=== PATIENT | female | born 1950 | race Caucasian/White ===

== ENCOUNTER 2020-05-28 02:49 | Inpatient (IN) | payer MEDICARE, MEDICAID ==
[2020-05-28] MEDS ORDERED: LORazepam 2 MG/ML INJ IV STA (03:19)
[2020-05-28 03:46] LABS: Basophils # (A) 0.1 k/uL (0-0.2); Basophils % (A) 1 %; Eosinophils % (A) 1 %; HCT 42.1 % (34.0-46.0); HGB 14.2 gm/dL (11.4-16.0); Lymphocytes # (A) 1.3 k/uL (1.0-4.8); Lymphocytes % (A) 22 %; MCH 32.2 pg (25.0-35.0); MCHC 33.7 g/dL (31.0-37.0); MCV 95.6 fL (80.0-100.0); Mean Platelet Volume 8.2; Monocytes # (A) 0.4 k/uL (0-1.0); Monocytes % (A) 6 %; Neutrophils # (A) 4.1 k/uL (1.3-7.7); Neutrophils % (A) 69 %; Platelet Count 231 k/uL (150-450); RDW 12.7 % (11.5-15.5)
[2020-05-28 03:53] LABS: Appearance,Urine Cloudy (Clear); Bilirubin,Urine Negative (Negative); Blood,Urine Negative (Negative); Color,Urine Yellow; Glucose,Urine (UA) Negative (Negative); Ketones,Urine 2+ (Negative); Leukocyte Esterase,Urine Trace (Negative); Mucus,Urine Many /hpf; Nitrite,Urine Negative (Negative); PH, Urine 5.5 (5.0-8.0); Protein,Urine 1+ (Negative); RBC,Urine 12 /hpf (0-5); Specific Gravity,Urine 1.032 (1.001-1.035); Squamous Epithelial Cell,Urine 15 /hpf (0-4); WBC,Urine 4 /hpf (0-5)
[2020-05-28 03:55] LABS: ALT 21 U/L (4-34); AST 21 U/L (14-36); Acetaminophen <10.0 ug/mL; African American GFR (CKD) >90 (>60 ml/min/1.73 sqM); Albumin 4.8 g/dL (3.5-5.0); Alkaline Phosphatase 63 U/L (38-126); Anion Gap 9 mmol/L; Blood Urea Nitrogen 17 mg/dL (7-17); Calcium 9.9 mg/dL (8.4-10.2); Carbon Dioxide 23 mmol/L (22-30); Chloride 105 mmol/L (98-107); Glucose 150 mg/dL (74-99); Non-African American GFR(CKD) >90 (>60 ml/min/1.73 sqM); Potassium 4.1 mmol/L (3.5-5.1); Salicylate <1.0 mg/dL; Sodium 137 mmol/L (137-145); Total Bilirubin 0.7 mg/dL (0.2-1.3); Total Protein 7.6 g/dL (6.3-8.2)
[2020-05-28 03:59] LABS: Amphetamine Screen,Urine Not Detected (NotDetected); Barbiturate Screen,Urine Not Detected (NotDetected); Benzodiazepines Screen,Urine Not Detected (NotDetected); Cocaine Screen,Urine Not Detected (NotDetected); Methadone Screen, Urine Not Detected (NotDetected); Opiate Screen,Urine Not Detected (NotDetected); Oxycodone Screen, Urine Not Detected (NotDetected); Phencyclidine Screen,Urine Not Detected (NotDetected); Tricyclic Antidepressant,Urine Not Detected (NotDetected); Urn Cannabinoid Scrn Detected (NotDetected)
--- NOTE | 2020-05-28 04:38 | ED ---
Psych HPI - General Chief Complaint: Psychiatric Symptoms Stated Complaint: Mental health Time Seen by Provider: 05/28/20 02:56 Source: patient, police Mode of arrival: ambulatory - History of Present Illness Initial Comments: Maria R is a 70-year-old female who is brought to the ER today via police for psychiatric evaluation. Apparently the patient lives in an apartment across her from [place], she was knocking on the dorsum the police station stating that she needed help. Patient is very clearly acutely psychotic and manic. She is hyperverbal with rambling nonsensical speech, she cannot provide any meaningful history. In fact she cannot provide any printed identification she stated her name and date of but also stated that she had been in this hospital mu ltiple times and this name and date of were not associated with the medical record. - Related Data Allergies Allergy/AdvReac Type Severity Reaction Status Date / Time No Known Allergies Allergy Verified 05/28/20 03:06 Review of Systems ROS Statement: Those systems with pertinent positive or pertinent negative responses have been documented in the HPI. ROS Other: All systems not noted in ROS Statement are negative. Past Medical History Past Medical History: No Reported History History of Any Multi-Drug Resistant Organisms: None Reported Past Surgical History: Tonsillectomy Past Psychological History: Anxiety, Depression Smoking Status: Never smoker Past Alcohol Use History: None Reported Past Drug Use History: None Reported General Exam - General Exam Comments Initial Comments: Physical Exam GENERAL: Patient is well-developed and well-nourished HENT: Normocephalic, Atraumatic. EYES: PERRL, EOMI PULMONARY: Unlabored respirations. CARDIOVASCULAR: RRR Warm and well perfused extremities ABDOMEN: Non-distended SKIN: No rashes or bruising : Deferred NEUROLOGIC: Unable to assess alert and oriented status as the patient is psychotic with rambling speech does not answer questions appropriately not even certain she's provided inaccurate identity MUSCULOSKELETAL: Moving all extremities with no apparent injury PSYCHIATRIC: Acutely psychotic with rambling speech Limitations: no limitations Course Vital Signs 05/28/20 02:58 Temperature 98.9 F Pulse Rate 114 H Respiratory 20 Rate Blood Pressure 149/74 O2 Sat by Pulse 98 Oximetry Medical Decision Making - Medical Decision Making The patient was seen and evaluated, history is obtained from police, attempted to obtain patient history however she has rambling speech she is acutely psychotic there is no meaningful history obtained from the patient. She is in no acute distress. Medically cleared for evaluation by EPS and was evaluated by the EPS nurse who agrees with plan for admission requests a clinical certification be completed Clinical circumflex was completed To be transferred to inpatient psychiatric care for acute psychosis - Lab Data Result diagrams: 05/28/20 03:29 05/28/20 03:29 Lab Results 05/28/20 05/28/20 05/28/20 Range/Units 03:29 03:29 03:29 WBC 6.0 (3.8-10.6) k/uL RBC 4.40 (3.80-5.40) m/uL Hgb 14.2 (11.4-16.0) gm/dL Hct 42.1 (34.0-46.0) % MCV 95.6 (80.0-100.0) fL MCH 32.2 (25.0-35.0) pg MCHC 33.7 (31.0-37.0) g/dL RDW 12.7 (11.5-15.5) % Plt Count 231 (150-450) k/uL Neutrophils % 69 % Lymphocytes % 22 % Monocytes % 6 % Eosinophils % 1 % Basophils % 1 % Neutrophils # 4.1 (1.3-7.7) k/uL Lymphocytes # 1.3 (1.0-4.8) k/uL Monocytes # 0.4 (0-1.0) k/uL Eosinophils # 0.0 (0-0.7) k/uL Basophils # 0.1 (0-0.2) k/uL Sodium 137 (137-145) mmol/L Potassium 4.1 (3.5-5.1) mmol/L Chloride 105 (98-107) mmol/L Carbon Dioxide 23 (22-30) mmol/L Anion Gap 9 mmol/L BUN 17 (7-17) mg/dL Creatinine 0.55 (0.52-1.04) mg/dL Est GFR (CKD-EPI)AfAm >90 (>60 ml/min/1.73 sqM) Est GFR (CKD-EPI)NonAf >90 (>60 ml/min/1.73 sqM) Glucose 150 H (74-99) mg/dL Calcium 9.9 (8.4-10.2) mg/dL Total Bilirubin 0.7 (0.2-1.3) mg/dL AST 21 (14-36) U/L ALT 21 (4-34) U/L Alkaline Phosphatase 63 (38-126) U/L Total Protein 7.6 (6.3-8.2) g/dL Albumin 4.8 (3.5-5.0) g/dL TSH 2.000 (0.465-4.680) mIU/L Urine Color Yellow Urine Appearance Cloudy H (Clear) Urine pH 5.5 (5.0-8.0) Ur Specific [place] 1.032 (1.001-1.035) Urine Protein 1+ H (Negative) Urine Glucose (UA) Negative (Negative) Urine Ketones 2+ H (Negative) Urine Blood Negative (Negative) Urine Nitrite Negative (Negative) Urine Bilirubin Negative (Negative) Urine Urobilinogen 3.0 (<2.0) mg/dL Ur Leukocyte Esterase Trace H (Negative) Urine RBC 12 H (0-5) /hpf Urine WBC 4 (0-5) /hpf Ur Squamous Epith Cells 15 H (0-4) /hpf Urine Mucus Many H (None) /hpf Salicylates <1.0 mg/dL Urine Opiates Screen Not Detected (NotDetected) Ur Oxycodone Screen Not Detected (NotDetected) Urine Methadone Screen Not Detected (NotDetected) Ur Propoxyphene Screen Not Detected (NotDetected) Acetaminophen <10.0 ug/mL Ur Barbiturates Screen Not Detected (NotDetected) U Tricyclic Antidepress Not Detected (NotDetected) Ur Phencyclidine Scrn Not Detected (NotDetected) Ur Amphetamines Screen Not Detected (NotDetected) U Methamphetamines Scrn Not Detected (NotDetected) U Benzodiazepines Scrn Not Detected (NotDetected) Urine Cocaine Screen Not Detected (NotDetected) U Marijuana (THC) Screen Detected H (NotDetected) Disposition Clinical Impression: Acute psychosis Disposition: TRANSFER TO PSYCH HOSP/UNIT Condition: Serious Referrals: Mitul Mahan MD [Primary Care Provider] - 1-2 days
[2020-05-28] MEDS ORDERED: MAGNESIUM HYDROXIDE 2,400 MG/10 ML CUP PO PRN (07:22)
[2020-05-28] MEDS ORDERED: NICOTINE 14MG/24HR PATCH TRANSDERM SCH (09:00)
[2020-05-28] MEDS: LORazepam 1 MG TAB PO PRN (09:30)
--- NOTE | 2020-05-28 12:02 | P.HP ---
Psychiatric H&P - . H&P Date: 05/28/20 History & Physical: Allergies Allergy/AdvReac Type Severity Reaction Status Date / Time No Known Allergies Allergy Verified 05/28/20 03:06 Vital Signs Temp 97.6 F 05/28/20 09:50 Pulse 93 05/28/20 09:50 Resp 16 05/28/20 09:50 BP 174/59 05/28/20 09:50 Pulse Ox 100 05/28/20 09:50 Intake & Output 05/27/20 05/28/20 05/28/20 18:59 06:59 18:59 Weight 61.054 kg 60.555 kg Laboratory Last Values WBC 6.0 k/uL (3.8-10.6) 05/28/20 03:29 RBC 4.40 m/uL (3.80-5.40) 05/28/20 03:29 Hgb 14.2 gm/dL (11.4-16.0) 05/28/20 03:29 Hct 42.1 % (34.0-46.0) 05/28/20 03:29 MCV 95.6 fL (80.0-100.0) 05/28/20 03:29 MCH 32.2 pg (25.0-35.0) 05/28/20 03:29 MCHC 33.7 g/dL (31.0-37.0) 05/28/20 03:29 RDW 12.7 % (11.5-15.5) 05/28/20 03:29 Plt Count 231 k/uL (150-450) 05/28/20 03:29 Neutrophils % 69 % 05/28/20 03:29 Lymphocytes % 22 % 05/28/20 03:29 Monocytes % 6 % 05/28/20 03:29 Eosinophils % 1 % 05/28/20 03:29 Basophils % 1 % 05/28/20 03:29 Neutrophils # 4.1 k/uL (1.3-7.7) 05/28/20 03:29 Lymphocytes # 1.3 k/uL (1.0-4.8) 05/28/20 03:29 Monocytes # 0.4 k/uL (0-1.0) 05/28/20 03:29 Eosinophils # 0.0 k/uL (0-0.7) 05/28/20 03:29 Basophils # 0.1 k/uL (0-0.2) 05/28/20 03:29 Sodium 137 mmol/L (137-145) 05/28/20 03:29 Potassium 4.1 mmol/L (3.5-5.1) 05/28/20 03:29 Chloride 105 mmol/L (98-107) 05/28/20 03:29 Carbon Dioxide 23 mmol/L (22-30) 05/28/20 03:29 Anion Gap 9 mmol/L 05/28/20 03:29 BUN 17 mg/dL (7-17) 05/28/20 03:29 Creatinine 0.55 mg/dL (0.52-1.04) 05/28/20 03:29 Est GFR (CKD-EPI)AfAm >90 (>60 ml/min/1.73 sqM) 05/28/20 03:29 Est GFR (CKD-EPI)NonAf >90 (>60 ml/min/1.73 sqM) 05/28/20 03:29 Glucose 150 mg/dL (74-99) H 05/28/20 03:29 Calcium 9.9 mg/dL (8.4-10.2) 05/28/20 03:29 Total Bilirubin 0.7 mg/dL (0.2-1.3) 05/28/20 03:29 AST 21 U/L (14-36) 05/28/20 03:29 ALT 21 U/L (4-34) 05/28/20 03:29 Alkaline Phosphatase 63 U/L (38-126) 05/28/20 03:29 Total Protein 7.6 g/dL (6.3-8.2) 05/28/20 03:29 Albumin 4.8 g/dL (3.5-5.0) 05/28/20 03:29 TSH 2.000 mIU/L (0.465-4.680) 05/28/20 03:29 Urine Color Yellow 05/28/20 03:29 Urine Appearance Cloudy (Clear) H 05/28/20 03:29 Urine pH 5.5 (5.0-8.0) 05/28/20 03:29 Ur Specific [place] 1.032 (1.001-1.035) 05/28/20 03:29 Urine Protein 1+ (Negative) H 05/28/20 03:29 Urine Glucose (UA) Negative (Negative) 05/28/20 03:29 Urine Ketones 2+ (Negative) H 05/28/20 03:29 Urine Blood Negative (Negative) 05/28/20 03:29 Urine Nitrite Negative (Negative) 05/28/20 03:29 Urine Bilirubin Negative (Negative) 05/28/20 03:29 Urine Urobilinogen 3.0 mg/dL (<2.0) 05/28/20 03:29 Ur Leukocyte Esterase Trace (Negative) H 05/28/20 03:29 Urine RBC 12 /hpf (0-5) H 05/28/20 03:29 Urine WBC 4 /hpf (0-5) 05/28/20 03:29 Ur Squamous Epith Cells 15 /hpf (0-4) H 05/28/20 03:29 Urine Mucus Many /hpf (None) H 05/28/20 03:29 Salicylates <1.0 mg/dL 05/28/20 03:29 Urine Opiates Screen Not Detected (NotDetected) 05/28/20 03:29 Ur Oxycodone Screen Not Detected (NotDetected) 05/28/20 03:29 Urine Methadone Screen Not Detected (NotDetected) 05/28/20 03:29 Ur Propoxyphene Screen Not Detected (NotDetected) 05/28/20 03:29 Acetaminophen <10.0 ug/mL 05/28/20 03:29 Ur Barbiturates Screen Not Detected (NotDetected) 05/28/20 03:29 U Tricyclic Antidepress Not Detected (NotDetected) 05/28/20 03:29 Ur Phencyclidine Scrn Not Detected (NotDetected) 05/28/20 03:29 Ur Amphetamines Screen Not Detected (NotDetected) 05/28/20 03:29 U Methamphetamines Scrn Not Detected (NotDetected) 05/28/20 03:29 U Benzodiazepines Scrn Not Detected (NotDetected) 05/28/20 03:29 Urine Cocaine Screen Not Detected (NotDetected) 05/28/20 03:29 U Marijuana (THC) Screen Detected (NotDetected) H 05/28/20 03:29 05/28/20 11:58 IDENTIFYING DATA: Patient is a 70-year-old female who presented with psychosis. HPI: Patient presented to the hospital on 05/28/2020 brought in by police after she was knocking on the door of the police station stating that she needed help. Patient has been observed to be very acutely psychotic and manic. She was noted to be hyperverbal, rambling, with nonsensical speech. She was a poor historian. She was unable to present any identification. While on the unit, th e patient was observed to display manic behaviors including pressured speech, distractibility, impulsivity, and intrusiveness. She was given a one-time dose of Ativan. Currently she is too somnolent to engage in the interview after multiple attempts by this provider. She refuses to get out of bed.. PAST PSYCHIATRIC HISTORY: Unable to obtain by the patient as she is too somnolent to engage in a psychiatric interview. PMH:denies ALLERGIES: as per EMR CHEMICAL DEPENDENCY HISTORY: Unable to obtain by the patient as she is too somnolent to engage in a psychiatric interview. Urinary drug screen was positive for marijuana. FAMILY PSYCHIATRIC/SUBSTANCE USE HISTORY: Unable to obtain by the patient as she is too somnolent to engage in a psychiatric interview. SOCIAL HISTORY: Unable to obtain. MENTAL STATUS EXAM: General Appearance: Patient appears his stated age, is currently resting in bed with her face towards the pillow. She appears in no acute distress and was breathing normally. Behavior: Patient is lying in bed in no acute distress. Speech: Patient has been noted by staff to be pressured. Mood/Affect: Unable to assess Suicidality/Homicidality: Unable to assess Perceptions: Unable to assess Though content/process: She has been noted by staff to display flight of ideas. Memory and concentration: Unable to assess Judgment and insight: poor STRENGTHS/WEAKNESSES: Unable to assess INTELLECT: average IMPRESSIONS: Psychosis, unspecified PLAN: -Patient is admitted under involuntary status to [facility] for stabilization of psychiatric symptoms and safety. A second certification was completed and along with petition will be filed for court. -Medications : We will defer on starting a new medication until we conduct a thorough psychiatric interview when patient is more appropriate. -Ativan and Geodon PRN for agitation/aggression -Internal Medicine consult to perform medical evaluation and physical. -SW on board for discharge planning. Encourage patient to participate in groups to work on coping skills.
[2020-05-29] MEDS: LORazepam 1 MG TAB PO PRN (01:40)
[2020-05-29 07:59] LABS: Albumin 4.4 g/dL (3.5-5.0); Bilirubin, Delta 0.2 mg/dL (0.0-0.2); Bilirubin,Unconjugated 0.6 mg/dL (0.0-1.1); Total Bilirubin 0.8 mg/dL (0.2-1.3); Total Protein 7.1 g/dL (6.3-8.2)
[2020-05-29] MEDS: LORazepam 2 MG/ML INJ IM PRN (09:16)
--- NOTE | 2020-05-29 12:08 | P.PN ---
Progress Note - Text Progress Note Date: 05/29/20 Interval History: Patient was seen sitting in on group today doing activities with other patients and was initially resistant to speak with telegraphic typewriter operator as she was questioning telegraphic typewriter operator's credentials. Patient was eventually directable and agreeable to speak with telegraphic typewriter operator in the office. Patient was noted to be hyperverbal and has a racing thought and flight of ideas. She was intrusive at times and yelled at telegraphic typewriter operator about her medications. Patient appeared to have poor insight and judgment and was impulsive. Patient had poor attention span during conversation. She is not able to elaborate on why she came into the hospital and what her exact concerns are. She referred to her brother several times "Paolo" to defer the treatment to him. She was also preoccupied with her card cutter helper will be to speak with her. Patient did exhibit some paranoia. She states that she also had difficulties with sleep last night. At this time patient denies any suicidal or homical ideations, intent or plan. Patient denies any auditory, visual hallucinations. Mental Status Exam: General Appearance: Patient appears to be thin, tall stated age is alert, difficult to redirect and hostile at times. Poor hygiene and grooming. Behavior: Patient is calmly seated without any agitated behavior. Hostile and difficult to redirect. Speech: Patient's speech is fluent and nonpressured. Mood/Affect: Mood is "up", affect is congruent and irritable at times. Suicidality/Homicidality: Patient denies having any suicidal or homicidal ideation intent or plan. Perceptions: Patient denies any visual hallucinations and denies any auditory hallucinations Though content/process: Patient is endorsing paranoia, rambles at times is tangential. Illogical at times. Memory and concentration: AOX3, grossly intact for the purposes of this session Judgment and insight: Poor, Improving mildly Assessment Bipolar disorder, current episode manic, severe Cannabis use disorder Plan: -Patient continues to meet criteria for inpatient psychiatric admission for symptom stabilization and safety. Patient has signed adult voluntary form and medication consent and was placed in patient's chart. Patient's deferral date is set for today and full court hearing set for 05/31/2020. -Medications: Patient claims that she'll be agreeable to take Seroquel 25 mg daily +50 mg daily at bedtime for mood stabilization/insomnia. -When necessary Ativan and Geodon for agitation/aggression. -NRT -not needed as patient does not smoke. -SW on board for discharge planning. Encouraged the patient to participate in milieu. Will await on deferral today.
[2020-05-29] MEDS: QUEtiapine 25 MG TAB PO SCH (12:27)
[2020-05-29 14:41] LABS: Hemoglobin A1C 5.6 % (4.0-6.0)
--- NOTE | 2020-05-29 14:44 | P.CONS ---
History of Present Illness - Reason for Consult Altered mental status - History of Present Illness 70-year-old female admitted for bipolar and jair. Patient they didn't let me examine her she wants to see only her primary doctor patient appears to be manic. Patient doesn't have any fever chills patient doesn't have any evidence of infection. Patient was asking me whether that was admitted physician or not. Patient drug screen is positive for marijuana patient was bit tachycardic secondary to her jair Review of Systems Unable to obtain due to her clinical condition as mentioned above Past Medical History Past Medical History: No Reported History History of Any Multi-Drug Resistant Organisms: None Reported Past Surgical History: Tonsillectomy Past Psychological History: Anxiety, Depression Smoking Status: Never smoker Past Alcohol Use History: None Reported Past Drug Use History: None Reported Medications and Allergies Allergies Allergy/AdvReac Type Severity Reaction Status Date / Time No Known Allergies Allergy Verified 05/28/20 03:06 Physical Exam Vitals: Vital Signs Temp Pulse Resp BP 05/29/20 06:30 98.5 F 92 16 107/66 Unable to assess his patient doesn't admit to examine her. Results CBC & Chem 7: 05/28/20 03:29 05/28/20 03:29 Labs: Abnormal Lab Results - Last 24 Hours (Table) 05/29/20 Range/Units 07:16 LDL Cholesterol, Calc 105 H (0-99) mg/dL Assessment and Plan Plan: Altered mental status: Secondary to probably jair and acute psychosis management as per primary service there is no evidence of infection at this time . All the left lesser within normal limits no leukocytosis and no fever -Mild sinus tachycardia: Secondary to jair. We will sign off at this time because back if needed
[2020-05-29] MEDS: ZIPRASIDONE 20 MG VIAL IM PRN (17:15)
[2020-05-29] MEDS: QUEtiapine 50 MG TAB PO SCH (22:44)
[2020-05-30] MEDS: QUEtiapine 25 MG TAB PO SCH (07:47)
--- NOTE | 2020-05-30 11:17 | P.PN ---
Progress Note - Text Progress Note Date: 05/30/20 Interval History: Patient was seen wandering the hallways todayspeaking to herself. Patient jaimie eared to be responding to internal stimuli and appeared to be intrusive and impulsive. She was noted to be yelling at another patient on the unit trying to pick a fight with her. Patient was also noted to be pacing in the hallway. When approached by teletypewriter operator patient appeared to have disheveled appearance today and refused to speak with teletypewriter operator and kept on walking down the hallway talking to herself. Mental Status Exam: General Appearance: Patient appears to be thin, tall stated age is alert, difficult to redirect and hostile. Poor hygiene and grooming. Behavior: Patient is calmly seated without any agitated behavior. Hostile. responding to internal stimuli Speech: Patient's speech is fluent and nonpressured. Mood/Affect: unable to be assessed today. Suicidality/Homicidality: unable to be assessed today. Perceptions: appears to be responding to internal stimuli. Though content/process: rambles at times is tangential. Illogical at times. Memory and concentration: unable to be assessed today Judgment and insight: Poor/impulsive Assessment Bipolar disorder, current episode manic, severe Cannabis use disorder Plan: -Patient continues to meet criteria for inpatient psychiatric admission for symptom stabilization and safety. Patient has signed adult voluntary form and medication consent and was placed in patient's chart. Patient did not differ Court and full court hearing set for 05/31/2020. -Medications: continue with Seroquel 25 mg daily +50 mg daily at bedtime for mood stabilization/insomnia. -When necessary Ativan and Geodon for agitation/aggression. -NRT -not needed as patient does not smoke. -SW on board for discharge planning. Encouraged the patient to participate in milieu. Will await on full court hearing tomorrow. a third certificate was completed and will be filed today.
[2020-05-30] MEDS: LORazepam 1 MG TAB PO PRN ×2 (15:37→23:00)
[2020-05-30] MEDS ORDERED: ZIPRASIDONE 20 MG VIAL IM ONE (16:25)
[2020-05-30] MEDS ORDERED: WATER FOR INJECTION, STERILE 10 ML IV ONE (16:26)
[2020-05-30] MEDS: ZIPRASIDONE 20 MG VIAL IM PRN ×2 (16:28→23:41)
[2020-05-30] MEDS: QUEtiapine 50 MG TAB PO SCH ×2 (22:06→23:00)
[2020-05-31] MEDS: QUEtiapine 25 MG TAB PO SCH (09:16)
--- NOTE | 2020-05-31 11:19 | P.PN ---
Progress Note - Text Progress Note Date: 05/31/20 Interval History: Patient was seen wandering the hallways today once again speaking to herself. Patient appeared to be responding to internal stimuli and appeared to be intrusive and impulsive. she was speaking bizarrely to another patient in the lounge when approached by property underwriter. Patient looked property underwriter and asked what his credentials were and states that "I'm not taking her medicineleave me alone and I have the right not to talk to you". Patient continued to ramble onas she walked away from property underwriter and refused to speak with him in the office. patient has not been taking her medications. Mental Status Exam: General Appearance: Patient appears to be thin, tall stated age is alert, difficult to redirect and hostile. Poor hygiene and grooming. Behavior: Patient is calmly seated without any agitated behavior. Hostile. responding to internal stimuli Speech: Patient's speech is fluent and nonpressured. Mood/Affect: unable to be assessed today. Suicidality/Homicidality: unable to be assessed today. Perceptions: appears to be responding to internal stimuli. Though content/process: rambles at times is tangential. Illogical at times. Memory and concentration: unable to be assessed today Judgment and insight: Poor/impulsive Assessment Bipolar disorder, current episode manic, severe Cannabis use disorder Plan: -Patient continues to meet criteria for inpatient psychiatric admission for symptom stabilization and safety. Patient has signed adult voluntary form and medication consent and was placed in patient's chart. Patient did not differ Court and full court hearing set for 06/14/2020. -Medications: continue with Seroquel 25 mg daily +50 mg daily at bedtime for mood stabilization/insomnia.patient is not taking these medications. -When necessary Ativan and Geodon for agitation/aggression. -NRT -not needed as patient does not smoke. -SW on board for discharge planning. Encouraged the patient to participate in milieu. Will await on full court hearing. a third certificate was completed and filed yesterday, currently awaiting amilcar
[2020-05-31] MEDS: ZIPRASIDONE 20 MG VIAL IM PRN (17:45)
[2020-05-31] MEDS: LORazepam 2 MG/ML INJ IM PRN (17:47)
[2020-05-31] MEDS: QUEtiapine 50 MG TAB PO SCH (21:35)
[2020-06-01] MEDS: QUEtiapine 25 MG TAB PO SCH (09:25)
--- NOTE | 2020-06-01 10:30 | P.PN ---
Progress Note - Text Progress Note Date: 06/01/20 Interval History: Patient was seen wandering the hallways today once again speaking to herself and acting bizarre. Patient appeared to be responding to internal stimuli and appeared to be intrusive and impulsive. patient was not following redirection by staff and continue walking down the hallway. Patient was approached by play writer to be interviewed however patient states that "I'm not talking to you I have my own psychiatrist who is better than you". Patient continued to ramble and walk away from play writer. patient has not been taking her medications. Mental Status Exam: General Appearance: Patient appears to be thin, tall stated age is alert, difficult to redirect and hostile. Poor hygiene and grooming. Behavior: Patient is calmly seated without any agitated behavior. Hostile. responding to internal stimuli Speech: Patient's speech is fluent and nonpressured. Mood/Affect: unable to be assessed today. Suicidality/Homicidality: unable to be assessed today. Perceptions: appears to be responding to internal stimuli. Though content/process: rambles at times is tangential. Illogical at times. Memory and concentration: unable to be assessed today Judgment and insight: Poor/impulsive Assessment Bipolar disorder, current episode manic, severe Cannabis use disorder Plan: -Patient continues to meet criteria for inpatient psychiatric admission for symptom stabilization and safety. Patient has signed adult voluntary form and medication consent and was placed in patient's chart. Patient did not differ Court and full court hearing set for 06/14/2020. -Medications: continue with Seroquel 25 mg daily +50 mg daily at bedtime for mood stabilization/insomnia.patient is not taking these medications. -When necessary Ativan and Geodon for agitation/aggression. -NRT -not needed as patient does not smoke. -SW on board for discharge planning. Encouraged the patient to participate in milieu. Will await on full court hearing on 06/14/2020
[2020-06-01] MEDS: LORazepam 2 MG/ML INJ IM PRN (15:59)
[2020-06-01] MEDS: ZIPRASIDONE 20 MG VIAL IM PRN (15:59)
[2020-06-01] MEDS: QUEtiapine 50 MG TAB PO SCH (22:43)
[2020-06-02] MEDS: QUEtiapine 25 MG TAB PO SCH (08:46)
--- NOTE | 2020-06-02 10:41 | P.PN ---
Progress Note - Text Progress Note Date: 06/02/20 Interval History: Patient was seen wandering the hallways today once again near the nurse's desk. Patient had 2 towels wrapped around her and was in her hospital gown. Patient was approached by assembly instructions writer to speak with her today and patient states that "I don't want to talk to you you don't have this place under control". However patient states that the she would speak with assembly instructions writer "in private" however was not directable and agreeable to speak in the office and wanted to speak in the hallway. She proceeded to ramble, was illogical and tangential. She spoke about another patient being a "threat to me". Patient was not able to answer most questions appropriately and was fairly grandiose speaking about her brother being the "head of the [facility] in [place]" and also spoke about calling the governor and the president to help her be released from the hospital. Patient appeared to be mildly less intrusive today and less pressured. She denied any auditory or visual hallucinations today. She denied any suicidal or homicidal ideations intent or plan. Patient states that she took her medications yesterday and this morning. Mental Status Exam: General Appearance: Patient appears to be thin, tall stated age is alert, difficult to redirect, bizarre. Poor hygiene and grooming. Wearing a towel over her head. Behavior: Patient is calmly seated without any agitated behavior. Bizarre and difficult to redirect. Grandiose. Speech: Patient's speech is fluent and nonpressured. Mood/Affect: Patient states that she is "fine" and affect is constricted. Suicidality/Homicidality: Denies any suicidal or homicidal ideations intent or plan. Perceptions: Denies any auditory or visual hallucinations. Though content/process: rambles at times is tangential. Illogical at times. Several loosely formed delusions. Grandiosity. Memory and concentration: unable to be assessed today Judgment and insight: Poor/impulsive, improving mildly Assessment Bipolar disorder, current episode manic, severe Cannabis use disorder Plan: -Patient continues to meet criteria for inpatient psychiatric admission for symptom stabilization and safety. Patient has signed adult voluntary form and medication consent and was placed in patient's chart. Patient did not defer Court and full court hearing set for 06/14/2020. -Medications: Increased Seroquel 50 mg daily +50 mg daily at bedtime for mood stabilization/insomnia. patient began taking the medications yesterday -When necessary Ativan and Geodon for agitation/aggression. -NRT -not needed as patient does not smoke. -JOSÉ MIGUEL on board for discharge planning. Encouraged the patient to participate in milieu. Will await on full court hearing on 06/14/2020
[2020-06-02] MEDS: LORazepam 1 MG TAB PO PRN ×2 (11:04→21:24)
[2020-06-02] MEDS: ACETAMINOPHEN TAB 325 MG TAB PO PRN ×2 (16:05→16:47)
[2020-06-02] MEDS: QUEtiapine 50 MG TAB PO SCH (19:12)
[2020-06-02] MEDS: ZIPRASIDONE 20 MG VIAL IM PRN (21:53)
[2020-06-03] MEDS ORDERED: QUEtiapine 50 MG TAB PO SCH ×2 (09:00→21:00)
[2020-06-03] MEDS: LORazepam 1 MG TAB PO PRN (09:22)
[2020-06-03] MEDS: QUEtiapine 50 MG TAB PO SCH (12:54)
--- NOTE | 2020-06-03 13:53 | PN ---
PROGRESS NOTE DATE OF SERVICE: 06/03/2020 CHIEF COMPLAINT: The patient was manic with psychotic symptoms. She had disorganized speech and behavior. INTERVAL HISTORY: The patient continues to be quite manic. She was out on the unit yesterday. She has an intense manner. She will attend groups, though she can be somewhat disorganized in groups. In one note from the social skills group, she was needing quite a bit of redirection to participate. The note was that she was "minimally redirectable." She wanders about. She will interact with staff. She said she slept fairly well last night. Today she has been up. She continues the same. She attended one group this morning, though it was difficult for her to stay on track. She continues to be quite disorganized in her thoughts. She appears to tolerate her psychotropic medications. MENTAL STATUS: Patient was quite restless. She gave fair eye contact. She responded to questions, though most of the time her thoughts were disjointed and disconnected from questions asked. When I reviewed information from the record, she was quite adamant that most everything that was documented about her situation she said was a lie or false. It is noteworthy that she was spontaneous. She was quite intense and verbose. She talked about any number of subjects. She had pressured speech, flight of ideas and loose association and it was difficult to follow her train of thought. Her mood was somewhat elevated. She did have pressured speech. She was very distressed. She continues to show thought disorder. It is difficult to assess for risk of harm. She was oriented to immediate circumstances. She could not cooperate with formal cognitive testing. ASSESSMENT: I will continue the current diagnosis and treatment plan. We will continue to make efforts to engage the patient in individual and group therapeutic activities. I will increase the patient's Seroquel to 150 mg twice a day to increase her Seroquel to at least a minimally effective dosing for bipolar jair. It is uncleared that she has shown much response to date in this regard. She continues to be quite actively manic. I briefly discussed medications with the patient, though she was not able to follow the conversation in any meaningful way. We will focus on stabilization and discharge plan. MMODL / IJN: [id number] /
[2020-06-04] MEDS: LORazepam 1 MG TAB PO PRN ×2 (00:51→08:55)
[2020-06-04] MEDS: QUEtiapine 50 MG TAB PO SCH (08:54)
[2020-06-04] MEDS: ACETAMINOPHEN TAB 325 MG TAB PO PRN ×2 (11:39→16:42)
--- NOTE | 2020-06-04 16:06 | PN ---
PROGRESS NOTE DATE OF SERVICE: 06/04/2020. CHIEF COMPLAINT: The patient was manic with psychotic symptoms. She had disorganized speech and behavior. INTERVAL HISTORY: Patient has been doing fair. It is noted that yesterday she did accept Seroquel 150 mg which she received at 1 pm in the afternoon. Nursing noted that as the day went on yesterday, she seemed to be clearer in her thoughts and calmer in her manner. She exhibited less manic symptoms. Overall, her speech was clear and more reality based. She declined taking 150 mg in the evening time because she was offered 3 pills. She would only take 1 pill. She has been attending the majority of groups. It is noted that typically she is disorganized in her thoughts. In the group, she may need some support to stay on track. When I saw her today, she was fairly disorganized in her thoughts. She had declined taking the morning Seroquel. She made statements that she did not like the side effects, though it was difficult to be clear what she was referring to. She showed considerable lability in her mood and went from engaging fairly easily in conversation to the point of becoming distressed and tearful. It was not clear what issues she may have been responding to. She did say she is willing to take 1 pill at bedtime, though did not want to take the 3 pills that had previously been offered to her. She appears to tolerate her psychotropic medications. MENTAL STATUS: Patient was fairly restless. She initially seemed to be engaged in the conversation, though things quickly declined where she was making various offhand comments that were not connected to the subject at hand. Her affect was intense. She had disorganized thoughts. Her mood was quite labile where she would have a calm manner 1 moment and then was distressed and crying the next. Overall she seemed quite distressed. She asked to have her blood pressure checked. When she went to the desk to get her blood pressure checked, at that point, I came to check up on her and she turned away and would not interact. It was not clear what the issue was. She continues to show a sense of psychotic thinking. It is difficult to assess for thoughts of harm. She was oriented to circumstances and surroundings. ASSESSMENT: I will continue the current diagnosis and treatment plan. At this point I will increase the patient's Seroquel to 400 mg at bedtime, 400 mg as a single pill. It is noted that the patient has acute jair and has had persistent manic symptoms since she has been hospitalized. Seroquel has indication for bipolar jair in the dose range of 400-600 mg a day. The patient appeared to tolerate the Seroquel previously. It is critical that we help her gain control of her manic symptoms which do create significant risks for the patient. We will focus on stabilization and discharge plan. MMODL / IJN: [id number] /
[2020-06-04] MEDS: QUEtiapine 400 MG TAB PO SCH (20:55)
[2020-06-04] MEDS ORDERED: QUEtiapine 100 MG TAB PO SCH (21:00)
--- NOTE | 2020-06-05 10:14 | P.PN ---
Progress Note - Text Progress Note Date: 06/05/20 Interval History: Patient was seen wandering the hallways today and was continuing to speak to h erself and was rambling. Patient was approached by adjusto writer operator to speak however patient was illogical and demanded adjusto writer operator to "leave me alone" and also stated that "I need my other doctor, my real psychiatrist". She continues to speak about the [facility] and her brother. Patient also had multiple somatic complaints and was fairly demanding asking for more urgent medical attention. She proceeded to ramble, was illogical and tangential. Patient appeared to be mildly less intrusive today and less pressured. Patient claimed that she did not want to speak to adjusto writer operator in the office and walked away. Patient states that she took her medications last night of Seroquel 400 mg daily at bedtime. Mental Status Exam: General Appearance: Patient appears to be thin, tall stated age is alert, d ifficult to redirect, bizarre. Poor hygiene and grooming. Wearing a towel over her head. Behavior: Patient is calmly seated without any agitated behavior. Bizarre and difficult to redirect. Speech: Patient's speech is fluent and nonpressured. Loud. Mood/Affect: Patient states that she is "not good" and affect is labile. Suicidality/Homicidality: Denies any suicidal or homicidal ideations intent or plan. Perceptions: Denies any auditory or visual hallucinations. Though content/process: rambles at times is tangential. Illogical at times. improving Grandiosity. Memory and concentration: unable to be assessed today Judgment and insight: Poor/impulsive, improving mildly Assessment Bipolar disorder, current episode manic, severe Cannabis use disorder Plan: -Patient continues to meet criteria for inpatient psychiatric admission for symptom stabilization and safety. Patient has signed adult voluntary form and medication consent and was placed in patient's chart. Patient did not defer Court and full court hearing set for 06/14/2020. -Medications: Increased Seroquel 50 mg daily + 400 mg daily at bedtime for mood stabilization/insomnia. patient is currently taking medications. -When necessary Ativan and Geodon for agitation/aggression. -NRT -not needed as patient does not smoke. -SW on board for discharge planning. Encouraged the patient to participate in milieu. Will await on full court hearing on 06/14/2020
[2020-06-05] MEDS: QUEtiapine 50 MG TAB PO SCH ×2 (10:49→10:51)
[2020-06-05 11:27] VITALS: BMI 19.8
[2020-06-05] MEDS: ZIPRASIDONE 20 MG VIAL IM PRN (19:02)
[2020-06-05] MEDS: QUEtiapine 400 MG TAB PO SCH (21:42)
[2020-06-06] MEDS: QUEtiapine 400 MG TAB PO SCH ×2 (01:24)
[2020-06-06] MEDS: QUEtiapine 50 MG TAB PO SCH (09:37)
--- NOTE | 2020-06-06 10:23 | P.PN ---
Progress Note - Text Progress Note Date: 06/06/20 Interval History: Patient was seen wandering the hallways today and was continuing to speak to h erself and was rambling. Patient continues to be impulsive and illogical/tangential during conversation. Patient claimed that she did not want to speak with marketing writer today in the office however spoke with him briefly outside of her doorway. Patient was preoccupied with another patient receiving a injection. She continues to state that she does not need medications and she was refusing medications earlier today. She claims that "I'm all-natural I don't need meds". Patient did take the Seroquel last night however states that she did not sleep well last night. She continues to have poor insight and judgment. She continues to have pressured speech and no flight of ideas. Patient denies any auditory or visual hallucinations and denies any suicidal or homicidal ideations intent or plan. Mental Status Exam: General Appearance: Patient appears to be thin, tall stated age is alert, difficult to redirect, bizarre. Poor hygiene and grooming. Behavior: Patient is calmly seated without any agitated behavior. Bizarre and difficult to redirect. Speech: Patient's speech is fluent and nonpressured. Loud. Mood/Affect: Patient states that she is "not good" and affect is labile. Suicidality/Homicidality: Denies any suicidal or homicidal ideations intent or plan. Perceptions: Denies any auditory or visual hallucinations. Though content/process: rambles at times is tangential. Illogical at times. improving Grandiosity. Memory and concentration: unable to be assessed today Judgment and insight: Poor/impulsive, improving mildly Assessment Bipolar disorder, current episode manic, severe Cannabis use disorder Plan: -Patient continues to meet criteria for inpatient psychiatric admission for symptom stabilization and safety. Patient has signed adult voluntary form and medication consent and was placed in patient's chart. Patient did not defer Court and full court hearing set for 06/14/2020. -Medications: Discontinue Seroquel due to ineffectiveness and patient not taking the medication. Will start patient on Risperdal 1 mg twice a day for mood stabilization/insomnia. Will also start patient on lithium 300 mg twice a day for mood stabilization. -When necessary Ativan and Geodon for agitation/aggression. -NRT -not needed as patient does not smoke. -SW on board for discharge planning. Encouraged the patient to participate in milieu. Will await on full court hearing on 06/14/2020
[2020-06-06] MEDS: LITHIUM CARBONATE 300 MG CAP PO SCH ×2 (12:03→19:53)
[2020-06-06] MEDS: ZIPRASIDONE 20 MG VIAL IM PRN ×2 (14:37→20:04)
[2020-06-06] MEDS: risperiDONE 1 MG TAB PO SCH (19:53)
[2020-06-06] MEDS ORDERED: risperiDONE 1 MG TAB PO SCH (21:00)
[2020-06-07] MEDS ORDERED: LORazepam 2 MG/ML INJ IM STA (04:26)
[2020-06-07] MEDS ORDERED: HALOPERIDOL LACTATE 5 MG/ML 1 ML VIAL IM STA (04:26)
[2020-06-07] MEDS: risperiDONE 1 MG TAB PO SCH ×2 (09:09→21:54)
[2020-06-07] MEDS: LITHIUM CARBONATE 300 MG CAP PO SCH ×2 (09:09→21:54)
[2020-06-07] MEDS ORDERED: HALOPERIDOL LACTATE 5 MG/ML 1 ML VIAL IM PRN (10:16)
[2020-06-07] MEDS ORDERED: LORazepam 2 MG/ML INJ IM PRN (10:17)
--- NOTE | 2020-06-07 10:25 | P.PN ---
Progress Note - Text Progress Note Date: 06/07/20 Interval History: Patient was seen wandering the hallways today at the nurse's desk and was cont inuing to speak to herself and was rambling. Patient continues to be illogical/tangential during conversation and was difficult to redirect. Patient was however today agreeable to speak with typewriter assembler in the office. She was adamant that the typewriter assembler close the door as "people do not listen in on me". She continues to speak about other patients on the unit that have been bothering her. Patient continues to have a flight of ideas. She continues to refuse medications and states that "I want something natural". She states that she did not sleep well last night. Patient was given a Geodon shot yesterday and required Haldol and Ativan IM last night. She continues to have poor insight and judgment. She continues to have pressured speech and no flight of ideas. Patient denies any auditory or visual hallucinations and denies any suicidal or homicidal ideations intent or plan. Mental Status Exam: General Appearance: Patient appears to be thin, tall stated age is alert, difficult to redirect, bizarre. Poor hygiene and grooming. Behavior: Patient is calmly seated without any agitated behavior. Bizarre and difficult to redirect. Speech: Patient's speech is fluent and nonpressured. Mood/Affect: Patient states that she is "ok" and affect is labile. Suicidality/Homicidality: Denies any suicidal or homicidal ideations intent or plan. Perceptions: Denies any auditory or visual hallucinations. Though content/process: rambles at times is tangential. Illogical at times. improving Grandiosity. Memory and concentration: unable to be assessed today Judgment and insight: Poor/impulsive, improving mildly Assessment Bipolar disorder, current episode manic, severe Cannabis use disorder Plan: -Patient continues to meet criteria for inpatient psychiatric admission for symptom stabilization and safety. Patient has signed adult voluntary form and medication consent and was placed in patient's chart. Patient did not defer Court and full court hearing set for 06/14/2020. -Medications: Continue with Risperdal 1 mg twice a day for mood stabilization/insomnia. Continue with lithium 300 mg twice a day for mood stabilization. -When necessary Ativan and Haldol IM for agitation/aggression. -NRT -not needed as patient does not smoke. -SW on board for discharge planning. Encouraged the patient to participate in milieu. Will await on full court hearing on 06/14/2020
[2020-06-08] MEDS: LITHIUM CARBONATE 300 MG CAP PO SCH ×2 (08:20→21:06)
[2020-06-08] MEDS: risperiDONE 1 MG TAB PO SCH ×2 (08:20→21:06)
--- NOTE | 2020-06-08 09:18 | P.PN ---
Progress Note - Text Progress Note Date: 06/08/20 Interval History: Patient was seen standing outside of her door this morning and was rambling and appeared to be anxious. Patient pointed at her tray several times and demanded someone to take it away from her believing that it was "infected". Patient was walking around with a towel over her head and also a small towel covering her nose and mouth. Patient was rambling about the pandemic and states that "we should've had this under control by now". Patient continues to be illogical/tangential during conversation and was difficult to redirect. She continues to speak about other patients on the unit that have been bothering her. Patient also repeatedly believed that script writer was going to "sedate me" and was begging him not to. Patient continues to have a flight of ideas. She continues to refuse medications. She states that she did not sleep well last night. She continues to have poor insight and judgment. She continues to have pressured speech and no flight of ideas. Patient denies any auditory or visual hallucinations and denies any suicidal or homicidal ideations intent or plan. Mental Status Exam: General Appearance: Patient appears to be thin, tall stated age is alert, difficult to redirect, bizarre. Poor hygiene and grooming. Behavior: Patient is calmly seated without any agitated behavior. Bizarre and difficult to redirect. Speech: Patient's speech is fluent and nonpressured. Mood/Affect: Patient states that she is "not good" and affect is labile. Suicidality/Homicidality: Denies any suicidal or homicidal ideations intent or plan. Perceptions: Denies any auditory or visual hallucinations. Though content/process: rambles at times is tangential. Illogical at times. improving Grandiosity. Memory and concentration: unable to be assessed today Judgment and insight: Poor/impulsive, improving mildly Assessment Bipolar disorder, current episode manic, severe Cannabis use disorder Plan: -Patient continues to meet criteria for inpatient psychiatric admission for symptom stabilization and safety. Patient has signed adult voluntary form and medication consent and was placed in patient's chart. Patient did not defer Court and full court hearing set for 06/14/2020. -Medications: Continue with Risperdal 1 mg twice a day for mood stabilization/insomnia. Continue with lithium 300 mg twice a day for mood stabilization. Patient is refusing these medications. -When necessary Ativan and Haldol IM for agitation/aggression. -NRT -not needed as patient does not smoke. -SW on board for discharge planning. Encouraged the patient to participate in milieu. Will await on full court hearing on 06/14/2020
[2020-06-09] MEDS: LITHIUM CARBONATE 300 MG CAP PO SCH ×2 (09:42→20:12)
[2020-06-09] MEDS: risperiDONE 1 MG TAB PO SCH ×2 (09:43→20:12)
--- NOTE | 2020-06-09 09:43 | P.PN ---
Progress Note - Text Progress Note Date: 06/09/20 Interval History: Patient was seen standing outside of her door this morning and was rambling. She continues to wear a towel over her head and a smaller towel across her face. Patient appeared to be mildly more logical today and more goal oriented. sHe states that she is continuing to worry about the pandemic. She states that she took the medications yesterday and has not taken them this morning. She claims that she feels "calmer" and was rambling less today. Patient continues to be ill ogical/tangential during conversation and was difficult to redirect. She was more directable today and claims that she was going to group. She also states that she will be taking her medications after group today. She spoke several times about card writer hand not increasing her medication dose. She states that she did not sleep well last night. She continues to have poor insight and judgment. Patient denies any auditory or visual hallucinations and denies any suicidal or homicidal ideations intent or plan. Mental Status Exam: General Appearance: Patient appears to be thin, tall stated age is alert, difficult to redirect, bizarre. Improving hygiene and grooming. Wearing a towel over her head in the tolerance across her face. Behavior: Patient is calmly seated without any agitated behavior. Bizarre and difficult to redirect. Speech: Patient's speech is fluent and nonpressured. Mood/Affect: Patient states that she is "calmer" and affect is more appropriate today. Suicidality/Homicidality: Denies any suicidal or homicidal ideations intent or plan. Perceptions: Denies any auditory or visual hallucinations. Though content/process: rambles at times is tangential. Illogical at times, imp roving mildly. improving Grandiosity. Memory and concentration: unable to be assessed today Judgment and insight: Poor/impulsive, improving mildly Assessment Bipolar disorder, current episode manic, severe Cannabis use disorder Plan: -Patient continues to meet criteria for inpatient psychiatric admission for symptom stabilization and safety. Patient has signed adult voluntary form and medication consent and was placed in patient's chart. Patient did not defer Court and full court hearing set for 06/14/2020. -Medications: Continue with Risperdal 1 mg twice a day for mood stabilization/insomnia. Continue with lithium 300 mg twice a day for mood stabilization. Patient just started taking medications last night. -When necessary Ativan and Haldol IM for agitation/aggression. -NRT -not needed as patient does not smoke. -SW on board for discharge planning. Encouraged the patient to participate in milieu. Will await on full court hearing on 06/14/2020
[2020-06-10] MEDS: MAG HYDROX/AL HYDROX/SIMETH 30 ML CUP PO PRN (02:12)
[2020-06-10] MEDS: risperiDONE 1 MG TAB PO SCH (09:03)
[2020-06-10] MEDS: LITHIUM CARBONATE 300 MG CAP PO SCH ×2 (09:03→21:01)
--- NOTE | 2020-06-10 10:18 | P.PN ---
Progress Note - Text Progress Note Date: 06/10/20 Interval History: Patient was seen talking to another patient near the nurse's desk today and was directable and agreeable to speak to her in the office. Patient appeared to be endorsing less paranoid today however did state that "patients on the unit and intimidated by you". When asked more about this she states that physician underwriter is "muscular" and appears to be pretty busy. She appears to have improvement in her thought content and thought process. She appears to be mildly improved hygiene and grooming and also improvement in her insight and judgment. She spoke about her medications making her feel "better" however was not able to elaborate much more in it. She states that her mood has been improving. She claims that she feels "calmer" and was rambling less today. She states that she did not sleep well last night. She continues to have poor insight and judgment. Patient denies any auditory or visual hallucinations and denies any suicidal or homicidal ideations intent or plan. Mental Status Exam: General Appearance: Patient appears to be thin, tall stated age is alert, diffic ult to redirect at times, attempts to be cooperative. Improving hygiene and grooming. Behavior: Patient is calmly seated without any agitated behavior. Less bizarre and more directable. Speech: Patient's speech is fluent and nonpressured. Rambles. Mood/Affect: Patient states that she is "better" and affect is more appropriate today. Suicidality/Homicidality: Denies any suicidal or homicidal ideations intent or plan. Perceptions: Denies any auditory or visual hallucinations. Though content/process: rambles at times is tangential. Illogical at times, improving mildly. Memory and concentration: unable to be assessed today Judgment and insight: Poor, improving mildly Assessment Bipolar disorder, current episode manic, severe Cannabis use disorder Plan: -Patient continues to meet criteria for inpatient psychiatric admission for symptom stabilization and safety. Patient has signed adult voluntary form and medication consent and was placed in patient's chart. Patient did not defer Co ur[place] and full court hearing set for 06/14/2020. -Medications: Increased Risperdal 1 mg daily +2 mg daily at bedtime mood stabilization/insomnia. Continue with lithium 300 mg twice a day for mood stabil ization. -When necessary Ativan and Haldol IM for agitation/aggression. -NRT -not needed as patient does not smoke. -SW on board for discharge planning. Encouraged the patient to participate in milieu. Will await on full court hearing on 06/14/2020
[2020-06-10] MEDS ORDERED: risperiDONE 2 MG TAB PO SCH (21:00)
[2020-06-11] MEDS: MAG HYDROX/AL HYDROX/SIMETH 30 ML CUP PO PRN (04:33)
[2020-06-11] MEDS: risperiDONE 1 MG TAB PO SCH ×2 (09:26→21:54)
[2020-06-11] MEDS: LITHIUM CARBONATE 300 MG CAP PO SCH ×2 (09:26→21:53)
--- NOTE | 2020-06-11 09:34 | P.PN ---
Progress Note - Text Progress Note Date: 06/11/20 Interval History: Patient was seen honoring hallways this morning and was directable and agreeable to speak to her in the office. Patient appeared to be endorsing less paranoia today and claims that she feels that the machine sign writer is in a "good mood today". She claims that she is feeling better on the medications however states that she had nightmares last night and also required a IM injection for not being able to sleep. She claims that the medications aren't strong enough for her. She does appear to have improvement in her speech and also thought content. She spoke about lithium being a "salt and my blood" and also was okay with having a lithium level drawn tomorrow. She appears to have improvement in her thought content and thought process. She appears to be mildly improved hygiene and grooming and also improvement in her insight and judgment. She states that her mood has been improving. Patient denies any auditory or visual hallucinations and denies any suicidal or homicidal ideations intent or plan. Mental Status Exam: General Appearance: Patient appears to be thin, tall stated age is alert, difficult to redirect at times, attempts to be cooperative. Improving hygiene and grooming. Behavior: Patient is calmly seated without any agitated behavior. Less bizarre and more directable. Speech: Patient's speech is fluent and nonpressured. Rambles. Mood/Affect: Patient states that she is "ok" and affect is more appropriate today. Suicidality/Homicidality: Denies any suicidal or homicidal ideations intent or plan. Perceptions: Denies any auditory or visual hallucinations. Though content/process: rambles at times is tangential. Illogical at times, improving mildly. Memory and concentration: unable to be assessed today Judgment and insight: Poor, improving mildly Assessment Bipolar disorder, current episode manic, severe Cannabis use disorder Plan: -Patient continues to meet criteria for inpatient psychiatric admission for symptom stabilization and safety. Patient has signed adult voluntary form and medication consent and was placed in patient's chart. Patient did not defer Court and full court hearing set for 06/14/2020. -Medications: Increased Risperdal 1 mg daily + 3 mg daily at bedtime mood stabilization/insomnia. Continue with lithium 300 mg twice a day for mood stabilization. I added melatonin 6 mg daily at bedtime for insomnia. -When necessary Ativan and Haldol IM for agitation/aggression. -NRT -not needed as patient does not smoke. -SW on board for discharge planning. Encouraged the patient to participate in milieu. Will await on full court hearing on 06/14/2020
[2020-06-11] MEDS: MELATONIN 3 MG TABLET PO SCH (21:53)
[2020-06-12] MEDS: risperiDONE 1 MG TAB PO SCH ×2 (10:06→20:34)
[2020-06-12] MEDS: LITHIUM CARBONATE 300 MG CAP PO SCH (10:07)
[2020-06-12] MEDS: FLUTICASONE 50MCG/SPRAY NASAL 16GM EA NOSTRIL SCH (11:07)
--- NOTE | 2020-06-12 11:19 | P.PN ---
Progress Note - Text Progress Note Date: 06/12/20 Interval History: Patient was seen wandering the hallways this morning and was directable and ag reeable to speak to her in the office. Patient appears to be mildly anxious today however was rambling at times. Patient is showing improvement in her thought process and thought content and is becoming more logical in her answers and more appropriate. She appears to be calm or in her affect. She claims that she is feeling better on the medications however patient did not take her nighttime medications last night. Vision states that she will be willing to sign a deferral at this time to avoid court. Parts Washer shared results of patient's lithium level. Patient was agreeable to have her lithium increased for tonight. She appears to have improvement in her thought content and thought process. She appears to be mildly improved hygiene and grooming and also improvement in her insight and judgment. Patient denies any auditory or visual hallucinations and denies any suicidal or homicidal ideations intent or plan. Mental Status Exam: General Appearance: Patient appears to be thin, tall stated age is alert, more directable today, attempts to be cooperative. Improving hygiene and grooming. Behavior: Patient is calmly seated without any agitated behavior. Less bizarre and more directable. Speech: Patient's speech is fluent and nonpressured. Rambles. Mood/Affect: Patient states that she is "ok" and affect is more appropriate today. Suicidality/Homicidality: Denies any suicidal or homicidal ideations intent or plan. Perceptions: Denies any auditory or visual hallucinations. Though content/process: rambles at times is tangential. Illogical at times, improving mildly. Memory and concentration: unable to be assessed today Judgment and insight: Poor, improving mildly Assessment Bipolar disorder, current episode manic, severe Cannabis use disorder Plan: -Patient continues to meet criteria for inpatient psychiatric admission for symptom stabilization and safety. Patient has signed adult voluntary form and medication consent and was placed in patient's chart. Patient apparently had signed a deferral today and agreeable to continue with medications. -Medications: Continue with Risperdal 1 mg daily + 3 mg daily at bedtime mood stabilization/insomnia. Continue with lithium 300 mg twice a day for mood stabilization. Continue with melatonin 6 mg daily at bedtime for insomnia. -When necessary Ativan and Haldol IM for agitation/aggression. -NRT -not needed as patient does not smoke. -SW on board for discharge planning. Encouraged the patient to participate in milieu. She has signed deferral to avoid court and agreed to treatment.
[2020-06-12] MEDS: MELATONIN 3 MG TABLET PO SCH (20:34)
[2020-06-12] MEDS: LITHIUM CARBONATE 150 MG CAP PO SCH (20:35)
[2020-06-13] MEDS: FLUTICASONE 50MCG/SPRAY NASAL 16GM EA NOSTRIL SCH (05:18)
[2020-06-13] MEDS: LITHIUM CARBONATE 150 MG CAP PO SCH ×2 (09:56→19:47)
[2020-06-13] MEDS: risperiDONE 1 MG TAB PO SCH (09:57)
[2020-06-13] MEDS: SENNOSIDES-DOCUSATE SODIUM 1 EACH TAB PO SCH ×2 (09:58→19:47)
--- NOTE | 2020-06-13 10:13 | P.PN ---
Progress Note - Text Progress Note Date: 06/13/20 Interval History: Patient was seen sitting in her bed this morning and was directable and agreea ble to speak to her in the office. Patient appeared to be bradykinetic today with slowed gait and also appeared to be stiff on physical exam. She claims that she is "not feeling good" and claims that she is feeling lightheaded earlier. She also claims that she did not take her morning medications as she was waiting to be seen by health science writer for evaluation. Patient continues to ramble at times and spoke briefly about "meeting Sha Horn" and states that he was in [place] and she met him at [facility]. She claims that she is worried about her safety. Patient is showing improvement in her thought process and thought content and is becoming more logical in her answers and more appropriate. She appears to be calm or in her affect. She claims that she is feeling better on the medications. She claims that she is willing to continue on with her medications. Heater Tender explained that patient's Risperdal may be causing her to have side effects and will be replaced with Seroquel for tonight. Patient was agreeable to take this medication. She appears to have improvement in her thought content and thought process. She appears to be mildly improved hygiene and grooming and also improvement in her insight and judgment. Patient denies any auditory or visual hallucinations and denies any suicidal or homicidal ideations intent or plan. Mental Status Exam: General Appearance: Patient appears to be thin, tall stated age is alert, more directable today, attempts to be cooperative. Improving hygiene and grooming. Slowed and bradykinetic gait. Behavior: Patient is calmly seated without any agitated behavior. Less bizarre and more directable. Speech: Patient's speech is fluent and nonpressured. Rambles. Mood/Affect: Patient states that she is "not good" and affect is constricted today. Suicidality/Homicidality: Denies any suicidal or homicidal ideations intent or plan. Perceptions: Denies any auditory or visual hallucinations. Though content/process: rambles at times is tangential. Illogical at times, improving mildly. Delusions improving. Memory and concentration: Alert and oriented 3, fair attention span. Judgment and insight: Poor, improving mildly Assessment Bipolar disorder, current episode manic, severe Cannabis use disorder Plan: -Patient continues to meet criteria for inpatient psychiatric admission for symptom stabilization and safety. Patient has signed adult voluntary form and medication consent and was placed in patient's chart. Patient apparently had signed a deferral today and agreeable to continue with medications. -Medications: Discontinued Risperdal and replaced with Seroquel 50 mg daily at bedtime for insomnia/mood stabilization/psychosis. Continue with lithium 300 mg twice a day for mood stabilization. Continue with melatonin 6 mg daily at bedtime for insomnia. -[place] level on 06/12/2020 - 0.3 -When necessary Ativan and Haldol IM for agitation/aggression. -NRT -not needed as patient does not smoke. -SW on board for discharge planning. Encouraged the patient to participate in milieu. She has signed deferral to avoid court and agreed to continue on with treatment and take medications as prescribed. We'll continue to monitor and treat patient's psychiatric condition and prepare for discharge. Patient will likely need to be added to the [facility] ACT team upon discharge to ensure med compliance
[2020-06-13] MEDS: MELATONIN 3 MG TABLET PO SCH (19:47)
[2020-06-13] MEDS ORDERED: QUEtiapine 50 MG TAB PO SCH (21:00)
[2020-06-14] MEDS: FLUTICASONE 50MCG/SPRAY NASAL 16GM EA NOSTRIL SCH (04:11)
[2020-06-14] MEDS: LITHIUM CARBONATE 150 MG CAP PO SCH ×2 (09:41→20:03)
[2020-06-14] MEDS: SENNOSIDES-DOCUSATE SODIUM 1 EACH TAB PO SCH ×2 (09:41→20:03)
--- NOTE | 2020-06-14 10:37 | P.PN ---
Progress Note - Text Progress Note Date: 06/14/20 Interval History: Patient was seen in her room this morning and was directable and agreeable to speak to her in the office. Patient appeared to show mild improvement in her bradykinetic movement and slowed gait today. She claims that she feels mildly better today and denies any more news side effects with medication. She claims that she feels less stiff however still concerned about her slowed movement. Patient continues to ramble at times. Today she continues to speak about "Sha Horn" however claims that she is not concerned about them anymore because she is . She endorsed less paranoia today. Patient is showing improvement in her thought process and thought content and is becoming more logical in her answers and more appropriate. She claims that she is feeling better on the medications. Patient was agreeable to continue on with treatment and continue taking medications. She states that she was able to sleep fairly last met approximately 5 hours. She appears to have improvement in her thought content and thought process. She appears to be mildly improved hygiene and grooming and also improvement in her insight and judgment. Patient denies any auditory or visual hallucinations and denies any suicidal or homicidal ideations intent or plan. Mental Status Exam: General Appearance: Patient appears to be thin, tall stated age is alert, more directable today, attempts to be cooperative. Improving hygiene and grooming. Slowed and bradykinetic gait, improving. Behavior: Patient is calmly seated without any agitated behavior. more directable. Speech: Patient's speech is fluent and nonpressured. Rambles. Mood/Affect: Patient states that she is "better" and affect is constricted today, improving mildly. Suicidality/Homicidality: Denies any suicidal or homicidal ideations intent or plan. Perceptions: Denies any auditory or visual hallucinations. Though content/process: rambles at times is tangential. Illogical at times, improving mildly. Delusions improving. Memory and concentration: Alert and oriented 3, fair attention span. Judgment and insight: Poor, improving mildly Assessment Schizoaffective disorder, bipolar type Cannabis use disorder Plan: -Patient continues to meet criteria for inpatient psychiatric admission for symptom stabilization and safety. Patient has signed adult voluntary form and medication consent and was placed in patient's chart. Patient apparently had signed a deferral today and agreeable to continue with medications. -Medications: Continue with Seroquel 50 mg daily at bedtime for insomnia/mood stabilization/psychosis. Continue with lithium 450 mg twice a day for mood stabilization. We'll likely get a lithium level on 06/16/2020. Continue with melatonin 5 mg daily at bedtime for insomnia. -[place] level on 06/12/2020 - 0.3 -When necessary Ativan and Haldol IM for agitation/aggression. -NRT -not needed as patient does not smoke. -SW on board for discharge planning. Encouraged the patient to participate in milieu. She has signed deferral to avoid court and agreed to continue on with treatment and take medications as prescribed. We'll continue to monitor and treat patient's psychiatric condition and prepare for discharge. Patient will likely need to be added to the [facility] ACT team upon discharge to ensure med compliance
[2020-06-14] MEDS: QUEtiapine 50 MG TAB PO SCH (20:04)
[2020-06-14] MEDS ORDERED: QUEtiapine 25 MG TAB PO SCH (21:00)
[2020-06-14] MEDS ORDERED: MELATONIN 5 MG TABLET PO SCH (21:00)
[2020-06-15] MEDS: FLUTICASONE 50MCG/SPRAY NASAL 16GM EA NOSTRIL SCH ×2 (02:08→20:03)
[2020-06-15] MEDS: LITHIUM CARBONATE 150 MG CAP PO SCH ×2 (08:30→20:03)
[2020-06-15] MEDS: SENNOSIDES-DOCUSATE SODIUM 1 EACH TAB PO SCH ×2 (08:30→20:03)
--- NOTE | 2020-06-15 09:35 | P.PN ---
Progress Note - Text Progress Note Date: 06/15/20 Interval History: Patient was seen wandering the hallways during the nurse's desk this morning and was directable and agreeable to speak to her in the office. Patient continues to show mild improvement in her bradykinetic movements and appears to have more clearer speech. She claims that she feels better today. She claims that she feels the medications are gradually helping her and she states that she feels closer towards normal now. She states that her racing thoughts have "calmed down". Patient continues to ramble at times during the conversation. Today she spoke about her sister and also spoke about Tabatha Sellers. She denied any paranoia today. Patient is showing improvement in her thought process and thought content and is becoming more logical in her answers and more appropriate. Patient was agreeable to continue on with treatment and continue taking medications. She states that she was able to sleep fairly last met approximately 4-5 hours. She appears to have improvement in her thought content and thought process. She appears to be mildly improved hygiene and grooming and also improvement in her insight and judgment. Patient denies any auditory or visual hallucinations and denies any suicidal or homicidal ideations intent or plan. Mental Status Exam: General Appearance: Patient appears to be thin, tall stated age is alert, more directable today, attempts to be cooperative. Improving hygiene and grooming. bradykinetic gait, improving. Behavior: Patient is calmly seated without any agitated behavior. more directable. Speech: Patient's speech is fluent and nonpressured. Rambles. Mood/Affect: Patient states that she is "good" and affect is constricted today, improving mildly. Suicidality/Homicidality: Denies any suicidal or homicidal ideations intent or plan. Perceptions: Denies any auditory or visual hallucinations. Though content/process: rambles at times is tangential. Illogical at times, improving mildly. Less delusional today. Denies any paranoia. Memory and concentration: Alert and oriented 3, fair attention span. Judgment and insight: improving mildly Assessment Schizoaffective disorder, bipolar type Cannabis use disorder Plan: -Patient continues to meet criteria for inpatient psychiatric admission for symptom stabilization and safety. Patient has signed adult voluntary form and medication consent and was placed in patient's chart. Patient apparently had signed a deferral today and agreeable to continue with medications. -Medications: Continue with Seroquel 50 mg daily at bedtime for insomnia/mood stabilization/psychosis. Continue with lithium 450 mg twice a day for mood stabilization. Ordered a lithium level for tomorrow. Increased melatonin 10 mg daily at bedtime for insomnia. -[place] level on 06/12/2020 - 0.3, check lithium level tomorrow. -When necessary Ativan and Haldol IM for agitation/aggression. -NRT -not needed as patient does not smoke. -SW on board for discharge planning. Encouraged the patient to participate in milieu. She has signed deferral to avoid court and agreed to continue on with treatment and take medications as prescribed. We'll continue to monitor and treat patient's psychiatric condition and prepare for discharge. Patient will likely need to be added to the [facility] ACT team upon discharge to ensure med compliance. Likely discharge in 1-2 days.
[2020-06-15] MEDS: QUEtiapine 50 MG TAB PO SCH (20:03)
[2020-06-15] MEDS ORDERED: MELATONIN 5 MG TABLET PO SCH (21:00)
[2020-06-16 05:20] VITALS: BP 110/67; PULSE 68; RESP 16; TEMP 98.2
[2020-06-16] MEDS: LITHIUM CARBONATE 150 MG CAP PO SCH (08:13)
[2020-06-16] MEDS: SENNOSIDES-DOCUSATE SODIUM 1 EACH TAB PO SCH (08:13)
[2020-06-16] MEDS: FLUTICASONE 50MCG/SPRAY NASAL 16GM EA NOSTRIL SCH (08:13)
--- NOTE | 2020-06-16 09:31 | P.DS ---
Providers Date of admission: 05/28/20 07:11 Expected date of discharge: 06/16/20 Attending physician: Antolin Mcneil MD Consults: 05/28/20 07:22 Consult Physician Routine Consulting Provider: Greg Chairez Consult Reason/Comments: For H & P for Medical Follow Up Do you want consulting provider notified?: Yes, Notify in am Primary care physician: Mitul Mahan - Discharge Diagnosis(es) (1) Schizoaffective disorder, bipolar type Current Visit: Yes Status: Acute Priority: High (2) Cannabis use disorder, mild, abuse Current Visit: Yes Status: Acute Priority: Medium Hospital Course: Admission HPI: Patient was admitted by Dr. Lagunas "Patient is a 70-year-old female who presented with psychosis. Patient presented to the hospital on 05/28/2020 brought in by police after she was knocking on the door of the police station stating that she needed help. Patient has been observed to be very acutely psychotic and manic. She was noted to be hyperverbal, rambling, with nonsensical speech. She was a poor historian. She was unable to present any identification. While on the unit, the patient was observed to display manic behaviors including pressured speech, distractibility, impulsivity, and intrusiveness. She was given a one-time dose of Ativan. Currently she is too somnolent to engage in the interview after multiple attempts by this provider. She refuses to get out of bed." Hospital course: Upon admission to the unit patient was initially bizarre, exhibiting manic features including racing thoughts delusions and poor insight and judgment. Patient admitted involuntarily on a petition and certificate and a second certificate was filed. Patient ended up signing a deferral on was agreeable to treatment on the unit and taking medications. Patient was initially difficult to engage with on the unit due to her manic and psychotic symptoms along with her paranoia however with treatment patient gradually participated more in the milieu and went to groups. Patient was initially not compliant with medications for several days however slowly became more compliant with the medications and experienced muscle stiffness/EPS symptoms with Risperdal which was then discontinued. Patient was started on Seroquel and titrated up to a dose of 50 mg nightly for insomnia/mood stabilization/psychosis. Patient was also started on lithium and titrated up to a dose of 450 mg twice a day for mood stabilization. Patient had a lithium level drawn on 06/12 was 0.3 and then redrawn on 06/16 which was 0.8. Patient was also placed on melatonin titrated up to dose of 10 mg nightly for insomnia. Patient spoke of her stressors and engaged in therapy both group and individual. Patient was also seen by medical team for history and physical exam. Throughout the course of the hospitalization patient gradually improved with regards to mood lability, manic sx, paranoia/delusions, psychosis, sleep and became more future oriented with improved insight and judgment and back to her baseline of functioning. Patient's EPS/slowed gait has been gradually improving since the Risperdal was discontinued. On the day of discharge patient denied any suicidal or homicidal ideations intent or plan denied any auditory or visual hallucinations. Patient endorsed wanting to live for her future and her family. The patient denied any access to guns or weapons. Patient denied any paranoia and did not endorse any delusions. Patient does have a significant history of substance abuse and was counseled on abstaining from all substances including alcohol and marijuana. Patient was offered however declined inpatient substance-abuse rehab. Patient was also counseled on the medications and need for regular compliance and was encouraged to follow-up with their outpatient appointment for mental health and also for primary care. Prior to discharge a family meeting will be arranged by social services designee to answer any questions and ensure safety upon discharge. Mental status exam: General Appearance: Patient appears to be thin, stated age is alert, pleasant, and cooperative. Patient is in no acute distress and has improved hygiene and grooming Behavior: Patient is calmly seated without any agitated behavior. Speech: Patient's speech is fluent and nonpressured. Mood/Affect: Patient reports their mood is "good", affect is congruent and constricted Suicidality/Homicidality: Patient denies having any suicidal or homicidal ideation intent or plan. Perceptions: Patient denies any auditory or visual hallucinations. Though content/process: There is no evidence of any delusional thought content, more goal oriented today. Continues to ramble. more future oriented Memory and concentration: AOX3, grossly intact for the purposes of this session. Can spell "WORLD" backwards correctly. Judgment and insight: chronically poor, however has improved with guarded prognosis Impression: Schizoaffective disorder, bipolar type Cannabis use disorder Plan: -Continue with discharge today as patient has improved and stabilized psychiatrically and is not currently an imminent threat to herself and/or others. Patient will remain at chronically elevated risk for harm to self and/or others due to her chronic mental illness along with chronically poor insight and judgment. -Continue medications: Continue with Seroquel 50 mg by mouth daily at bedtime for insomnia/mood stabilization/psychosis. Continue with lithium 450 mg twice a day for mood stabilization. Continue with melatonin 10 mg daily at bedtime for insomnia. -Patient was counseled on the need for medication compliance and appropriate follow-up at mental health and also primary care for medical issues. Patient verbalized understanding and agreed. -Social work to arrange for and conduct family meeting to ensure safety upon discharge and answer any questions/concerns. Social work also to arrange for patients follow up appointments with [facility] for psychiatric care along with follow up with primary care provider. Patient will be receiving home psych health care to be visited by an outside nurse at her home to ensure the patient is taking her medications. Suggested to the [facility] liaison the patient should be considered for ACT team -Patient counseled on abstaining from recreational drugs and marijuana and alcohol. Was informed/educated on the adverse effects on their physical and mental health. Patient verbally agreed and understood. Patient was offered substance abuse treatment however declined at this time. -Patient was instructed to return to the hospital or seek immediate medical care if their psychiatric or medical symptoms do worsen or reoccur. Allergies Allergy/AdvReac Type Severity Reaction Status Date / Time No Known Allergies Allergy Verified 05/28/20 03:06 Laboratory Results WBC 6.0 k/uL (3.8-10.6) 05/28/20 03:29 RBC 4.40 m/uL (3.80-5.40) 05/28/20 03:29 Hgb 14.2 gm/dL (11.4-16.0) 05/28/20 03:29 Hct 42.1 % (34.0-46.0) 05/28/20 03:29 MCV 95.6 fL (80.0-100.0) 05/28/20 03:29 MCH 32.2 pg (25.0-35.0) 05/28/20 03: MCHC 33.7 g/dL (31.0-37.0) 05/28/20 03:29 RDW 12.7 % (11.5-15.5) 05/28/20 03:29 Plt Count 231 k/uL (150-450) 05/28/20 03:29 Neutrophils % 69 % 05/28/20 03:29 Lymphocytes % 22 % 05/28/20 03:29 Monocytes % 6 % 05/28/20 03:29 Eosinophils % 1 % 05/28/20 03:29 Basophils % 1 % 05/28/20 03:29 Neutrophils # 4.1 k/uL (1.3-7.7) 05/28/20 03:29 Lymphocytes # 1.3 k/uL (1.0-4.8) 05/28/20 03:29 Monocytes # 0.4 k/uL (0-1.0) 05/28/20 03:29 Eosinophils # 0.0 k/uL (0-0.7) 05/28/20 03:29 Basophils # 0.1 k/uL (0-0.2) 05/28/20 03:29 Sodium 137 mmol/L (137-145) 05/28/20 03:29 Potassium 4.1 mmol/L (3.5-5.1) 05/28/20 03:29 Chloride 105 mmol/L (98-107) 05/28/20 03:29 Carbon Dioxide 23 mmol/L (22-30) 05/28/20 03:29 Anion Gap 9 mmol/L 05/28/20 03:29 BUN 17 mg/dL (7-17) 05/28/20 03:29 Creatinine 0.55 mg/dL (0.52-1.04) 05/28/20 03:29 Est GFR (CKD-EPI)AfAm >90 (>60 ml/min/1.73 sqM) 05/28/20 03:29 Est GFR (CKD-EPI)NonAf >90 (>60 ml/min/1.73 sqM) 05/28/20 03:29 Glucose 150 mg/dL (74-99) H 05/28/20 03:[address] Glu mg/dL 114 05/29/20 07:16 Hemoglobin A1c 5.6 % (4.0-6.0) 05/29/20 07:16 Calcium 9.9 mg/dL (8.4-10.2) 05/28/20 03:29 Total Bilirubin 0.8 mg/dL (0.2-1.3) 05/29/20 07:16 Conjugated Bilirubin 0.0 mg/dL (0.0-0.3) 05/29/20 07:16 Unconjugated Bilirubin 0.6 mg/dL (0.0-1.1) 05/29/20 07:16 Delta Bilirubin 0.2 mg/dL (0.0-0.2) 05/29/20 07:16 AST 19 U/L (14-36) 05/29/20 07:16 ALT 19 U/L (4-34) 05/29/20 07:16 Alkaline Phosphatase 58 U/L (38-126) 05/29/20 07:16 Total Protein 7.1 g/dL (6.3-8.2) 05/29/20 07:16 Albumin 4.4 g/dL (3.5-5.0) 05/29/20 07:16 Triglycerides 70 mg/dL (<150) 05/29/20 07:16 Cholesterol 178 mg/dL (<200) 05/29/20 07:16 LDL Cholesterol, Calc 105 mg/dL (0-99) H 05/29/20 07:16 HDL Cholesterol 59 mg/dL (40-60) 05/29/20 07:16 TSH 3.450 mIU/L (0.465-4.680) 05/29/20 07:16 Urine Color Yellow 05/28/20 03:29 Urine Appearance Cloudy (Clear) H 05/28/20 03:29 Urine pH 5.5 (5.0-8.0) 05/28/20 03:29 Ur Specific [place] 1.032 (1.001-1.035) 05/28/20 03:29 Urine Protein 1+ (Negative) H 05/28/20 03:29 Urine Glucose (UA) Negative (Negative) 05/28/20 03:29 Urine Ketones 2+ (Negative) H 05/28/20 03:29 Urine Blood Negative (Negative) 05/28/20 03:29 Urine Nitrite Negative (Negative) 05/28/20 03:29 Urine Bilirubin Negative (Negative) 05/28/20 03:29 Urine Urobilinogen 3.0 mg/dL (<2.0) 05/28/20 03:29 Ur Leukocyte Esterase Trace (Negative) H 05/28/20 03:29 Urine RBC 12 /hpf (0-5) H 05/28/20 03:29 Urine WBC 4 /hpf (0-5) 05/28/20 03:29 Ur Squamous Epith Cells 15 /hpf (0-4) H 05/28/20 03:29 Urine Mucus Many /hpf (None) H 05/28/20 03:29 Salicylates <1.0 mg/dL 05/28/20 03:29 Urine Opiates Screen Not Detected (NotDetected) 05/28/20 03:29 Ur Oxycodone Screen Not Detected (NotDetected) 05/28/20 03:29 Urine Methadone Screen Not Detected (NotDetected) 05/28/20 03:29 Ur Propoxyphene Screen Not Detected (NotDetected) 05/28/20 03:29 Acetaminophen <10.0 ug/mL 05/28/20 03:29 Ur Barbiturates Screen Not Detected (NotDetected) 05/28/20 03:29 U Tricyclic Antidepress Not Detected (NotDetected) 05/28/20 03:29 Ur Phencyclidine Scrn Not Detected (NotDetected) 05/28/20 03:29 Ur Amphetamines Screen Not Detected (NotDetected) 05/28/20 03:29 U Methamphetamines Scrn Not Detected (NotDetected) 05/28/20 03:29 U Benzodiazepines Scrn Not Detected (NotDetected) 05/28/20 03:29 [place] 0.8 mmol/L 06/16/20 06:40 Urine Cocaine Screen Not Detected (NotDetected) 05/28/20 03:29 U Marijuana (THC) Screen Detected (NotDetected) H 05/28/20 03:29 Vital Signs Temp 98.2 F 06/16/20 05:20 Pulse 68 06/16/20 05:20 Resp 16 06/16/20 05:20 BP 110/67 06/16/20 05:20 Pulse Ox 97 06/16/20 05:20 Patient Condition at Discharge: Stable Plan - Discharge Summary New Discharge Prescriptions: New Fluticasone Nasal [place] [Flonase Nasal [place]] 1 spray EA NOSTRIL BID #1 spr [place] Carbonate [[place] Carbonate ER] 450 mg PO BID 30 Days tablet.er Melatonin 10 mg PO HS 30 Days tablet Sennosides-Docusate Sodium [Senokot-S] 1 each PO BID 30 Days tab QUEtiapine [SEROquel] 50 mg PO HS 30 Days tab Acetaminophen Tab [Tylenol] 650 mg PO Q4HR PRN tab PRN Reason: Pain/Discomfort Discharge Medication List Acetaminophen Tab [Tylenol] 650 mg PO Q4HR PRN tab 06/16/20 [Rx] Fluticasone Nasal [place] [Flonase Nasal [place]] 1 spray EA NOSTRIL BID #1 spr 06/16/20 [Rx] [place] Carbonate [[place] Carbonate ER] 450 mg PO BID 30 Days tablet.er 06/16/20 [Rx] Melatonin 10 mg PO HS 30 Days tablet 06/16/20 [Rx] QUEtiapine [SEROquel] 50 mg PO HS 30 Days tab 06/16/20 [Rx] Sennosides-Docusate Sodium [Senokot-S] 1 each PO BID 30 Days tab 06/16/20 [Rx] Follow up Appointment(s)/Referral(s): Mitul Mahan MD [Primary Care Provider] - 1-2 days Activity/Diet/Wound Care/Special Instructions: Activity and diet as tolerated. Avoid the use of street drugs and alcohol. Take all medications as prescribed. When you are in need of refills on your medications please contact your medical provider and/or outpatient psychiatrist to have this done. Please go to scheduled outpatient appointment for aftercare treatment. If symptoms return or become worse, call the crisis line at and/or go to the nearest emergency room for evaluation. Discharge Disposition: HOME SELF-CARE
== END 2020-06-16 11:35 | disposition home or self-care (01) | DRG 885 ==
LOC: EC 02:49 → 3MHU 07:11
PROVIDERS: ADMIT Psychiatry & Neurology Psychiatry; ATTEND Psychiatry & Neurology Psychiatry
DX: F25.0 Schizoaffective disorder, bipolar type (principal); F12.10 Cannabis abuse, uncomplicated; G47.00 Insomnia, unspecified; F41.9 Anxiety disorder, unspecified; Z91.83 Wandering in diseases classified elsewhere; Z91.14 Patient's other noncompliance with medication regimen; Z90.89 Acquired absence of other organs
CPT/HCPCS: 36415; 80053; 80061; 80076; 80178; 80306; 80329; 81001; 82075; 83036; 83520; 84443; 85025; 96374; 99285

== ENCOUNTER 2021-12-12 07:54 | Emergency (ER) | payer MEDICARE, OTHER ==
[2021-12-12 08:00] VITALS: TEMP 98.4
[2021-12-12 08:48] LABS: Basophils % (A) 0 %; Eosinophils # (A) 0.1 k/uL (0-0.7); Eosinophils % (A) 1 %; HCT 37.7 % (34.0-46.0); HGB 12.7 gm/dL (11.4-16.0); Lymphocytes # (A) 0.7 k/uL (1.0-4.8); Lymphocytes % (A) 10 %; MCH 31.6 pg (25.0-35.0); MCHC 33.8 g/dL (31.0-37.0); MCV 93.4 fL (80.0-100.0); Mean Platelet Volume 8.8; Monocytes # (A) 0.4 k/uL (0-1.0); Monocytes % (A) 5 %; Neutrophils # (A) 5.8 k/uL (1.3-7.7); Neutrophils % (A) 83 %; Platelet Count 213 k/uL (150-450); RBC 4.04 m/uL (3.80-5.40); RDW 13.4 % (11.5-15.5)
[2021-12-12 08:59] LABS: ALT 32 U/L (4-34); AST 28 U/L (14-36); African American GFR (CKD) >90 (>60 ml/min/1.73 sqM); Albumin 3.5 g/dL (3.5-5.0); Alkaline Phosphatase 90 U/L (38-126); Anion Gap 9 mmol/L; Blood Urea Nitrogen 14 mg/dL (7-17); Calcium 8.5 mg/dL (8.4-10.2); Carbon Dioxide 23 mmol/L (22-30); Chloride 98 mmol/L (98-107); Glucose 193 mg/dL (74-99); Non-African American GFR(CKD) >90 (>60 ml/min/1.73 sqM); Potassium 3.6 mmol/L (3.5-5.1); Sodium 130 mmol/L (137-145); Total Bilirubin 0.8 mg/dL (0.2-1.3); Total Protein 6.6 g/dL (6.3-8.2)
[2021-12-12 09:05] LABS: Partial Thromboplastin Time 28.5 sec (22.0-30.0); Prothrombin Time 11.3 sec (9.0-12.0)
--- NOTE | 2021-12-12 09:35 | ED ---
Extremity Problem HPI - General Chief complaint: Extremity Problem,Nontraumatic Stated complaint: Leg Swelling/Rash/Covid symptoms Time Seen by Provider: 12/12/21 07:56 Source: patient, RN notes reviewed Mode of arrival: ambulatory Limitations: no limitations - History of Present Illness Initial comments: This a 71-year-old female presents emergency Department with chief complaint of left leg pain and swelling. Patient states that she started having left thigh pain noted some redness is increasing. Sore to touch and worse with cramping no chest pain or shortness breath at this time. Patient does have a history DVT. Patient denies any trauma no other complaints of abdominal pain including nausea vomiting diarrhea constipation. - Related Data Home Medications Medication Instructions Recorded Confirmed ARIPiprazole [Abilify [place]] 300 mg PO QMONTHLY 12/12/21 12/12/21 Benztropine Mesylate [Cogentin] 2 mg PO BID 12/12/21 12/12/21 Ibuprofen [Motrin Ib] 200 mg PO Q8H PRN 12/12/21 12/12/21 Propranolol HCl 60 mg PO DAILY 12/12/21 12/12/21 Previous Rx's Medication Instructions Recorded Apixaban [Eliquis Starter Pack 0 mg PO DIRECTED 30 Days #1 12/12/21 (for VTE)] packet Allergies Allergy/AdvReac Type Severity Reaction Status Date / Time No Known Allergies Allergy Verified 12/12/21 09:43 Review of Systems ROS Statement: Those systems with pertinent positive or pertinent negative responses have been documented in the HPI. ROS Other: All systems not noted in ROS Statement are negative. Past Medical History Past Medical History: Deep Vein Thrombosis (DVT) History of Any Multi-Drug Resistant Organisms: None Reported Past Surgical History: Tonsillectomy Past Psychological History: Anxiety, Depression Smoking Status: Never smoker Past Alcohol Use History: None Reported Past Drug Use History: None Reported General Exam Limitations: no limitations General appearance: alert, in no apparent distress Head exam: Present: atraumatic, normocephalic, normal inspection Eye exam: Present: normal appearance, PERRL, EOMI. Absent: scleral icterus, conjunctival injection, periorbital swelling ENT exam: Present: normal exam, normal oropharynx, mucous membranes moist Neck exam: Present: normal inspection, full ROM. Absent: tenderness, meningismus, lymphadenopathy Respiratory exam: Present: normal lung sounds bilaterally. Absent: respiratory distress, wheezes, rales, rhonchi, stridor Cardiovascular Exam: Present: regular rate, normal rhythm, normal heart sounds. Absent: systolic murmur, diastolic murmur, rubs, gallop, clicks GI/Abdominal exam: Present: soft, normal bowel sounds. Absent: distended, tenderness, guarding, rebound, rigid Extremities exam: Present: other (Left medial thigh there is erythema, streaking noted, tenderness of palpation increase in warmth, pulses are equal of the lower extremities neurovascular intact) Skin exam: Present: warm, dry, intact, normal color. Absent: rash Course Vital Signs 12/12/21 07:54 Temperature 98.4 F Pulse Rate 91 Respiratory 20 Rate Blood Pressure 140/79 O2 Sat by Pulse 97 Oximetry Medical Decision Making - Medical Decision Making Patient's ultrasound does show evidence of acute DVT and superficial thrombophlebitis. Patient has no respiratory symptoms has otherwise chest pain or shortness breath currently no tachycardia. Patient will be discharged on oral anticoagulation with close follow-up patient stands no questions were answered. - Lab Data Result diagrams: 12/12/21 08:33 12/12/21 08:33 Lab Results 12/12/21 12/12/21 12/12/21 Range/Units 08:33 08:33 08:33 WBC 7.0 (3.8-10.6) k/uL RBC 4.04 (3.80-5.40) m/uL Hgb 12.7 (11.4-16.0) gm/dL Hct 37.7 (34.0-46.0) % MCV 93.4 (80.0-100.0) fL MCH 31.6 (25.0-35.0) pg MCHC 33.8 (31.0-37.0) g/dL RDW 13.4 (11.5-15.5) % Plt Count 213 (150-450) k/uL MPV 8.8 Neutrophils % 83 % Lymphocytes % 10 % Monocytes % 5 % Eosinophils % 1 % Basophils % 0 % Neutrophils # 5.8 (1.3-7.7) k/uL Lymphocytes # 0.7 L (1.0-4.8) k/uL Monocytes # 0.4 (0-1.0) k/uL Eosinophils # 0.1 (0-0.7) k/uL Basophils # 0.0 (0-0.2) k/uL PT 11.3 (9.0-12.0) sec INR 1.0 (<1.2) APTT 28.5 (22.0-30.0) sec Sodium 130 L (137-145) mmol/L Potassium 3.6 (3.5-5.1) mmol/L Chloride 98 (98-107) mmol/L Carbon Dioxide 23 (22-30) mmol/L Anion Gap 9 mmol/L BUN 14 (7-17) mg/dL Creatinine 0.64 (0.52-1.04) mg/dL Est GFR (CKD-EPI)AfAm >90 (>60 ml/min/1.73 sqM) Est GFR (CKD-EPI)NonAf >90 (>60 ml/min/1.73 sqM) Glucose 193 H (74-99) mg/dL Calcium 8.5 (8.4-10.2) mg/dL Total Bilirubin 0.8 (0.2-1.3) mg/dL AST 28 (14-36) U/L ALT 32 (4-34) U/L Alkaline Phosphatase 90 (38-126) U/L Total Protein 6.6 (6.3-8.2) g/dL Albumin 3.5 (3.5-5.0) g/dL Coronavirus (PCR) (Not Detectd) 12/12/21 Range/Units 08:33 WBC (3.8-10.6) k/uL RBC (3.80-5.40) m/uL Hgb (11.4-16.0) gm/dL Hct (34.0-46.0) % MCV (80.0-100.0) fL MCH (25.0-35.0) pg MCHC (31.0-37.0) g/dL RDW (11.5-15.5) % Plt Count (150-450) k/uL MPV Neutrophils % % Lymphocytes % % Monocytes % % Eosinophils % % Basophils % % Neutrophils # (1.3-7.7) k/uL Lymphocytes # (1.0-4.8) k/uL Monocytes # (0-1.0) k/uL Eosinophils # (0-0.7) k/uL Basophils # (0-0.2) k/uL PT (9.0-12.0) sec INR (<1.2) APTT (22.0-30.0) sec Sodium (137-145) mmol/L Potassium (3.5-5.1) mmol/L Chloride (98-107) mmol/L Carbon Dioxide (22-30) mmol/L Anion Gap mmol/L BUN (7-17) mg/dL Creatinine (0.52-1.04) mg/dL Est GFR (CKD-EPI)AfAm (>60 ml/min/1.73 sqM) Est GFR (CKD-EPI)NonAf (>60 ml/min/1.73 sqM) Glucose (74-99) mg/dL Calcium (8.4-10.2) mg/dL Total Bilirubin (0.2-1.3) mg/dL AST (14-36) U/L ALT (4-34) U/L Alkaline Phosphatase (38-126) U/L Total Protein (6.3-8.2) g/dL Albumin (3.5-5.0) g/dL Coronavirus (PCR) Not Detected (Not Detectd) Disposition Clinical Impression: Left leg DVT, Thrombophlebitis of leg, left, superficial Disposition: HOME SELF-CARE Condition: Stable Instructions (If sedation given, give patient instructions): Deep Vein Thrombosis (ED) Additional Instructions: Please return to the Emergency Department if symptoms worsen or any other c oncerns. Prescriptions: Apixaban [Eliquis Starter Pack (for VTE)] 0 mg PO DIRECTED 30 Days #1 packet Is patient prescribed a controlled substance at d/c from ED?: No Referrals: Miutl Mahan MD [Primary Care Provider] - 1-2 days Time of Disposition: 10:49
--- NOTE | 2021-12-12 10:26 | US ---
EXAMINATION TYPE: US venous doppler duplex LE LT DATE OF EXAM: 12/12/2021 9:34 AM COMPARISON: NONE CLINICAL HISTORY: pain. Left leg pain and swelling, history of DVT SIDE PERFORMED: Left TECHNIQUE: The lower extremity deep venous system is examined utilizing real time linear array sonog jacy with graded compression, doppler sonography and color-flow sonography. VESSELS IMAGED: Common Femoral Vein Deep Femoral Vein Greater Saphenous Vein * Femoral Vein Popliteal Vein Small Saphenous Vein * Proximal Calf Veins (* superficial vessels) Abnormal low level echoes present with saphenous vein and external iliac vein, common and superficial femoral vein, deep femoral vein. Peripheral aspect of the superficial femoral vein and popliteal vei n are patent, show color flow and no abnormal luminal echo, are compressible Left Leg: Positive for DVT - EIV, CFV, proximal femoral vein and proximal deep femoral vein Thrombus seen within greater saphenous vein from high thigh to below knee IMPRESSION: Deep venous thrombosis, superficial venous thrombosis left lower extremity. Report relaye d to the referring clinic at the time of interpretation at exam by telephone.
[2021-12-12] MEDS ORDERED: APIXABAN 5 MG TAB PO STA (10:47)
[2021-12-12 11:27] VITALS: BP 141/50; PULSE 83; RESP 18
== END 2021-12-12 11:27 | disposition home or self-care (01) ==
LOC: EC 07:54
DX: I82.812 Embolism and thrombosis of superficial veins of left lower extremity (principal); F32.A Depression, unspecified; F41.9 Anxiety disorder, unspecified; Z79.899 Other long term (current) drug therapy
CPT/HCPCS: 36415; 80053; 85025; 85610; 85730; 87635; 99284

== ENCOUNTER 2021-12-17 05:01 | Inpatient (IN) | payer MEDICARE, OTHER ==
[2021-12-17 06:32] LABS: HCT 36.5 % (34.0-46.0); HGB 11.5 gm/dL (11.4-16.0); MCH 29.5 pg (25.0-35.0); MCV 93.6 fL (80.0-100.0); WBC 6.9 k/uL (3.8-10.6)
[2021-12-17] MEDS ORDERED: SODIUM CHLORIDE 0.9% 1,000 ML IV ONE (06:32)
[2021-12-17 06:33] LABS: Basophils # (A) 0.1 k/uL (0-0.2); Basophils % (A) 1 %; Eosinophils # (A) 0.2 k/uL (0-0.7); Eosinophils % (A) 2 %; Lymphocytes # (A) 0.9 k/uL (1.0-4.8); Lymphocytes % (A) 13 %; MCHC 31.5 g/dL (31.0-37.0); Mean Platelet Volume 8.6; Monocytes # (A) 0.4 k/uL (0-1.0); Monocytes % (A) 6 %; Neutrophils # (A) 5.3 k/uL (1.3-7.7); Neutrophils % (A) 77 %
[2021-12-17 06:34] LABS: Platelet Count 427 k/uL (150-450)
--- NOTE | 2021-12-17 06:37 | XR ---
EXAMINATION TYPE: XR chest 2V DATE OF EXAM: 12/17/2021 COMPARISON: NONE HISTORY: Weakness TECHNIQUE: 2 views FINDINGS: There is a poorly marginated 5 cm infiltrate in the right upper lobe. The other lung collado are clear. Heart size is normal. There are no hilar masses. Diaphragm is normal. Bony thorax is inta ct. There is some mild pleural thickening at the lung apices. IMPRESSION: There is some right upper lobe pneumonia. Normal heart.
[2021-12-17 07:00] LABS: Partial Thromboplastin Time 29.5 sec (22.0-30.0); Prothrombin Time 11.3 sec (9.0-12.0)
--- NOTE | 2021-12-17 07:40 | CT ---
EXAMINATION TYPE: CT chest angio for PE DATE OF EXAM: 12/17/2021 COMPARISON: None HISTORY: pain sob CT DLP: 268.5 mGycm CONTRAST: CT chest with contrast and 3D reconstruction with MIP imaging is performed with IV Contrast, patient injected with 100ml mL of Isovue 370. Contrast-enhanced CT of the chest was performed through the course of the pulmonary arteries with abhijit g and mediastinal window settings submitted. 3D reconstruction with MIP imaging was also performed. PULMONARY ARTERIES: There is thrombus within the right main pulmonary artery which extends into right lower lobe tributaries. Small amount of thrombus is seen within second order branches left pulmonary artery. Pleural-based infiltrate right upper lobe could reflect pulmonary infarct. Small right-sided pleural effusion. No saddle component. No evidence for right heart strain. LUNGS: The lungs are clear and free of infiltrate. No evidence for atelectasis. No pulmonary nodule or mass is detected. No pleural effusion. MEDIASTINUM: Thoracic aorta is of normal caliber,however, evaluation is limited given timing of the contrast bolus. If there is concern for thoracic aortic pathology consider RODDY. Correlate clinicall y . The heart is not enlarged. No evidence for mediastinal mass. No mediastinal lymph nodes greater than 1cm. HILAR STRUCTURES: No evidence for mass. No hilar lymph nodes greater than 1 cm. UPPER ABDOMEN: Small cyst upper pole left kidney. IMPRESSION: 1. The findings are positive for pulmonary embolism. Possible right upper lobe pulmonary infarct.
[2021-12-17] MEDS ORDERED: NALOXONE 0.4 MG/ML 1 ML VIAL IV PRN (07:57)
--- NOTE | 2021-12-17 07:57 | ED ---
General Adult HPI - General Chief complaint: Weakness Stated complaint: Muscle Cramps Time Seen by Provider: 12/17/21 06:07 Source: patient, EMS, RN notes reviewed Mode of arrival: EMS Limitations: no limitations - History of Present Illness Initial comments: This a 71-year-old female presents emergency Department with chief complaint of muscle cramps, increasing weakness, fatigue. Patient was seen here 5 days ago diagnosed with left leg DVT and superficial thrombophlebitis. Patient was placed in HIS time states she was doing well until she followed up with her PCP who placed her on Bactrim and Keflex for concerns of cellulitis over the area of her superficial thrombophlebitis. Patient states that she does not have any increasing chest pain or shortness of breath states that she does have generalized weakness. She states she's having severe cramps to the point where it's hard to move states that she's not been eating drinking well. Patient states she was not like this when she was seen 5 days ago she states she was doing well. Patient states the redness or leg discomfort in her leg is improving. - Related Data Home Medications Medication Instructions Recorded Confirmed ARIPiprazole [Abilify Maintena] 300 mg PO QMONTHLY 12/12/21 12/12/21 Benztropine Mesylate [Cogentin] 2 mg PO BID 12/12/21 12/12/21 Ibuprofen [Motrin Ib] 200 mg PO Q8H PRN 12/12/21 12/12/21 Propranolol HCl 60 mg PO DAILY 12/12/21 12/12/21 Previous Rx's Medication Instructions Recorded Apixaban [Eliquis Starter Pack 0 mg PO DIRECTED 30 Days #1 12/12/21 (for VTE)] packet Apixaban [Eliquis Starter Pack 0 mg PO DIRECTED 30 Days #1 12/12/21 (for VTE)] packet Allergies Allergy/AdvReac Type Severity Reaction Status Date / Time No Known Allergies Allergy Verified 12/17/21 06:33 Review of Systems ROS Statement: Those systems with pertinent positive or pertinent negative responses have been documented in the HPI. ROS Other: All systems not noted in ROS Statement are negative. Past Medical History Past Medical History: Deep Vein Thrombosis (DVT) History of Any Multi-Drug Resistant Organisms: None Reported Past Surgical History: Tonsillectomy Past Psychological History: Anxiety, Depression Smoking Status: Never smoker Past Alcohol Use History: Occasional Past Drug Use History: Marijuana General Exam General appearance: alert, in no apparent distress, other (Generalized shaking) Head exam: Present: atraumatic, normocephalic, normal inspection Eye exam: Present: normal appearance, PERRL, EOMI. Absent: scleral icterus, conjunctival injection, periorbital swelling ENT exam: Present: normal exam, normal oropharynx, mucous membranes moist Neck exam: Present: normal inspection, full ROM. Absent: tenderness, meningismus, lymphadenopathy Respiratory exam: Present: normal lung sounds bilaterally. Absent: respiratory distress, wheezes, rales, rhonchi, stridor Cardiovascular Exam: Present: regular rate, normal rhythm, normal heart sounds. Absent: systolic murmur, diastolic murmur, rubs, gallop, clicks Extremities exam: Present: other (Mild swelling left leg) Neurological exam: Present: alert, oriented X3, CN II-XII intact, reflexes normal. Absent: motor sensory deficit Skin exam: Present: warm, dry, intact, normal color. Absent: rash Course Vital Signs 12/17/21 12/17/21 12/17/21 05:03 06:06 06:55 Temperature 97.9 F Pulse Rate 98 94 Respiratory 18 16 18 Rate Blood Pressure 146/80 149/77 O2 Sat by Pulse 98 98 Oximetry Medical Decision Making - Medical Decision Making 71-year-old presented for increased weakness muscle cramps. Patient found to have pulmonary infarct, PE. Patient's did improve her leg. Patient have increasing physical debility. Patient will be admitted for echocardiogram, vascular consult. - Lab Data Result diagrams: 12/17/21 06:20 Lab Results 12/17/21 12/17/21 12/17/21 Range/Units 06:20 06:20 06:20 WBC 6.9 (3.8-10.6) k/uL RBC 3.90 (3.80-5.40) m/uL Hgb 11.5 (11.4-16.0) gm/dL Hct 36.5 (34.0-46.0) % MCV 93.6 (80.0-100.0) fL MCH 29.5 (25.0-35.0) pg MCHC 31.5 (31.0-37.0) g/dL RDW 13.0 (11.5-15.5) % Plt Count 427 D (150-450) k/uL MPV 8.6 Neutrophils % 77 % Lymphocytes % 13 % Monocytes % 6 % Eosinophils % 2 % Basophils % 1 % Neutrophils # 5.3 (1.3-7.7) k/uL Lymphocytes # 0.9 L (1.0-4.8) k/uL Monocytes # 0.4 (0-1.0) k/uL Eosinophils # 0.2 (0-0.7) k/uL Basophils # 0.1 (0-0.2) k/uL PT 11.3 (9.0-12.0) sec INR 1.0 (<1.2) APTT 29.5 (22.0-30.0) sec Plasma Lactic Acid [place] 1.2 (0.7-2.0) mmol/L Disposition Clinical Impression: Left leg DVT, Pulmonary infarct, Pulmonary embolism Disposition: ADMITTED IP TO THIS HOSP Condition: Fair Referrals: Mitul Mahan MD [Primary Care Provider] - 1-2 days Time of Disposition: 07:57
[2021-12-17] MEDS ORDERED: NON FORMULARY DRUG (Apixaban [Eliquis Starter Pack (For Vte)] 5 MG Tab.Ds.Pk) PO SCH ×2 (08:00)
[2021-12-17 08:14] LABS: Amorphous Sediment,Urine Rare /hpf; Appearance,Urine Cloudy (Clear); Bacteria,Urine Occasional /hpf; Bilirubin,Urine Negative (Negative); Blood,Urine Negative (Negative); Color,Urine Light Yellow; Glucose,Urine (UA) Negative (Negative); Ketones,Urine 2+ (Negative); Leukocyte Esterase,Urine Negative (Negative); Mucus,Urine Rare /hpf; Nitrite,Urine Negative (Negative); PH, Urine 6.5 (5.0-8.0); Protein,Urine Negative (Negative); RBC,Urine 3 /hpf (0-5); Squamous Epithelial Cell,Urine 1 /hpf (0-4); Urobilinogen,Urine <2.0 mg/dL (<2.0); WBC,Urine 4 /hpf (0-5)
[2021-12-17 08:34] LABS: ALT 28 U/L (4-34); AST 20 U/L (14-36); African American GFR (CKD) >90 (>60 ml/min/1.73 sqM); Albumin 3.1 g/dL (3.5-5.0); Alkaline Phosphatase 86 U/L (38-126); Anion Gap 10 mmol/L; Blood Urea Nitrogen 5 mg/dL (7-17); Carbon Dioxide 20 mmol/L (22-30); Chloride 103 mmol/L (98-107); Glucose 99 mg/dL (74-99); Non-African American GFR(CKD) >90 (>60 ml/min/1.73 sqM); Potassium 4.1 mmol/L (3.5-5.1); Sodium 133 mmol/L (137-145); Total Bilirubin 0.5 mg/dL (0.2-1.3)
[2021-12-17] MEDS ORDERED: PROPRANOLOL HCL 60 MG PO SCH (09:00)
[2021-12-17] MEDS ORDERED: BENZTROPINE MESYLATE 2 MG PO SCH (09:00)
[2021-12-17] MEDS: APIXABAN 5 MG TAB PO SCH ×2 (10:20→21:53)
--- NOTE | 2021-12-17 11:35 | P.GSCN ---
History of Present Illness Consult date: 12/17/21 Reason for Consult: bilateral pulmonary embolism Requesting physician: Corbin Salinas History of present illness: This a pleasant 71-year-old female who presented to the emergency department this morning with complaints of weakness, shaking, and muscle cramps. Patient was recently seen in the emergency department on 12/12/2021 with complaints of left leg pain and swelling with redness. She was diagnosed with DVT of the left lower extremity in the external iliac vein, common and superficial femoral vein. At that time she was started on Eliquis and discharged home with follow-up with vascular surgery outpatient. The patient had seen her primary care physician and he started her on Bactrim and Keflex for possible cellulitis. Apparently the patient was doing well until she was started on the antibiotics. She denies any chest pain but states she does have some mild shortness of breath. A chest CTA was performed with findings for pulmonary embolism. Possible right upper lobe pulmonary infarct. Vascular surgery was consulted for the above. Echocardiogram ordered and pending. Troponins negative. The patient does report a prior history of DVT during her in the . She had no other further workup at that time. She denies any history of any clotting disorders. Denies any family history of blood clots or clotting disorders. No recent travel or surgeries. She is on day 6 of Eliquis starter pack, currently on 10 mg twice a day. Denies any pain in her left lower extremity. States overall she does not feel well, she has been shaky, and having muscle cramps. Review of Systems A 14 point review systems was completed all pertinent positives and negatives as stated in the HPI. Past Medical History Past Medical History: Deep Vein Thrombosis (DVT) History of Any Multi-Drug Resistant Organisms: None Reported Past Surgical History: Tonsillectomy Past Psychological History: Anxiety, Depression Smoking Status: Never smoker Past Alcohol Use History: Occasional Past Drug Use History: Marijuana - Past Family History Mother Family Medical History: No Reported History Additional Family Medical History / Comment(s): Mother was healthy Father Family Medical History: No Reported History Additional Family Medical History / Comment(s): Father was healthy. Medications and Allergies Home Medications Medication Instructions Recorded Confirmed Type ARIPiprazole [Abilify Maintena] 300 mg PO QMONTHLY 12/12/21 12/17/21 History Apixaban [Eliquis Starter Pack See Taper PO DIRECTED 12/17/21 12/17/21 History (for VTE)] Cephalexin [Keflex] 500 mg PO Q6HR 12/17/21 12/17/21 History Sulfamethoxazole/Trimethoprim 1 tab PO BID 12/17/21 12/17/21 History [Bactrim DS 800-160 mg] Allergies Allergy/AdvReac Type Severity Reaction Status Date / Time No Known Allergies Allergy Verified 12/17/21 08:27 Surgical - Exam Vital Signs Temp Pulse Resp BP Pulse Ox 97.9 F 98 18 146/80 98 12/17/21 05:03 12/17/21 05:03 12/17/21 05:03 12/17/21 05:03 12/17/21 05:03 General appearance: The patient is alert, oriented, appears in no acute distre ss. HET: Head is normocephalic and atraumatic. Pupils are equal and reactive. Neck: Supple without lymphadenopathy. Trachea midline. Heart: S1 S2. Regular rate and rhythm. Lungs: Clear to auscultation bilaterally. Abdomen: Soft, nontender, nondistended. Extremities: Normal skin color and turgor. No cyanosis, rash, ulceration, clubbing, or edema. Radial and pedal pulses are 2/4 bilaterally. Neurological: No focal deficits. Alert and oriented 3. Patient does appear to be shaky/tremors. Bilateral hand seems somewhat contracted. Patient is able to extend her fingers completely. Results - Labs 12/17/21 06:20 12/17/21 07:45 Abnormal Lab Results - Last 24 Hours (Table) 12/17/21 Range/Units 06:20 Lymphocytes # 0.9 L (1.0-4.8) k/uL - Imaging Comments: Chest CT angiogram reports positive pulmonary embolism. Possible right upper lobe pulmonary infarct. Thrombus within the right main pulmonary artery with extension into the right lower lobe tributaries. Small amount of thrombus seen within second order branches of left pulmonary artery. Pleural-based infiltrate right upper lobe could reflect pulmonary infarct. Assessment and Plan Assessment: 1. Pulmonary embolism 2. Left lower extremity DVT Plan: 1. Continue Eliquis as previously ordered, finish starter pack 2. Echocardiogram pending 3. No indication for any vascular surgical intervention 4. Compression stocking to LLE Thank you for this consultation, we will continue to follow. The impression and plan of care has been dictated as directed. Dr. Macdonald I performed a history and examination of this patient, discussed the same with the dictator. I agree with the dictator's note ,documented as a scribe. Any additional findings or plans will be noted.
[2021-12-17] MEDS ORDERED: HYDROcodone/APAP 5-325MG 1 EACH TAB PO PRN (13:06)
[2021-12-17] MEDS ORDERED: ACETAMINOPHEN TAB 325 MG TAB PO PRN (13:06)
--- NOTE | 2021-12-17 13:06 | P.HPIM ---
History of Present Illness H&P Date: 12/17/21 Chief Complaint: weakness 71-year-old female with a history of prior DVT, schizoaffective disorder, and cannabis abuse who presented to the ER with complaints of feeling off with some weakness, fatigue, and muscle cramping. Patient was seen here on 12/12 and diagnosed with "from the DVT. At that point in time she was prescribed eloquent. She followed up with her primary care physician and was placed on Bactrim and Keflex. She was told to return to the ER if she continues to not feel well. In the ER she underwent an extensive value excoriation. Her initial vital signs within normal limits. Initial laboratory analysis demonstrated a sodium of 131, carbon dioxide 20, BUN 5, and creatinine 0.51. She underwent a CTA of the chest which demonstrated right-sided main pulmonary artery thrombosis with pulmonary infarction. She was continued on her eliquis. Arrangements were made for admission. Vascular surgery was consulted. Patient seen and examined at bedside. She states she just "doesn't feel right". When asked further she reports cramping that is diffuse and all over her body. She feels as though she cannot extend her fingers or flex them and that they are stuck together. She then states she is feeling very tired and fatigued and just not well. She reports that her lower extremity swelling has improved and the redness has started to suha. She states she was taking her Bactrim and Keflex as corrected. She states she was short of breath but that has been improving since starting the eliquis. However everything else has just not felt right. She denies any chest pain, a mild cough that is nonproductive, she denies any fevers or chills. She states that she sees [facility] and has been on the once monthly injectable of Abilify however they were transitioning her to oral tablets. She states these were prescribed but she does not believe she has started them yet. She states she is no longer taking Cogentin or propranolol. I asked her she thought this may be a medication reaction and she felt that it likely was a medication reaction. Pertinent positives and negatives as discussed in HPI, a complete review of systems was performed and all other systems are negative. General: non toxic, no distress, appears at stated age Derm: warm, dry Head: atraumatic, normocephalic, symmetric, left medical thight [place] wtihout warmth, able to palpate thrombosed vein Eyes: mydrasis, EOMI, no lid lag, anicteric sclera, pupils equal round reactive to light ENT: Nose and ears atraumatic, no thrush, no pharyngeal erythema Neck: No thyromegaly, no cervical lymphadenopathy, trachea midline, supple Mouth: no lip lesion, mucus membranes moist Cardiovascular: S1S2 reg, no murmur, positive posterior tibial pulse bilateral, no edema, capillary refill less than 2 seconds Lungs: clear to ascultation bilateral, no ronchi, no rales, no wheeze, no accessory muscle use Abdominal: soft, nontender to palpation, no guarding, no appreciable organomegaly, normal bowel sounds Ext: no gross muscle atrophy, muscle strength muscle strength 5 out of 5 in all 4 extremities, no contractures Neuro: CN II-XI grossly intact, light touch intact all 4 extremities, finger to nose within normal limits, no ridigity, no tremors, no clonous, appears to prefer to hold hads over chest area and hold finger flat. On muscle strenth testing she is able to move these without difficulty. Psych: Alert, oriented, pressured speech, appears anxious Assessment/plan: Right Pulmonary embolism Left LE DVT Left LE superficial thrombophlebitis Right Pulmonary Infract - This is not an eliquis failure as patient was having some SOB since time of diagnosis of DVT. I believe the pulmonary embolism occured with the DVT. - Vascular recs - Await echo- large clot will beed monitoring for pulm HTN - Eliquis - consult heme - no need for bactrim of keflex at this time Fatigue - can be related to PE or worsening depression - continue supportive care Schizoaffective disorder Posturing - check CK - Consult psych - [facility] follow-up The patient is admitted with an anticipated greater than 2 midnight stay for evaluation of muslce cramping and fatigue. Surrogate decision-maker: Brother CODE STATUS:full DVT prophylaxis: Eliquis Discussed with: patient, nursing, vascular surgery Anticipated discharge date: in 2-[address]: home A total of 75 minutes was spent on the care of this complex patient more than 50% of the time was spent in counseling and care coordination. Past Medical History Past Medical History: Deep Vein Thrombosis (DVT) Additional Past Medical History / Comment(s): 12/12/21 L leg superficial DVT/thrombophlemitis/PCP treated for cellulitis, bilateral feet cramping/numbness/L foot worse. History of Any Multi-Drug Resistant Organisms: None Reported Past Surgical History: Tonsillectomy Past Anesthesia/Blood Transfusion Reactions: No Reported Reaction Past Psychological History: Anxiety, Depression Smoking Status: Former smoker Past Alcohol Use History: Occasional Past Drug Use History: Marijuana - Past Family History Mother Family Medical History: No Reported History Additional Family Medical History / Comment(s): Mother was healthy Father Family Medical History: No Reported History Additional Family Medical History / Comment(s): Father was healthy. Medications and Allergies Home Medications Medication Instructions Recorded Confirmed Type ARIPiprazole [Abilify Maintena] 300 mg PO QMONTHLY 12/12/21 12/17/21 History Apixaban [Eliquis Starter Pack See Taper PO DIRECTED 12/17/21 12/17/21 History (for VTE)] Cephalexin [Keflex] 500 mg PO Q6HR 12/17/21 12/17/21 History Sulfamethoxazole/Trimethoprim 1 tab PO BID 12/17/21 12/17/21 History [Bactrim DS 800-160 mg] Allergies Allergy/AdvReac Type Severity Reaction Status Date / Time No Known Allergies Allergy Verified 12/17/21 08:27 Physical Exam Osteopathic Statement: *. No significant issues noted on an osteopathic structural exam other than those noted in the History and Physical/Consult. Vitals: Vital Signs Temp Pulse Resp BP Pulse Ox 12/17/21 09:17 84 16 140/76 96 12/17/21 06:55 94 18 149/77 98 12/17/21 06:06 16 12/17/21 05:03 97.9 F 98 18 146/80 98 Intake and Output 12/16/21 12/17/21 12/17/21 22:59 06:59 14:59 Other: Weight 73.936 kg 73.936 kg Results CBC & Chem 7: 12/17/21 06:20 12/17/21 07:45 Labs: Abnormal Lab Results - Last 24 Hours (Table) 12/17/21 12/17/21 12/17/21 Range/Units 06:20 06:20 07:45 Lymphocytes # 0.9 L (1.0-4.8) k/uL Sodium 133 L (137-145) mmol/L Carbon Dioxide 20 L (22-30) mmol/L BUN 5 L (7-17) mg/dL Creatinine 0.49 L (0.52-1.04) mg/dL Calcium 8.0 L (8.4-10.2) mg/dL Total Protein 6.0 L (6.3-8.2) g/dL Albumin 3.1 L (3.5-5.0) g/dL Urine Appearance Cloudy H (Clear) Urine Ketones 2+ H (Negative) Amorphous Sediment Rare H (None) /hpf Urine Bacteria Occasional H (None) /hpf Urine Mucus Rare H (None) /hpf Thrombosis Risk Factor Assmnt - Choose All That Apply Any of the Below Risk Factors Present?: Yes Other Risk Factors: Yes Each Risk Factor Represents 2 Points: Age 61-74 years Each Risk Factor Represents 3 Points: History of DVT/PE Other congenital or acquired thrombophilia - If yes, enter type in comment: No Thrombosis Risk Factor Assessment Total Risk Factor Score: 5 Thrombosis Risk Factor Assessment Level: High Risk
[2021-12-17 14:00] LABS: African American GFR (CKD) >90 (>60 ml/min/1.73 sqM); Non-African American GFR(CKD) >90 (>60 ml/min/1.73 sqM)
--- NOTE | 2021-12-17 16:27 | US ---
EXAMINATION TYPE: US venous doppler duplex LE BI DATE OF EXAM: 12/17/2021 2:24 PM COMPARISON: 12/12/2021 CLINICAL HISTORY: PE. PE HX of DVT left leg SIDE PERFORMED: Bilateral TECHNIQUE: The lower extremity deep venous system is examined utilizing real time linear array sonog jacy with graded compression, doppler sonography and color-flow sonography. VESSELS IMAGED: Common Femoral Vein Deep Femoral Vein Greater Saphenous Vein * Femoral Vein Popliteal Vein Small Saphenous Vein * Proximal Calf Veins (* superficial vessels) Right Leg: Negative for DVT Left Leg: Positive for DVT there remains thrombus within the common femoral and superficial femoral vein. Minimal thrombus within the popliteal vein. Images of the iliac vein are not included.. IMPRESSION: 1. Exam positive for DVT left lower extremity which appears to demonstrate some very mild improvement relative to the prior exam.
[2021-12-17] MEDS: MELATONIN 5 MG TABLET PO PRN (21:53)
[2021-12-17 22:59] LABS: Amphetamine Screen,Urine Not Detected (NotDetected); Barbiturate Screen,Urine Not Detected (NotDetected); Benzodiazepines Screen,Urine Detected (NotDetected); Cocaine Screen,Urine Not Detected (NotDetected); Methadone Screen, Urine Not Detected (NotDetected); Opiate Screen,Urine Not Detected (NotDetected); Oxycodone Screen, Urine Not Detected (NotDetected); Phencyclidine Screen,Urine Not Detected (NotDetected); Tricyclic Antidepressant,Urine Not Detected (NotDetected); Urn Cannabinoid Scrn Detected (NotDetected)
[2021-12-18] MEDS: APIXABAN 5 MG TAB PO SCH ×2 (08:01→20:33)
[2021-12-18 09:55] LABS: HCT 35.7 % (34.0-46.0); HGB 11.9 gm/dL (11.4-16.0); MCH 31.6 pg (25.0-35.0); MCHC 33.3 g/dL (31.0-37.0); MCV 94.9 fL (80.0-100.0); Mean Platelet Volume 8.2; Platelet Count 306 k/uL (150-450); RBC 3.77 m/uL (3.80-5.40); RDW 13.7 % (11.5-15.5); WBC 6.2 k/uL (3.8-10.6)
--- NOTE | 2021-12-18 14:00 | P.CN ---
Psychiatric Consult - . Consult date: 12/18/21 Consult:: 12/18/21 11:55 IDENTIFYING DATA: Patient is a 71-year-old female with a history of schizoaffective disorder bipolar type. HPI: Patient presented to the hospital on 12/17 complaining of muscle cramps for the past 5 or 6 days and also spoke of weakness and fatigue. Patient was diagnosed with thrombophlebitis about 5 days ago. She has been on Abilify Maintenna 300 mg every monthly through [facility] and has been followed by Dr Chris. Patient was also previously on Cogentin 2 mg twice a day. Patient's UDS was positive for benzodiazepines and THC. Patient was admitted and found to have a left leg DVT and had a pulmonary embolism as well. Patient was last psychiatrically admitted to the mental health unit 2 years ago. Patient was seen lying in the bed. She was fairly calm and attempting to cooperate. She appeared to be fairly stiff in her movements and also her lips and was mumbling. She claims that for the past week or so she has been feeling stiff and believes that it may have been caused by the medications. She states that she is not having any depression or anxiety at this time. She states that her sleep has been "not good". She claims that her appetite has been fair. She states that she last received the Abilify maintain that dose 300 mg IM about a week ago. She claims that she does feel weak and has some minor tremors. She does appear to be fairly constricted in her affect however was fairly appropriate. She currently denies any suicidal or homicidal ideations intent or plan. She denies any auditory or visual hallucinations. Pattern Grader Cutter spoke with Dr. Chris patient psychiatrist at [facility] over the phone today for further collateral information. He states that patient has been on Abilify Maintenna, 300 mg IM and has been responding very well to it to control her psychiatric symptoms. He also states that patient does have a history of acute dystonic reactions at times from neuroleptics and that she responded very well to Cogentin in the past. PAST PSYCHIATRIC HISTORY: Patient has a history of schizoaffective disorder bipolar type. She has been followed by [facility] with her psychiatrist Dr. Chris who takes care of her. She was last admitted to the mental health unit May 2020. She was previously on a court order for mental health treatment however she is no longer on that. She was previously on Seroquel and lithium and most recently on Abilify Maintenna. Denies any suicide attempts in the past. PMH:denies ALLERGIES: as per EMR CHEMICAL DEPENDENCY HISTORY: Urinary drug screen was positive for marijuana and benzodiazepines. FAMILY PSYCHIATRIC/SUBSTANCE USE HISTORY: Unable to obtain SOCIAL HISTORY: Unable to obtain. She currently lives alone in a house. MENTAL STATUS EXAM: General Appearance: Patient appears to be tall, stated age, is lying in bed, appears to be stiff and slow moving. She appears in no acute distress and was breathing normally. Behavior: Patient is lying in bed in no acute distress. Stiff. Mild resting tremor in upper extremities. Slow moving. Speech: Patient is monotone and concrete. Mood/Affect: She denies any depression today, congruent affect. Suicidality/Homicidality: Denies Perceptions: Denies any auditory or visual hallucinations Though content/process: She is not having any flight of ideas, logical and goal oriented. No delusions. Memory and concentration: Alert and oriented 3, fair attention span. Judgment and insight: Chronically poor IMPRESSIONS: acute dystonic reaction shizoaffective disorder, bipolar PLAN: -At this time patient DOES NOT meet criteria for inpatient psychiatric admission. -Would recommend the following medication changes/additions: Added 1 mg twice a day of Cogentin for acute dystonic reaction. Due to patient's history of noncompliance with medications and chronically poor insight, will need to restart Abilify Maintenna 300 mg IM likely tomorrow. -Patient currently follows up at [facility]. -Communicated plan to patient's nurse -Will continue to follow along -Please contact with any questions. 12/18/21 13:51
--- NOTE | 2021-12-18 18:28 | P.PN ---
Subjective Progress Note Date: 12/18/21 (delayed charting seen at 1215) Principal diagnosis: weakness Patient is a 71-year-old female with a history of prior DVT, schizoaffective disorder, and cannabis abuse who presented to the ER with complaints of feeling off with some weakness, fatigue, and muscle cramping. Patient was seen here on 12/12 and diagnosed with "from the DVT. At that point in time she was prescribed eloquent. She followed up with her primary care physician and was placed on Bactrim and Keflex. She was told to return to the ER if she continues to not feel well. In the ER she underwent an extensive value excoriation. Her initial vital signs within normal limits. Initial laboratory analysis demonstrated a sodium of 131, carbon dioxide 20, BUN 5, and creatinine 0.51. She underwent a CTA of the chest which demonstrated right-sided main pulmonary artery thrombosis with pulmonary infarction. She was continued on her eliquis. Arrangements were made for admission. Vascular surgery was consulted. He did not recommend any additional intervention at that time. Hematology oncology was consulted for unprovoked clot. 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 Patient seen and examined at bedside. She states her arm cramping is not as bad as before. She denies any chest pain or shortness of breath. She denies any na usea or vomiting. Daughter was at bedside all questions were answered. Apparently the patient daughter is also hospitalized with blood clots and is requiring EKOS General: Ill-appearing,, no distress, appears at stated age Derm: Erythema medial left knee, palpable pain warm, dry Head: atraumatic, normocephalic, symmetric Eyes: EOMI, no lid lag, anicteric sclera Mouth: no lip lesion, mucus membranes moist Cardiovascular: S1S2 reg, no murmur, positive posterior tibial pulse bilateral, Lungs: CTA bilateral, no rhonchi, no rales , no accessory muscle use Abdominal: soft, nontender to palpation, no guarding, no appreciable organomegaly Ext: no gross muscle atrophy, no edema, no contractures Neuro: CN II-XI grossly intact, no focal neuro deficits Psych: Alert, oriented, appropriate affect . Assessment/plan: Right Pulmonary embolism Left LE DVT Left LE superficial thrombophlebitis Right Pulmonary Infract - This is not an eliquis failure as patient was having some SOB since time of diagnosis of DVT. I believe the pulmonary embolism occured with the DVT. - Vascular recs - Await echo- large clot will beed monitoring for pulm HTN - Eliquis - D/W hematology: hypercoag work-up - no need for bactrim of keflex at this time, warm compressed as needed Weakness - my be related to acute dystonic reaction -PT/OT recommending SNF Schizoaffective disorder Acute dystonic reaction - psych recs: OLGA LIDIA Quintero, outpatient follow up with [facility] The patient is admitted with an anticipated greater than 2 midnight stay for evaluation of muslce cramping and fatigue. Surrogate decision-maker: Brother CODE STATUS:full DVT prophylaxis: Eliquis Discussed with: patient, nursing, oncology Anticipated discharge date: in am Anticipated discharge place: SNF A total of 35 minutes was spent on the care of this complex patient more than 50% of the time was spent in counseling and care coordination. Objective - Vital Signs Vital signs: Vital Signs Temp 97.8 F 12/18/21 11:43 Pulse 89 12/18/21 15:40 Resp 16 12/18/21 15:40 BP 148/90 12/18/21 15:40 Pulse Ox 96 12/18/21 15:40 Intake & Output 12/17/21 12/18/21 12/18/21 18:59 06:59 18:59 Intake Total 118 Output Total 400 600 Balance -400 -482 Weight 73.936 kg 73.5 kg Intake: Oral 118 Output: Urine 400 600 Other: Voiding Method Incontinent External Catheter External Catheter # Voids 2 - Labs CBC & Chem 7: 12/18/21 09:21 12/17/21 07:45 Labs: Abnormal Lab Results - Last 24 Hours (Table) 12/17/21 12/18/21 Range/Units 22:00 09:21 RBC 3.77 L (3.80-5.40) m/uL U Benzodiazepines Scrn Detected H (NotDetected) U Marijuana (THC) Screen Detected H (NotDetected)
--- NOTE | 2021-12-18 19:01 | CA ---
Transthoracic Echo Report Name: Maria R Bryant Age: 71 Gender: F : 1950 Exam Date: 12/17/2021 08:24 Exam Location: [facility] Ht (in): 60 Wt (lb): 163 Ordering Physician: Corbin Salinas Attending/Referring Phys: POOL, Brad Ski Technician Shy Khoury RDCS Procedure CPT: Indications: PE Cardiac Hx: HX OF PE Technical Quality: Fair Contrast 1: N/A Total Dose (mL): Contrast 2: Total Dose (mL): MEASUREMENTS (Male / Female) Normal Values 2D ECHO LV Diastolic Diameter PLAX 3.3 cm 4.2 - 5.9 / 3.9 - 5.3 cm LV Systolic Diameter PLAX 3.2 cm IVS Diastolic Thickness 1.1 cm 0.6 - 1.0 / 0.6 - 0.9 cm LVPW Diastolic Thickness 1.1 cm 0.6 - 1.0 / 0.6 - 0.9 cm LV Relative Wall Thickness 0.7 RV Internal Dim ED PLAX 3.5 cm M-MODE Aortic Root Diameter MM 2.8 cm LA Systolic Diameter MM 4.1 cm LA Ao Ratio MM 1.5 MV E Point Septal Separation 0.4 cm AV Cusp Separation MM 2.0 cm DOPPLER MV Area PHT 2.6 cm??? Mitral E Point Velocity 45.2 cm/s Mitral A Point Velocity 90.8 cm/s Mitral E to A Ratio 0.5 MV Deceleration Time 295.0 ms MV E' Velocity 3.9 cm/s Mitral E to MV E' Ratio 11.6 TR Peak Velocity 165.5 cm/s TR Peak Gradient 11.0 mmHg Right Ventricular Systolic Press 16.0 mmHg FINDINGS Left Ventricle Normal left ventricular systolic function with no obvious regional wall motion abnormalities. Left ventricular ejection fraction is estimated at 55-60%/ Right Ventricle Moderate right ventricular dilatation. Right ventricular systolic pressure within normal limits. Right Atrium Right atrium not well visualized. Left Atrium Left atrial dilatation. Mitral Valve . Mild mitral regurgitation. Aortic Valve Aortic valve not well visualized. Tricuspid Valve Mild tricuspid regurgitation. Pulmonic Valve Pulmonic valve not well visualized. Pericardium Normal pericardium. Aorta Aortic root and proximal ascending aorta not well visualized. CONCLUSIONS Hyperdynamic LV systolic function RV enlargement, mild Previewed by: Dr. Yuriy Hong MD (Electronically Signed) Final Date: 18 Dec 2021 19:00
[2021-12-18] MEDS: BENZTROPINE MESYLATE 1 MG TAB PO SCH (20:33)
--- NOTE | 2021-12-18 23:19 | P.CONS ---
History of Present Illness - Reason for Consult Consult date: 12/18/21 unprovoked PE Requesting physician: Shania Rivero - Chief Complaint weakness, muscle cramps - History of Present Illness Mrs. Bryant is a pleasant female we were asked to see re: PE while on eliquis for unprovoked DVT-evternal iliac, CFV, SFV- diagnosed 6 days ago when she presented with c/o lt leg pain and swelling. She now presents to ER with c/o muscle cramps, weaknss, general malaise for last few days, persistent after starting antibiotic for suspected cellulitis. Report of SOB led to CTA, revealed PE, R>L, suspect rt pulm infarct. Pt has a history of of DVT while in the . States her daughter was just diagnosed with a DVT after a long car ride. Denies any work up for hypercoaguable state. She denied prolonged immobility in the last 90 days, no hormone use, surgery or injury. Review of Systems 10 point ROS is neg except as stated in HPI Past Medical History Past Medical History: Deep Vein Thrombosis (DVT) Additional Past Medical History / Comment(s): 12/12/21 L leg superficial DVT/thrombophlemitis/PCP treated for cellulitis, bilateral feet cramping/numbness/L foot worse. History of Any Multi-Drug Resistant Organisms: None Reported Past Surgical History: Tonsillectomy Past Anesthesia/Blood Transfusion Reactions: No Reported Reaction Past Psychological History: Anxiety, Depression Smoking Status: Former smoker Past Alcohol Use History: Occasional Past Drug Use History: Marijuana - Past Family History Mother Family Medical History: No Reported History Additional Family Medical History / Comment(s): Mother was healthy Father Family Medical History: No Reported History Additional Family Medical History / Comment(s): Father was healthy. Daughter(s) Family Medical History: Deep Vein Thrombosis (DVT) Medications and Allergies Home Medications Medication Instructions Recorded Confirmed Type ARIPiprazole [Abilify Maintena] 300 mg PO QMONTHLY 12/12/21 12/17/21 History Apixaban [Eliquis Starter Pack See Taper PO DIRECTED 12/17/21 12/17/21 History (for VTE)] Cephalexin [Keflex] 500 mg PO Q6HR 12/17/21 12/17/21 History Sulfamethoxazole/Trimethoprim 1 tab PO BID 12/17/21 12/17/21 History [Bactrim DS 800-160 mg] Allergies Allergy/AdvReac Type Severity Reaction Status Date / Time No Known Allergies Allergy Verified 12/17/21 08:27 Physical Exam Vitals: Vital Signs Temp Pulse Pulse Resp BP BP Pulse Ox 12/18/21 08:00 97.8 F 92 16 144/86 97 12/18/21 04:00 97.4 F L 80 16 128/85 98 12/18/21 02:00 86 16 12/18/21 00:00 97.8 F 86 16 131/84 98 12/17/21 20:00 97.8 F 90 16 126/82 96 12/17/21 16:13 96 12/17/21 16:00 98.0 F 98 18 139/81 97 12/17/21 14:00 16 12/17/21 12:00 97.6 F 96 16 127/83 96 12/17/21 09:17 84 16 140/76 96 Intake and Output 12/17/21 12/18/21 12/18/21 22:59 06:59 14:59 Output Total 200 200 Balance -200 -200 Output: Urine 200 200 Other: Voiding Method External Catheter External Catheter Weight 73.5 kg - Constitutional General appearance: average body habitus, cooperative, no acute distress - EENT Eyes: anicteric sclerae, EOMI ENT: hearing grossly normal, normal oropharynx - Neck Neck: no lymphadenopathy - Respiratory Respiratory: bilateral: CTA - Cardiovascular Rhythm: regular Heart sounds: normal: S1, S2 Abnormal Heart Sounds: no systolic murmur, no diastolic murmur, no rub, no S3 Gallop, no S4 Gallop, no click, no other leg Peripheral Edema: right: None, bilateral: Trace - Gastrointestinal General gastrointestinal: no absent bowel sounds, no decreased bowel sounds, no distended, no hepatomegaly, no hyperactive bowel sounds, normal bowel sounds, no organomegaly, no rigid, no scaphoid, soft, no splenomegaly, no tenderness, no umbilical hernia, no ventral hernia - Integumentary Integumentary: normal - Neurologic Neurologic: CNII-XII intact - Musculoskeletal Musculoskeletal: generalized weakness, strength equal bilaterally - Psychiatric Psychiatric: A&O x's 3, appropriate affect, intact judgment & insight Results CBC & Chem 7: 12/18/21 09:21 12/17/21 07:45 Labs: Abnormal Lab Results - Last 24 Hours (Table) 12/17/21 12/17/21 12/17/21 Range/Units 06:20 07:45 22:00 Creatinine 0.51 L (0.52-1.04) mg/dL Urine Appearance Cloudy H (Clear) Urine Ketones 2+ H (Negative) Amorphous Sediment Rare H (None) /hpf Urine Bacteria Occasional H (None) /hpf Urine Mucus Rare H (None) /hpf U Benzodiazepines Scrn Detected H (NotDetected) U Marijuana (THC) Screen Detected H (NotDetected) Chest x-ray: report reviewed CT scan - chest: report reviewed Venous US: report reviewed Assessment and Plan (1) Left leg DVT Current Visit: Yes Status: Acute Priority: High Code(s): I82.402 - ACUTE EMBOLISM AND THOMBOS UNSP DEEP VEINS OF L LOW EXTREM SNOMED Code(s): 681217187 (2) Pulmonary embolism Current Visit: Yes Status: Acute Priority: High Code(s): I26.99 - OTHER PULMONARY EMBOLISM WITHOUT ACUTE COR PULMONALE SNOMED Code(s): 93445332 (3) Pulmonary infarct Current Visit: Yes Status: Acute Priority: High Code(s): I26.99 - OTHER PULMONARY EMBOLISM WITHOUT ACUTE COR PULMONALE SNOMED Code(s): 53556149 Plan: Bilateral PE, R>L, rt infarct. Pt case reviewed and discussed case with Attending, agree with assessment. Pt reports the SOB has been present so, most likely PE was present when pt diagnosed with DVT 6 days ago. Repeat doppler of the BLE reads that there is no DVT in RLE the LLE thrombus could be improved. Agree with continuation of loading dose of eliquis, transition to 5mg BID after 14 doses at 10mg. Will check APA, if any are positive may consider treatment dose LMWH. Reviewed with pt that previous provoked DVT and current unprovoked DVT recommendation is for long chain quiller tender anticoagulation as long as no contraindication. Let her know that Hematology recommendation is for f/u outpt to complete hypercoaguable work up. She verbalized understanding. attests: I have performed H&P, seen and examined patient, developed impression and plan of care. Discussed with dictator. Agree with documentation, dictated as a scribe.
[2021-12-19 01:08] LABS: Cardiolipin Ab IgG Interp NEGATIVE (NEGATIVE); Cardiolipin Ab IgM Interp NEGATIVE (NEGATIVE); Cardiolipin IgA Antibody <2.0 U/mL; Cardiolipin IgM Antibody <1.5 U/mL
[2021-12-19] MEDS: APIXABAN 5 MG TAB PO SCH ×2 (08:47→20:56)
[2021-12-19] MEDS: BENZTROPINE MESYLATE 1 MG TAB PO SCH (08:48)
[2021-12-19 09:37] LABS: HCT 40.9 % (34.0-46.0); MCH 30.2 pg (25.0-35.0); MCHC 31.8 g/dL (31.0-37.0); Mean Platelet Volume 8.8; Platelet Count 258 k/uL (150-450); RDW 13.1 % (11.5-15.5); WBC 6.4 k/uL (3.8-10.6)
--- NOTE | 2021-12-19 10:04 | P.DS ---
Providers Date of admission: 12/17/21 08:08 Expected date of discharge: 12/19/21 Attending physician: Shania Rivero DO Consults: 12/17/21 07:58 Consult Physician Urgent Consulting Provider: Edna Ro Consult Reason/Comments: Pulmonary embolism, DVT Do you want consulting provider notified?: Yes 12/17/21 12:34 Consult Physician Routine Consulting Provider: Antolin Mcneil Consult Reason/Comments: dystonic reaction Do you want consulting provider notified?: Yes 12/17/21 17:50 Consult Physician Routine Consulting Provider: Petr Arevalo Consult Reason/Comments: unprovoked pulmonary embolism Do you want consulting provider notified?: Yes Primary care physician: Mitul Mahan Hospital Course: Patient developed some hyponatremia and daughter is concerned that she not swallowing correctly. Will monitor for one more day and consult speech, encourage oral intake. Discharge Diagnosis: Unprovoked Right Pulmonary embolism and Left LE DVT Left LE superficial thrombophlebitis, resolved Right Pulmonary Infract Weakness Schizoaffective disorder Acute dystonic reaction Hospital Course: Patient is a 71-year-old female with a history of prior DVT, schizoaffective disorder, and cannabis abuse who presented to the ER with complaints of feeling off with some weakness, fatigue, and muscle cramping. Patient was seen here on 12/12 and diagnosed with "from the DVT. At that point in time she was prescribed eloquent. She followed up with her primary care physician and was placed on Bactrim and Keflex. She was told to return to the ER if she continues to not feel well. In the ER she underwent an extensive value excoriation. Her initial vital signs within normal limits. Initial laboratory analysis demonstrated a sodium of 131, carbon dioxide 20, BUN 5, and creatinine 0.51. She underwent a CTA of the chest which demonstrated right-sided main pulmonary artery thrombosis with pulmonary infarction. She was continued on her eliquis. Arrangements were made for admission. Vascular surgery was consulted. He did not recommend any additional intervention at that time. Hematology oncology was consulted for unprovoked clot initial labs were drawn and anticardiolipin was negative. Psychiatry was consulted due to her complaints of fatigue, cramping, and overall not feeling well. She was started on cogentin and had some improvement in her stiffness. Patient seen and examined at bedside. Feeling better, moving better, eating a little, Pain is better in her legs Vital signs reviewed and stable. General: non toxic, no distress, appears at stated age Derm: warm, dry Head: atraumatic, normocephalic, symmetric Eyes: EOMI, no lid lag, anicteric sclera Mouth: no lip lesion, mucus membranes moist Cardiovascular: S1S2 reg, no murmur, positive posterior tibial pulse bilateral, Lungs: Decreased bs bilateral, no rhonchi, no rales , no accessory muscle use Abdominal: soft, nontender to palpation, no guarding, no appreciable organomegaly Ext: no gross muscle atrophy, no edema, no contractures Neuro: CN II-XI grossly intact, no focal neuro deficits Psych: Alert, oriented, appropriate affect A total of 37 minutes of time were spent preparing this complex discharge summary . Patient Condition at Discharge: Fair Plan - Discharge Summary Discharge Rx Participant: No New Discharge Prescriptions: New Benztropine Mesylate [Cogentin] 1 mg PO BID tab Apixaban [Eliquis] 10 mg PO BID tab Apixaban [Eliquis] 5 mg PO BID tab Discontinued Cephalexin [Keflex] 500 mg PO Q6HR Sulfamethoxazole/Trimethoprim [Bactrim DS 800-160 mg] 1 tab PO BID Apixaban [Eliquis Starter Pack (for VTE)] See Taper PO DIRECTED No Action ARIPiprazole [Abilify Maintena] 300 mg PO QMONTHLY Discharge Medication List ARIPiprazole [Abilify Maintena] 300 mg PO QMONTHLY 12/12/21 [History] Apixaban [Eliquis] 5 mg PO BID tab 12/19/21 [Rx] Apixaban [Eliquis] 10 mg PO BID tab 12/19/21 [Rx] Benztropine Mesylate [Cogentin] 1 mg PO BID tab 12/19/21 [Rx] Activity/Diet/Wound Care/Special Instructions: Activity: as tolerated Diet: Regular Special Instructions: Eliquis 10 mg evening 12/19/21 and then eliquis 5 mg twice daily to start 12/20/21. Will stay on eliquis 5 mg BID for 6 months Discharge Disposition: TRANSFER TO SNF/ECF
[2021-12-19 10:08] LABS: ALT 35 U/L (4-34); AST 30 U/L (14-36); African American GFR (CKD) >90 (>60 ml/min/1.73 sqM); Albumin 3.7 g/dL (3.5-5.0); Alkaline Phosphatase 97 U/L (38-126); Anion Gap 7 mmol/L; Blood Urea Nitrogen 7 mg/dL (7-17); Carbon Dioxide 26 mmol/L (22-30); Chloride 96 mmol/L (98-107); Glucose 153 mg/dL (74-99); Non-African American GFR(CKD) >90 (>60 ml/min/1.73 sqM); Potassium 4.5 mmol/L (3.5-5.1); Sodium 129 mmol/L (137-145); Total Bilirubin 0.7 mg/dL (0.2-1.3); Total Protein 6.8 g/dL (6.3-8.2)
[2021-12-19 12:07] LABS: APTT 78 Sec(s) (<43); APTT 1:1 Mix 56 Sec(s) (<43); DRVVT 1:1 Mix 83 Sec(s) (<44); DRVVT Confirmation Negative (Negative); Dilute Russell Viper Venom 140 Sec(s) (<44); Hexagonal Phase Neutralization Positive (Negative)
[2021-12-19] MEDS ORDERED: MELATONIN 3 MG TABLET PO PRN (14:24)
--- NOTE | 2021-12-19 14:24 | P.PN ---
Progress Note - Text Progress Note Date: 12/19/21 Interval History: Patient was seen today for psychiatric follow-up. Patients nurse claims that patient has been doing much better today and appears to be less stiff in her movements and extremities. Bricklayer Sewer also spoke with Dr Sky over the phone to coordinate plan and treatment and also states that patient improved since yesterday. Bricklayer Sewer came in to see patient today who was surrounded by family in her room. Patient appeared to have a copywriter affect today and introduced copywriter to her family. She states that she is doing "much better" compared to yesterday and also with her movements. She appeared to be less stiff and able to move her neck more and also her hands. Fine tremor still present. She claims that her mood is improving and denies any anxiety today. She states that she did have difficulties with sleep last night however has been taking her medications. We spoke about the options of medications oral vs IM and patient opted to resume IM abilify once again as she reported good results with it. At this time patient denies any suicidal or homical ideations, intent or plan. Patient denies any auditory, visual hallucinations and denies any paranoia or delusions. Mental Status Exam: General Appearance: Patient appears to be tall, stated age, slow moving, improving. brighter affect. cooperative. She appears in no acute distress and was breathing normally. Behavior: Patient is lying in bed in no acute distress. less Stiff. Mild resting tremor in upper extremities. Speech: Patient is monotone, more fluent. Mood/Affect: She denies any depression today, congruent affect and improving Suicidality/Homicidality: Denies Perceptions: Denies any auditory or visual hallucinations Though content/process: She is not having any flight of ideas, logical and goal oriented. No delusions. Memory and concentration: Alert and oriented 3, fair attention span. Judgment and insight: improving mildly. IMPRESSIONS: acute dystonic reaction, improving. shizoaffective disorder, bipolar PLAN: -At this time patient DOES NOT meet criteria for inpatient psychiatric adm ission. -Would recommend the following medication changes/additions: increase Cogentin 1 mg daily + 2 mg qhs for acute dystonic reaction. Due to patient's history of noncompliance with medications and chronically poor insight, patient was agreeable to take Abilify Maintenna 300 mg IM again today. added melatonin prn for sleep. -Patient currently follows up at [facility] with Dr Chris. Bricklayer Sewer spoke with dr Chris yesterday about her condition and he recommended resuming abilify GUNDERSON and starting cogentin as she has had good results with that in the past, -Communicated plan to patient's nurse -At this time psychiatry will sign off -Plan for patient to transferred to rehab/NH tomorrow. -Please contact with any questions.
[2021-12-19] MEDS ORDERED: ARIPiprazole IM 400 MG VIAL (NO COST) PHARMACY STOCK IM ONE (15:00)
[2021-12-19 17:01] VITALS: RESP 16
[2021-12-19] MEDS ORDERED: BENZTROPINE MESYLATE 1 MG TAB PO SCH (21:00)
[2021-12-19] MEDS: MELATONIN 5 MG TABLET PO PRN (23:12)
[2021-12-20] MEDS ORDERED: APIXABAN 5 MG TAB PO SCH (09:00)
[2021-12-20] MEDS ORDERED: BENZTROPINE MESYLATE 1 MG TAB PO SCH (09:00)
[2021-12-20 10:01] LABS: HCT 38.7 % (34.0-46.0); HGB 12.5 gm/dL (11.4-16.0); MCH 30.7 pg (25.0-35.0); MCHC 32.3 g/dL (31.0-37.0); MCV 95.3 fL (80.0-100.0); Mean Platelet Volume 7.8; Platelet Count 458 k/uL (150-450); RBC 4.07 m/uL (3.80-5.40); RDW 13.1 % (11.5-15.5); WBC 7.4 k/uL (3.8-10.6)
[2021-12-20 10:09] LABS: African American GFR (CKD) >90 (>60 ml/min/1.73 sqM); Anion Gap 7 mmol/L; Blood Urea Nitrogen 9 mg/dL (7-17); Calcium 8.7 mg/dL (8.4-10.2); Carbon Dioxide 26 mmol/L (22-30); Chloride 98 mmol/L (98-107); Glucose 105 mg/dL (74-99); Non-African American GFR(CKD) >90 (>60 ml/min/1.73 sqM); Potassium 4.6 mmol/L (3.5-5.1); Sodium 131 mmol/L (137-145)
[2021-12-20 12:10] VITALS: BP 110/73; PULSE 74; TEMP 98.1
--- NOTE | 2021-12-20 12:32 | P.DS ---
Providers Date of admission: 12/17/21 08:08 Expected date of discharge: 12/20/21 Attending physician: Shania Rivero DO Consults: 12/17/21 12:34 Consult Physician Routine Consulting Provider: Antolin Mcneil Consult Reason/Comments: dystonic reaction Do you want consulting provider notified?: Yes 12/17/21 17:50 Consult Physician Routine Consulting Provider: Petr Arevalo Consult Reason/Comments: unprovoked pulmonary embolism Do you want consulting provider notified?: Yes Primary care physician: Mitul Mahan Hospital Course: Discharge Diagnosis: Unprovoked Right Pulmonary embolism and Left LE DVT, Left LE superficial thrombophlebitis, resolved Right Pulmonary Infract Weakness Schizoaffective disorder, patient was seen and fully evaluated by psychiatry and started patient on Cogentin 1 mg twice daily. Acute dystonic reaction, patient was seen and fully evaluated by psychiatry and started patient on Cogentin 1 mg twice daily and has shown improvement. Hospital Course: Patient is a 71-year-old female with a history of prior DVT, schizoaffective disorder, and cannabis abuse who presented to the emergency department on 12/17/21 with a chief complaint of "feeling off" accompanied by reports of weakness, fatigue, and muscle cramping. Patient was seen here on 12/12/21 for swelling of left lower extremity and was diagnosed with a DVT and started on Eliquis. She followed up with her primary care physician and was placed on Bactrim and Keflex for treatment of a UTI. She was told to return to the ER if she continues to not feel well. In the ER she underwent a full evaluation. Vital signs were unremarkable. EKG revealed sinus rhythm with PACs. Chest x-ray revealing right upper lobe pneumonia. CBC unremarkable. CMP revealed hyponatremia with sodium of 133 otherwise showing no significant abnormalities. Urinalysis negative for infection. Urine drug screen positive for benzodiazepines and marijuana. CTA chest positive for pulmonary emboli with possible right upper lobe pulmonary infarct. She was continued on her Eliquis and admitted under our services with consultation to vascular surgery and hematology. Vascular surgery evaluated and in agreement with anticoagulation with Eliquia and did not recommend any additional interventions at that time. Hematology oncology evaluated secondary to unprovoked blood clota and ordered for additional labs. Anticardiolipin was negative. Lupus anticoagulant elevated and Lupus hexagonal phase positive. Dil Freddy viper venom elevated and drVVT also elevated. Hematology/oncology recommending outpatient follow-up and further workup to be completed. Psychiatry was also consulted due to her complaints of fatigue, cramping, and overall not feeling well and was diagnosed with acute dystonic reaction and started on cogentin which resulted in improvement in her stiffness. Patient has had improvement, but secondary to continued need for assistance and living alone patient was evaluated by physical therapy is recommending patient requires moderate assistance and would benefit from subacute rehabilitation secondary to her poor level of function. Arrangements have been made and patient has been accepted to subacute rehab at [facility]. Patient is medically stable at this time for discharge to [facility]. Patient to follow up outpatient with PCP as well as hematology/oncology as recommended. Physical examination: Patient seen and fully evaluated at bedside this morning. Patient reports that she was able to get up and she was here this morning with assistance and overall feels stronger. Patient continues to have generalized weakness and requires assistance with transfers and ambulation. Patient is ambulating with walker after assistance with standing. Patient denies having any headache, lightheadedness, dizziness, chest pain, palpitations, shortness of breath, or experiencing any numbness/tingling/weakness in her extremities. Patient is medically stable for transfer to rehab at this time. Vital signs reviewed and stable. General: non toxic, no distress, appears at stated age Derm: warm, dry Head: atraumatic, normocephalic, symmetric Eyes: EOMI, no lid lag, anicteric sclera Mouth: no lip lesion, mucus membranes moist Cardiovascular: S1S2 reg, no murmur, positive posterior tibial pulse bilateral, Lungs: Decreased bs bilateral, no rhonchi, no rales , no accessory muscle use Abdominal: soft, nontender to palpation, no guarding, no appreciable organomegaly Ext: no gross muscle atrophy, no edema, no contractures Neuro: CN II-XI grossly intact, no focal neuro deficits Psych: Alert, oriented, appropriate affect A total of 36 minutes of time were spent preparing this complex discharge summary . Patient Condition at Discharge: Stable Plan - Discharge Summary Discharge Rx Participant: No New Discharge Prescriptions: New Benztropine Mesylate [Cogentin] 1 mg PO BID tab Apixaban [Eliquis] 10 mg PO BID tab Apixaban [Eliquis] 5 mg PO BID tab Continue ARIPiprazole [Abiliflavonne Mcgilltena] 300 mg PO QMONTHLY Discontinued Cephalexin [Keflex] 500 mg PO Q6HR Sulfamethoxazole/Trimethoprim [Bactrim DS 800-160 mg] 1 tab PO BID Apixaban [Eliquis Starter Pack (for VTE)] See Taper PO DIRECTED Discharge Medication List ARIPiprazole [Abilify Maintena] 300 mg PO QMONTHLY 12/12/21 [History] Apixaban [Eliquis] 5 mg PO BID tab 12/19/21 [Rx] Apixaban [Eliquis] 10 mg PO BID tab 12/19/21 [Rx] Benztropine Mesylate [Cogentin] 1 mg PO BID tab 12/19/21 [Rx] Follow up Appointment(s)/Referral(s): Petr Arevalo MD [STAFF PHYSICIAN] - 1 Week Mitul Mahan MD [Primary Care Provider] - 1 Week Activity/Diet/Wound Care/Special Instructions: Activity: as tolerated Diet: Regular Special Instructions: Eliquis 10 mg evening 12/19/21 and then eliquis 5 mg twice daily to start 12/20/21. Will stay on eliquis 5 mg BID for 6 months Discharge Disposition: TRANSFER TO SNF/ECF
--- NOTE | 2021-12-20 17:11 | P.PN ---
Subjective Progress Note Date: 12/20/21 Principal diagnosis: unprovoked LLE DVT and rt. lung In f/u today pt is denies bleeding, denies SE r/t eliquis Objective - Vital Signs Vital signs: Vital Signs Temp 98.1 F 12/20/21 12:00 Pulse 74 12/20/21 14:00 Resp 16 12/20/21 14:00 BP 110/73 12/20/21 12:00 Pulse Ox 98 12/20/21 12:00 Intake & Output 12/19/21 12/20/21 12/20/21 18:59 06:59 18:59 Intake Total 360 240 120 Output Total 500 500 0 Balance -140 -260 120 Intake: Oral 360 240 120 Output: Urine 500 500 Stool 0 0 Urine/Stool Mix 0 Other: Voiding Method External Catheter External Catheter External Catheter # Voids 0 # Bowel Movements 0 - Constitutional General appearance: Present: average body habitus, cooperative, no acute distress - EENT Eyes: Present: anicteric sclerae, EOMI ENT: Present: hearing grossly normal - Respiratory Respiratory: bilateral: CTA - Cardiovascular Rhythm: regular Heart sounds: normal: S1, S2 Abnormal Heart Sounds: Absent: systolic murmur, diastolic murmur, rub, S3 Gallop, S4 Gallop, click, other - Gastrointestinal General gastrointestinal: Present: normal bowel sounds, soft - Neurologic Neurologic: Present: CNII-XII intact - Musculoskeletal Musculoskeletal: Present: generalized weakness - Psychiatric Psychiatric: Present: A&O x's 3, appropriate affect, intact judgment & insight - Labs CBC & Chem 7: 12/20/21 08:10 12/20/21 08:10 Labs: Abnormal Lab Results - Last 24 Hours (Table) 12/20/21 12/20/21 Range/Units 08:10 08:10 Plt Count 458 H (150-450) k/uL Sodium 131 L (137-145) mmol/L Glucose 105 H (74-99) mg/dL Assessment and Plan (1) Left leg DVT Status: Acute Priority: High Code(s): I82.402 - ACUTE EMBOLISM AND THOMBOS UNSP DEEP VEINS OF L LOW EXTREM SNOMED Code(s): 836768326 (2) Pulmonary embolism Status: Acute Priority: High Code(s): I26.99 - OTHER PULMONARY EMBOLISM WITHOUT ACUTE COR PULMONALE SNOMED Code(s): 29268841 (3) Pulmonary infarct Status: Acute Priority: High Code(s): I26.99 - OTHER PULMONARY EMBOLISM WITHOUT ACUTE COR PULMONALE SNOMED Code(s): 27330934 Plan: Bilateral PE, R>L, rt sided infarct, LLE DVT. [place] that PE was present when pt diagnosed with DVT 1 wk ago. Repeat doppler of the BLE reported no DVT in RLE the LLE thrombus could be improved. Pt has completed loading dose of eliquis and transitioned to 5mg BID. Cont. APA, to be assessed as a whole, cont eliquis for now. Hematology recommendation is for f/u outpt to complete hypercoaguable work up. She verbalized understanding.
[2021-12-24] MEDS ORDERED: ARIPiprazole IM 400 MG VIAL (NO COST) PHARMACY STOCK IM SCH (09:00)
== END 2021-12-20 15:03 | DRG 299 ==
LOC: EC 05:01 → 3SCARD 08:08
PROVIDERS: ADMIT Internal Medicine; ATTEND Internal Medicine
DX: I82.412 Acute embolism and thrombosis of left femoral vein (principal); I26.99 Other pulmonary embolism without acute cor pulmonale; J18.9 Pneumonia, unspecified organism; E87.1 Hypo-osmolality and hyponatremia; N39.0 Urinary tract infection, site not specified; F41.9 Anxiety disorder, unspecified; F32.A Depression, unspecified; F12.10 Cannabis abuse, uncomplicated; F25.9 Schizoaffective disorder, unspecified; R25.8 Other abnormal involuntary movements; Z79.01 Long term (current) use of anticoagulants; Z87.891 Personal history of nicotine dependence; Z86.718 Personal history of other venous thrombosis and embolism; Z86.19 Personal history of other infectious and parasitic diseases; Z98.890 Other specified postprocedural states
CPT/HCPCS: 36415; 71046; 71275; 80048; 80053; 80306; 81001; 82550; 82565; 83605; 83735; 83880; 84484; 85025; 85027; 85598; 85610; 85613; 85730; 85732; 86147; 93005; 93306; 93970; 96360; 96361; 99285

== ENCOUNTER 2023-01-14 16:22 | Emergency (ER) | payer MEDICARE, OTHER ==
--- NOTE | 2023-01-14 20:19 | XR ---
EXAMINATION TYPE: XR chest 2V DATE OF EXAM: 01/14/2023 COMPARISON: 01-06 INDICATION: Chest pain and shoulder pain TECHNIQUE: Frontal and lateral views of the chest are obtained. FINDINGS: The heart size is normal. The pulmonary vasculature is normal. Vague increased densities in the right suprahilar region. This area has diminished significantly over the interval.. IMPRESSION: 1. There may be some vague residual right upper lobe lung opacity. Follow-up is recommended
--- NOTE | 2023-01-14 20:22 | XR ---
EXAMINATION TYPE: XR shoulder complete LT DATE OF EXAM: 01/14/2023 COMPARISON: NONE HISTORY: Pain TECHNIQUE: Shoulder examined in 3 projections. FINDINGS: The humeral head articulates with the glenoid. The acromio-clavicular junction is normal. No acute fractures or dislocations are evident. A follow up study can be performed 7-10 days from acute trauma for continued pain. MRI can be perfor med if soft tissue evaluation would be of benefit. IMPRESSION: 1. No acute osseous left shoulder abnormality.
[2023-01-15 01:33] LABS: Basophils % (A) 0 %; Eosinophils # (A) 0.2 k/uL (0-0.7); Eosinophils % (A) 2 %; HCT 43.3 % (34.0-46.0); HGB 14.1 gm/dL (11.4-16.0); Lymphocytes # (A) 1.6 k/uL (1.0-4.8); Lymphocytes % (A) 18 %; MCH 30.7 pg (25.0-35.0); MCHC 32.7 g/dL (31.0-37.0); MCV 93.9 fL (80.0-100.0); Mean Platelet Volume 8.8; Monocytes # (A) 0.5 k/uL (0-1.0); Monocytes % (A) 6 %; Neutrophils # (A) 6.1 k/uL (1.3-7.7); Neutrophils % (A) 72 %; Platelet Count 179 k/uL (150-450); RBC 4.61 m/uL (3.80-5.40); WBC 8.5 k/uL (3.8-10.6)
[2023-01-15 01:47] LABS: ALT 36 U/L (4-34); AST 27 U/L (14-36); African American GFR (CKD) >90 (>60 ml/min/1.73 sqM); Albumin 4.3 g/dL (3.5-5.0); Alkaline Phosphatase 88 U/L (38-126); Anion Gap 10 mmol/L; Blood Urea Nitrogen 15 mg/dL (7-17); Calcium 9.6 mg/dL (8.4-10.2); Carbon Dioxide 25 mmol/L (22-30); Chloride 102 mmol/L (98-107); Glucose 115 mg/dL (74-99); Non-African American GFR(CKD) >90 (>60 ml/min/1.73 sqM); Potassium 4.1 mmol/L (3.5-5.1); Sodium 137 mmol/L (137-145); Total Bilirubin 0.7 mg/dL (0.2-1.3); Total Protein 7.4 g/dL (6.3-8.2)
[2023-01-15 01:58] LABS: Prothrombin Time 10.3 sec (9.0-12.0)
[2023-01-15 02:01] LABS: Partial Thromboplastin Time 18.5 sec (22.0-30.0)
--- NOTE | 2023-01-15 03:16 | ED ---
General Adult HPI - General Chief complaint: Shortness of Breath Stated complaint: chest pain, arm numbness Time Seen by Provider: 01/15/23 02:30 Source: EMS Mode of arrival: EMS Limitations: no limitations - History of Present Illness Initial comments: This is a 72-year-old female who presents emergency department via EMS from her nursing facility for chronic upper extremity numbness as well as chronic shortness of breath. The patient stated "I have had numbness in the upper extremities on and off over the last several months and had some shortness of breath over the last 2 months so my doctor told me to come in to get evaluated." The patient stated that she was taken from her nursing facility into the emergency department today for this evaluation. The patient on evaluation denied any acute complaints at this time and denied any shortness of breath as well as any numbness or tingling. The patient denied any other pain including any nausea, vomiting as well as any fevers and chills. - Related Data Home Medications Medication Instructions Recorded Confirmed ARIPiprazole [Abilify Maintena] 300 mg PO QMONTHLY 12/12/21 12/17/21 Previous Rx's Medication Instructions Recorded Apixaban [Eliquis] 5 mg PO BID tab 12/19/21 Apixaban [Eliquis] 10 mg PO BID tab 12/19/21 Benztropine Mesylate [Cogentin] 1 mg PO BID tab 12/19/21 Allergies Allergy/AdvReac Type Severity Reaction Status Date / Time No Known Allergies Allergy Verified 01/14/23 16:47 Review of Systems ROS Statement: Those systems with pertinent positive or pertinent negative responses have been documented in the HPI. ROS Other: All systems not noted in ROS Statement are negative. Past Medical History Past Medical History: Deep Vein Thrombosis (DVT) Additional Past Medical History / Comment(s): 12/12/21 L leg superficial DVT/ thrombophlemitis/PCP treated for cellulitis, bilateral feet cramping/numbness/L foot worse. History of Any Multi-Drug Resistant Organisms: None Reported Past Surgical History: Tonsillectomy Past Anesthesia/Blood Transfusion Reactions: No Reported Reaction Past Psychological History: Anxiety, Depression Smoking Status: Former smoker Past Alcohol Use History: Occasional Past Drug Use History: Marijuana - Past Family History Mother Family Medical History: No Reported History Additional Family Medical History / Comment(s): Mother was healthy Father Family Medical History: No Reported History Additional Family Medical History / Comment(s): Father was healthy. Daughter(s) Family Medical History: Deep Vein Thrombosis (DVT) General Exam Limitations: no limitations General appearance: alert, in no apparent distress Head exam: Present: atraumatic, normocephalic, normal inspection Eye exam: Present: normal appearance, PERRL Pupils: Present: normal accommodation ENT exam: Present: normal exam, normal oropharynx, mucous membranes moist Neck exam: Present: normal inspection, full ROM Respiratory exam: Present: normal lung sounds bilaterally Cardiovascular Exam: Present: regular rate, normal rhythm, normal heart sounds GI/Abdominal exam: Present: soft, normal bowel sounds Extremities exam: Present: normal inspection, full ROM Back exam: Present: normal inspection, full ROM Neurological exam: Present: alert, oriented X3, CN II-XII intact Psychiatric exam: Present: normal affect, normal mood Skin exam: Present: warm, dry Course Vital Signs 01/14/23 01/15/23 16:45 01:14 Temperature 99.2 F 98 F Pulse Rate 82 82 Respiratory 18 17 Rate Blood Pressure 131/84 118/87 O2 Sat by Pulse 97 98 Oximetry EKG Findings - EKG Comments: EKG Findings:: An EKG was obtained and was interpreted by myself showing a rate of 84, [place] interval 166, QRS duration of 80 and QTC of 399. This EKG showed a normal sinus rhythm with an occasional PVC. There was however no ST segment elevation or depression noted. Medical Decision Making - Medical Decision Making Was pt. sent in by a medical professional or institution (, PA, [employer], urgent care, hospital, or [place] [facility] facility...) When possible be specific @ -Yes, nursing facility Did you speak to anyone other than the patient for history (EMS, parent, family, police, friend...)? What history was obtained from this source @ -No Did you review nursing and triage notes (agree or disagree)? Why? @ -I reviewed and agree with nursing and triage notes Were old charts reviewed (outside hosp., previous admission, EMS record, old EKG, old radiological studies, urgent care reports/EKG's, [place] health [facility] facility records)? Report findings @ -No old charts were reviewed Differential Diagnosis (chest pain, altered mental status, abdominal pain women, abdominal pain men, vaginal bleeding, weakness, fever, dyspnea, syncope, headache, dizziness, GI bleed, back pain, seizure, CVA, palpatations, mental health)? @ -Electrolyte abnormality, congestive heart failure, pneumonia, pneumothorax EKG interpreted by me (3pts min.). @ -As above X-rays interpreted by me (1pt min.). @ -Chest x-ray was obtained and was interpreted by myself showing no acute process. CT interpreted by me (1pt min.). @ -None done U/S interpreted by me (1pt. min.). @ -None done What testing was considered but not performed or refused? (CT, X-rays, U/S, labs)? Why? @ -None What meds were considered but not given or refused? Why? @ -None Did you discuss the management of the patient with other professionals (professionals i.e. , PA, [employer], lab, RT, psych nurse, social media executive, department mgr, teacher, coastal/harbor defense officer, returned case inspector)? Give summary @ -No Was smoking cessation discussed for >3mins.? @ -No Was critical care preformed (if so, how long)? @ -No Were there social determinants of health that impacted care today? How? (Homelessness, low income, unemployed, alcoholism, drug addiction, transportation, low edu. Level, literacy, decrease access to med. care, shelter, rehab)? @ -No Was there de-escalation of care discussed even if they declined (Discuss DNR or withdrawal of care, Hospice)? DNR status @ -No What co-morbidities impacted this encounter? (DM, HTN, Smoking, COPD, CAD, Cancer, CVA, ARF, Chemo, Hep., AIDS, mental health diagnosis, sleep apnea, morbid obesity)? @ -Schizoaffective disorder Was patient admitted / discharged? Hospital course, mention meds given and route, prescriptions, significant lab abnormalities, going to OR and other pertinent info. @ -The patient was seen and evaluated in emergency department. Physical exam, the patient was resting in bed without any acute complaints. Vital signs admission were stable. The patient denied of any active complaints and stated that she had intermittent numbness of the upper extremities over the last several months as well as chronic shortest breath that had lasted over several months as well without any active complaints. All laboratory workup was obtained in triage and was within normal limits. The patient denied any acute findings therefore was stable for discharge home back to her nursing facility. The patient was agreeable to this plan and was discharged back in stable condition. Undiagnosed new problem with uncertain prognosis? @ -No Drug Therapy requiring intensive monitoring for toxicity (Heparin, Nitro, Insulin, Cardizem)? @ -No Were any procedures done? @ -No Diagnosis/symptom? @ -Normal physical exam Acute, or Chronic, or Acute on Chronic? @ -Chronic Uncomplicated (without systemic symptoms) or Complicated (systemic symptoms)? @ -Uncomplicated Side effects of treatment? @ -No Exacerbation, Progression, or Severe Exacerbation? @ -No Poses a threat to life or bodily function? How? (Chest pain, [place], [place], pneumonia, PE, COPD, DKA, ARF, appy, cholecystitis, CVA, Diverticulitis, Homicidal, Suicidal, threat to staff... and all critical care pts) @ -No - Lab Data Result diagrams: 01/15/23 01:24 01/15/23:24 Lab Results 01/15/23 01/15/23 01/15/23 Range/Units 01:24 01:24 01:24 WBC 8.5 (3.8-10.6) k/uL RBC 4.61 (3.80-5.40) m/uL Hgb 14.1 (11.4-16.0) gm/dL Hct 43.3 (34.0-46.0) % MCV 93.9 (80.0-100.0) fL MCH 30.7 (25.0-35.0) pg MCHC 32.7 (31.0-37.0) g/dL RDW 14.0 (11.5-15.5) % Plt Count 179 (150-450) k/uL MPV 8.8 Neutrophils % 72 % Lymphocytes % 18 % Monocytes % 6 % Eosinophils % 2 % Basophils % 0 % Neutrophils # 6.1 (1.3-7.7) k/uL Lymphocytes # 1.6 (1.0-4.8) k/uL Monocytes # 0.5 (0-1.0) k/uL Eosinophils # 0.2 (0-0.7) k/uL Basophils # 0.0 (0-0.2) k/uL PT 10.3 (9.0-12.0) sec INR 1.0 (<1.2) APTT 18.5 L (22.0-30.0) sec Sodium 137 (137-145) mmol/L Potassium 4.1 (3.5-5.1) mmol/L Chloride 102 (98-107) mmol/L Carbon Dioxide 25 (22-30) mmol/L Anion Gap 10 mmol/L BUN 15 (7-17) mg/dL Creatinine 0.50 L (0.52-1.04) mg/dL Est GFR (CKD-EPI)AfAm >90 (>60 ml/min/1.73 sqM) Est GFR (CKD-EPI)NonAf >90 (>60 ml/min/1.73 sqM) Glucose 115 H (74-99) mg/dL Calcium 9.6 (8.4-10.2) mg/dL Total Bilirubin 0.7 (0.2-1.3) mg/dL AST 27 (14-36) U/L ALT 36 H (4-34) U/L Alkaline Phosphatase 88 (38-126) U/L Troponin I (0.000-0.034) ng/mL Total Protein 7.4 (6.3-8.2) g/dL Albumin 4.3 (3.5-5.0) g/dL 01/15/23 Range/Units 01:24 WBC (3.8-10.6) k/uL RBC (3.80-5.40) m/uL Hgb (11.4-16.0) gm/dL Hct (34.0-46.0) % MCV (80.0-100.0) fL MCH (25.0-35.0) pg MCHC (31.0-37.0) g/dL RDW (11.5-15.5) % Plt Count (150-450) k/uL MPV Neutrophils % % Lymphocytes % % Monocytes % % Eosinophils % % Basophils % % Neutrophils # (1.3-7.7) k/uL Lymphocytes # (1.0-4.8) k/uL Monocytes # (0-1.0) k/uL Eosinophils # (0-0.7) k/uL Basophils # (0-0.2) k/uL PT (9.0-12.0) sec INR (<1.2) APTT (22.0-30.0) sec Sodium (137-145) mmol/L Potassium (3.5-5.1) mmol/L Chloride (98-107) mmol/L Carbon Dioxide (22-30) mmol/L Anion Gap mmol/L BUN (7-17) mg/dL Creatinine (0.52-1.04) mg/dL Est GFR (CKD-EPI)AfAm (>60 ml/min/1.73 sqM) Est GFR (CKD-EPI)NonAf (>60 ml/min/1.73 sqM) Glucose (74-99) mg/dL Calcium (8.4-10.2) mg/dL Total Bilirubin (0.2-1.3) mg/dL AST (14-36) U/L ALT (4-34) U/L Alkaline Phosphatase (38-126) U/L Troponin I <0.012 (0.000-0.034) ng/mL Total Protein (6.3-8.2) g/dL Albumin (3.5-5.0) g/dL Disposition Clinical Impression: Normal exam Disposition: HOME SELF-CARE Condition: Stable Instructions (If sedation given, give patient instructions): Normal Exam (ED) Is patient prescribed a controlled substance at d/c from ED?: No Referrals: Gregorio Johnson MD [Primary Care Provider] - 1-2 days Time of Disposition: 02:30
[2023-01-15 03:37] VITALS: BP 124/93; PULSE 79; RESP 18; TEMP 98.7
== END 2023-01-15 05:33 | disposition home or self-care (01) ==
LOC: SUPCPDRO 16:22 → EC 16:22
DX: Z00.00 Encounter for general adult medical examination without abnormal findings (principal); F12.90 Cannabis use, unspecified, uncomplicated; Z87.891 Personal history of nicotine dependence; Z86.59 Personal history of other mental and behavioral disorders
CPT/HCPCS: 36415; 71046; 80053; 84484; 85025; 85610; 85730; 93005; 99285

== ENCOUNTER 2023-09-14 14:12 | Inpatient (IN) | payer MEDICARE, OTHER ==
--- NOTE | 2023-09-14 14:48 | ED ---
General Adult HPI - General Chief complaint: Recheck/Abnormal Lab/Rx Stated complaint: abn labs Time Seen by Provider: 09/14/23 14:36 Source: patient, RN notes reviewed Mode of arrival: ambulatory Limitations: no limitations - History of Present Illness Initial comments: Patient is a very pleasant 73-year-old female presenting to the emergency department with jaundice. Patient has been seeing her doctor from visiting physicians and her bilirubin level has been elevated. There was an ultrasound which showed possible sludge. Patient has no abdominal pain. Patient states she has been fatigued and thirsty and her skin is a little bit itchy. Patient noticed the jaundice appearance the last day or 2. No history of similar symptoms previously. No history of chronic liver disease. Patient is scheduled to see Dr. Horn. - Related Data Allergies Allergy/AdvReac Type Severity Reaction Status Date / Time No Known Allergies Allergy Verified 09/14/23 14:19 Review of Systems ROS Statement: Those systems with pertinent positive or pertinent negative responses have been documented in the HPI. ROS Other: All systems not noted in ROS Statement are negative. Constitutional: Denies: fever Eyes: Denies: eye pain ENT: Denies: ear pain Respiratory: Denies: cough Cardiovascular: Denies: chest pain Endocrine: Denies: fatigue Genitourinary: Denies: dysuria Past Medical History Past Medical History: Deep Vein Thrombosis (DVT) Additional Past Medical History / Comment(s): 12/12/21 L leg superficial DVT/thrombophlemitis/PCP treated for cellulitis, bilateral feet cramping/numbness/L foot worse. History of Any Multi-Drug Resistant Organisms: None Reported Past Surgical History: Tonsillectomy Past Anesthesia/Blood Transfusion Reactions: No Reported Reaction Past Psychological History: Anxiety, Depression Smoking Status: Former smoker Past Alcohol Use History: Occasional Past Drug Use History: Marijuana - Past Family History Mother Family Medical History: No Reported History Additional Family Medical History / Comment(s): Mother was healthy Father Family Medical History: No Reported History Additional Family Medical History / Comment(s): Father was healthy. Daughter(s) Family Medical History: Deep Vein Thrombosis (DVT) General Exam Limitations: no limitations General appearance: alert, in no apparent distress Head exam: Present: normocephalic Eye exam: Present: scleral icterus ENT exam: Present: normal oropharynx Neck exam: Present: normal inspection Respiratory exam: Present: normal lung sounds bilaterally Cardiovascular Exam: Present: regular rate, normal rhythm GI/Abdominal exam: Present: soft, normal bowel sounds. Absent: distended, tenderness, pulsatile mass Extremities exam: Present: normal inspection Neurological exam: Present: alert Psychiatric exam: Present: normal affect, normal mood Skin exam: Present: other (Jaundiced appearance) Course Vital Signs 09/14/23 09/14/23 09/14/23 14:15 18:50 20:45 Temperature 98 F Pulse Rate 92 72 65 Respiratory 17 16 16 Rate Blood Pressure 167/96 132/94 137/85 O2 Sat by Pulse 99 96 97 Oximetry Medical Decision Making - Medical Decision Making Was pt. sent in by a medical professional or institution (, PA, [employer], urgent care, hospital, or halfway...) When possible be specific @ -No Did you speak to anyone other than the patient for history (EMS, parent, family, police, friend...)? What history was obtained from this source @ -No Did you review nursing and triage notes (agree or disagree)? Why? @ -I reviewed and agree with nursing and triage notes Were old charts reviewed (outside hosp., previous admission, EMS record, old EKG, old radiological studies, urgent care reports/EKG's, halfway records)? Report findings @ -No old charts were reviewed Differential Diagnosis (chest pain, altered mental status, abdominal pain women, abdominal pain men, vaginal bleeding, weakness, fever, dyspnea, syncope, headache, dizziness, GI bleed, back pain, seizure, CVA, palpatations, mental health, musculoskeletal)? @ -Differential Abdominal Pain Women: Appendicitis, Cholecystitis, diverticulosis, ischemic bowel, pancreatitis, hepatitis, UTI, gastroenteritis, AAA, incarcerated hernia, bowel obstruction, constipation, inflammatory bowel, hepatitis, peptic ulcer disease, splenic infarction, perforated viscus, vulvitis, ovarian torsion, PID, kidney stone, placenta abruption, this is not meant to be an all-inclusive list EKG interpreted by me (3pts min.). @ -As above X-rays interpreted by me (1pt min.). @ -None done CT interpreted by me (1pt min.). @ -None done U/S interpreted by me (1pt. min.). @ -None done What testing was considered but not performed or refused? (CT, X-rays, U/S, labs)? Why? @ -None What meds were considered but not given or refused? Why? @ -None Did you discuss the management of the patient with other professionals (professionals i.e. , PA, [employer], lab, RT, psych nurse, social human services assistants, community educator, teacher, medical information officer, disability case manager)? Give summary @ -Dr. Chairez was contacted for admission Was smoking cessation discussed for >3mins.? @ -No Was critical care preformed (if so, how long)? @ -No Were there social determinants of health that impacted care today? How? (Homelessness, low income, unemployed, alcoholism, drug addiction, transportation, low edu. Level, literacy, decrease access to med. care, fdc, rehab)? @ -No Was there de-escalation of care discussed even if they declined (Discuss DNR or withdrawal of care, Hospice)? DNR status @ -No What co-morbidities impacted this encounter? (DM, HTN, Smoking, COPD, CAD, Cancer, CVA, ARF, Chemo, Hep., AIDS, mental health diagnosis, sleep apnea, morbid obesity)? @ -None Was patient admitted / discharged? Hospital course, mention meds given and route, prescriptions, significant lab abnormalities, going to OR and other pertinent info. @ -Patient admitted with consult for GI. Undiagnosed new problem with uncertain prognosis? @ -No Drug Therapy requiring intensive monitoring for toxicity (Heparin, Nitro, Insulin, Cardizem)? @ -No Were any procedures done? @ -No Diagnosis/symptom? @ -Pancreatitis, jaundice Acute, or Chronic, or Acute on Chronic? @ -Acute, acute Uncomplicated (without systemic symptoms) or Complicated (systemic symptoms)? @ -Default Side effects of treatment? @ -No Exacerbation, Progression, or Severe Exacerbation? @ -No Poses a threat to life or bodily function? How? (Chest pain, [place], [place], pneumonia, PE, COPD, DKA, ARF, appy, cholecystitis, CVA, Diverticulitis, Homicidal, Suicidal, threat to staff... and all critical care pts) @ -No - Lab Data Result diagrams: 09/14/23 15:09 09/15/23 10:22 Lab Results 09/14/23 09/14/23 09/14/23 Range/Units 15:09 15:09 15:09 WBC 5.8 (3.8-10.6) k/uL RBC 4.41 (3.80-5.40) m/uL Hgb 14.3 (11.4-16.0) gm/dL Hct 42.8 (34.0-46.0) % MCV 97.0 (80.0-100.0) fL MCH 32.4 (25.0-35.0) pg MCHC 33.4 (31.0-37.0) g/dL RDW 14.6 (11.5-15.5) % Plt Count 239 (150-450) k/uL MPV 10.0 Neutrophils % 60 % Lymphocytes % 27 % Monocytes % 7 % Eosinophils % 3 % Basophils % 1 % Neutrophils # 3.5 (1.3-7.7) k/uL Lymphocytes # 1.6 (1.0-4.8) k/uL Monocytes # 0.4 (0-1.0) k/uL Eosinophils # 0.2 (0-0.7) k/uL Basophils # 0.1 (0-0.2) k/uL PT 11.2 (10.0-12.5) sec INR 1.0 (<1.2) APTT 30.0 (22.0-30.0) sec Sodium (137-145) mmol/L Potassium (3.5-5.1) mmol/L Chloride (98-107) mmol/L Carbon Dioxide (22-30) mmol/L Anion Gap mmol/L BUN (7-17) mg/dL Creatinine (0.52-1.04) mg/dL Est GFR (CKD-EPI)AfAm (>60 ml/min/1.73 sqM) Est GFR (CKD-EPI)NonAf (>60 ml/min/1.73 sqM) Glucose (74-99) mg/dL Calcium (8.4-10.2) mg/dL Total Bilirubin (0.2-1.3) mg/dL AST (14-36) U/L ALT (4-34) U/L Alkaline Phosphatase (38-126) U/L Total Protein (6.3-8.2) g/dL Albumin (3.5-5.0) g/dL Amylase (30-110) U/L Lipase (23-300) U/L Urine Color Dark Yellow Urine Appearance Clear (Clear) Urine pH 6.0 (5.0-8.0) Ur Specific [place] 1.011 (1.001-1.035) Urine Protein Negative (Negative) Urine Glucose (UA) Negative (Negative) Urine Ketones Negative (Negative) Urine Blood Trace H (Negative) Urine Nitrite Negative (Negative) Urine Bilirubin 2+ H (Negative) Urine Urobilinogen <2.0 (<2.0) mg/dL Ur Leukocyte Esterase Negative (Negative) Urine RBC 1 (0-5) /hpf Urine WBC 1 (0-5) /hpf Ur Squamous Epith Cells 1 (0-4) /hpf Urine Mucus Few H (None) /hpf Hepatitis A IgM Ab Hep Bs Antigen Hep B Core IgM Ab Hep C IgG Ab 09/14/23 09/14/23 Range/Units 15:09 15:09 WBC (3.8-10.6) k/uL RBC (3.80-5.40) m/uL Hgb (11.4-16.0) gm/dL Hct (34.0-46.0) % MCV (80.0-100.0) fL MCH (25.0-35.0) pg MCHC (31.0-37.0) g/dL RDW (11.5-15.5) % Plt Count (150-450) k/uL MPV Neutrophils % % Lymphocytes % % Monocytes % % Eosinophils % % Basophils % % Neutrophils # (1.3-7.7) k/uL Lymphocytes # (1.0-4.8) k/uL Monocytes # (0-1.0) k/uL Eosinophils # (0-0.7) k/uL Basophils # (0-0.2) k/uL PT (10.0-12.5) sec INR (<1.2) APTT (22.0-30.0) sec Sodium 140 (137-145) mmol/L Potassium 3.5 (3.5-5.1) mmol/L Chloride 106 (98-107) mmol/L Carbon Dioxide 22 (22-30) mmol/L Anion Gap 12 mmol/L BUN 18 H (7-17) mg/dL Creatinine 0.54 (0.52-1.04) mg/dL Est GFR (CKD-EPI)AfAm >90 (>60 ml/min/1.73 sqM) Est GFR (CKD-EPI)NonAf >90 (>60 ml/min/1.73 sqM) Glucose 108 H (74-99) mg/dL Calcium 9.7 (8.4-10.2) mg/dL Total Bilirubin 11.4 H (0.2-1.3) mg/dL AST 59 H (14-36) U/L ALT 181 H (4-34) U/L Alkaline Phosphatase 466 H (38-126) U/L Total Protein 8.0 (6.3-8.2) g/dL Albumin 4.3 (3.5-5.0) g/dL Amylase 203 H (30-110) U/L Lipase 1421 H (23-300) U/L Urine Color Urine Appearance (Clear) Urine pH (5.0-8.0) Ur Specific [place] (1.001-1.035) Urine Protein (Negative) Urine Glucose (UA) (Negative) Urine Ketones (Negative) Urine Blood (Negative) Urine Nitrite (Negative) Urine Bilirubin (Negative) Urine Urobilinogen (<2.0) mg/dL Ur Leukocyte Esterase (Negative) Urine RBC (0-5) /hpf Urine WBC (0-5) /hpf Ur Squamous Epith Cells (0-4) /hpf Urine Mucus (None) /hpf Hepatitis A IgM Ab Nonreactive Hep Bs Antigen Nonreactive Hep B Core IgM Ab Nonreactive Hep C IgG Ab Nonreactive Disposition Clinical Impression: Pancreatitis, Jaundice Disposition: ADMITTED IP TO THIS HOSP Is patient prescribed a controlled substance at d/c from ED?: No
[2023-09-14 15:26] LABS: Basophils # (A) 0.1 k/uL (0-0.2); Basophils % (A) 1 %; Eosinophils # (A) 0.2 k/uL (0-0.7); Eosinophils % (A) 3 %; HCT 42.8 % (34.0-46.0); HGB 14.3 gm/dL (11.4-16.0); Lymphocytes # (A) 1.6 k/uL (1.0-4.8); Lymphocytes % (A) 27 %; MCH 32.4 pg (25.0-35.0); MCHC 33.4 g/dL (31.0-37.0); Monocytes # (A) 0.4 k/uL (0-1.0); Monocytes % (A) 7 %; Neutrophils # (A) 3.5 k/uL (1.3-7.7); Neutrophils % (A) 60 %; Platelet Count 239 k/uL (150-450); RBC 4.41 m/uL (3.80-5.40); RDW 14.6 % (11.5-15.5); WBC 5.8 k/uL (3.8-10.6)
[2023-09-14 15:29] LABS: Appearance,Urine Clear (Clear); Bilirubin,Urine 2+ (Negative); Blood,Urine Trace (Negative); Color,Urine Dark Yellow; Glucose,Urine (UA) Negative (Negative); Ketones,Urine Negative (Negative); Leukocyte Esterase,Urine Negative (Negative); Mucus,Urine Few /hpf; Nitrite,Urine Negative (Negative); Protein,Urine Negative (Negative); RBC,Urine 1 /hpf (0-5); Specific Gravity,Urine 1.011 (1.001-1.035); Squamous Epithelial Cell,Urine 1 /hpf (0-4); Urobilinogen,Urine <2.0 mg/dL (<2.0); WBC,Urine 1 /hpf (0-5)
[2023-09-14 15:37] LABS: Prothrombin Time 11.2 sec (10.0-12.5)
[2023-09-14 15:39] LABS: ALT 181 U/L (4-34); AST 59 U/L (14-36); African American GFR (CKD) >90 (>60 ml/min/1.73 sqM); Albumin 4.3 g/dL (3.5-5.0); Alkaline Phosphatase 466 U/L (38-126); Amylase 203 U/L (30-110); Blood Urea Nitrogen 18 mg/dL (7-17); Calcium 9.7 mg/dL (8.4-10.2); Carbon Dioxide 22 mmol/L (22-30); Glucose 108 mg/dL (74-99); Lipase 1421 U/L (23-300); Non-African American GFR(CKD) >90 (>60 ml/min/1.73 sqM); Total Bilirubin 11.4 mg/dL (0.2-1.3)
[2023-09-14 15:44] LABS: Anion Gap 12 mmol/L; Chloride 106 mmol/L (98-107); Potassium 3.5 mmol/L (3.5-5.1); Sodium 140 mmol/L (137-145)
--- NOTE | 2023-09-14 16:00 | US ---
EXAMINATION TYPE: US gallbladder DATE OF EXAM: 09/14/2023 COMPARISON: NONE CLINICAL INDICATION: Female, 73 years old with history of jaundice; Jaundice, elevated LFT's TECHNIQUE: Multiple sonographic images of the right upper quadrant are obtained. 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 Suspected hypoechoic lesion measuring up to 4.3 cm in the area of the pancreatic head. Further lisa luation with dedicated MR of the abdomen with and without contrast pancreatic protocol is recommended . 2. Distended gallbladder with biliary sludge and dilated common bile duct. No other evidence to sugge st acute cholecystitis. Findings likely secondary to impression #1.
[2023-09-14] MEDS ORDERED: ONDANSETRON 4 MG/2 ML VIAL IVP PRN (18:24)
[2023-09-14] MEDS ORDERED: MORPHINE SULFATE 4 MG/ML SYRINGE IV PRN (18:24)
[2023-09-14] MEDS ORDERED: MAG HYDROX/AL HYDROX/SIMETH 30 ML CUP PO PRN (18:24)
[2023-09-14] MEDS ORDERED: ACETAMINOPHEN TAB 325 MG TAB PO PRN (18:24)
[2023-09-14] MEDS ORDERED: NALOXONE 0.4 MG/ML 1 ML VIAL IV PRN (18:24)
[2023-09-14] MEDS: SODIUM CHLORIDE 0.9% 1,000 ML IV SCH (18:47)
[2023-09-14] MEDS: BENZTROPINE MESYLATE 1 MG TAB PO SCH (20:44)
[2023-09-14] MEDS: APIXABAN 5 MG TAB PO SCH (20:44)
[2023-09-14 23:26] LABS: Hepatitis A Antibody IgM Nonreactive; Hepatitis B Core IgM Nonreactive; Hepatitis B Surface Antigen Nonreactive; Hepatitis C IgG Antibody Nonreactive
[2023-09-15] MEDS: SODIUM CHLORIDE 0.9% 1,000 ML IV SCH ×3 (05:00→23:16)
[2023-09-15] MEDS: APIXABAN 5 MG TAB PO SCH (07:51)
[2023-09-15] MEDS: BENZTROPINE MESYLATE 1 MG TAB PO SCH (07:53)
--- NOTE | 2023-09-15 09:54 | P.CONS ---
History of Present Illness - Reason for Consult Consult date: 09/15/23 Pancreatitis Requesting physician: Jai Hanna - Chief Complaint Abdominal/epigastric pain, jaundice - History of Present Illness This is a very pleasant 73-year-old white female who presented to the emergency department directed by her physician for abnormal labs with elevated bilirubin and jaundice. She has a past medical history of deep vein thrombosis, anxiety and depression. She denies any history of liver disease, previous pancreatitis, denies frequent alcohol use, states she does smoke marijuana but not cigarettes. On admission she was noted to have elevated LFTs as well as elevated amylase and lipase. She underwent a ultrasound of the gallbladder that reported suspected hypoechoic lesion measuring up to 4.3 cm in the area of the pancreatic head. Further evaluation with dedicated MRI of the abdomen with and without contrast for pancreatic protocol recommended. Distended gallbladder with biliary sludge and dilated common bile duct. No other evidence to suggest acute cholecystitis. Findings likely secondary to impression 1. She states abdominal pain started about 2 weeks ago, jaundice about 10 days ago and dark urine over mom month or so. Admitting labs WBC 5.8 hemoglobin 14.3 hematocrit 42 platelet count 239,000 INR 1.0 sodium 140 potassium 3.5 BUN 18 creatinine 0.54 total bilirubin 11.4 AST 59 ALT 181 alkaline phosphatase 466 amylase 203 lipase 1421 hepatitis panel nonreactive Review of Systems REVIEW OF SYSTEMS: CARDIOPULMONARY: No chest pain or shortness of breath. Gastrointestinal: Upper right quadrant abdominal pain, epigastric pain. No nausea or vomiting. No hematemesis, coffee-ground emesis. No rectal bleeding, or melena. GENITOURINARY: No dysuria or hematuria. Dark urine. MUSCULOSKELETAL: Reports normal range of motion. Joint pain. SKIN: No rashes. No jaundice. ENDOCRINE: No chills, fevers. No excessive weight gain or loss. No polydipsia or polyuria. PSYCHIATRIC: Unremarkable. NEUROLOGY: No change in mental status. Denies dizziness, headache. ENT: Vision unremarkable. CONSTITUTIONAL: No recent weight loss. No fever, chills, night sweats. Past Medical History Past Medical History: Deep Vein Thrombosis (DVT) Additional Past Medical History / Comment(s): 12/12/21 L leg superficial DVT/thrombophlemitis/PCP treated for cellulitis, bilateral feet cramping/numbness/L foot worse. History of Any Multi-Drug Resistant Organisms: None Reported Past Surgical History: Tonsillectomy Past Anesthesia/Blood Transfusion Reactions: No Reported Reaction Past Psychological History: Anxiety, Depression Additional Psychological History / Comment(s): Pt resides alone. She goes to [facility]. She has not been driving, she makes ride arrangement thru [facility]. She manages her own medications. No use of assistive device. Smoking Status: Former smoker Past Alcohol Use History: Occasional Past Drug Use History: None Reported Additional Drug Use History / Comment(s): Pt was using marijuana regularly but quit 2 years ago. - Past Family History Mother Family Medical History: No Reported History Additional Family Medical History / Comment(s): Mother was healthy Father Family Medical History: No Reported History Additional Family Medical History / Comment(s): Father was healthy. Daughter(s) Family Medical History: Deep Vein Thrombosis (DVT) Medications and Allergies Home Medications Medication Instructions Recorded Confirmed Type Apixaban [Eliquis] 5 mg PO BID tab 12/19/21 09/14/23 Rx Allergies Allergy/AdvReac Type Severity Reaction Status Date / Time No Known Allergies Allergy Verified 09/14/23 14:19 Physical Exam Vitals: Vital Signs Temp Pulse Pulse Resp BP BP Pulse Ox 09/15/23 02:00 98.2 F 68 15 140/75 90 L 09/14/23 20:45 65 16 137/85 97 09/14/23 18:50 72 16 132/94 96 09/14/23 14:15 98 F 92 17 167/96 99 Intake and Output 09/14/23 09/15/23 09/15/23 22:59 06:59 14:59 Intake Total 1000 Balance 1000 Intake: Intake, IV Titration 1000 Amount Sodium Chloride 0.9% 1, 1000 000 ml @ 100 mls/hr IV . Q10H [facility] Rx#:[id number] Other: Voiding Method Toilet # Voids 2 Weight 68.039 kg General appearance: The patient is alert, oriented, appears in no acute distress. HET: Head is normocephalic and atraumatic. Conjunctiva pink. Sclera icteric. Neck: Supple without lymphadenopathy. Trachea midline. Heart: Regular. Lungs: Equal expansion, normal respiratory effort. Abdomen: Soft, right upper quadrant and epigastric tenderness, nondistended with bowel sounds. No guarding or rigidity. Skin: No rashes. Deeply jaundiced. Extremities: Normal skin color and turgor. No pedal edema. Neurological: No focal deficits. Alert and oriented x3. Results CBC & Chem 7: 09/14/23 15:09 09/15/23 10:22 Labs: Abnormal Lab Results - Last 24 Hours (Table) 09/14/23 09/14/23 Range/Units 15:09 15:09 BUN 18 H (7-17) mg/dL Glucose 108 H (74-99) mg/dL Total Bilirubin 11.4 H (0.2-1.3) mg/dL AST 59 H (14-36) U/L ALT 181 H (4-34) U/L Alkaline Phosphatase 466 H (38-126) U/L Amylase 203 H (30-110) U/L Lipase 1421 H (23-300) U/L Urine Blood Trace H (Negative) Urine Bilirubin 2+ H (Negative) Urine Mucus Few H (None) /hpf Comments: ultrasound of the gallbladder that reported suspected hypoechoic lesion measuring up to 4.3 cm in the area of the pancreatic head. Further evaluation with dedicated MRI of the abdomen with and without contrast for pancreatic protocol recommended. Distended gallbladder with biliary sludge and dilated common bile duct. No other evidence to suggest acute cholecystitis. Findings likely secondary to impression 1 US - abdomen: report reviewed Assessment and Plan (1) Pancreatitis Narrative/Plan: 73-year-old female presenting for abnormal labs and jaundice which she states she noticed about 10 days ago with abdominal pain about 2 weeks ago. No prior history of pancreatitis, liver disease and denies alcohol use. Ultrasound shows suspicious hyperechoic lesion at the pancreatic head with ductal dilation. Labs are consistent with a cholestatic pattern with biliary obstruction. Will plan to get a MRI of the pancreas with MRCP to evaluate for biliary obstruction. Will also hold Eliquis as patient may require ERCP. Repeat labs and CA 19-9 ordered MRI pancreas was completed and reporting mass within pancreatic head measuring approximately 3.5 x 3.4 cm felt to reflect malignancy until proven otherwise. Also intra and extrahepatic biliary ductal dilation, pancreatic ductal dilation as well as gallbladder hydrops. Due to these findings we are recommending transfer to tertiary center with advanced gastroenterology for ERCP/EUS with biopsy of the pancreas. Current Visit: Yes Status: Acute Code(s): K85.90 - ACUTE PANCREATITIS WITHOUT NECROSIS OR INFECTION, UNSP SNOMED Code(s): 74948461 (2) Jaundice Current Visit: Yes Status: Acute Code(s): R17 - UNSPECIFIED JAUNDICE SNOMED Code(s): 80278417 Plan: 1. Continue symptomatic and supportive care 2. Keep n.p.o. until MRI completed then patient may have clear liquid diet 3. Hold Eliquis 4. MRI pancreas with MRCP ordered and reviewed 5. Repeat labs today, CA 19-9 ordered 6. Recommend transfer to tertiary center, preference for [facility] for ERCP/EUS with biopsy of pancreas. This was discussed with primary care provider Dr. Chairez as well as the patient who is agreeable to transfer. Thank you for this consultation, we will continue to follow. Dr. Kalpesh Ho I agree with the dictator's note, documented as a scribe by Elizabeth Garza.
[2023-09-15 11:21] LABS: ALT 129 U/L (4-34); AST 47 U/L (14-36); African American GFR (CKD) >90 (>60 ml/min/1.73 sqM); Albumin 3.3 g/dL (3.5-5.0); Albumin/Globulin Ratio 1.1; Alkaline Phosphatase 389 U/L (38-126); Anion Gap 9 mmol/L; Blood Urea Nitrogen 13 mg/dL (7-17); Calcium 8.7 mg/dL (8.4-10.2); Carbon Dioxide 19 mmol/L (22-30); Chloride 112 mmol/L (98-107); Glucose 83 mg/dL (74-99); Lipase 1016 U/L (23-300); Non-African American GFR(CKD) >90 (>60 ml/min/1.73 sqM); Potassium 3.4 mmol/L (3.5-5.1); Sodium 140 mmol/L (137-145); Total Bilirubin 9.5 mg/dL (0.2-1.3); Total Protein 6.3 g/dL (6.3-8.2)
[2023-09-15] MEDS ORDERED: ENOXAPARIN 40 MG/0.4 ML SYRINGE SQ SCH (11:30)
--- NOTE | 2023-09-15 13:21 | MR ---
EXAMINATION TYPE: MR pancreas / mrcp wo/w con DATE OF EXAM: 09/15/2023 COMPARISON: Ultrasound 09/14/2023 HISTORY: Abdominal pain, jaundice, pancreatitis. CONTRAST: Standard multiplanar, multisequence MRI departmental protocol images were obtained without contrast a nd with 6.5 mL intravenous Gadobutrol gadolinium contrast. FINDINGS: There is a mass within the pancreatic head measuring approximately 3.5 x 3.4 cm felt to reflect malig kindra until proven otherwise. There is evidence of pancreatic duct dilatation of 3.5 mm. There is dil atation of the common bile duct at 1.3 cm. There is intrahepatic biliary ductal dilatation noted. Gal lbladder hydrops seen with several small calculi noted. No pericholecystic fluid evident. There is no evidence for infiltration of the SMA or celiac axis. No definite peripancreatic adenopathy appreciat ed. No hepatic lesions are seen. The spleen and adrenal glands are unremarkable. Tiny subcentimeter renal cortical cysts are noted. No solid renal masses are evident. Retroperitoneum is unremarkable. Abdomi nal aorta is of normal caliber. IMPRESSION: 1. 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
--- NOTE | 2023-09-15 15:01 | P.HPIM ---
History of Present Illness H&P Date: 09/15/23 Chief Complaint: Abdominal discomfort This is a pleasant 73-year-old patient who follows with visiting physician Dr. Bryant. Patient has a history of DVT PE 2 years ago for which she is on Eliquis. For about a month patient been having some abdominal discomfort. She had felt it was from naproxen. She has had some weight loss. Also gets nausea. Noticed herself to getting jaundice about 2 to 3 days ago. Decided to come in. Ultrasound in the ER showed a hypoechoic lesion 4.3 cm in the area of the pancreatic head. Distended gallbladder with biliary sludge. And dilated common bile duct. No impressive abdominal pain otherwise. Denies any fever and chills. Review of systems: GEN.: Tired decreased appetite weight loss EYES: None HEENT: None NECK: None RESPIRATORY: None CARDIOVASCULAR: None GASTROINTESTINAL: As above GENITOURINARY: None MUSCULOSKELETAL: None LYMPHATICS: None HEMATOLOGICAL: None PSYCHIATRY: None NEUROLOGICAL: insomnia e Social history: Lives alone. Does use a transfer chair with wheels. Does occasionally does marijuana. Denies alcohol. No smoking. Physical examination: VITAL SIGNS: 98.5, 65, 16, 114 x 70, 95% room air GENERAL: BMI 21.5, reclining in bed comfortable. EYES: [Pupils equal. Conjunctiva-icterus l. HEENT: External appearance of nose and ears normal, oral cavity grossly normal. NECK: JVD not raised; masses not palpable. HEART: First and second heart sounds are normal; no edema. LUNGS: Respiratory rate normal; clear to auscultation. ABDOMEN: Soft, minimal epigastric tenderness, liver spleen not palpable, no mass es palpable. PSYCH: Alert and oriented x3; mood and affect nasir l. MUSCULOSKELETAL:No Clubbing/cyanosis;muscles-grossly intact NEUROLOGICAL: Cranial nerves grossly intact; no facial asymmetry, power and sensation grossly intact. LYMPHATICS: No lymph nodes palpable in the axilla and neck INVESTIGATIONS, reviewed in the clinical context: White count 5.8 hemoglobin 14.3 platelets 239 sodium 140 potassium 3.4 BUN 13 creatinine 0.5 total bilirubin 9.5 AST 47 ALT 129 alkaline phosphatase 389 lipase 1016 Hepatitis A IgM antibody/hepatitis B surface antigen 4/hepatitis core IgM antibody/hepatitis C IgG antibody/: Nonreactive Assessment plan: -Relatively progressive painless jaundice with some abdominal discomfort present for about a month. 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 MRI of the pancreatic head. GI consulted. 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 Questions answered. MRI pancreatic head. Past Medical History Past Medical History: Deep Vein Thrombosis (DVT) Additional Past Medical History / Comment(s): 12/12/21 L leg superficial DVT/thrombophlemitis/PCP treated for cellulitis, bilateral feet cramping/nu mbness/L foot worse. History of Any Multi-Drug Resistant Organisms: None Reported Past Surgical History: Tonsillectomy Past Anesthesia/Blood Transfusion Reactions: No Reported Reaction Past Psychological History: Anxiety, Depression Additional Psychological History / Comment(s): Pt resides alone. She goes to [facility]. She has not been driving, she makes ride arrangement thru [facility]. She manages her own medications. No use of assistive device. Smoking Status: Former smoker Past Alcohol Use History: Occasional Past Drug Use History: None Reported Additional Drug Use History / Comment(s): Pt was using marijuana regularly but quit 2 years ago. - Past Family History Mother Family Medical History: No Reported History Additional Family Medical History / Comment(s): Mother was healthy Father Family Medical History: No Reported History Additional Family Medical History / Comment(s): Father was healthy. Daughter(s) Family Medical History: Deep Vein Thrombosis (DVT) Medications and Allergies Home Medications Medication Instructions Recorded Confirmed Type Apixaban [Eliquis] 5 mg PO BID tab 12/19/21 09/14/23 Rx Allergies Allergy/AdvReac Type Severity Reaction Status Date / Time No Known Allergies Allergy Verified 09/14/23 14:19 Physical Exam Vitals: Vital Signs Temp Pulse Pulse Resp BP BP Pulse Ox 09/15/23 07:25 98.5 F 65 16 114/70 95 09/15/23 02:00 98.2 F 68 15 140/75 90 L 09/14/23 20:45 65 16 137/85 97 09/14/23 18:50 72 16 132/94 96 09/14/23 14:15 98 F 92 17 167/96 99 Intake and Output 09/14/23 09/15/23 09/15/23 22:59 06:59 14:59 Intake Total 1000 Balance 1000 Intake: Intake, IV Titration 1000 Amount Sodium Chloride 0.9% 1, 1000 000 ml @ 100 mls/hr IV . Q10H IGNACIO Rx#:[id number] Other: Voiding Method Toilet # Voids 2 1 Weight 68.039 kg Results CBC & Chem 7: 09/14/23 15:09 09/15/23 10:22 Labs: Abnormal Lab Results - Last 24 Hours (Table) 09/14/23 09/14/23 Range/Units 15:09 15:09 BUN 18 H (7-17) mg/dL Glucose 108 H (74-99) mg/dL Total Bilirubin 11.4 H (0.2-1.3) mg/dL AST 59 H (14-36) U/L ALT 181 H (4-34) U/L Alkaline Phosphatase 466 H (38-126) U/L Amylase 203 H (30-110) U/L Lipase 1421 H (23-300) U/L Urine Blood Trace H (Negative) Urine Bilirubin 2+ H (Negative) Urine Mucus Few H (None) /hpf Thrombosis Risk Factor Assmnt - Choose All That Apply Any of the Below Risk Factors Present?: Yes Other Risk Factors: Yes Each Risk Factor Represents 2 Points: Age 61-74 years Each Risk Factor Represents 3 Points: History of DVT/PE Other congenital or acquired thrombophilia - If yes, enter type in comment: No Thrombosis Risk Factor Assessment Total Risk Factor Score: 5 Thrombosis Risk Factor Assessment Level: High Risk
[2023-09-15] MEDS ORDERED: POTASSIUM CHLORIDE ER 20 MEQ TAB.ER PO STA (16:33)
[2023-09-15 20:53] VITALS: TEMP 98.8
[2023-09-16 02:54] VITALS: BP 133/88; PULSE 68
[2023-09-16 03:20] VITALS: RESP 17
--- NOTE | 2023-09-16 20:58 | P.DS ---
Providers Date of admission: 09/14/23 18:24 Expected date of discharge: 09/16/23 Attending physician: Greg Chairez Consults: 09/14/23 18:24 Consult Physician Routine Consulting Provider: Mell Ho Consult Reason/Comments: Abdominal pain. Pancreatitis. Do you want consulting provider notified?: Yes Primary care physician: Louis Bryant MD Hospital Course: Chief Complaint: Abdominal discomfort This is a pleasant 73-year-old patient who follows with visiting physician Dr. Bryant. Patient has a history of DVT PE 2 years ago for which she is on Eliquis. For about a month patient been having some abdominal discomfort. She had felt it was from naproxen. She has had some weight loss. Also gets nausea. Noticed herself to getting jaundice about 2 to 3 days ago. Decided to come in. Ultrasound in the ER showed a hypoechoic lesion 4.3 cm in the area of the pancreatic head. Distended gallbladder with biliary sludge. And dilated common bile duct. No impressive abdominal pain otherwise. Denies any fever and chills. September 16: Patient was accepted at [facility] for higher level of care. Patient require ERCP with endoscopic ultrasound and biopsy. Social history: Lives alone. Does use a transfer chair with wheels. Does occasionally does marijuana. Denies alcohol. No smoking. Physical examination: VITAL SIGNS: 98.5, 65, 16, 114 x 70, 95% room air GENERAL: BMI 21.5, reclining in bed comfortable. EYES: [Pupils equal. Conjunctiva-icterus l. HEENT: External appearance of nose and ears normal, oral cavity grossly normal. NECK: JVD not raised; masses not palpable. HEART: First and second heart sounds are normal; no edema. LUNGS: Respiratory rate normal; clear to auscultation. ABDOMEN: Soft, minimal epigastric tenderness, liver spleen not palpable, no masses palpable. PSYCH: Alert and oriented x3; mood and affect nasir l. MUSCULOSKELETAL:No Clubbing/cyanosis;muscles-grossly intact NEUROLOGICAL: Cranial nerves grossly intact; no facial asymmetry, power and sensation grossly intact. LYMPHATICS: No lymph nodes palpable in the axilla and neck INVESTIGATIONS, reviewed in the clinical context: White count 5.8 hemoglobin 14.3 platelets 239 sodium 140 potassium 3.4 BUN 13 creatinine 0.5 total bilirubin 9.5 AST 47 ALT 129 alkaline phosphatase 389 lipase 1016 Hepatitis A IgM antibody/hepatitis B surface antigen 4/hepatitis core IgM antibody/hepatitis C IgG antibody/: Nonreactive Assessment plan: -Relatively progressive painless jaundice with some abdominal discomfort present for about a month. 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 MRI of the pancreatic head. GI consulted. 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 History of Any Multi-Drug Resistant Organisms: None Reported Past Surgical History: Tonsillectomy Past Anesthesia/Blood Transfusion Reactions: No Reported Reaction Past Psychological History: Anxiety, Depression Additional Psychological History / Comment(s): Pt resides alone. She goes to [facility]. She has not been driving, she makes ride arrangement thru [facility]. She manages her own medications. No use of assistive device. Smoking Status: Former smoker Past Alcohol Use History: Occasional Past Drug Use History: None Reported Additional Drug Use History / Comment(s): Pt was using marijuana regularly but quit 2 years ago. Plan - Discharge Summary Discharge Rx Participant: No New Discharge Prescriptions: Discontinued Apixaban [Eliquis] 5 mg PO BID tab Follow up Appointment(s)/Referral(s): Louis Bryant MD [Primary Care Provider] - 1-2 days Discharge Disposition: OTHER INSTITUTION NOT DEFINED
--- NOTE | 2023-09-17 16:47 | CDI ---
Documentation Clarification Form Date: 09/17/2023 04:32:22 PM From: Dilcia Carty Phone: Admit Date: 09/14/2023 06:24:00 PM Patient Name: Maria R Bryant Visit Number: [id number] Discharge Date: 09/16/2023 06:16:00 AM ATTENTION: The Clinical Documentation Specialists (CDI) and [facility] Coding Staff appreciate your assistance in clarifying documentation. Please respond to the clarification below the line at the bottom and electronically sign. The CDI & [facility] Coding staff will review the response and follow-up if needed. Please note: Queries are made part of the Legal Health Record. If you have any questions, please contact the author of this message via ITS. Dr. Greg Chairez Conflicting documentation has been found in the medical record. As attending physician, please provide clarification. ChronicDVT/PE, chronic on Eliquis per DC Summary History of DVT/PE 2 years ago for which sheis on Eliquis per H&P Note History/Risk Factors: 73yo F, stronglysuspectmalignancy of the pancreatic head, obstructivehepatitis, Distended gallbladder w hydrops, chronicinsomnia Clinical Indicators: 12/12/21 L leg superficialDVT/thrombophlebitis/PCP Treatment: Eliquis has been held; Pt transferred to [facility] for higher level of care Please clarify which diagnosis is most appropriate: [ ] ChronicDVT, please specify location [ ] Chronic PE [ + ] History of DVTPE [ ] Other (please specify) [ ] Unable to determine (Template Last Revised: October 2020) MTDD
== END 2023-09-16 06:16 | disposition short-term general hospital (02) | DRG 435 ==
LOC: EC 14:12 → 5NMEDONC 18:24
PROVIDERS: ADMIT Hospitalist; ATTEND Hospitalist
DX: C25.0 Malignant neoplasm of head of pancreas (principal); K83.1 Obstruction of bile duct; K85.90 Acute pancreatitis without necrosis or infection, unspecified; K82.1 Hydrops of gallbladder; K72.90 Hepatic failure, unspecified without coma; K86.89 Other specified diseases of pancreas; F32.A Depression, unspecified; F51.04 Psychophysiologic insomnia; F41.9 Anxiety disorder, unspecified; Z87.891 Personal history of nicotine dependence; Z79.01 Long term (current) use of anticoagulants; Z86.718 Personal history of other venous thrombosis and embolism; Z86.711 Personal history of pulmonary embolism
CPT/HCPCS: 36415; 74183; 76705; 80053; 80074; 81001; 82150; 83690; 85025; 85610; 85730; 86301; 96360; 96361; 99285

== ENCOUNTER 2023-10-20 16:39 | Observation (INO) | payer MEDICARE, OTHER ==
--- NOTE | 2023-10-20 16:49 | ED ---
General Adult HPI - General Source: patient, RN notes reviewed Mode of arrival: wheelchair Limitations: no limitations <Marina Knapp - Last Filed: 10/20/23 16:58> <Jai Hanna - Last Filed: 11/03/23 06:55> - General Chief complaint: Fever Stated complaint: Fever-Chemo Time Seen by Provider: 10/20/23 16:48 - History of Present Illness Initial comments: Quick Note: This is a 73-year-old female who presents to the emergency department for a fever. Patient recently started chemotherapy for pancreatic cancer, and was told to come to the emergency department if she developed a fever. States that she noticed a fever today, and it got over 101 F. She feels achy and generally unwell. Denies any coughing, congestion, chest pain, or shortness of breath. She does have some nausea. Last round of chemotherapy was 3 days ago. (Marina Knapp) - Related Data Home Medications Medication Instructions Recorded Confirmed Apixaban [Eliquis] 5 mg PO BID 10/20/23 11/01/23 Gemzar 200mg 200 mg IV DIRECTED 10/20/23 11/01/23 Magnesium Oxide [Magox 400] 400 mg PO DAILY 10/20/23 11/01/23 OLANZapine [ZyPREXA] 2.5 - 5 mg PO HS 10/20/23 11/01/23 Ondansetron [Zofran] 4 - 8 mg PO Q4-6H PRN 10/20/23 11/01/23 PACLitaxeL protein-bound [Abraxane] 1 mg IV DIRECTED 10/20/23 11/01/23 ursodioL [Ursodiol] 300 mg PO BID 10/20/23 11/01/23 Previous Rx's Medication Instructions Recorded cefUROXime axetiL [Cefuroxime] 500 mg PO BID 7 Days #14 tab 10/29/23 Allergies Allergy/AdvReac Type Severity Reaction Status Date / Time amoxicillin Allergy Rash/Hives Verified 11/01/23 20:04 clavulanic acid Allergy Rash/Hives Verified 11/01/23 20:04 [From Augmentin] Review of Systems ROS Other: All systems not noted in ROS Statement are negative. <Marina Knapp - Last Filed: 10/20/23 16:58> ROS Other: All systems not noted in ROS Statement are negative. <Jai Hanna - Last Filed: 11/03/23 06:55> ROS Statement: Those systems with pertinent positive or pertinent negative responses have been documented in the HPI. Past Medical History Past Medical History: Deep Vein Thrombosis (DVT) Additional Past Medical History / Comment(s): 12/12/21 L leg superficial DVT/thrombophlemitis/PCP treated for cellulitis, bilateral feet cramping/numbness/L foot worse. History of Any Multi-Drug Resistant Organisms: None Reported Past Surgical History: Tonsillectomy Past Anesthesia/Blood Transfusion Reactions: No Reported Reaction Past Psychological History: Anxiety, Depression Smoking Status: Former smoker Past Alcohol Use History: Occasional Past Drug Use History: Marijuana - Past Family History Mother Family Medical History: No Reported History Additional Family Medical History / Comment(s): Mother was healthy Father Family Medical History: No Reported History Additional Family Medical History / Comment(s): Father was healthy. Daughter(s) Family Medical History: Deep Vein Thrombosis (DVT) <Marina Knapp - Last Filed: 10/20/23 16:58> General Exam <Marina Knapp - Last Filed: 10/20/23 16:58> Limitations: no limitations General appearance: alert, in no apparent distress Head exam: Present: atraumatic, normocephalic Eye exam: Present: normal appearance, scleral icterus. Absent: conjunctival injection ENT exam: Present: mucous membranes dry Neck exam: Present: normal inspection, full ROM. Absent: meningismus Respiratory exam: Present: normal lung sounds bilaterally. Absent: respiratory distress, wheezes, rales, rhonchi, stridor, accessory muscle use Cardiovascular Exam: Present: normal rhythm, tachycardia, normal heart sounds. Absent: systolic murmur, diastolic murmur, rubs, gallop GI/Abdominal exam: Present: soft. Absent: distended, tenderness, guarding, rebound, rigid, mass Extremities exam: Present: normal inspection, normal capillary refill. Absent: pedal edema, calf tenderness Back exam: Present: normal inspection. Absent: CVA tenderness (R), CVA tenderness (L) Neurological exam: Present: alert, oriented X3 Skin exam: Present: warm, dry, intact, other (Color appears mildly icteric). Absent: rash <Jai Hanna - Last Filed: 11/03/23 06:55> - General Exam Comments Initial Comments: Visual Physical Exam Vital signs reviewed General: Well-appearing, nontoxic, no acute distress. Head: Normocephalic, atraumatic Eyes: PERRLA, EOMI ENT: Airway patent Chest: Nonlabored breathing Skin: No visual rash, normal skin tone Neuro: Alert and oriented 3 Musculoskeletal: No gross abnormalities (Marina Knapp) Course Vital Signs 10/20/23 10/20/23 10/21/23 16:46 23:40 01:16 Temperature 99.9 F H 98.7 F Pulse Rate 111 H 86 Pulse Rate [ 83 Pulse Oximetery ] Respiratory 18 14 16 Rate Blood Pressure 106/74 112/62 Blood Pressure 114/64 [Right Arm] O2 Sat by Pulse 99 99 100 Oximetry 10/21/23 10/21/23 10/21/23 06:45 08:24 13:28 Temperature 99.9 F H 98.1 F Pulse Rate 90 100 Pulse Rate [ 79 Pulse Oximetery ] Respiratory 16 18 18 Rate Blood Pressure 118/66 135/83 Blood Pressure 116/67 [Right Arm] O2 Sat by Pulse 98 97 96 Oximetry EKG Findings - EKG Results: EKG: interpreted by ERMD, sinus rhythm, normal axis, normal QRS, normal ST/T EKG shows: tachycardia (Rate 102 bpm) <Jai Hanna - Last Filed: 11/03/23 06:55> Medical Decision Making <Marina Knapp - Last Filed: 10/20/23 16:58> - Lab Data Result diagrams: 10/20/23 21:18 10/20/23 21:18 <BrittneylavonneJai - Last Filed: 11/03/23 06:55> - Medical Decision Making I performed the QuickNote portion of this chart. Signed Marina Knapp PA-C. (Marina Knapp) The patient had chest x-ray that I interpreted as negative for acute infiltrate, pneumothorax, congestive heart failure Was pt. sent in by a medical professional or institution ([facility], [employer], urgent care, hospital, or senior living...) When possible be specific @ -[No] Did you speak to anyone other than the patient for history (EMS, parent, family, police, friend...)? What history was obtained from this source @ -[No] Did you review nursing and triage notes (agree or disagree)? Why? @ -[I reviewed and agree with nursing and triage notes] Were old charts reviewed (outside hosp., previous admission, EMS record, old EKG, old radiological studies, urgent care reports/EKG's, senior living records)? Report findings @ -[old charts were reviewed] Differential Diagnosis (chest pain, altered mental status, abdominal pain women, abdominal pain men, vaginal bleeding, weakness, fever, dyspnea, syncope, headache, dizziness, GI bleed, back pain, seizure, CVA, palpatations, mental health, musculoskeletal)? @ -[Differential Fever: Pneumonia, viral URI, endocarditis, myocarditis, pericarditis, otitis, sinusiti s, peritonsillar Abscess, retropharyngeal Abscess, epiglottitis, peritonitis, appendicitis, Alice cystitis, diverticulitis, hepatitis, colitis, UTI, PID, TOA, pyelonephritis, prostatitis, epididymitis, meningitis, encephalitis, pulmonary embolism, CVA, thyroid storm, pancreatitis, adrenal crisis, cavernous sinus thrombosis, this is not meant to be an all-inclusive list. EKG interpreted by me (3pts min.). @ -[As above] X-rays interpreted by me (1pt min.). @ -[I interpreted as above CT interpreted by me (1pt min.). @ -[None done] U/S interpreted by me (1pt. min.). @ -[None done] What testing was considered but not performed or refused? (CT, X-rays, U/S, labs)? Why? @ -[None] What meds were considered but not given or refused? Why? @ -[None] Did you discuss the management of the patient with other professionals (professionals i.e. , PA, HARNESS PREPARER, lab, RT, psych nurse, social services analyst, gas meter prover, teacher, jailer/training officer, case management coordinator)? Give summary @ -[Case discussed with admitting physician and treatment recommendations incorporated. Oncology paged for recommendations Was smoking cessation discussed for >3mins.? @ -[No] Was critical care preformed (if so, how long)? @ -[No] Were there social determinants of health that impacted care today? How? (Homelessness, low income, unemployed, alcoholism, drug addiction, transportation, low edu. Level, literacy, decrease access to med. care, penitentiary, rehab)? @ -[No] Was there de-escalation of care discussed even if they declined (Discuss DNR or withdrawal of care, Hospice)? DNR status @ -[No] What co-morbidities impacted this encounter? (DM, HTN, Smoking, COPD, CAD, Cancer, CVA, ARF, Chemo, Hep., AIDS, mental health diagnosis, sleep apnea, morbid obesity)? @ -[Pancreatic cancer with metastases Was patient admitted / discharged? Hospital course, mention meds given and route, prescriptions, significant lab abnormalities, going to OR and other pertinent info. @ -[Patient is 73-year-old woman here to have evaluation after she developed fever following cancer chemotherapy. The patient does not have evident source. Discussed close outpatient follow-up versus admission and at this point will admit patient. She is covered with empiric antibiotics and will have oncology consultation. Cultures are pending. Undiagnosed new problem with uncertain prognosis? @ -[No] Drug Therapy requiring intensive monitoring for toxicity (Heparin, Nitro, Insulin, Cardizem)? @ -[No] Were any procedures done? @ -[No] Diagnosis/symptom? @ -[Metastatic pancreatic cancer Jaundice Acute fever, source unknown Acute, or Chronic, or Acute on Chronic? @ -[Acute Uncomplicated (without systemic symptoms) or Complicated (systemic symptoms)? @ -[Uncomplicated Side effects of treatment? @ -[No] Exacerbation, Progression, or Severe Exacerbation? @ -[No] Poses a threat to life or bodily function? How? (Chest pain, [place], PR, pneumonia, PE, COPD, DKA, ARF, appy, cholecystitis, CVA, Diverticulitis, Homicidal, Suicidal, threat to staff... and all critical care pts) @ -[Yes (Jai Hanna) - Lab Data Lab Results 10/20/23 10/20/23 10/20/23 Range/Units 17:13 17:13 17:13 WBC 4.7 (3.8-10.6) k/uL RBC 3.16 L (3.80-5.40) m/uL Hgb 10.8 L D (11.4-16.0) gm/dL Hct 31.2 L (34.0-46.0) % MCV 99.0 (80.0-100.0) fL MCH 34.2 (25.0-35.0) pg MCHC 34.5 (31.0-37.0) g/dL RDW 16.2 H (11.5-15.5) % Plt Count 262 (150-450) k/uL MPV 8.8 Neutrophils % 75 % Neutrophils % (Manual) % Band Neuts % (Manual) % Lymphocytes % 19 % Lymphocytes % (Manual) % Monocytes % 2 % Monocytes % (Manual) % Eosinophils % 2 % Basophils % 1 % Neutrophils # 3.5 (1.3-7.7) k/uL Neutrophils # (Manual) (1.3-7.7) k/uL Lymphocytes # 0.9 L (1.0-4.8) k/uL Lymphocytes # (Manual) (1.0-4.8) k/uL Monocytes # 0.1 (0-1.0) k/uL Monocytes # (Manual) (0-1.0) k/uL Eosinophils # 0.1 (0-0.7) k/uL Basophils # 0.0 (0-0.2) k/uL Nucleated RBCs (0-0) /100 WBC Manual Slide Review Anisocytosis Slight Macrocytosis Slight PT (10.0-12.5) sec INR (<1.2) APTT (22.0-30.0) sec Sodium 137 (137-145) mmol/L Potassium 3.9 (3.5-5.1) mmol/L Chloride 106 (98-107) mmol/L Carbon Dioxide 23 (22-30) mmol/L Anion Gap 8 mmol/L BUN 17 (7-17) mg/dL Creatinine 0.48 L (0.52-1.04) mg/dL Est GFR (CKD-EPI)AfAm >90 (>60 ml/min/1.73 sqM) Est GFR (CKD-EPI)NonAf >90 (>60 ml/min/1.73 sqM) Glucose 148 H (74-99) mg/dL Plasma Lactic Acid [place] 1.3 (0.7-2.0) mmol/L Calcium 9.0 (8.4-10.2) mg/dL Total Bilirubin 4.8 H (0.2-1.3) mg/dL AST 87 H (14-36) U/L ALT 113 H (4-34) U/L Alkaline Phosphatase 188 H (38-126) U/L Troponin I (0.000-0.034) ng/mL Total Protein 6.1 L (6.3-8.2) g/dL Albumin 3.2 L (3.5-5.0) g/dL Urine Color Urine Appearance (Clear) Urine pH (5.0-8.0) Ur Specific [place] (1.001-1.035) Urine Protein (Negative) Urine Glucose (UA) (Negative) Urine Ketones (Negative) Urine Blood (Negative) Urine Nitrite (Negative) Urine Bilirubin (Negative) Urine Urobilinogen (<2.0) mg/dL Ur Leukocyte Esterase (Negative) Urine WBC (0-5) /hpf Ur Squamous Epith Cells (0-4) /hpf Calcium Oxalate Crystal (None) /hpf Urine Mucus (None) /hpf Influenza Type A (PCR) (Not Detectd) Influenza Type B (PCR) (Not Detectd) RSV (PCR) (Not Detectd) SARS-CoV-2 (PCR) (Not Detectd) 10/20/23 10/20/23 10/20/23 Range/Units 17:13 17:48 21:18 WBC 5.9 (3.8-10.6) k/uL RBC 3.21 L (3.80-5.40) m/uL Hgb 11.2 L (11.4-16.0) gm/dL Hct 31.9 L (34.0-46.0) % MCV 99.3 (80.0-100.0) fL MCH 34.8 (25.0-35.0) pg MCHC 35.0 (31.0-37.0) g/dL RDW 16.6 H (11.5-15.5) % Plt Count 251 (150-450) k/uL MPV 9.7 Neutrophils % % Neutrophils % (Manual) 89 % Band Neuts % (Manual) 1 % Lymphocytes % % Lymphocytes % (Manual) 9 % Monocytes % % Monocytes % (Manual) 1 % Eosinophils % % Basophils % % Neutrophils # (1.3-7.7) k/uL Neutrophils # (Manual) 5.30 (1.3-7.7) k/uL Lymphocytes # (1.0-4.8) k/uL Lymphocytes # (Manual) 0.53 L (1.0-4.8) k/uL Monocytes # (0-1.0) k/uL Monocytes # (Manual) 0.06 (0-1.0) k/uL Eosinophils # (0-0.7) k/uL Basophils # (0-0.2) k/uL Nucleated RBCs 0 (0-0) /100 WBC Manual Slide Review Performed Anisocytosis Slight Macrocytosis Slight PT (10.0-12.5) sec INR (<1.2) APTT (22.0-30.0) sec Sodium (137-145) mmol/L Potassium (3.5-5.1) mmol/L Chloride (98-107) mmol/L Carbon Dioxide (22-30) mmol/L Anion Gap mmol/L BUN (7-17) mg/dL Creatinine (0.52-1.04) mg/dL Est GFR (CKD-EPI)AfAm (>60 ml/min/1.73 sqM) Est GFR (CKD-EPI)NonAf (>60 ml/min/1.73 sqM) Glucose (74-99) mg/dL Plasma Lactic Acid [place] (0.7-2.0) mmol/L Calcium (8.4-10.2) mg/dL Total Bilirubin (0.2-1.3) mg/dL AST (14-36) U/L ALT (4-34) U/L Alkaline Phosphatase (38-126) U/L Troponin I (0.000-0.034) ng/mL Total Protein (6.3-8.2) g/dL Albumin (3.5-5.0) g/dL Urine Color [place] Urine Appearance Cloudy H (Clear) Urine pH 6.0 (5.0-8.0) Ur Specific [place] 1.025 (1.001-1.035) Urine Protein Trace H (Negative) Urine Glucose (UA) Negative (Negative) Urine Ketones Negative (Negative) Urine Blood Negative (Negative) Urine Nitrite Negative (Negative) Urine Bilirubin 1+ H (Negative) Urine Urobilinogen 4.0 (<2.0) mg/dL Ur Leukocyte Esterase Trace H (Negative) Urine WBC 5 (0-5) /hpf Ur Squamous Epith Cells 4 (0-4) /hpf Calcium Oxalate Crystal Moderate H (None) /hpf Urine Mucus Many H (None) /hpf Influenza Type A (PCR) Not Detected (Not Detectd) Influenza Type B (PCR) Not Detected (Not Detectd) RSV (PCR) Not Detected (Not Detectd) SARS-CoV-2 (PCR) Not Detected (Not Detectd) 10/20/23 10/20/23 10/20/23 Range/Units 21:18 21:18 21:18 WBC (3.8-10.6) k/uL RBC (3.80-5.40) m/uL Hgb (11.4-16.0) gm/dL Hct (34.0-46.0) % MCV (80.0-100.0) fL MCH (25.0-35.0) pg MCHC (31.0-37.0) g/dL RDW (11.5-15.5) % Plt Count (150-450) k/uL MPV Neutrophils % % Neutrophils % (Manual) % Band Neuts % (Manual) % Lymphocytes % % Lymphocytes % (Manual) % Monocytes % % Monocytes % (Manual) % Eosinophils % % Basophils % % Neutrophils # (1.3-7.7) k/uL Neutrophils # (Manual) (1.3-7.7) k/uL Lymphocytes # (1.0-4.8) k/uL Lymphocytes # (Manual) (1.0-4.8) k/uL Monocytes # (0-1.0) k/uL Monocytes # (Manual) (0-1.0) k/uL Eosinophils # (0-0.7) k/uL Basophils # (0-0.2) k/uL Nucleated RBCs (0-0) /100 WBC Manual Slide Review Anisocytosis Macrocytosis PT (10.0-12.5) sec INR (<1.2) APTT (22.0-30.0) sec Sodium 134 L (137-145) mmol/L Potassium 4.2 (3.5-5.1) mmol/L Chloride 107 (98-107) mmol/L Carbon Dioxide 17 L (22-30) mmol/L Anion Gap 10 mmol/L BUN 21 H (7-17) mg/dL Creatinine 0.38 L (0.52-1.04) mg/dL Est GFR (CKD-EPI)AfAm >90 (>60 ml/min/1.73 sqM) Est GFR (CKD-EPI)NonAf >90 (>60 ml/min/1.73 sqM) Glucose 171 H (74-99) mg/dL Plasma Lactic Acid [place] 1.4 (0.7-2.0) mmol/L Calcium 8.9 (8.4-10.2) mg/dL Total Bilirubin 4.8 H (0.2-1.3) mg/dL AST 86 H (14-36) U/L ALT 117 H (4-34) U/L Alkaline Phosphatase 185 H (38-126) U/L Troponin I <0.012 (0.000-0.034) ng/mL Total Protein 6.4 (6.3-8.2) g/dL Albumin 3.3 L (3.5-5.0) g/dL Urine Color Urine Appearance (Clear) Urine pH (5.0-8.0) Ur Specific [place] (1.001-1.035) Urine Protein (Negative) Urine Glucose (UA) (Negative) Urine Ketones (Negative) Urine Blood (Negative) Urine Nitrite (Negative) Urine Bilirubin (Negative) Urine Urobilinogen (<2.0) mg/dL Ur Leukocyte Esterase (Negative) Urine WBC (0-5) /hpf Ur Squamous Epith Cells (0-4) /hpf Calcium Oxalate Crystal (None) /hpf Urine Mucus (None) /hpf Influenza Type A (PCR) (Not Detectd) Influenza Type B (PCR) (Not Detectd) RSV (PCR) (Not Detectd) SARS-CoV-2 (PCR) (Not Detectd) 10/20/23 10/20/23 Range/Units 21:25 22:00 WBC (3.8-10.6) k/uL RBC (3.80-5.40) m/uL Hgb (11.4-16.0) gm/dL Hct (34.0-46.0) % MCV (80.0-100.0) fL MCH (25.0-35.0) pg MCHC (31.0-37.0) g/dL RDW (11.5-15.5) % Plt Count (150-450) k/uL MPV Neutrophils % % Neutrophils % (Manual) % Band Neuts % (Manual) % Lymphocytes % % Lymphocytes % (Manual) % Monocytes % % Monocytes % (Manual) % Eosinophils % % Basophils % % Neutrophils # (1.3-7.7) k/uL Neutrophils # (Manual) (1.3-7.7) k/uL Lymphocytes # (1.0-4.8) k/uL Lymphocytes # (Manual) (1.0-4.8) k/uL Monocytes # (0-1.0) k/uL Monocytes # (Manual) (0-1.0) k/uL Eosinophils # (0-0.7) k/uL Basophils # (0-0.2) k/uL Nucleated RBCs (0-0) /100 WBC Manual Slide Review Anisocytosis Macrocytosis PT 9.9 L (10.0-12.5) sec INR 0.9 (<1.2) APTT 19.0 L (22.0-30.0) sec Sodium (137-145) mmol/L Potassium (3.5-5.1) mmol/L Chloride (98-107) mmol/L Carbon Dioxide (22-30) mmol/L Anion Gap mmol/L BUN (7-17) mg/dL Creatinine (0.52-1.04) mg/dL Est GFR (CKD-EPI)AfAm (>60 ml/min/1.73 sqM) Est GFR (CKD-EPI)NonAf (>60 ml/min/1.73 sqM) Glucose (74-99) mg/dL Plasma Lactic Acid [place] (0.7-2.0) mmol/L Calcium (8.4-10.2) mg/dL Total Bilirubin (0.2-1.3) mg/dL AST (14-36) U/L ALT (4-34) U/L Alkaline Phosphatase (38-126) U/L Troponin I (0.000-0.034) ng/mL Total Protein (6.3-8.2) g/dL Albumin (3.5-5.0) g/dL Urine Color Urine Appearance (Clear) Urine pH (5.0-8.0) Ur Specific [place] (1.001-1.035) Urine Protein (Negative) Urine Glucose (UA) (Negative) Urine Ketones (Negative) Urine Blood (Negative) Urine Nitrite (Negative) Urine Bilirubin (Negative) Urine Urobilinogen (<2.0) mg/dL Ur Leukocyte Esterase (Negative) Urine WBC (0-5) /hpf Ur Squamous Epith Cells (0-4) /hpf Calcium Oxalate Crystal (None) /hpf Urine Mucus (None) /hpf Influenza Type A (PCR) Not Detected (Not Detectd) Influenza Type B (PCR) Not Detected (Not Detectd) RSV (PCR) Not Detected (Not Detectd) SARS-CoV-2 (PCR) Not Detected (Not Detectd) Disposition <Marina Knapp - Last Filed: 10/20/23 16:58> <Jai Hanna - Last Filed: 11/03/23 06:55> Clinical Impression: Pancreatic adenocarcinoma, Fever of unknown origin, Jaundice Disposition: ADMITTED IP TO THIS HOSP Condition: Fair
[2023-10-20 17:40] LABS: Anisocytosis Slight; Basophils % (A) 1 %; Eosinophils # (A) 0.1 k/uL (0-0.7); Eosinophils % (A) 2 %; HCT 31.2 % (34.0-46.0); Lymphocytes # (A) 0.9 k/uL (1.0-4.8); Lymphocytes % (A) 19 %; MCH 34.2 pg (25.0-35.0); MCHC 34.5 g/dL (31.0-37.0); Macrocytosis Slight; Mean Platelet Volume 8.8; Monocytes # (A) 0.1 k/uL (0-1.0); Monocytes % (A) 2 %; Neutrophils # (A) 3.5 k/uL (1.3-7.7); Neutrophils % (A) 75 %; Platelet Count 262 k/uL (150-450); RBC 3.16 m/uL (3.80-5.40); RDW 16.2 % (11.5-15.5); WBC 4.7 k/uL (3.8-10.6)
[2023-10-20 17:42] LABS: HGB 10.8 gm/dL (11.4-16.0)
[2023-10-20 17:52] LABS: ALT 113 U/L (4-34); AST 87 U/L (14-36); African American GFR (CKD) >90 (>60 ml/min/1.73 sqM); Albumin 3.2 g/dL (3.5-5.0); Alkaline Phosphatase 188 U/L (38-126); Anion Gap 8 mmol/L; Blood Urea Nitrogen 17 mg/dL (7-17); Carbon Dioxide 23 mmol/L (22-30); Chloride 106 mmol/L (98-107); Glucose 148 mg/dL (74-99); Non-African American GFR(CKD) >90 (>60 ml/min/1.73 sqM); Potassium 3.9 mmol/L (3.5-5.1); Sodium 137 mmol/L (137-145); Total Bilirubin 4.8 mg/dL (0.2-1.3); Total Protein 6.1 g/dL (6.3-8.2)
[2023-10-20 18:19] LABS: Appearance,Urine Cloudy (Clear); Bilirubin,Urine 1+ (Negative); Blood,Urine Negative (Negative); Calcium Oxalate Crystals,Urine Moderate /hpf; Color,Urine Orange; Glucose,Urine (UA) Negative (Negative); Ketones,Urine Negative (Negative); Leukocyte Esterase,Urine Trace (Negative); Mucus,Urine Many /hpf; Nitrite,Urine Negative (Negative); Protein,Urine Trace (Negative); Specific Gravity,Urine 1.025 (1.001-1.035); Squamous Epithelial Cell,Urine 4 /hpf (0-4); WBC,Urine 5 /hpf (0-5)
--- NOTE | 2023-10-20 18:37 | XR ---
EXAMINATION TYPE: XR chest 2V DATE OF EXAM: 10/20/2023 6:25 PM CLINICAL INDICATION:Female, 73 years old with history of Fever, weakness; COMPARISON: Chest radiographs from 01/14/2023 TECHNIQUE: XR chest 2V Frontal and lateral views of the chest. FINDINGS: Lungs/Pleura: There is flattening of the diaphragm with increased lucency of the lungs. No evidence o f pneumothorax, pleural effusion or focal consolidation. Pulmonary vascularity: Unremarkable. Heart/mediastinum: Cardiomediastinal silhouette is unremarkable. Musculoskeletal: No acute osseous pathology. IMPRESSION: 1. No acute cardiopulmonary disease process. 2. COPD changes.
[2023-10-20] MEDS: SODIUM CHLORIDE 0.9% 1,000 ML IV SCH (21:26)
[2023-10-20] MEDS: SODIUM CHLORIDE 0.9% 500 ML 500 ML IV SCH (21:26)
--- NOTE | 2023-10-20 21:47 | XR ---
EXAMINATION TYPE: XR chest 2V DATE OF EXAM: 10/20/2023 9:40 PM CLINICAL INDICATION:Female, 73 years old with history of Fever; just started chemotherapy for pancrea tic cancer COMPARISON: 10/20/2023 6:22 PM TECHNIQUE: XR chest 2V. Frontal and lateral views of the chest.. FINDINGS: Lines/Tubes/Devices: EKG leads overlie the chest. No indwelling lines are seen. Heart/mediastinum: Heart size is normal. Mediastinum appears normal. Pulmonary vascularity: Not increased, Lungs/Pleura: There is no evidence of pleural effusion, focal consolidation, or pneumothorax. Mild a pical pleural thickening. Mildly hyperinflated appearance of the lungs could reflect background COPD. Musculoskeletal: No acute osseous abnormality demonstrated in the limits of the exam. Chronic degene rative changes of the spine and shoulders. Other findings: None. IMPRESSION: No acute findings, or significant interval change.
[2023-10-20 21:57] LABS: ALT 117 U/L (4-34); AST 86 U/L (14-36); African American GFR (CKD) >90 (>60 ml/min/1.73 sqM); Albumin 3.3 g/dL (3.5-5.0); Alkaline Phosphatase 185 U/L (38-126); Anion Gap 10 mmol/L; Blood Urea Nitrogen 21 mg/dL (7-17); Calcium 8.9 mg/dL (8.4-10.2); Carbon Dioxide 17 mmol/L (22-30); Chloride 107 mmol/L (98-107); Glucose 171 mg/dL (74-99); Non-African American GFR(CKD) >90 (>60 ml/min/1.73 sqM); Potassium 4.2 mmol/L (3.5-5.1); Sodium 134 mmol/L (137-145); Total Bilirubin 4.8 mg/dL (0.2-1.3); Total Protein 6.4 g/dL (6.3-8.2)
[2023-10-20 22:23] LABS: Anisocytosis Slight; HCT 31.9 % (34.0-46.0); HGB 11.2 gm/dL (11.4-16.0); MCH 34.8 pg (25.0-35.0); MCV 99.3 fL (80.0-100.0); Macrocytosis Slight; Mean Platelet Volume 9.7; Platelet Count 251 k/uL (150-450); RBC 3.21 m/uL (3.80-5.40); RDW 16.6 % (11.5-15.5); WBC 5.9 k/uL (3.8-10.6)
[2023-10-20 22:26] LABS: INR 0.9 (<1.2); Prothrombin Time 9.9 sec (10.0-12.5)
[2023-10-21] MEDS ORDERED: MAG HYDROX/AL HYDROX/SIMETH 30 ML CUP PO PRN (00:26)
[2023-10-21] MEDS ORDERED: NALOXONE 0.4 MG/ML 1 ML VIAL IV PRN (00:26)
[2023-10-21] MEDS ORDERED: ONDANSETRON 4 MG/2 ML VIAL IVP PRN (00:26)
[2023-10-21] MEDS ORDERED: ACETAMINOPHEN TAB 325 MG TAB PO PRN (00:26)
[2023-10-21 01:21] LABS: Band Neutrophils % 1 %; Lymphocytes # (M) 0.53 k/uL (1.0-4.8); Monocytes # (M) 0.06 k/uL (0-1.0); Neutrophils % (M) 89 %; Nucleated Red Blood Cells 0 /100 WBC (0-0); Total Cells Counted 100
[2023-10-21 08:34] VITALS: RESP 18
[2023-10-21] MEDS: FAMOTIDINE 20 MG TAB PO SCH (10:02)
[2023-10-21] MEDS: ursodioL 300 MG CAP PO SCH (10:02)
[2023-10-21] MEDS: MAGNESIUM OXIDE 400 MG TAB PO SCH (10:02)
[2023-10-21] MEDS: APIXABAN 5 MG TAB PO SCH (10:02)
[2023-10-21 13:52] VITALS: BP 135/83; PULSE 100; TEMP 98.1
--- NOTE | 2023-10-21 15:41 | P.HPIM ---
History of Present Illness H&P Date: 10/21/23 Chief Complaint: Tired Chief Complaint: Abdominal discomfort This is a pleasant 73-year-old patient who follows with visiting physician Dr. Bryant. Patient has a history of DVT PE 2 years ago for which she is on Eliquis. Patient presented to the end of August. Found to have a pancreatic mass. Transferred to [facility]. That she was diagnosed with pancreatic cancer. Seen by Dr. Quinones. Being followed up with Dr. Lucius Russell on local oncologist. Started on chemotherapy for 5 days ago. Because of metallic taste patient is appetite is not very good. Denies any diarrhea skin changes. Yesterday patient developed a fever of about 101.4. Aching all over. Tired. Denied any respiratory symptoms. No diarrhea. Today feeling much better. Back to baseline. No white count. Patient was only seen by Dr. Diamond from oncology. [place] this could be a viral infection. y. Review of systems: GEN.: Febrile. Decreased appetite. EYES: None HEENT: None NECK: None RESPIRATORY: None CARDIOVASCULAR: None GASTROINTESTINAL: None GENITOURINARY: None MUSCULOSKELETAL: None LYMPHATICS: None HEMATOLOGICAL: None PSYCHIATRY: None NEUROLOGICAL: insomnia e Social history: Lives alone. Does use a transfer chair with wheels. Does occasionally does marijuana. Denies alcohol. No smoking. Physical examination: VITAL SIGNS: 99.9, 111, 18, 106/74, 98% room air upon presentation GENERAL: BMI 19.9, laying in bed comfortable. EYES: [Pupils equal. Conjunctiva-icterus l. HEENT: External appearance of nose and ears normal, oral cavity grossly normal. NECK: JVD not raised; masses not palpable. HEART: First and second heart sounds are normal; no edema. LUNGS: Respiratory rate normal; clear to auscultation. ABDOMEN: Soft, minimal epigastric tenderness, liver spleen not palpable, no masses palpable. PSYCH: Alert and oriented x3; mood and affect nasri l. MUSCULOSKELETAL:No Clubbing/cyanosis;muscles-grossly intact NEUROLOGICAL: Cranial nerves grossly intact; no facial asymmetry, power and sensation grossly intact. LYMPHATICS: No lymph nodes palpable in the axilla and neck INVESTIGATIONS, reviewed in the clinical context: October 20, 2023: White count 5.9 hemoglobin 9.2 platelets 251 sodium 134 potassium 4.2 BUN 21 creatinine 0.38 AST 86 ALT 117 Troponin I x 2 negative UA: Negative for nitrite trace leukoesterase Influenza type A, type B, RSV, COVID-19: Not detected EKG tracing personally reviewed by me-normal sinus rhythm. Chest x-ray film personally reviewed by me-hyperinflation. No infiltrate Assessment plan: -Febrile episode. Yesterday. Body ache. No other signs of any focal source of infection. No respiratory urinary, GI skin symptoms. This morning patient feels much better. Normal white count. Patient nearly feels back to baseline this morning. -Carcinoma pancreatic head. Worked up at [facility]. Has been told currently no metastasis. Received her first course of chemotherapy last week. Being followed by at [facility] in [facility]. 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 Home medications renewed. Discussed with Dr. Diamond earlier this morning. He felt patient is okay to be discharged. I agree. Patient is keen to go home. Given empirical short course of antibiotic. Past Medical History Past Medical History: Deep Vein Thrombosis (DVT) Additional Past Medical History / Comment(s): 12/12/21 L leg superficial DVT/thrombophlemitis/PCP treated for cellulitis, bilateral feet cramping/numbness/L foot worse. History of Any Multi-Drug Resistant Organisms: None Reported Past Surgical History: Tonsillectomy Past Anesthesia/Blood Transfusion Reactions: No Reported Reaction Past Psychological History: Anxiety, Depression Smoking Status: Former smoker Past Alcohol Use History: Occasional Past Drug Use History: Marijuana - Past Family History Mother Family Medical History: No Reported History Additional Family Medical History / Comment(s): Mother was healthy Father Family Medical History: No Reported History Additional Family Medical History / Comment(s): Father was healthy. Daughter(s) Family Medical History: Deep Vein Thrombosis (DVT) Medications and Allergies Home Medications Medication Instructions Recorded Confirmed Type Apixaban [Eliquis] 5 mg PO BID 10/20/23 10/20/23 History Gemzar 200mg 200 mg IV DIRECTED 10/20/23 10/20/23 History Magnesium Oxide [Magox 400] 400 mg PO DAILY 10/20/23 10/20/23 History OLANZapine [ZyPREXA] 2.5 - 5 mg PO HS 10/20/23 10/20/23 History Ondansetron [Zofran] 4 - 8 mg PO Q4-6H PRN 10/20/23 10/20/23 History PACLitaxeL protein-bound [Abraxane] 1 mg IV DIRECTED 10/20/23 10/20/23 History ursodioL [Ursodiol] 300 mg PO BID 10/20/23 10/20/23 History Amoxic-Pot Clav 875-125Mg 1 tab PO BID #14 tab 10/21/23 Rx [Augmentin 875-125] Famotidine [Pepcid] 20 mg PO BID #60 tab 10/21/23 Rx Allergies Allergy/AdvReac Type Severity Reaction Status Date / Time No Known Allergies Allergy Verified 10/20/23 22:10 Physical Exam Vitals: Vital Signs Temp Pulse Pulse Resp BP BP Pulse Ox 10/21/23 08:24 90 18 118/66 97 10/21/23 06:45 99.9 F H 79 16 116/67 98 10/21/23 01:16 83 16 114/64 100 10/20/23 23:40 98.7 F 86 14 112/62 99 10/20/23 16:46 99.9 F H 111 H 18 106/74 99 Intake and Output 10/20/23 10/21/23 10/21/23 22:59 06:59 14:59 Other: Weight 63.049 kg Results CBC & Chem 7: 10/20/23 21:18 10/20/23 21:18 Labs: Abnormal Lab Results - Last 24 Hours (Table) 10/20/23 10/20/23 10/20/23 Range/Units 17:13 17:13 17:48 RBC 3.16 L (3.80-5.40) m/uL Hgb 10.8 L D (11.4-16.0) gm/dL Hct 31.2 L (34.0-46.0) % RDW 16.2 H (11.5-15.5) % Lymphocytes # 0.9 L (1.0-4.8) k/uL Lymphocytes # (Manual) (1.0-4.8) k/uL PT (10.0-12.5) sec APTT (22.0-30.0) sec Sodium (137-145) mmol/L Carbon Dioxide (22-30) mmol/L BUN (7-17) mg/dL Creatinine 0.48 L (0.52-1.04) mg/dL Glucose 148 H (74-99) mg/dL Total Bilirubin 4.8 H (0.2-1.3) mg/dL AST 87 H (14-36) U/L ALT 113 H (4-34) U/L Alkaline Phosphatase 188 H (38-126) U/L Total Protein 6.1 L (6.3-8.2) g/dL Albumin 3.2 L (3.5-5.0) g/dL Urine Appearance Cloudy H (Clear) Urine Protein Trace H (Negative) Urine Bilirubin 1+ H (Negative) Ur Leukocyte Esterase Trace H (Negative) Calcium Oxalate Crystal Moderate H (None) /hpf Urine Mucus Many H (None) /hpf 10/20/23 10/20/23 10/20/23 Range/Units 21:18 21:18 22:00 RBC 3.21 L (3.80-5.40) m/uL Hgb 11.2 L (11.4-16.0) gm/dL Hct 31.9 L (34.0-46.0) % RDW 16.6 H (11.5-15.5) % Lymphocytes # (1.0-4.8) k/uL Lymphocytes # (Manual) 0.53 L (1.0-4.8) k/uL PT 9.9 L (10.0-12.5) sec APTT 19.0 L (22.0-30.0) sec Sodium 134 L (137-145) mmol/L Carbon Dioxide 17 L (22-30) mmol/L BUN 21 H (7-17) mg/dL Creatinine 0.38 L (0.52-1.04) mg/dL Glucose 171 H (74-99) mg/dL Total Bilirubin 4.8 H (0.2-1.3) mg/dL AST 86 H (14-36) U/L ALT 117 H (4-34) U/L Alkaline Phosphatase 185 H (38-126) U/L Total Protein (6.3-8.2) g/dL Albumin 3.3 L (3.5-5.0) g/dL Urine Appearance (Clear) Urine Protein (Negative) Urine Bilirubin (Negative) Ur Leukocyte Esterase (Negative) Calcium Oxalate Crystal (None) /hpf Urine Mucus (None) /hpf
--- NOTE | 2023-10-21 15:42 | P.DS ---
Providers Date of admission: 10/21/23 00:26 Expected date of discharge: 10/21/23 Attending physician: Greg Chairez Consults: 10/21/23 00:26 Consult Physician Routine Consulting Provider: Petr Arevalo Consult Reason/Comments: febrile chemotherapy patient Do you want consulting provider notified?: Yes Primary care physician: Inderjit Brice [facility] Hospital Course: Chief Complaint: Abdominal discomfort This is a pleasant 73-year-old patient who follows with visiting physician Dr. Bryant. Patient has a history of DVT PE 2 years ago for which she is on Eliquis. Patient presented to the end of August. Found to have a pancreatic mass. Transferred to [facility]. That she was diagnosed with pancreatic cancer. Seen by Dr. Quinones. Being followed up with Dr. Lucius Russell on local oncologist. Started on chemotherapy for 5 days ago. Because of metallic taste patient is appetite is not very good. Denies any diarrhea skin changes. Yesterday patient developed a fever of about 101.4. Aching all over. Tired. Denied any respiratory symptoms. No diarrhea. Today feeling much better. Back to baseline. No white count. Patient was only seen by Dr. Diamond from oncology. [place] this could be a viral infection. As patient is feeling much better. [place] to be of likely viral infection. Will give empirically a short course of Augmentin. Discharged home. Told to return infective symptoms discussed. Social history: Lives alone. Does use a transfer chair with wheels. Does occasionally does marijuana. Denies alcohol. No smoking. Physical examination: VITAL SIGNS: 99.9, 111, 18, 106/74, 98% room air upon presentation GENERAL: BMI 19.9, laying in bed comfortable. EYES: [Pupils equal. Conjunctiva-icterus l. HEENT: External appearance of nose and ears normal, oral cavity grossly normal. NECK: JVD not raised; masses not palpable. HEART: First and second heart sounds are normal; no edema. LUNGS: Respiratory rate normal; clear to auscultation. ABDOMEN: Soft, minimal epigastric tenderness, liver spleen not palpable, no masses palpable. PSYCH: Alert and oriented x3; mood and affect nasir l. MUSCULOSKELETAL:No Clubbing/cyanosis;muscles-grossly intact NEUROLOGICAL: Cranial nerves grossly intact; no facial asymmetry, power and sensation grossly intact. LYMPHATICS: No lymph nodes palpable in the axilla and neck INVESTIGATIONS, reviewed in the clinical context: October 20, 2023: White count 5.9 hemoglobin 9.2 platelets 251 sodium 134 potassium 4.2 BUN 21 creatinine 0.38 AST 86 ALT 117 Troponin I x 2 negative UA: Negative for nitrite trace leukoesterase Influenza type A, type B, RSV, COVID-19: Not detected EKG tracing personally reviewed by me-normal sinus rhythm. Chest x-ray film personally reviewed by me-hyperinflation. No infiltrate Assessment plan: -Febrile episode. Yesterday. Body ache. No other signs of any focal source of infection. No respiratory urinary, GI skin symptoms. This morning patient feels much better. Normal white count. Patient nearly feels back to baseline this morning. Empirically: Augmentin for 7 days -Carcinoma pancreatic head. Worked up at [facility]. Has been told currently no metastasis. Received her first course of chemotherapy last week. Being followed by at [facility] in [facility]. 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 History of Any Multi-Drug Resistant Organisms: None Reported Past Surgical History: Tonsillectomy Past Anesthesia/Blood Transfusion Reactions: No Reported Reaction Past Psychological History: Anxiety, Depression Smoking Status: Former smoker Past Alcohol Use History: Occasional Past Drug Use History: Marijuana Plan - Discharge Summary New Discharge Prescriptions: New Famotidine [Pepcid] 20 mg PO BID #60 tab Amoxic-Pot Clav 875-125Mg [Augmentin 875-125] 1 tab PO BID #14 tab Continue OLANZapine [ZyPREXA] 2.5 - 5 mg PO HS Apixaban [Eliquis] 5 mg PO BID PACLitaxeL protein-bound [Abraxane] 1 mg IV DIRECTED ursodioL [Ursodiol] 300 mg PO BID Ondansetron [Zofran] 4 - 8 mg PO Q4-6H PRN PRN Reason: Nausea Magnesium Oxide [Magox 400] 400 mg PO DAILY Gemzar 200mg 200 mg IV DIRECTED Discharge Medication List Apixaban [Eliquis] 5 mg PO BID 10/20/23 [History] Gemzar 200mg 200 mg IV DIRECTED 10/20/23 [History] Magnesium Oxide [Magox 400] 400 mg PO DAILY 10/20/23 [History] OLANZapine [ZyPREXA] 2.5 - 5 mg PO HS 10/20/23 [History] Ondansetron [Zofran] 4 - 8 mg PO Q4-6H PRN 10/20/23 [History] PACLitaxeL protein-bound [Abraxane] 1 mg IV DIRECTED 10/20/23 [History] ursodioL [Ursodiol] 300 mg PO BID 10/20/23 [History] Amoxic-Pot Clav 875-125Mg [Augmentin 875-125] 1 tab PO BID #14 tab 10/21/23 [Rx] Famotidine [Pepcid] 20 mg PO BID #60 tab 10/21/23 [Rx] Follow up Appointment(s)/Referral(s): Kaylie Russell MD [STAFF PHYSICIAN] - 1 Week Inderjit Brice NPC [Primary Care Provider] - 1-2 days Discharge Disposition: HOME SELF-CARE
--- NOTE | 2023-10-28 10:13 | P.CONS ---
History of Present Illness - Reason for Consult Consult date: 10/21/23 pancreatic cancer Requesting physician: Jai Hanna - Chief Complaint fever - History of Present Illness Ms. Bryant is a 73-year-old woman with a past medical history significant for 2 episodes of DVT/PE (most recently in 2021, unprovoked) on therapeutic Eliquis who presents for recent diagnosis of stage IIB pancreatic adenocarcinoma. She initially presented to [facility] on with progressive weakness, jaundice/scleral icterus, and pale-colored stools. Labs on presentation revealed hyperbilirubinemia with cholestatic hepatitis consistent with obstructive jaundice. Ultrasound of the abdomen noted pancreatic head mass. She was subsequently transferred to [facility] for additional management. Labs on initial presentation on 09/16/2023 revealed total bilirubin 10.6 (direct bilirubin 6.2), alkaline phosphatase 366, ALT 66, AST 34. Hemoglobin was 12.2 (MCV 92.6), WBC 3.5, platelets 187. Abdominal ultrasound revealed 4.3 x 3 x 3.8 cm pancreatic head mass along with upstream main pancreatic duct dilatation up to 4 mm and common bile duct dilatation measuring 1.1 cm. MRCP on 09/16/2023 revealed pancreatic head mass measuring 4 cm in the largest dimension with significant intrahepatic and extrahepatic biliary ductal dilatation. The mass was noted to be abutting the SMV just proximal to the confluence and exerting mass effect on the IVC and right renal vein. ERCP with EUS was performed on 09/17/2023 with biliary sphincterotomy and placement of a metal biliary stent. Biopsy of the pancreatic head mass was consistent with adenocarcinoma. CT chest/abdomen/pelvis with IV contrast performed on 09/18/2023 noted 4.6 cm pancreatic head mass abutting the SMV along with a mildly enlarged portacaval lymph node measuring 1.1 cm. There is no evidence of distant metastatic disease in the chest/abdomen/pelvis. CA 19-9 was normal with CEA jason vated at 684. Her case was discussed at multidisciplinary GI tumor board at [facility] on 09/24/2023 where the tumor was noted to be radiographically resectable. There was a concern about her performance status during that time with possible consideration for SBRT. She has been seen by Dr. Esparza of surgical oncology and has been referred to our clinic for evaluation of neoadjuvant chemotherapy. Based on workup above, she has evidence of stage IIB (T3N1M0) pancreatic adenocarcinoma. We discussed gemcitabine/Abraxane at 20% dose reduction. She completed C1D1 of gemzar/abraxane on 10/17/23 Patient presented to the emergency room with complaints of a fever of 101.4, body aches, and headache. Denies chills and rigors. Denies URI symptoms. Denies nausea vomiting diarrhea. Pancultures ordered. Chest x-ray negative for acute cardiopulmonary processes. UA negative for UTI. Viral panel negative. Blood cultures pending. CBC revealed WBC 5.9, hemoglobin 11.2, platelets 251,000. Bilirubin 4.8 with transaminitis noted. Patient was given 1 dose Rocephin. Tmax 99.9. At today's visit patient is reporting improvement in symptoms. Review of Systems 10 point ROS is negative except as stated in the HPI Past Medical History Past Medical History: Deep Vein Thrombosis (DVT) Additional Past Medical History / Comment(s): 12/12/21 L leg superficial DVT/thrombophlemitis/PCP treated for cellulitis, bilateral feet cramping/numbness/L foot worse. History of Any Multi-Drug Resistant Organisms: None Reported Past Surgical History: Tonsillectomy Past Anesthesia/Blood Transfusion Reactions: No Reported Reaction Past Psychological History: Anxiety, Depression Smoking Status: Former smoker Past Alcohol Use History: Occasional Past Drug Use History: Marijuana - Past Family History Mother Family Medical History: No Reported History Additional Family Medical History / Comment(s): Mother was healthy Father Family Medical History: No Reported History Additional Family Medical History / Comment(s): Father was healthy. Daughter(s) Family Medical History: Deep Vein Thrombosis (DVT) Medications and Allergies Home Medications Medication Instructions Recorded Confirmed Type Apixaban [Eliquis] 5 mg PO BID 10/20/23 10/27/23 History Gemzar 200mg 200 mg IV DIRECTED 10/20/23 10/27/23 History Magnesium Oxide [Magox 400] 400 mg PO DAILY 10/20/23 10/27/23 History OLANZapine [ZyPREXA] 2.5 - 5 mg PO HS 10/20/23 10/27/23 History Ondansetron [Zofran] 4 - 8 mg PO Q4-6H PRN 10/20/23 10/27/23 History PACLitaxeL protein-bound [Abraxane] 1 mg IV DIRECTED 10/20/23 10/27/23 History ursodioL [Ursodiol] 300 mg PO BID 10/20/23 10/27/23 History Allergies Allergy/AdvReac Type Severity Reaction Status Date / Time amoxicillin Allergy Rash/Hives Verified 10/27/23 08:25 clavulanic acid Allergy Rash/Hives Verified 10/27/23 08:25 [From Augmentin] Physical Exam Vitals: Vital Signs Temp Pulse Pulse Resp BP BP Pulse Ox 10/21/23 08:24 90 18 118/66 97 10/21/23 06:45 99.9 F H 79 16 116/67 98 10/21/23 01:16 83 16 114/64 100 10/20/23 23:40 98.7 F 86 14 112/62 99 10/20/23 16:46 99.9 F H 111 H 18 106/74 99 Intake and Output 10/20/23 10/21/23 10/21/23 22:59 06:59 14:59 Other: Weight 63.049 kg - Constitutional General appearance: average body habitus, no acute distress - EENT Eyes: anicteric sclerae, EOMI ENT: hearing grossly normal, normal oropharynx, no thrush, no tonsillar exudates - Respiratory Respiratory: bilateral: CTA - Cardiovascular Rhythm: regular Heart sounds: normal: S1, S2 - Gastrointestinal General gastrointestinal: soft, no tenderness - Integumentary Integumentary: no cyanotic - Neurologic Neurologic: CNII-XII intact - Musculoskeletal Musculoskeletal: strength equal bilaterally - Psychiatric Psychiatric: A&O x's 3 Results CBC & Chem 7: 10/20/23 21:18 10/20/23 21:18 Labs: Abnormal Lab Results - Last 24 Hours (Table) 10/20/23 10/20/23 10/20/23 Range/Units 17:13 17:13 17:48 RBC 3.16 L (3.80-5.40) m/uL Hgb 10.8 L D (11.4-16.0) gm/dL Hct 31.2 L (34.0-46.0) % RDW 16.2 H (11.5-15.5) % Lymphocytes # 0.9 L (1.0-4.8) k/uL Lymphocytes # (Manual) (1.0-4.8) k/uL PT (10.0-12.5) sec APTT (22.0-30.0) sec Sodium (137-145) mmol/L Carbon Dioxide (22-30) mmol/L BUN (7-17) mg/dL Creatinine 0.48 L (0.52-1.04) mg/dL Glucose 148 H (74-99) mg/dL Total Bilirubin 4.8 H (0.2-1.3) mg/dL AST 87 H (14-36) U/L ALT 113 H (4-34) U/L Alkaline Phosphatase 188 H (38-126) U/L Total Protein 6.1 L (6.3-8.2) g/dL Albumin 3.2 L (3.5-5.0) g/dL Urine Appearance Cloudy H (Clear) Urine Protein Trace H (Negative) Urine Bilirubin 1+ H (Negative) Ur Leukocyte Esterase Trace H (Negative) Calcium Oxalate Crystal Moderate H (None) /hpf Urine Mucus Many H (None) /hpf 10/20/23 10/20/23 10/20/23 Range/Units 21:18 21:18 22:00 RBC 3.21 L (3.80-5.40) m/uL Hgb 11.2 L (11.4-16.0) gm/dL Hct 31.9 L (34.0-46.0) % RDW 16.6 H (11.5-15.5) % Lymphocytes # (1.0-4.8) k/uL Lymphocytes # (Manual) 0.53 L (1.0-4.8) k/uL PT 9.9 L (10.0-12.5) sec APTT 19.0 L (22.0-30.0) sec Sodium 134 L (137-145) mmol/L Carbon Dioxide 17 L (22-30) mmol/L BUN 21 H (7-17) mg/dL Creatinine 0.38 L (0.52-1.04) mg/dL Glucose 171 H (74-99) mg/dL Total Bilirubin 4.8 H (0.2-1.3) mg/dL AST 86 H (14-36) U/L ALT 117 H (4-34) U/L Alkaline Phosphatase 185 H (38-126) U/L Total Protein (6.3-8.2) g/dL Albumin 3.3 L (3.5-5.0) g/dL Urine Appearance (Clear) Urine Protein (Negative) Urine Bilirubin (Negative) Ur Leukocyte Esterase (Negative) Calcium Oxalate Crystal (None) /hpf Urine Mucus (None) /hpf Chest x-ray: report reviewed Assessment and Plan (1) Pancreatic adenocarcinoma Status: Acute Priority: High Code(s): C25.9 - MALIGNANT NEOPLASM OF PANCREAS, UNSPECIFIED SNOMED Code(s): 797797284 Plan: Pancreatic adenocarcinoma: -Full oncological history as stated in HPI -Completed C1D1 of gemzar/abraxane on 10/17/23 -Will schedule clinic f/u upon discharge and f/u on blood cultures prior to resuming treatment Fever: -Presented with complaints of a fever of 101.4, body aches, and headache. Denies chills and rigors. Denies URI symptoms. Denies nausea vomiting diarrhea. Pancultures ordered. Chest x-ray negative for acute cardiopulmonary processes. UA negative for UTI. Viral panel negative. Blood cultures pending. CBC revealed WBC 5.9, hemoglobin 11.2, ANC 5,300, platelets 251,000. Patient was given 1 dose Rocephin. Tmax 99.9. -Fever likely non-infectious, more likely r/t tumor fever or chemotherapy -Spoke with IM team, would be ok with patient being discharged on broad spectrum antibiotics and will f/u on blood cultures prior to resuming treatment Pt updated on POC and was agreeable attests: I have seen and examined patient, performed H&P, developed impression and plan of care. Discussed with dictator. Agree with documentation, dictated as a scribe
== END 2023-10-21 13:36 | disposition home or self-care (01) ==
LOC: EC 16:39 → 5NMEDONC 10-21 00:26
PROVIDERS: ADMIT Hospitalist; ATTEND Hospitalist
DX: R50.9 Fever, unspecified (principal); C25.9 Malignant neoplasm of pancreas, unspecified; D63.0 Anemia in neoplastic disease; E44.1 Mild protein-calorie malnutrition; Z68.1 Body mass index [BMI] 19.9 or less, adult; K75.89 Other specified inflammatory liver diseases; K83.1 Obstruction of bile duct; F51.04 Psychophysiologic insomnia; Z11.52 Encounter for screening for COVID-19; Z11.59 Encounter for screening for other viral diseases; Z79.01 Long term (current) use of anticoagulants; Z79.899 Other long term (current) drug therapy; Z88.0 Allergy status to penicillin; Z88.8 Allergy status to other drugs, medicaments and biological substances; Z86.718 Personal history of other venous thrombosis and embolism; Z86.711 Personal history of pulmonary embolism; Z87.891 Personal history of nicotine dependence
CPT/HCPCS: 96361 ×2; 96365; 96366; 99285; 36415; 93005; 80053; 83605; 84484 ×2; 85025; 85610; 85730; 81001; 87040; 87086; 87636; 71046; G0378; J0696

== ENCOUNTER 2023-10-26 19:46 | Inpatient (IN) | payer MEDICARE, OTHER ==
--- NOTE | 2023-10-26 20:04 | ED ---
Fever HPI <Prateek Ward - Last Filed: 10/26/23 22:16> - General Source: patient, RN notes reviewed, old records reviewed, Caregiver Mode of arrival: ambulatory Limitations: no limitations - History of Present Illness MD Complaint: fever, malaise, weakness -: days(s) Temperature Source: subjective Context: sick contacts Associated Symptoms: chills, rigors, myalgias Treatments Prior to Arrival: none <Andrew Mariano - Last Filed: 10/31/23 01:14> - General Chief Complaint: Fever Stated Complaint: fever Time Seen by Provider: 10/26/23 19:55 - History of Present Illness Initial Comments: 73-year-old female 10 days status post chemotherapy for pancreatic cancer presenting with fever, myalgia. Patient denies cough, denies sore throat, denies congestion, denies abdominal pain, vomiting or diarrhea. No rash. No dysuria. (Prateek Ward) This is a 73-year-old female to the ER for evaluation of fever fever on chemotherapy. Patient does have recent hospitalization for similar findings (Andrew Mariano) - Related Data Home Medications Medication Instructions Recorded Confirmed Apixaban [Eliquis] 5 mg PO BID 10/20/23 10/27/23 Gemzar 200mg 200 mg IV DIRECTED 10/20/23 10/27/23 Magnesium Oxide [Magox 400] 400 mg PO DAILY 10/20/23 10/27/23 OLANZapine [ZyPREXA] 2.5 - 5 mg PO HS 10/20/23 10/27/23 Ondansetron [Zofran] 4 - 8 mg PO Q4-6H PRN 10/20/23 10/27/23 PACLitaxeL protein-bound [Abraxane] 1 mg IV DIRECTED 10/20/23 10/27/23 ursodioL [Ursodiol] 300 mg PO BID 10/20/23 10/27/23 Previous Rx's Medication Instructions Recorded cefUROXime axetiL [Cefuroxime] 500 mg PO BID 7 Days #14 tab 10/29/23 Allergies Allergy/AdvReac Type Severity Reaction Status Date / Time amoxicillin Allergy Rash/Hives Verified 10/27/23 08:25 clavulanic acid Allergy Rash/Hives Verified 10/27/23 08:25 [From Augmentin] Review of Systems ROS Other: All systems not noted in ROS Statement are negative. <Prateek Ward Abhijeet - Last Filed: 10/26/23 22:16> ROS Other: All systems not noted in ROS Statement are negative. <Andrew Mariano Carley - Last Filed: 10/31/23 01:14> ROS Statement: Those systems with pertinent positive or pertinent negative responses have been documented in the HPI. Past Medical History Past Medical History: Deep Vein Thrombosis (DVT) Additional Past Medical History / Comment(s): 12/12/21 L leg superficial DVT/thrombophlemitis/PCP treated for cellulitis, bilateral feet cramping/numbness/L foot worse. History of Any Multi-Drug Resistant Organisms: None Reported Past Surgical History: Tonsillectomy Past Anesthesia/Blood Transfusion Reactions: No Reported Reaction Past Psychological History: Anxiety, Depression Smoking Status: Former smoker Past Alcohol Use History: Occasional Past Drug Use History: Marijuana - Past Family History Mother Family Medical History: No Reported History Additional Family Medical History / Comment(s): Mother was healthy Father Family Medical History: No Reported History Additional Family Medical History / Comment(s): Father was healthy. Daughter(s) Family Medical History: Deep Vein Thrombosis (DVT) <Andrew Mariano - Last Filed: 10/31/23 01:14> General Exam Limitations: no limitations General appearance: alert, in no apparent distress Head exam: Present: atraumatic, normocephalic, normal inspection Eye exam: Present: normal appearance, PERRL, EOMI. Absent: scleral icterus, conjunctival injection, periorbital swelling ENT exam: Present: normal exam, mucous membranes moist Neck exam: Present: normal inspection. Absent: tenderness, meningismus, lymphadenopathy Respiratory exam: Present: normal lung sounds bilaterally. Absent: respiratory distress, wheezes, rales, rhonchi, stridor Cardiovascular Exam: Present: regular rate, normal rhythm, normal heart sounds. Absent: systolic murmur, diastolic murmur, rubs, gallop, clicks GI/Abdominal exam: Present: soft, normal bowel sounds. Absent: distended, tenderness, guarding, rebound, rigid Extremities exam: Present: normal inspection, full ROM, normal capillary refill. Absent: tenderness, pedal edema, joint swelling, calf tenderness Back exam: Present: normal inspection Neurological exam: Present: alert, oriented X3, CN II-XII intact Psychiatric exam: Present: normal affect, normal mood Skin exam: Present: warm, dry, intact, normal color. Absent: rash <GuanakitoRoddy keedilip Howe - Last Filed: 10/31/23 01:14> Course <HanhAndrew archibald - Last Filed: 10/31/23 01:14> Vital Signs 10/26/23 10/26/23 10/26/23 19:48 19:56 20:00 Temperature 101.0 F H Pulse Rate 118 H Pulse Rate [ Left] Pulse Rate [ Pulse Oximetery ] Respiratory 18 Rate Blood Pressure 140/82 125/81 Blood Pressure [Right Arm] O2 Sat by Pulse 95 97 98 Oximetry 10/26/23 10/26/23 10/27/23 20:30 21:00 00:08 Temperature 98.5 F Pulse Rate 75 Pulse Rate [ Left] Pulse Rate [ Pulse Oximetery ] Respiratory 18 Rate Blood Pressure 111/83 111/83 91/68 Blood Pressure [Right Arm] O2 Sat by Pulse 98 Oximetry 10/27/23 10/27/23 10/27/23 00:30 01:00 01:30 Temperature Pulse Rate 78 81 84 Pulse Rate [ Left] Pulse Rate [ Pulse Oximetery ] Respiratory 16 16 18 Rate Blood Pressure 91/68 94/65 91/68 Blood Pressure [Right Arm] O2 Sat by Pulse 97 97 97 Oximetry 10/27/23 10/27/23 10/27/23 03:35 05:23 07:20 Temperature 97.6 F Pulse Rate 60 62 65 Pulse Rate [ Left] Pulse Rate [ Pulse Oximetery ] Respiratory 16 16 16 Rate Blood Pressure 97/62 115/71 112/69 Blood Pressure [Right Arm] O2 Sat by Pulse 97 100 99 Oximetry 10/27/23 10/27/23 10/27/23 07:57 13:03 17:59 Temperature 98.5 F 99.0 F 98.2 F Pulse Rate 66 71 Pulse Rate [ 77 Left] Pulse Rate [ Pulse Oximetery ] Respiratory 16 18 18 Rate Blood Pressure 124/69 128/83 Blood Pressure 133/79 [Right Arm] O2 Sat by Pulse 100 100 100 Oximetry 10/27/23 10/28/23 10/28/23 20:00 02:00 07:55 Temperature 98.7 F 98.2 F 98.1 F Pulse Rate Pulse Rate [ Left] Pulse Rate [ 65 63 60 Pulse Oximetery ] Respiratory 16 16 18 Rate Blood Pressure Blood Pressure 116/68 109/59 121/77 [Right Arm] O2 Sat by Pulse 99 99 100 Oximetry 10/28/23 10/28/23 10/29/23 14:00 20:01 01:35 Temperature 98.3 F 98.0 F 98.5 F Pulse Rate Pulse Rate [ Left] Pulse Rate [ 71 70 73 Pulse Oximetery ] Respiratory 18 18 20 Rate Blood Pressure Blood Pressure 124/63 104/70 112/65 [Right Arm] O2 Sat by Pulse 97 98 97 Oximetry 10/29/23 10/29/23 07:36 08:44 Temperature 98.4 F 98.3 F Pulse Rate Pulse Rate [ Left] Pulse Rate [ 75 78 Pulse Oximetery ] Respiratory 20 18 Rate Blood Pressure Blood Pressure 113/69 107/69 [Right Arm] O2 Sat by Pulse 96 100 Oximetry - Reevaluation(s) Reevaluation #1: 10/26/23 20:44 Medical records reviewed (Andrew Mariano) Reevaluation #2: 10/26/23 20:44 Patient symptoms improved (Andrew Mariano) Reevaluation #5: Differential Fever: Pneumonia, viral URI, endocarditis, myocarditis, pericarditis, otitis, sinusitis, peritonsillar Abscess, retropharyngeal Abscess, epiglottitis, peritonitis, appendicitis, Alice cystitis, diverticulitis, hepatitis, colitis, UTI, PID, TOA, pyelonephritis, prostatitis, epididymitis, meningitis, encephalitis, pulmonary embolism, CVA, thyroid storm, pancreatitis, adrenal crisis, cavernous sinus thrombosis, this is not meant to be an all-inclusive list. (Andrew Mariano) Medical Decision Making - Lab Data Result diagrams: 10/26/23 20:35 10/26/23 20:35 <Prateek Ward - Last Filed: 10/26/23 22:16> - Lab Data Result diagrams: 10/29/23 03:32 10/28/23 07:00 <Andrew Mariano - Last Filed: 03/15/24 01:14> - Medical Decision Making Was pt. sent in by a medical professional or institution (HOLDEN Carrasco, PHYSICIAN OFFICE REP, urgent care, hospital, or penitentiary...) When possible be specific @ -No Did you speak to anyone other than the patient for history (EMS, parent, family, police, friend...)? What history was obtained from this source @ -No Did you review nursing and triage notes (agree or disagree)? Why? @ -I reviewed and agree with nursing and triage notes Were old charts reviewed (outside hosp., previous admission, EMS record, old EKG, old radiological studies, urgent care reports/EKG's, penitentiary records)? Report findings @ -No old charts were reviewed Differential Diagnosis (chest pain, altered mental status, abdominal pain women, abdominal pain men, vaginal bleeding, weakness, fever, dyspnea, syncope, headache, dizziness, GI bleed, back pain, seizure, CVA, palpatations, mental health, musculoskeletal)? @ -Differential Fever: Pneumonia, viral URI, endocarditis, myocarditis, pericarditis, otitis, sinusitis, peritonsillar Abscess, retropharyngeal Abscess, epiglottitis, peritonitis, appendicitis, Alice cystitis, diverticulitis, hepatitis, colitis, UTI, PID, TOA, pyelonephritis, prostatitis, epididymitis, meningitis, encephalitis, pulmonary embolism, CVA, thyroid storm, pancreatitis, adrenal crisis, cavernous sinus thrombosis, this is not meant to be an all-inclusive list. EKG interpreted by me (3pts min.). @ -As above X-rays interpreted by me (1pt min.). @ -Chest x-ray negative for acute cardiopulmonary findings CT interpreted by me (1pt min.). @ -None done U/S interpreted by me (1pt. min.). @ -None done What testing was considered but not performed or refused? (CT, X-rays, U/S, labs)? Why? @ -None What meds were considered but not given or refused? Why? @ -None Did you discuss the management of the patient with other professionals (professionals i.e. HOLDEN Carrasco, PHYSICIAN OFFICE REP, lab, RT, psych nurse, bilingual social worker, admiralty lawyer, teacher, chief risk officer, dependency case manager)? Give summary @ -[Discussed with Dr. Chairez who will admit Was smoking cessation discussed for >3mins.? @ -No Was critical care preformed (if so, how long)? @ -No Were there social determinants of health that impacted care today? How? (Homelessness, low income, unemployed, alcoholism, drug addiction, transportation, low edu. Level, literacy, decrease access to med. care, longterm, rehab)? @ -No Was there de-escalation of care discussed even if they declined (Discuss DNR or withdrawal of care, Hospice)? DNR status @ -No What co-morbidities impacted this encounter? (DM, HTN, Smoking, COPD, CAD, Cancer, CVA, ARF, Chemo, Hep., AIDS, mental health diagnosis, sleep apnea, morbid obesity)? @ -Pancreatic cancer on chemotherapy. Was patient admitted / discharged? Hospital course, mention meds given and route, prescriptions, significant lab abnormalities, going to OR and other pertinent info. @ -73-year-old female presented with fever, workup was signed out at shift change awaiting chest x-ray, laboratory testing. Patient is leukopenic with total neutrophil count of 1.7. Her viral swabs are negative. Chest x-ray is clear. Urinalysis does not show significant signs of infection but urine culture as well as blood cultures are pending. The patient is started on cefepime and vancomycin awaiting cultures. She is admitted to internal medicine with oncology on consult. Undiagnosed new problem with uncertain prognosis? @ -No Drug Therapy requiring intensive monitoring for toxicity (Heparin, Nitro, Insulin, Cardizem)? @ -No Were any procedures done? @ -No Diagnosis/symptom? @Fever of unknown origin, on chemotherapy.] Acute, or Chronic, or Acute on Chronic? @ -[Acute Uncomplicated (without systemic symptoms) or Complicated (systemic symptoms)? @ -Default Side effects of treatment? @ -No Exacerbation, Progression, or Severe Exacerbation? @ -No Poses a threat to life or bodily function? How? (Chest pain, USA, ID, pneumonia, PE, COPD, DKA, ARF, appy, cholecystitis, CVA, Diverticulitis, Homicidal, Suicidal, threat to staff... and all critical care pts) @ -Yes, sepsis (Prateek Ward) - Lab Data Lab Results 10/26/23 10/26/23 10/26/23 Range/Units 20:19 20:19 20:19 WBC (3.8-10.6) k/uL RBC (3.80-5.40) m/uL Hgb (11.4-16.0) gm/dL Hct (34.0-46.0) % MCV (80.0-100.0) fL MCH (25.0-35.0) pg MCHC (31.0-37.0) g/dL RDW (11.5-15.5) % Plt Count (150-450) k/uL MPV Neutrophils % % Lymphocytes % % Monocytes % % Eosinophils % % Basophils % % Neutrophils # (1.3-7.7) k/uL Lymphocytes # (1.0-4.8) k/uL Monocytes # (0-1.0) k/uL Eosinophils # (0-0.7) k/uL Basophils # (0-0.2) k/uL Poikilocytosis Anisocytosis Macrocytosis Sodium (137-145) mmol/L Potassium (3.5-5.1) mmol/L Chloride (98-107) mmol/L Carbon Dioxide (22-30) mmol/L Anion Gap mmol/L BUN (7-17) mg/dL Creatinine (0.52-1.04) mg/dL Est GFR (CKD-EPI)AfAm (>60 ml/min/1.73 sqM) Est GFR (CKD-EPI)NonAf (>60 ml/min/1.73 sqM) Glucose (74-99) mg/dL Plasma Lactic Acid [place] 1.2 (0.7-2.0) mmol/L Calcium (8.4-10.2) mg/dL Total Bilirubin (0.2-1.3) mg/dL AST (14-36) U/L ALT (4-34) U/L Alkaline Phosphatase (38-126) U/L Total Protein (6.3-8.2) g/dL Albumin (3.5-5.0) g/dL Urine Color Dark Yellow Urine Appearance Cloudy H (Clear) Urine pH 6.0 (5.0-8.0) Ur Specific [place] 1.024 (1.001-1.035) Urine Protein Trace H (Negative) Urine Glucose (UA) Negative (Negative) Urine Ketones Negative (Negative) Urine Blood Negative (Negative) Urine Nitrite Negative (Negative) Urine Bilirubin 1+ H (Negative) Urine Urobilinogen 3.0 (<2.0) mg/dL Ur Leukocyte Esterase Negative (Negative) Urine RBC 6 H (0-5) /hpf Urine WBC 1 (0-5) /hpf Ur Squamous Epith Cells 2 (0-4) /hpf Calcium Oxalate Crystal Many H (None) /hpf Amorphous Sediment Rare H (None) /hpf Urine Mucus Many H (None) /hpf Heterophile Antibody Negative (Negative) Influenza Type A (PCR) (Not Detectd) Influenza Type B (PCR) (Not Detectd) RSV (PCR) (Not Detectd) SARS-CoV-2 (PCR) (Not Detectd) 10/26/23 10/26/23 10/26/23 Range/Units 20:19 20:35 20:35 WBC 2.9 L (3.8-10.6) k/uL RBC 3.26 L (3.80-5.40) m/uL Hgb 11.4 (11.4-16.0) gm/dL Hct 32.2 L (34.0-46.0) % MCV 98.8 (80.0-100.0) fL MCH 35.0 (25.0-35.0) pg MCHC 35.5 (31.0-37.0) g/dL RDW 16.9 H (11.5-15.5) % Plt Count 149 L (150-450) k/uL MPV 9.7 Neutrophils % 59 % Lymphocytes % 29 % Monocytes % 7 % Eosinophils % 1 % Basophils % 0 % Neutrophils # 1.7 (1.3-7.7) k/uL Lymphocytes # 0.8 L (1.0-4.8) k/uL Monocytes # 0.2 (0-1.0) k/uL Eosinophils # 0.0 (0-0.7) k/uL Basophils # 0.0 (0-0.2) k/uL Poikilocytosis Slight Anisocytosis Slight Macrocytosis Slight Sodium 136 L (137-145) mmol/L Potassium 4.0 (3.5-5.1) mmol/L Chloride 105 (98-107) mmol/L Carbon Dioxide 22 (22-30) mmol/L Anion Gap 9 mmol/L BUN 13 (7-17) mg/dL Creatinine 0.52 (0.52-1.04) mg/dL Est GFR (CKD-EPI)AfAm >90 (>60 ml/min/1.73 sqM) Est GFR (CKD-EPI)NonAf >90 (>60 ml/min/1.73 sqM) Glucose 108 H (74-99) mg/dL Plasma Lactic Acid Austin (0.7-2.0) mmol/L Calcium 8.6 (8.4-10.2) mg/dL Total Bilirubin 3.8 H (0.2-1.3) mg/dL AST 86 H (14-36) U/L ALT 140 H (4-34) U/L Alkaline Phosphatase 185 H (38-126) U/L Total Protein 7.1 (6.3-8.2) g/dL Albumin 3.8 (3.5-5.0) g/dL Urine Color Urine Appearance (Clear) Urine pH (5.0-8.0) Ur Specific [place] (1.001-1.035) Urine Protein (Negative) Urine Glucose (UA) (Negative) Urine Ketones (Negative) Urine Blood (Negative) Urine Nitrite (Negative) Urine Bilirubin (Negative) Urine Urobilinogen (<2.0) mg/dL Ur Leukocyte Esterase (Negative) Urine RBC (0-5) /hpf Urine WBC (0-5) /hpf Ur Squamous Epith Cells (0-4) /hpf Calcium Oxalate Crystal (None) /hpf Amorphous Sediment (None) /hpf Urine Mucus (None) /hpf Heterophile Antibody (Negative) Influenza Type A (PCR) Not Detected (Not Detectd) Influenza Type B (PCR) Not Detected (Not Detectd) RSV (PCR) Not Detected (Not Detectd) SARS-CoV-2 (PCR) Not Detected (Not Detectd) Disposition Is patient prescribed a controlled substance at d/c from ED?: No Time of Disposition: 22:18 <Prateek Ward - Last Filed: 10/26/23 22:16> <Andrew Mariano - Last Filed: 10/31/23 01:14> Clinical Impression: Fever of unknown origin, Pancreatic cancer Disposition: ADMITTED IP TO THIS HOSP Condition: Stable
[2023-10-26] MEDS: ACETAMINOPHEN TAB 500 MG TAB PO STA (20:42)
[2023-10-26] MEDS: SODIUM CHLORIDE 0.9% 1,000 ML IV STA (20:44)
[2023-10-26] MEDS: IBUPROFEN 600 MG TAB PO STA (20:50)
[2023-10-26 21:35] LABS: Amorphous Sediment,Urine Rare /hpf; Appearance,Urine Cloudy (Clear); Bilirubin,Urine 1+ (Negative); Blood,Urine Negative (Negative); Calcium Oxalate Crystals,Urine Many /hpf; Color,Urine Dark Yellow; Glucose,Urine (UA) Negative (Negative); Ketones,Urine Negative (Negative); Leukocyte Esterase,Urine Negative (Negative); Mucus,Urine Many /hpf; Nitrite,Urine Negative (Negative); Protein,Urine Trace (Negative); RBC,Urine 6 /hpf (0-5); Specific Gravity,Urine 1.024 (1.001-1.035); Squamous Epithelial Cell,Urine 2 /hpf (0-4); WBC,Urine 1 /hpf (0-5)
[2023-10-26 21:42] LABS: Anisocytosis Slight; Basophils % (A) 0 %; Eosinophils % (A) 1 %; HCT 32.2 % (34.0-46.0); HGB 11.4 gm/dL (11.4-16.0); Lymphocytes # (A) 0.8 k/uL (1.0-4.8); Lymphocytes % (A) 29 %; MCHC 35.5 g/dL (31.0-37.0); MCV 98.8 fL (80.0-100.0); Macrocytosis Slight; Mean Platelet Volume 9.7; Monocytes # (A) 0.2 k/uL (0-1.0); Monocytes % (A) 7 %; Neutrophils # (A) 1.7 k/uL (1.3-7.7); Neutrophils % (A) 59 %; Platelet Count 149 k/uL (150-450); Poikilocytosis Slight; RBC 3.26 m/uL (3.80-5.40); RDW 16.9 % (11.5-15.5); WBC 2.9 k/uL (3.8-10.6)
[2023-10-26 21:48] LABS: ALT 140 U/L (4-34); AST 86 U/L (14-36); African American GFR (CKD) >90 (>60 ml/min/1.73 sqM); Albumin 3.8 g/dL (3.5-5.0); Alkaline Phosphatase 185 U/L (38-126); Anion Gap 9 mmol/L; Blood Urea Nitrogen 13 mg/dL (7-17); Calcium 8.6 mg/dL (8.4-10.2); Carbon Dioxide 22 mmol/L (22-30); Chloride 105 mmol/L (98-107); Glucose 108 mg/dL (74-99); Non-African American GFR(CKD) >90 (>60 ml/min/1.73 sqM); Sodium 136 mmol/L (137-145); Total Bilirubin 3.8 mg/dL (0.2-1.3); Total Protein 7.1 g/dL (6.3-8.2)
--- NOTE | 2023-10-26 21:50 | XR ---
EXAMINATION TYPE: XR chest 2V DATE OF EXAM: 10/26/2023 9:04 PM CLINICAL INDICATION:Female, 73 years old with history of fever; [facility] COMPARISON: 10/20/2023 TECHNIQUE: XR chest 2V. Frontal and lateral views of the chest.. FINDINGS: Lines/Tubes/Devices: No indwelling lines are seen. Heart/mediastinum: Heart size is normal. Mediastinum appears stable. Pulmonary vascularity: Not increased, Lungs/Pleura: There is no evidence of pleural effusion, focal consolidation, or pneumothorax. Mild a pical pleural thickening. Mildly hyperinflated lungs with interstitial coarsening could reflect backg round COPD. Musculoskeletal: No acute osseous abnormality demonstrated in the limits of the exam. Chronic degene rative changes of the spine and shoulders. Other findings: None. IMPRESSION: No acute cardiopulmonary abnormality. No change.
[2023-10-26] MEDS ORDERED: VANCOMYCIN IV PER PHARMACY 1 EACH MISC MISCELLANE PRN (22:13)
[2023-10-26] MEDS ORDERED: IBUPROFEN 400 MG TAB PO PRN (22:14)
[2023-10-26] MEDS ORDERED: NALOXONE 0.4 MG/ML 1 ML VIAL IV PRN (22:14)
[2023-10-26] MEDS ORDERED: ACETAMINOPHEN TAB 325 MG TAB PO PRN (22:14)
[2023-10-26] MEDS: CEFEPIME 2 GM in SODIUM CHLORIDE 0.9% 100 ML IVPB STA (22:42)
[2023-10-27] MEDS: SODIUM CHLORIDE 0.9% 1,000 ML IV SCH
[2023-10-27] MEDS: VANCOMYCIN 1,250 MG in SODIUM CHLORIDE 0.9% 250 ML IVPB STA
[2023-10-27] MEDS: CEFEPIME 2 GM in SODIUM CHLORIDE 0.9% 100 ML IVPB SCH (06:42)
[2023-10-27] MEDS: APIXABAN 5 MG TAB PO SCH (10:57)
[2023-10-27] MEDS: ursodioL 300 MG CAP PO SCH (11:18)
[2023-10-27] MEDS: VANCOMYCIN 1,250 MG in SODIUM CHLORIDE 0.9% 250 ML IVPB SCH (13:16)
--- NOTE | 2023-10-27 17:33 | P.HPIM ---
History of Present Illness H&P Date: 10/27/23 Chief Complaint: Fever This is a pleasant 73-year-old patient who follows with visiting physician Dr. Bryant. Patient has a history of DVT PE 2 years ago for which she is on Eliquis. Patient presented - end august. Found to have a pancreatic mass. Patient admitted on October 20 for 1 day with fever. It was felt to be a viral syndrome. Patient is feeling well and she was discharged with a short course of prophylactic Augmentin. Patient was doing well. Patient now again presents with a fever documented at 103 at home. [place] achy all over the body slight headache nausea. Denies any respiratory, urinary, no diarrhea, no new other symptoms suggestive of any source of infection. Does feel tired. Review of systems: GEN.: Febrile tired EYES: None HEENT: None NECK: None RESPIRATORY: None CARDIOVASCULAR: None GASTROINTESTINAL: Altered taste in the mouth GENITOURINARY: None MUSCULOSKELETAL: None LYMPHATICS: None HEMATOLOGICAL: None PSYCHIATRY: None NEUROLOGICAL: None Social history: Lives alone. Does use a transfer chair with wheels. Does occasionally does [facility]. Denies alcohol. No smoking. Physical examination: VITAL SIGNS: 101, 118, 18, 1 4022, 95% room air upon presentation. [Recorded temperature of 103 at home GENERAL: BMI 19.7, tired EYES: [Pupils equal. Conjunctiva-icterus l. HEENT: External appearance of nose and ears normal, oral cavity grossly normal. NECK: JVD not raised; masses not palpable. HEART: First and second heart sounds are normal; no edema. LUNGS: Respiratory rate normal; clear to auscultation. ABDOMEN: Soft, minimal epigastric tenderness, liver spleen not palpable, no masses palpable. PSYCH: Alert and oriented x3; mood and affect nasir l. MUSCULOSKELETAL:No Clubbing/cyanosis;muscles-grossly intact NEUROLOGICAL: Cranial nerves grossly intact; no facial asymmetry, power and sensation grossly intact. LYMPHATICS: No lymph nodes palpable in the axilla and neck INVESTIGATIONS, reviewed in the clinical context: October 26, 2023: White count 2.9 hemoglobin 11.4 platelets 149 sodium 136 potassium 4 creatinine 0.52 total bilirubin eight 3.8 AST 86 ALT 140 albumin 3.8 UA negative for leukoesterase, negative for nitrite Influenza type A, type B, RSV, COVID-19: Not detected Chest x-ray film personally reviewed by me-unremarkable Assessment plan: -Febrile episode. Yesterday. Body ache. No other signs of any focal source of infection. No respiratory urinary, GI skin symptoms. Patient did present with similar episode on October 20. It was felt to be a viral syndrome. Sent home with empirical 5 days of Augmentin. Started on IV Zosyn IV vancomycin Blood cultures pending. EBV and CMV serology ordered -Sepsis, source unknown IV fluids, antibiotics -Carcinoma pancreatic head. Worked up at [facility]. Has been told currently no metastasis. Received her first course of chemotherapy . Being followed by at [facility] in [facility]. 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 Discussed with the patient. Consultation to ID and oncology. Past Medical History Past Medical History: Deep Vein Thrombosis (DVT) Additional Past Medical History / Comment(s): 12/12/21 L leg superficial DVT/thrombophlemitis/PCP treated for cellulitis, bilateral feet cramping/numbness/L foot worse. History of Any Multi-Drug Resistant Organisms: None Reported Past Surgical History: Tonsillectomy Past Anesthesia/Blood Transfusion Reactions: No Reported Reaction Past Psychological History: Anxiety, Depression Smoking Status: Former smoker Past Alcohol Use History: Occasional Past Drug Use History: Marijuana - Past Family History Mother Family Medical History: No Reported History Additional Family Medical History / Comment(s): Mother was healthy Father Family Medical History: No Reported History Additional Family Medical History / Comment(s): Father was healthy. Daughter(s) Family Medical History: Deep Vein Thrombosis (DVT) Medications and Allergies Home Medications Medication Instructions Recorded Confirmed Type Apixaban [Eliquis] 5 mg PO BID 10/20/23 10/27/23 History Gemzar 200mg 200 mg IV DIRECTED 10/20/23 10/27/23 History Magnesium Oxide [Magox 400] 400 mg PO DAILY 10/20/23 10/27/23 History OLANZapine [ZyPREXA] 2.5 - 5 mg PO HS 10/20/23 10/27/23 History Ondansetron [Zofran] 4 - 8 mg PO Q4-6H PRN 10/20/23 10/27/23 History PACLitaxeL protein-bound [Abraxane] 1 mg IV DIRECTED 10/20/23 10/27/23 History ursodioL [Ursodiol] 300 mg PO BID 10/20/23 10/27/23 History Allergies Allergy/AdvReac Type Severity Reaction Status Date / Time amoxicillin Allergy Rash/Hives Verified 10/27/23 08:25 clavulanic acid Allergy Rash/Hives Verified 10/27/23 08:25 [From Augmentin] Physical Exam Vitals: Vital Signs Temp Pulse Pulse Resp BP BP Pulse Ox 10/27/23 07:57 98.5 F 77 16 133/79 100 10/27/23 07:20 65 16 112/69 99 10/27/23 05:23 62 16 115/71 100 10/27/23 03:35 97.6 F 60 16 97/62 97 10/27/23 01:30 84 18 91/68 97 10/27/23 01:00 81 16 94/65 97 10/27/23 00:30 78 16 91/68 97 10/27/23 00:08 98.5 F 75 18 91/68 98 10/26/23 21:00 111/83 10/26/23 20:30 111/83 10/26/23 20:00 125/81 98 10/26/23 19:56 97 10/26/23 19:48 101.0 F H 118 H 18 140/82 95 Intake and Output 10/26/23 10/27/23 10/27/23 22:59 06:59 14:59 Other: Weight 62.142 kg Results CBC & Chem 7: 10/26/23 20:35 10/26/23 20:35 Labs: Abnormal Lab Results - Last 24 Hours (Table) 10/26/23 10/26/23 10/26/23 Range/Units 20:19 20:35 20:35 WBC 2.9 L (3.8-10.6) k/uL RBC 3.26 L (3.80-5.40) m/uL Hct 32.2 L (34.0-46.0) % RDW 16.9 H (11.5-15.5) % Plt Count 149 L (150-450) k/uL Lymphocytes # 0.8 L (1.0-4.8) k/uL Sodium 136 L (137-145) mmol/L Glucose 108 H (74-99) mg/dL Total Bilirubin 3.8 H (0.2-1.3) mg/dL AST 86 H (14-36) U/L ALT 140 H (4-34) U/L Alkaline Phosphatase 185 H (38-126) U/L Urine Appearance Cloudy H (Clear) Urine Protein Trace H (Negative) Urine Bilirubin 1+ H (Negative) Urine RBC 6 H (0-5) /hpf Calcium Oxalate Crystal Many H (None) /hpf Amorphous Sediment Rare H (None) /hpf Urine Mucus Many H (None) /hpf
--- NOTE | 2023-10-27 18:15 | P.CONS ---
History of Present Illness - Reason for Consult Consult date: 10/27/23 Fever on chemotherapy for pancreatic adenocarcinoma Requesting physician: Prateek Ward - Chief Complaint Fever - History of Present Illness Ms. Bryant is a 73-year-old femal with PMH of 2 episodes of DVT/PE (most recently in 2021, unprovoked) on therapeutic Eliquis who was recently diagnosed with stage IIB pancreatic adenocarcinoma, started on neoadjuvant chemo for which she has had cycle 1, day 1 of Gemzar and Abraxane. Day 8 was held for low white cell count of 1.9. She was in the hospital last week for fevers, cultures resulted from that visit were negative. She presents again with fever, Tmax of 101.She is on cefepime and vancomycin, receiving hydration. She denies any oral irritation, nausea, vomiting, abdominal pain, shortness of breath or cough, diarrhea. 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 She also feels that her jaundice is slowly improving. She denies any right upper quadrant pain. She denies having any symptoms suggestive of an infection at this time. She initially presented to [facility] with progressive weakness, jaundice and pale-colored stools. Labs showed hyperbilirubinemia with cholestatic hepatitis consistent with obstructive jaundice. US of the abdomen noted pancreatic head mass 4.3 x 3 x 3.8 cm, along with upstream main pancreatic duct dilation up to 4 mm, CBD dilation 1.1 cm. She was transferred to [facility] for additional management. MRCP 09/16/2023 showed pancreatic head mass measuring 4 cm in largest dimension, significant intrahepatic and extrahepatic biliary ductal dilation. Mass was noted to be abutting the SMV just proximal to the confluence and exerting mass effect on the IVC and right renal vein. ERCP with EUS 09/17/2023 with biliary enterotomy and placement of a metal biliary stent, biopsy of pancreatic head mass, pathology consistent with adenocarcinoma. CT CAP 09/18/2023 noted the 4.6 c m pancreatic head mass, no evidence of distant metastatic disease, CA 19-9 was normal, CEA was elevated at 684. She was discharged, multidisciplinary GI tumor board at [facility] 09/24/2023 determined that the tumor is radiographically resectable, Dr. Esparza of surgical oncology referred patient for neoadjuvant chemotherapy. Review of Systems 10 point review of systems is negative except as stated in HPI Past Medical History Past Medical History: Cancer, Deep Vein Thrombosis (DVT) Additional Past Medical History / Comment(s): 12/12/21 L leg superficial DVT/thrombophlemitis/PCP treated for cellulitis, bilateral feet cramping/numbness/L foot worse. History of Any Multi-Drug Resistant Organisms: None Reported Past Surgical History: Tonsillectomy Past Anesthesia/Blood Transfusion Reactions: No Reported Reaction Past Psychological History: Anxiety, Depression Smoking Status: Former smoker Past Alcohol Use History: Occasional Past Drug Use History: Marijuana - Past Family History Mother Family Medical History: No Reported History Additional Family Medical History / Comment(s): Mother was healthy Father Family Medical History: No Reported History Additional Family Medical History / Comment(s): Father was healthy. Daughter(s) Family Medical History: Deep Vein Thrombosis (DVT) Medications and Allergies Home Medications Medication Instructions Recorded Confirmed Type Apixaban [Eliquis] 5 mg PO BID 10/20/23 10/27/23 History Gemzar 200mg 200 mg IV DIRECTED 10/20/23 10/27/23 History Magnesium Oxide [Magox 400] 400 mg PO DAILY 10/20/23 10/27/23 History OLANZapine [ZyPREXA] 2.5 - 5 mg PO HS 10/20/23 10/27/23 History Ondansetron [Zofran] 4 - 8 mg PO Q4-6H PRN 10/20/23 10/27/23 History PACLitaxeL protein-bound [Abraxane] 1 mg IV DIRECTED 10/20/23 10/27/23 History ursodioL [Ursodiol] 300 mg PO BID 10/20/23 10/27/23 History Allergies Allergy/AdvReac Type Severity Reaction Status Date / Time amoxicillin Allergy Rash/Hives Verified 10/27/23 08:25 clavulanic acid Allergy Rash/Hives Verified 10/27/23 08:25 [From Augmentin] Physical Exam Vitals: Vital Signs Temp Pulse Pulse Resp BP BP Pulse Ox 10/27/23 07:57 98.5 F 77 16 133/79 100 10/27/23 07:20 65 16 112/69 99 10/27/23 05:23 62 16 115/71 100 10/27/23 03:35 97.6 F 60 16 97/62 97 10/27/23 01:30 84 18 91/68 97 10/27/23 01:00 81 16 94/65 97 10/27/23 00:30 78 16 /68 97 10/27/23 00:08 98.5 F 75 18 98 10/26/23 21:00 111/83 10/26/23 20:30 111/83 10/26/23 20:00 125/81 98 10/26/23 19:56 97 10/26/23 19:48 101.0 F H 118 H 18 140/82 95 Intake and Output 10/26/23 10/27/23 10/27/23 22:59 06:59 14:59 Other: Weight 62.142 kg - Constitutional General appearance: average body habitus, cooperative, no acute distress - EENT Eyes: EOMI, scleral icterus (Improved) ENT: hearing grossly normal, normal oropharynx - Neck Neck: no lymphadenopathy - Respiratory Respiratory: bilateral: CTA - Cardiovascular Rhythm: regular Heart sounds: normal: S1, S2 Abnormal Heart Sounds: no systolic murmur, no diastolic murmur, no rub, no S3 Gallop, no S4 Gallop, no click, no other leg Peripheral Edema: bilateral: None - Gastrointestinal General gastrointestinal: no absent bowel sounds, no decreased bowel sounds, no distended, no hepatomegaly, no hyperactive bowel sounds, normal bowel sounds, no organomegaly, no rigid, no scaphoid, soft, no splenomegaly, no tenderness, no umbilical hernia, no ventral hernia - Integumentary Integumentary: jaundiced (Very mild) - Neurologic Neurologic: CNII-XII intact - Musculoskeletal Musculoskeletal: strength equal bilaterally - Psychiatric Psychiatric: A&O x's 3, appropriate affect, intact judgment & insight Results CBC & Chem 7: 10/26/23 20:35 10/26/23 20:35 Labs: Abnormal Lab Results - Last 24 Hours (Table) 10/26/23 10/26/23 10/26/23 Range/Units 20:19 20:35 20:35 WBC 2.9 L (3.8-10.6) k/uL RBC 3.26 L (3.80-5.40) m/uL Hct 32.2 L (34.0-46.0) % RDW 16.9 H (11.5-15.5) % Plt Count 149 L (150-450) k/uL Lymphocytes # 0.8 L (1.0-4.8) k/uL Sodium 136 L (137-145) mmol/L Glucose 108 H (74-99) mg/dL Total Bilirubin 3.8 H (0.2-1.3) mg/dL AST 86 H (14-36) U/L ALT 140 H (4-34) U/L Alkaline Phosphatase 185 H (38-126) U/L Urine Appearance Cloudy H (Clear) Urine Protein Trace H (Negative) Urine Bilirubin 1+ H (Negative) Urine RBC 6 H (0-5) /hpf Calcium Oxalate Crystal Many H (None) /hpf Amorphous Sediment Rare H (None) /hpf Urine Mucus Many H (None) /hpf Chest x-ray: report reviewed Assessment and Plan (1) Fever of unknown origin Current Visit: Yes Status: Acute Priority: High Code(s): R50.9 - FEVER, UNSPECIFIED SNOMED Code(s): 7562725 (2) Pancreatic adenocarcinoma Current Visit: Yes Status: Acute Priority: High Code(s): C25.9 - MALIGNANT NEOPLASM OF PANCREAS, UNSPECIFIED SNOMED Code(s): 727714735 (3) Jaundice Current Visit: Yes Status: Chronic Priority: Medium Code(s): R17 - UNSPECIFIED JAUNDICE SNOMED Code(s): 58014856 Plan: Fever of unknown origin -Pancultures pending -Empiric antibiotics initiated -ID consulted -Fever from chemotherapy drugs? Pending cultures Pancreatic adenocarcinoma, stage IIb -Patient has been started on neoadjuvant chemotherapy unfortunately, she has only had day 1 of cycle 1. -Certainly will want to get patient back on treatment as soon as possible. Pending ID evaluation and recommendations -Patient will be following with Dr. Esparza at [facility] for possible Whipple procedure in the future Jaundice -Bilirubin and LFTs are actually slightly improved. -Patient reporting urine not as dark, scleral jaundice is improved as well. -Currently no evidence to suggest any biliary stent obstruction. Doctor attests: I performed a history and physical examination of this patient, developed impression and plan of care. Discussed with dictator. I agree with dictators note, documented as a scribe.
[2023-10-27] MEDS ORDERED: IOPAMIDOL CONTRAST (ORAL USE) VIAL PO PRN (20:58)
--- NOTE | 2023-10-27 20:58 | P.CONS ---
History of Present Illness - Reason for Consult Consult date: 10/27/23 Fever Requesting physician: Greg Chairez - Chief Complaint Fever x 1 day - History of Present Illness Patient is a 73-year-old female with a past medical history significant for stage IIb pancreatic adenocarcinoma has been on neoadjuvant chemotherapy last chemo about 2 weeks ago mention her chemo was held on 10/24/2023 because of low white count patient now presenting to the hospital with a fever that started yesterday patient has fever as high as 103 F at home yesterday patient did have some chills has been complaining of feeling weak no significant headache or URI symptoms did have mild sore throat denies any chest pain shortness of breath occasional cough no nausea vomiting no abdominal pain no diarrhea patient currently do not have any report or PICC line and has used peripheral IV for chemotherapy patient on presentation to the hospital did have a temperature of 101 F patient was tachycardic but not hypotensive or hypoxic and no need for supplemental oxygen patient white count was 2.9 kidney function was normal liver isms are elevated urine has been negative influenza RSV COVID testing has been negative patient did have a chest x-ray no acute cardiopulmonary abnormality no change patient was started on cefepime and vancomycin blood culture has been obtained infectious disease was consulted for further management of antibiotic therapy Review of Systems Positive point and negatives has been mentioned in the HPI, complete review of systems was performed and all other systems are negative Past Medical History Past Medical History: Cancer, Deep Vein Thrombosis (DVT) Additional Past Medical History / Comment(s): 12/12/21 L leg superficial DV T/thrombophlemitis/PCP treated for cellulitis, bilateral feet cramping/numbness/L foot worse. History of Any Multi-Drug Resistant Organisms: None Reported Past Surgical History: Tonsillectomy Past Anesthesia/Blood Transfusion Reactions: No Reported Reaction Past Psychological History: Anxiety, Depression Smoking Status: Former smoker Past Alcohol Use History: Occasional Past Drug Use History: Marijuana - Past Family History Mother Family Medical History: No Reported History Additional Family Medical History / Comment(s): Mother was healthy Father Family Medical History: No Reported History Additional Family Medical History / Comment(s): Father was healthy. Daughter(s) Family Medical History: Deep Vein Thrombosis (DVT) Medications and Allergies Home Medications Medication Instructions Recorded Confirmed Type Apixaban [Eliquis] 5 mg PO BID 10/20/23 10/27/23 History Gemzar 200mg 200 mg IV DIRECTED 10/20/23 10/27/23 History Magnesium Oxide [Magox 400] 400 mg PO DAILY 10/20/23 10/27/23 History OLANZapine [ZyPREXA] 2.5 - 5 mg PO HS 10/20/23 10/27/23 History Ondansetron [Zofran] 4 - 8 mg PO Q4-6H PRN 10/20/23 10/27/23 History PACLitaxeL protein-bound [Abraxane] 1 mg IV DIRECTED 10/20/23 10/27/23 History ursodioL [Ursodiol] 300 mg PO BID 10/20/23 10/27/23 History cefUROXime axetiL [Cefuroxime] 500 mg PO BID 7 Days #14 tab 10/29/23 Rx Allergies Allergy/AdvReac Type Severity Reaction Status Date / Time amoxicillin Allergy Rash/Hives Verified 10/27/23 08:25 clavulanic acid Allergy Rash/Hives Verified 10/27/23 08:25 [From Augmentin] Physical Exam Vitals: Vital Signs Temp Pulse Pulse Resp BP BP Pulse Ox 10/27/23 17:59 98.2 F 71 18 128/83 100 10/27/23 13:03 99.0 F 66 18 124/69 100 10/27/23 07:57 98.5 F 77 16 133/79 100 10/27/23 07:20 65 16 112/69 99 10/27/23 05:23 62 16 115/71 100 10/27/23 03:35 97.6 F 60 16 97/62 97 10/27/23 01:30 84 18 91/68 97 10/27/23 01:00 81 16 94/65 97 10/27/23 00:30 78 16 91/68 97 10/27/23 00:08 98.5 F 75 18 91/68 98 10/26/23 21:00 111/83 Intake and Output 10/27/23 10/27/23 10/27/23 06:59 14:59 22:59 Other: Weight 62.142 kg GENERAL DESCRIPTION: Elderly female lying in bed, no distress. No tachypnea or accessory muscle of respiration use. HEENT: Shows Pallor , no scleral icterus. Oral mucous membrane is dry. No pharyngeal erythema or thrush NECK: Trachea central, no thyromegaly. LUNGS: Unlabored breathing. Clear to auscultation anteriorly. No wheeze or crackle. HEART: S1, S2, regular rate and rhythm. No loud murmur ABDOMEN: Soft, no tenderness , guarding or rigidity, no organomegaly EXTREMITIES: No edema of feet. SKIN: No rash, no masses palpable. NEUROLOGICAL: The patient is awake, alert, oriented x3, mood and affect normal. Results CBC & Chem 7: 10/29/23 03:32 10/28/23 07:00 Labs: Abnormal Lab Results - Last 24 Hours (Table) 10/26/23 10/26/23 10/26/23 Range/Units 20:19 20:35 20:35 WBC 2.9 L (3.8-10.6) k/uL RBC 3.26 L (3.80-5.40) m/uL Hct 32.2 L (34.0-46.0) % RDW 16.9 H (11.5-15.5) % Plt Count 149 L (150-450) k/uL Lymphocytes # 0.8 L (1.0-4.8) k/uL Sodium 136 L (137-145) mmol/L Glucose 108 H (74-99) mg/dL Total Bilirubin 3.8 H (0.2-1.3) mg/dL AST 86 H (14-36) U/L ALT 140 H (4-34) U/L Alkaline Phosphatase 185 H (38-126) U/L Urine Appearance Cloudy H (Clear) Urine Protein Trace H (Negative) Urine Bilirubin 1+ H (Negative) Urine RBC 6 H (0-5) /hpf Calcium Oxalate Crystal Many H (None) /hpf Amorphous Sediment Rare H (None) /hpf Urine Mucus Many H (None) /hpf Assessment and Plan (1) Fever Status: Acute Code(s): R50.9 - FEVER, UNSPECIFIED SNOMED Code(s): 443366914 Plan: 1patient presented to hospital with fever in this patient who did have a history of stage IIb pancreatic adenocarcinoma on chemotherapy patient did have leukopenia but absolute neutrophil count is more than 500 did have elevated yoshi er enzymes with a question of possible hepatobiliary source/cholangitis 2-we will obtain CT abdominal pelvis to rule out any abscess to the hepatobiliary area 3-patient to continue vancomycin and cefepime while waiting for the culture to finalize We will follow on clinical condition and cultures to further adjust medication if needed Thank you for this consultation we will follow the patient along with you Dictation was produced using [employer] dictation software. please excuse any grammatical, word or spelling errors. Time with Patient: Greater than 30
[2023-10-27 21:52] LABS: EBV-EA (IgG) <0.2 AI; EBV-EBNA(IgG) >8.0; EBV-VCA (IgG) >8.0 AI; EBV-VCA (IgM) 0.2 AI
[2023-10-28 07:59] LABS: African American GFR (CKD) >90 (>60 ml/min/1.73 sqM); Non-African American GFR(CKD) >90 (>60 ml/min/1.73 sqM)
[2023-10-28 09:18] LABS: Anisocytosis Slight; HCT 28.8 % (34.0-46.0); MCH 34.5 pg (25.0-35.0); MCHC 34.5 g/dL (31.0-37.0); MCV 99.8 fL (80.0-100.0); Macrocytosis Slight; Mean Platelet Volume 9.8; Poikilocytosis Moderate; RBC 2.89 m/uL (3.80-5.40); RDW 18.1 % (11.5-15.5); WBC 1.7 k/uL (3.8-10.6)
[2023-10-28 09:27] LABS: ALT 83 U/L (4-34); AST 57 U/L (14-36); African American GFR (CKD) >90 (>60 ml/min/1.73 sqM); Albumin 2.7 g/dL (3.5-5.0); Alkaline Phosphatase 136 U/L (38-126); Anion Gap 5 mmol/L; Blood Urea Nitrogen 5 mg/dL (7-17); Carbon Dioxide 20 mmol/L (22-30); Chloride 112 mmol/L (98-107); Glucose 100 mg/dL (74-99); Non-African American GFR(CKD) >90 (>60 ml/min/1.73 sqM); Potassium 3.4 mmol/L (3.5-5.1); Sodium 137 mmol/L (137-145); Total Bilirubin 2.8 mg/dL (0.2-1.3); Total Protein 5.4 g/dL (6.3-8.2)
[2023-10-28 09:54] LABS: HGB 9.9 gm/dL (11.4-16.0)
--- NOTE | 2023-10-28 12:27 | CT ---
EXAMINATION: CT ABDOMEN AND PELVIS WITH IV CONTRAST DATE OF EXAMINATION: 10/28/2023. COMPARISON: None available. INDICATION: Fever with elevated liver enzymes and history of pancreatic cancer. PROCEDURE: Axial CT of the abdomen and pelvis was performed with contrast and sagittal and coronal reformatted images were performed. CT dose lowering techniques were used, to include: automated expos ure control, adjustment for patient size, and/or use of iterative reconstruction. FINDINGS: LOWER CHEST : The visualized lung bases are clear. There are no pleural or pericardial effusions. M oderate cardiomegaly. ABDOMEN: Liver and Biliary system: There is pneumobilia seen within the left lobe of the liver. There is a st ent seen within the common bile duct. No focal liver lesions are otherwise seen. Adrenal glands: Normal. Kidneys and ureters: Normal. Spleen: Normal. Pancreas: There is a pancreatic mass within the head of the pancreas measuring up to 4.[address] There is pancreatic ductal dilation and distal pancreatic atrophy. The pancreatic duct measures up to 6.4 mm in diameter. The pancreatic mass abuts the right side of the superior mesenteric vein.. Gallbladder: Mild gallbladder wall thickening is seen. Lymph nodes, Peritoneum and mesentery: There is no mesenteric or retroperitoneal lymphadenopathy. Gastrointestinal tract: There are no dilated loops of bowel or free intraperitoneal air. The appe ndix is normal. There is a small sliding hiatal hernia. Aorta/IVC: There is mild vascular calcification seen throughout the abdominal aorta without evidenc e of aneurysmal dilation or dissection. IVC normal. Abdominal wall: Normal. PELVIS: Fluid: There is no free fluid in the pelvis. Lymph Nodes: There is no pelvic or inguinal lymphadenopathy.. Urinary bladder: Normal. BONES: The bones are diffusely demineralized. Multilevel compression deformities are seen throughout the lumbar spine which are likely chronic. There is no acute osseous abnormality seen.. ADDITIONAL SIGNIFICANT FINDINGS: None. IMPRESSION: 1. Large pancreatic head mass with pancreatic ductal dilation and atrophy is compatible with the tremayne ent's history of known pancreatic cancer. 2. Metallic and common bile duct and pigtail common bile duct stent appear positioned appropriately. There is some pneumobilia within the liver. 3. No acute process otherwise seen.
--- NOTE | 2023-10-28 12:34 | P.PN ---
Subjective Progress Note Date: 10/28/23 Principal diagnosis: pancreatic adenocarcinoma, fever In f/u pt has no specific complaints today. No fever since admission, no nausea, appetite is fair, no oral irritation, cough, abdominal pain or bloating. She did have her CT of the abdomen and pelvis, this is pending. Objective - Vital Signs Vital signs: Vital Signs Temp 98.1 F 10/28/23 07:55 Pulse 60 10/28/23 07:55 Resp 18 10/28/23 07:55 BP 121/77 10/28/23 07:55 Pulse Ox 100 10/28/23 07:55 FiO2 Intake & Output 10/27/23 10/28/23 10/28/23 18:59 06:59 18:59 Other: # Voids 1 - Constitutional General appearance: Present: average body habitus, cooperative, no acute distress - EENT Eyes: Present: anicteric sclerae, EOMI ENT: Present: hearing grossly normal, normal oropharynx - Respiratory Respiratory: bilateral: CTA - Cardiovascular Rhythm: regular Heart sounds: normal: S1, S2 Abnormal Heart Sounds: Absent: systolic murmur, diastolic murmur, rub, S3 Gallop, S4 Gallop, click, other - Peripheral edema leg Peripheral Edema: bilateral: None - Gastrointestinal General gastrointestinal: Present: normal bowel sounds, soft. Absent: tenderness - Integumentary Integumentary: Present: normal - Neurologic Neurologic: Present: CNII-XII intact - Musculoskeletal Musculoskeletal: Present: strength equal bilaterally - Psychiatric Psychiatric: Present: A&O x's 3, appropriate affect, intact judgment & insight - Labs CBC & Chem 7: 10/28/23 07:00 10/28/23 07:00 Labs: Abnormal Lab Results - Last 24 Hours (Table) 10/27/23 10/28/23 10/28/23 Range/Units 12:10 07:00 07:00 WBC 1.7 L (3.8-10.6) k/uL RBC 2.89 L (3.80-5.40) m/uL Hgb 9.9 L D (11.4-16.0) gm/dL Hct 28.8 L (34.0-46.0) % RDW 18.1 H (11.5-15.5) % Potassium (3.5-5.1) mmol/L Chloride (98-107) mmol/L Carbon Dioxide (22-30) mmol/L BUN (7-17) mg/dL Creatinine 0.38 L (0.52-1.04) mg/dL Glucose (74-99) mg/dL Calcium (8.4-10.2) mg/dL Total Bilirubin (0.2-1.3) mg/dL AST (14-36) U/L ALT (4-34) U/L Alkaline Phosphatase (38-126) U/L Total Protein (6.3-8.2) g/dL Albumin (3.5-5.0) g/dL EBV Capsid Ag IgG Intrp Positive A (Negative) EBV Nuc Ag IgG Interp Positive A (Negative) 10/28/23 Range/Units 07:00 WBC (3.8-10.6) k/uL RBC (3.80-5.40) m/uL Hgb (11.4-16.0) gm/dL Hct (34.0-46.0) % RDW (11.5-15.5) % Potassium 3.4 L (3.5-5.1) mmol/L Chloride 112 H (98-107) mmol/L Carbon Dioxide 20 L (22-30) mmol/L BUN 5 L (7-17) mg/dL Creatinine 0.38 L (0.52-1.04) mg/dL Glucose 100 H (74-99) mg/dL Calcium 8.0 L (8.4-10.2) mg/dL Total Bilirubin 2.8 H (0.2-1.3) mg/dL AST 57 H (14-36) U/L ALT 83 H (4-34) U/L Alkaline Phosphatase 136 H (38-126) U/L Total Protein 5.4 L (6.3-8.2) g/dL Albumin 2.7 L (3.5-5.0) g/dL EBV Capsid Ag IgG Intrp (Negative) EBV Nuc Ag IgG Interp (Negative) Microbiology - Last 24 Hours (Table) 10/26/23 21:53 Urine Culture - Final Urine,Clean Catch Assessment and Plan (1) Fever of unknown origin Current Visit: Yes Status: Acute Priority: High Code(s): R50.9 - FEVER, UNSPECIFIED SNOMED Code(s): 8730613 (2) Pancreatic adenocarcinoma Current Visit: Yes Status: Acute Priority: High Code(s): C25.9 - MALIGNANT NEOPLASM OF PANCREAS, UNSPECIFIED SNOMED Code(s): 887338162 (3) Jaundice Current Visit: Yes Status: Chronic Priority: Medium Code(s): R17 - UNS PECIFIED JAUNDICE SNOMED Code(s): 10191537 Plan: Fever of unknown origin -Pancultures pending -Empiric antibiotics initiated -ID has seen pt -Fever from chemotherapy drugs/cancer? Pending cultures Pancreatic adenocarcinoma, stage IIb -Patient has been started on neoadjuvant chemotherapy unfortunately, she has only had day 1 of cycle 1. Cycle 1 day 8 held because of low WBC, Cycle 1 day 15 is due this Friday. -Certainly will want to get patient back on treatment as soon as possible. Pending ID evaluation and recommendations. Would want to proceed with C1D15 this week if possible. -Patient will be following with Dr. Esparza at [facility] for possible Whipple procedure in the future Jaundice -Bilirubin and LFTs improved from previous and are better today -Currently no evidence to suggest any biliary stent obstruction. Normocytic, normochromic anemia -Drop in Hgb multifactorial-chemo, mildly anemic at baseline, and dilution from fluids. -No evidence on exam or history to suggest acute hemorrhage. Cont to monitor. On anticoagulation -Pending plt count today. 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
[2023-10-28 12:35] LABS: Band Neutrophils % 1 %; Eosinophils # (M) 0.17 k/uL (0-0.7); Lymphocytes # (M) 0.75 k/uL (1.0-4.8); Neutrophils % (M) 33 %; Nucleated Red Blood Cells 0 /100 WBC (0-0); Total Cells Counted 100
--- NOTE | 2023-10-28 15:22 | P.PN ---
Subjective Progress Note Date: 10/28/23 Principal diagnosis: Reason for follow-up is fever in the chemo patient Patient is a 73-year-old female with a past medical history significant for stage IIb pancreatic adenocarcinoma has been on neoadjuvant chemotherapy, presented to hospital with a fever with initial workup negative, patient did have a CT abdominal pelvis completed to shows large pancreatic head mass with pancreatic ductal dilatation metallic and common bile duct pigtail stent in appropriate position. On today's visit that is 10/28/2023, the patient did have resolution of her fever and is afebrile today, the patient is on room air and breathing comfortably, the Pt denies having any chest pain or cough, the patient denies having any abdominal pain no vomiting or any diarrhea has been reported by the nursing staff. Patient white count is 1.7 creatinine 0.38 liver enzymes improved blood cultures pending Objective - Vital Signs Vital signs: Vital Signs Temp 98.1 F 10/28/23 07:55 Pulse 60 10/28/23 07:55 Resp 18 10/28/23 07:55 BP 121/77 10/28/23 07:55 Pulse Ox 100 10/28/23 07:55 FiO2 Intake & Output 10/27/23 10/28/23 10/28/23 18:59 06:59 18:59 Other: # Voids 1 - Exam GENERAL DESCRIPTION: An elderly female lying in bed in no distress RESPIRATORY SYSTEM: Unlabored breathing , decreased breath sounds at bases HEART: S1 S2 regular rate and rhythm , ABDOMEN: Soft , no tenderness EXTREMITIES: No edema feet - Labs CBC & Chem 7: 10/28/23 07:00 10/28/23 07:00 Labs: Abnormal Lab Results - Last 24 Hours (Table) 10/27/23 10/28/23 10/28/23 Range/Units 12:10 07:00 07:00 WBC 1.7 L (3.8-10.6) k/uL RBC 2.89 L (3.80-5.40) m/uL Hgb 9.9 L D (11.4-16.0) gm/dL Hct 28.8 L (34.0-46.0) % RDW 18.1 H (11.5-15.5) % Potassium (3.5-5.1) mmol/L Chloride (98-107) mmol/L Carbon Dioxide (22-30) mmol/L BUN (7-17) mg/dL Creatinine 0.38 L (0.52-1.04) mg/dL Glucose (74-99) mg/dL Calcium (8.4-10.2) mg/dL Total Bilirubin (0.2-1.3) mg/dL AST (14-36) U/L ALT (4-34) U/L Alkaline Phosphatase (38-126) U/L Total Protein (6.3-8.2) g/dL Albumin (3.5-5.0) g/dL EBV Capsid Ag IgG Intrp Positive A (Negative) EBV Nuc Ag IgG Interp Positive A (Negative) 10/28/23 Range/Units 07:00 WBC (3.8-10.6) k/uL RBC (3.80-5.40) m/uL Hgb (11.4-16.0) gm/dL Hct (34.0-46.0) % RDW (11.5-15.5) % Potassium 3.4 L (3.5-5.1) mmol/L Chloride 112 H (98-107) mmol/L Carbon Dioxide 20 L (22-30) mmol/L BUN 5 L (7-17) mg/dL Creatinine 0.38 L (0.52-1.04) mg/dL Glucose 100 H (74-99) mg/dL Calcium 8.0 L (8.4-10.2) mg/dL Total Bilirubin 2.8 H (0.2-1.3) mg/dL AST 57 H (14-36) U/L ALT 83 H (4-34) U/L Alkaline Phosphatase 136 H (38-126) U/L Total Protein 5.4 L (6.3-8.2) g/dL Albumin 2.7 L (3.5-5.0) g/dL EBV Capsid Ag IgG Intrp (Negative) EBV Nuc Ag IgG Interp (Negative) Microbiology - Last 24 Hours (Table) 10/26/23 21:53 Urine Culture - Final Urine,Clean Catch Assessment and Plan (1) Fever Current Visit: Yes Status: Acute Code(s): R50.9 - FEVER, UNSPECIFIED SNOMED Code(s): 195089585 (2) Penicillin allergy Current Visit: Yes Status: Acute Code(s): Z88.0 - ALLERGY STATUS TO PENICILLIN SNOMED Code(s): 16349745 Plan: 1patient presented to hospital with fever in this patient who did have a history of stage IIb pancreatic adenocarcinoma on chemotherapy patient did have leukopenia but absolute neutrophil count is more than 500 did have elevated liver enzymes with a question of possible hepatobiliary source/cholangitis 2-patient did have CT abdominal pelvis did show pancreatic head tumor but no mention of any abscess 3-patient to continue cefepime while waiting for the culture to finalize however will discontinue vancomycin Dictation was produced using [employer] dictation software. please excuse any grammatical, word or spelling errors. Time with Patient: Less than 30
[2023-10-28] MEDS: POTASSIUM CHLORIDE ER 20 MEQ TAB.ER PO STA (15:58)
--- NOTE | 2023-10-28 18:21 | P.PN ---
Progress Note - Text Progress Note Date: 10/28/23 Chief Complaint: Fever This is a pleasant 73-year-old patient who follows with visiting physician Dr. Bryant. Patient has a history of DVT PE 2 years ago for which she is on Eliquis. Patient presented - end august. Found to have a pancreatic mass. Patient admitted on October 20 for 1 day with fever. It was felt to be a viral syndrome. Patient is feeling well and she was discharged with a short course of prophylactic Augmentin. Patient was doing well. Patient now again presents with a fever documented at 103 at home. [place] achy all over the body slight headache nausea. Denies any respiratory, urinary, no diarrhea, no new other symptoms suggestive of any source of infection. Does feel tired. October 27: No further fever. Eating about 75%. Remains on IV cefepime. Blood cultures pending. CMV IgM negative and EBV IgM negative. Active Medications Acetaminophen (Acetaminophen Tab 325 Mg Tab) 650 mg PO Q6HR PRN PRN Reason: Mild Pain or Fever > 100.5 Apixaban (Apixaban 5 Mg Tab) 5 mg PO BID [facility]; Protocol Last Admin: 10/28/23 08:36 Dose: 5 mg Sodium Chloride (Saline 0.9%) 1,000 mls @ 130 mls/hr IV .Q7H42M [facility] Last Admin: 10/28/23 12:51 Dose: Not Given Cefepime HCl 2 gm/ Sodium (Chloride) 100 mls @ 25 mls/hr IVPB Q8H [facility]; Protocol Last Admin: 10/28/23 15:58 Dose: 25 mls/hr Ibuprofen (Ibuprofen 400 Mg Tab) 400 mg PO Q6HR PRN PRN Reason: Mild Pain or Fever > 100.5 Iopamidol (Iopamidol Contrast (Oral Use) Vial) 30 ml PO Q60M PRN PRN Reason: CT Scan Stop: 10/28/23 20:58 Naloxone HCl (Naloxone 0.4 Mg/Ml 1 Ml Vial) 0.2 mg IV Q2M PRN PRN Reason: Opioid Reversal Ursodiol (Ursodiol 300 Mg Cap) 300 mg PO BID [facility] Last Admin: 10/28/23 09:44 Dose: 300 mg Social history: Lives alone. Does use a transfer chair with wheels. Does occasionally does marijuana. Denies alcohol. No smoking. Physical examination: VITAL SIGNS: Afebrile, 60, 18, 121 x 77, 100% room air GENERAL: Reclining in bed, comfortable EYES: [Pupils equal. Conjunctiva-icterus l. HEENT: External appearance of nose and ears normal, oral cavity grossly normal. NECK: JVD not raised; masses not palpable. HEART: First and second heart sounds are normal; no edema. LUNGS: Respiratory rate normal; clear to auscultation. ABDOMEN: Soft, minimal epigastric tenderness, liver spleen not palpable, no masses palpable. PSYCH: Alert and oriented x3; mood and affect nasir l. MUSCULOSKELETAL:No Clubbing/cyanosis;muscles-grossly intact INVESTIGATIONS, reviewed in the clinical context: CT abdomen pelvis: Large pancreatic head mass with pancreatic ductal dilatation and atrophy. Metallic and common bile duct pigtail common bile duct stent appears positioned appropriately. CMV IgM antibody: Nonreactive Danay-Lombardi virus capsid antigen IgM antibody 0.2 October 27: White count 1.7 hemoglobin 9.9 potassium 3.4 creatinine 0.38 AST 57 ALT 83 total bilirubin 2.8 October 26, 2023: White count 2.9 hemoglobin 11.4 platelets 149 sodium 136 potassium 4 creatinine 0.52 total bilirubin eight 3.8 AST 86 ALT 140 albumin 3.8 UA negative for leukoesterase, negative for nitrite Influenza type A, type B, RSV, COVID-19: Not detected Chest x-ray film personally reviewed by me-unremarkable Assessment plan: -Febrile episode. Yesterday. Body ache. No other signs of any focal source of infection. No respiratory urinary, GI skin symptoms. Patient did present with similar episode on October 20. It was felt to be a viral syndrome. Sent home with empirical 5 days of Augmentin. Antibiotics as show to IV cefepime. Blood cultures pending. EBV and CMV: Acute serology negative CT scan abdomen pelvis unremarkable. -Sepsis, source unknown IV fluids, antibiotics -Mild pancytopenia from recent chemotherapy Follow labs -Carcinoma pancreatic head. Worked up at [facility]. Has been told currently no metastasis. Received her first course of chemotherapy . Being followed by at [facility] in [facility]. 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 Follow with ID. Discussed with patient. Past Medical History Past Medical History: Deep Vein Thrombosis (DVT) Additional Past Medical History / Comment(s): 12/12/21 L leg superficial DVT/thrombophlemitis/PCP treated for cellulitis, bilateral feet cramping/numbness/L foot worse. History of Any Multi-Drug Resistant Organisms: None Reported Past Surgical History: Tonsillectomy Past Anesthesia/Blood Transfusion Reactions: No Reported Reaction Past Psychological History: Anxiety, Depression Smoking Status: Former smoker Past Alcohol Use History: Occasional Past Drug Use History: Marijuana
[2023-10-28] MEDS ORDERED: VANCOMYCIN TROUGH DUE 1 EACH MISC MISCELLANE ONE (23:00)
[2023-10-29 03:46] LABS: Anisocytosis Slight; HCT 24.6 % (34.0-46.0); HGB 8.8 gm/dL (11.4-16.0); Hyperchromasia Slight; MCH 35.1 pg (25.0-35.0); MCHC 35.8 g/dL (31.0-37.0); MCV 98.1 fL (80.0-100.0); Macrocytosis Slight; Platelet Count 236 k/uL (150-450); Poikilocytosis Moderate; RBC 2.51 m/uL (3.80-5.40); RDW 17.2 % (11.5-15.5); WBC 2.1 k/uL (3.8-10.6)
[2023-10-29 06:28] LABS: Eosinophils # (M) 0.17 k/uL (0-0.7); Lymphocytes # (M) 1.07 k/uL (1.0-4.8); Monocytes # (M) 0.15 k/uL (0-1.0); Neutrophils # (M) 0.71 k/uL (1.3-7.7); Neutrophils % (M) 34 %; Nucleated Red Blood Cells 0 /100 WBC (0-0); Total Cells Counted 100
[2023-10-29 08:48] VITALS: BP 107/69; PULSE 78; RESP 18; TEMP 98.3
--- NOTE | 2023-10-29 11:24 | P.PN ---
Subjective Progress Note Date: 10/29/23 Principal diagnosis: pancreatic adenocarcinoma, fever In f/u pt reporting poor oral intake, she relates to the food available. Denies N,V, upset stomach. No fever since admission, CT AP did not show any abscess or areas concerning as an infection source. Objective - Vital Signs Vital signs: Vital Signs Temp 98.3 F 10/29/23 08:44 Pulse 78 10/29/23 08:44 Resp 18 10/29/23 08:44 BP 107/69 10/29/23 08:44 Pulse Ox 100 10/29/23 08:44 FiO2 Intake & Output 10/28/23 10/29/23 10/29/23 18:59 06:59 18:59 Intake Total 320 Balance 320 Intake: Oral 320 Other: # Voids 8 1 1 # Bowel Movements 1 - Constitutional General appearance: Present: average body habitus, cooperative, no acute distress - EENT Eyes: Present: EOMI, scleral icterus ENT: Present: hearing grossly normal - Respiratory Details: resp even and unlabored at rest - Cardiovascular Rhythm: regular - Peripheral edema leg Peripheral Edema: bilateral: None - Gastrointestinal General gastrointestinal: Present: soft - Integumentary Integumentary: Present: jaundiced - Neurologic Neurologic: Present: CNII-XII intact - Musculoskeletal Musculoskeletal: Present: strength equal bilaterally - Psychiatric Psychiatric: Present: A&O x's 3, appropriate affect, intact judgment & insight - Labs CBC & Chem 7: 10/29/23 03:32 10/28/23 07:00 Labs: Abnormal Lab Results - Last 24 Hours (Table) 10/28/23 10/29/23 10/29/23 Range/Units 07:00 03:32 03:32 WBC 2.1 L (3.8-10.6) k/uL RBC 2.51 L (3.80-5.40) m/uL Hgb 8.8 L (11.4-16.0) gm/dL Hct 24.6 L (34.0-46.0) % MCH 35.1 H (25.0-35.0) pg RDW 17.2 H (11.5-15.5) % Neutrophils # (Manual) 0.50 L 0.71 L (1.3-7.7) k/uL Lymphocytes # (Manual) 0.75 L (1.0-4.8) k/uL Procalcitonin 0.13 H (0.02-0.09) ng/mL Microbiology - Last 24 Hours (Table) 10/26/23 20:30 Blood Culture - Preliminary Blood 10/26/23 20:35 Blood Culture - Preliminary Blood 10/26/23 21:53 Urine Culture - Final Urine,Clean Catch - Imaging and Cardiology CT scan - abdomen: report reviewed CT scan - pelvis: report reviewed Assessment and Plan (1) Fever of unknown origin Current Visit: Yes Status: Acute Priority: High Code(s): R50.9 - FEVER, UNSPECIFIED SNOMED Code(s): 0079794 (2) Pancreatic adenocarcinoma Current Visit: Yes Status: Acute Priority: High Code(s): C25.9 - MALIGNANT NEOPLASM OF PANCREAS, UNSPECIFIED SNOMED Code(s): 996799358 (3) Jaundice Current Visit: Yes Status: Chronic Priority: Medium Code(s): R17 - UNSPECIFIED JAUNDICE SNOMED Code(s): 21671334 Plan: Fever of unknown origin -UA neg at 18 hours, blood cult neg at 24 hours. -Empiric antibiotics cont -CT AP did not reveal and abscess or area concerning as an infection source -ID following, pending final recommendations -Fever from chemotherapy drugs most likely Pancreatic adenocarcinoma, stage IIb -Patient has been started on neoadjuvant chemotherapy unfortunately, she has only had day 1 of cycle 1. Cycle 1 day 8 held because of low WBC, Cycle 1 day 15 is due this Friday. -Certainly will want to get patient back on treatment as soon as possible. Pending ID evaluation and recommendations. Would want to proceed with C1D15 this week if possible. -May need dose adjustment, addition of GCSF? Pt and Primary Onc will decide what is best option. -Patient will be following with Dr. Esparza at [facility] for possible Whipple procedure in the future Jaundice -Bilirubin and LFTs improved from previous -Nothing to acutely suggest biliary stent obstruction. Normocytic, normochromic anemia -Drop in Hgb multifactorial-chemo, mildly anemic at baseline, and dilution from fluids. Stable today at 8.8 -No evidence on exam or history to suggest acute hemorrhage. Cont to monitor. On anticoagulation -Plt count yesterday was reported as clumped. Did citrate tube today, plt normal. 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
--- NOTE | 2023-10-29 12:54 | P.DS ---
Providers Date of admission: 10/26/23 22:15 Expected date of discharge: 10/29/23 Attending physician: Greg Chairez Consults: 10/26/23 22:14 Consult Physician Routine Consulting Provider: Kaylie Russell Consult Reason/Comments: Fever, chemo Do you want consulting provider notified?: Yes 10/27/23 11:57 Consult Physician Routine Consulting Provider: Misha Chris Consult Reason/Comments: fever, Do you want consulting provider notified?: Yes Primary care physician: MALLORIE Ochoa Hospital Course: Discharge diagnoses; -Fever of unknown origin Monitor vital signs monitor CBC monitor CMP follow-up on blood cultures IV cefepime. EBV and CMV: Acute serology negative CT scan abdomen pelvis unremarkable. ID following 10/28. ID recommends starting patient on oral Ceftin for 7 days -SIRS source unknown IV fluids, antibiotics -Mild pancytopenia from recent chemotherapy Monitor CBC Pancreatic adenocarcinoma, stage IIb Jaundice Worked up at [facility]. Has been told currently no metastasis. Being followed by at [facility] and Lucius Russell at [facility]. -Patient has been started on neoadjuvant chemotherapy unfortunately, she has only had day 1 of cycle 1. Cycle 1 day 8 held because of low WBC, Cycle 1 day 15 is due this Friday Hematology following 10/28. Outpatient follow-up with hematology oncology -Chronic insomnia -Chronic DVT PE, Eliquis -Mild protein calorie malnutrition from underlying malignancy decreased oral intake Ensure Hospital course; This is a pleasant 73-year-old patient who follows with visiting physician Dr. Bryant. Patient has a history of DVT PE 2 years ago for which she is on Eliquis. Patient presented - end august. Found to have a pancreatic mass. Patient admitted on October 20 for 1 day with fever. It was felt to be a viral syndrome. Patient is feeling well and she was discharged with a short course of prop hylactic Augmentin. Patient was doing well. Patient now again presents with a fever documented at 103 at home. Spraggs achy all over the body slight headache nausea. Denies any respiratory, urinary, no diarrhea, no new other symptoms suggestive of any source of infection. Does feel tired. October 27: No further fever. Eating about 75%. Remains on IV cefepime. Blood cultures pending. CMV IgM negative and EBV IgM negative. 10/28. Patient seen and examined. Blood work done showed WBC 2.1, hemoglobin 8.8, platelet count 236 Pro-Live 0.13.ID recommends discharging patient on oral Ceftin for 7 days. Hematology cleared the patient for PHYSICAL EXAMINATION: GENERAL: The patient is alert and oriented x3, not in any acute distress. Well developed, well nourished. HEENT: Pupils are round and equally reacting to light. EOMI. No scleral icterus. No conjunctival pallor. Normocephalic, atraumatic. No pharyngeal erythema. No thyromegaly. CARDIOVASCULAR: S1 and S2 present. No murmurs, rubs, or gallops. PULMONARY: Chest is clear to auscultation, no wheezing or crackles. ABDOMEN: Soft, nontender, nondistended, normoactive bowel sounds. No palpable organomegaly. MUSCULOSKELETAL: No joint swelling or deformity. EXTREMITIES: No cyanosis, clubbing, or pedal edema. NEUROLOGICAL: Gross neurological examination did not reveal any focal deficits. SKIN: No rashes. Dictation was produced using Esphion dictation software. please excuse any grammatical, word or spelling errors. Patient Condition at Discharge: Stable Plan - Discharge Summary Discharge Rx Participant: No New Discharge Prescriptions: New cefUROXime axetiL [Cefuroxime] 500 mg PO BID 7 Days #14 tab Continue OLANZapine [ZyPREXA] 2.5 - 5 mg PO HS Apixaban [Eliquis] 5 mg PO BID PACLitaxeL protein-bound [Abraxane] 1 mg IV DIRECTED ursodioL [Ursodiol] 300 mg PO BID Ondansetron [Zofran] 4 - 8 mg PO Q4-6H PRN PRN Reason: Nausea Magnesium Oxide [Magox 400] 400 mg PO DAILY Gemzar 200mg 200 mg IV DIRECTED Discharge Medication List Apixaban [Eliquis] 5 mg PO BID 10/20/23 [History] Gemzar 200mg 200 mg IV DIRECTED 10/20/23 [History] Magnesium Oxide [Magox 400] 400 mg PO DAILY 10/20/23 [History] OLANZapine [ZyPREXA] 2.5 - 5 mg PO HS 10/20/23 [History] Ondansetron [Zofran] 4 - 8 mg PO Q4-6H PRN 10/20/23 [History] PACLitaxeL protein-bound [Abraxane] 1 mg IV DIRECTED 10/20/23 [History] ursodioL [Ursodiol] 300 mg PO BID 10/20/23 [History] cefUROXime axetiL [Cefuroxime] 500 mg PO BID 7 Days #14 tab 10/29/23 [Rx] Follow up Appointment(s)/Referral(s): Kaylie Russell MD [STAFF PHYSICIAN] - 10/31/23 1:30 pm (This is chemo appt. Pt instructed to keep this appt unless contacted and told otherwise ) Inderjit Brice NPC [Primary Care Provider] - 1-2 days
--- NOTE | 2023-10-29 14:18 | P.PN ---
Subjective Progress Note Date: 10/29/23 Principal diagnosis: Reason for follow-up is fever in the chemo patient Patient is a 73-year-old female with a past medical history significant for stage IIb pancreatic adenocarcinoma has been on neoadjuvant chemotherapy, presented to hospital with a fever with initial workup negative, patient did have a CT abdominal pelvis completed to shows large pancreatic head mass with pancreatic ductal dilatation metallic and common bile duct pigtail stent in appropriate position. On today's visit that is 10/29/2023, Patient is afebrile patient is currently on room air and denies having any shortness of breath, the patient denies any chest pain or cough, the patient denies any nausea vomiting did not have any abdominal pain and no diarrhea, feeling better no new symptoms. Patient white count is 2.1, creatinine 0.38 as of yesterday blood culture has been negative so far urine culture negative Objective - Vital Signs Vital signs: Vital Signs Temp 98.3 F 10/29/23 08:44 Pulse 78 10/29/23 08:44 Resp 18 10/29/23 08:44 BP 107/69 10/29/23 08:44 Pulse Ox 100 10/29/23 08:44 FiO2 Intake & Output 10/28/23 10/29/23 10/29/23 18:59 06:59 18:59 Intake Total 320 Balance 320 Intake: Oral 320 Other: # Voids 8 1 1 # Bowel Movements 1 - Exam GENERAL DESCRIPTION: An elderly female lying in bed in no distress RESPIRATORY SYSTEM: Unlabored breathing , decreased breath sounds at bases HEART: S1 S2 regular rate and rhythm , ABDOMEN: Soft , no tenderness EXTREMITIES: No edema feet - Labs CBC & Chem 7: 10/29/23 03:32 10/28/23 07:00 Labs: Abnormal Lab Results - Last 24 Hours (Table) 10/28/23 10/29/23 10/29/23 Range/Units 07:00 03:32 03:32 WBC 2.1 L (3.8-10.6) k/uL RBC 2.51 L (3.80-5.40) m/uL Hgb 8.8 L (11.4-16.0) gm/dL Hct 24.6 L (34.0-46.0) % MCH 35.1 H (25.0-35.0) pg RDW 17.2 H (11.5-15.5) % Neutrophils # (Manual) 0.50 L 0.71 L (1.3-7.7) k/uL Lymphocytes # (Manual) 0.75 L (1.0-4.8) k/uL Procalcitonin 0.13 H (0.02-0.09) ng/mL Microbiology - Last 24 Hours (Table) 10/26/23 20:30 Blood Culture - Preliminary Blood 10/26/23 20:35 Blood Culture - Preliminary Blood 10/26/23 21:53 Urine Culture - Final Urine,Clean Catch Assessment and Plan (1) Fever Status: Acute Code(s): R50.9 - FEVER, UNSPECIFIED SNOMED Code(s): 754055152 (2) Penicillin allergy Status: Acute Code(s): Z88.0 - ALLERGY STATUS TO PENICILLIN SNOMED Code(s): 07832873 Plan: 1patient presented to hospital with fever in this patient who did have a history of stage IIb pancreatic adenocarcinoma on chemotherapy patient did have leukopenia but absolute neutrophil count is more than 500 did have elevated l iver enzymes with a question of possible hepatobiliary source/cholangitis 2-patient did have CT abdominal pelvis did show pancreatic head tumor but no mention of any abscess 3-patient remains to be afebrile culture has been negative so far patient has been cleared for discharge by oncology we will consider short course of oral Ceftin for possible cholangitis on discharge this was discussed with admitting physician working on discharge Dictation was produced using Azuki (Vozero/Gengibre) dictation software. please excuse any grammatical, word or spelling errors. Time with Patient: Less than 30
== END 2023-10-29 14:04 | disposition home or self-care (01) | DRG 864 ==
LOC: EC 19:46 → 5NMEDONC 22:15 → 1SOBS 10-27 17:55 → 6NMEDSUR 10-29 07:57
PROVIDERS: ADMIT Hospitalist; ATTEND Hospitalist
DX: R50.9 Fever, unspecified (principal); D61.810 Antineoplastic chemotherapy induced pancytopenia; K83.1 Obstruction of bile duct; E44.1 Mild protein-calorie malnutrition; R65.10 Systemic inflammatory response syndrome (SIRS) of non-infectious origin without acute organ dysfunction; C25.0 Malignant neoplasm of head of pancreas; Z68.1 Body mass index [BMI] 19.9 or less, adult; K75.89 Other specified inflammatory liver diseases; F32.A Depression, unspecified; T45.1X5A Adverse effect of antineoplastic and immunosuppressive drugs, initial encounter; F41.9 Anxiety disorder, unspecified; F51.04 Psychophysiologic insomnia; Z79.01 Long term (current) use of anticoagulants; Z79.633 Long term (current) use of mitotic inhibitor; Z79.899 Other long term (current) drug therapy; Z86.718 Personal history of other venous thrombosis and embolism; Z87.891 Personal history of nicotine dependence; Z88.0 Allergy status to penicillin; Z88.8 Allergy status to other drugs, medicaments and biological substances
CPT/HCPCS: 36415; 71046; 74177; 80053; 80202; 81001; 82565; 83605; 84145; 85025; 86308; 86645; 86663; 86664; 86665; 87040; 87086; 87636; 96361; 96365; 96366; 96367; 99285

== ENCOUNTER 2023-11-01 16:50 | Inpatient (IN) | payer MEDICARE, OTHER ==
--- NOTE | 2023-11-01 17:43 | ED ---
Fever HPI - General Chief Complaint: Fever Stated Complaint: Fever Time Seen by Provider: 11/01/23 17:06 Source: patient, RN notes reviewed Mode of arrival: ambulatory Limitations: no limitations - History of Present Illness Initial Comments: 73-year-old female with a history of pancreatic cancer stage IIb who has gotten chemotherapy this week and also a shot to increase her white blood cells she states*developing a fever last night with nausea vomiting decreased oral intake. She has had 2 recent episodes where she was hospitalized for fever. She is scheduled to have a Whipple procedure done at [facility] after chemotherapy. She is also states she has had decreased urinary output due to decreased oral intake. MD Complaint: fever, other - Related Data Home Medications Medication Instructions Recorded Confirmed Apixaban [Eliquis] 5 mg PO BID 10/20/23 10/27/23 Gemzar 200mg 200 mg IV DIRECTED 10/20/23 10/27/23 Magnesium Oxide [Magox 400] 400 mg PO DAILY 10/20/23 10/27/23 OLANZapine [ZyPREXA] 2.5 - 5 mg PO HS 10/20/23 10/27/23 Ondansetron [Zofran] 4 - 8 mg PO Q4-6H PRN 10/20/23 10/27/23 PACLitaxeL protein-bound [Abraxane] 1 mg IV DIRECTED 10/20/23 10/27/23 ursodioL [Ursodiol] 300 mg PO BID 10/20/23 10/27/23 Previous Rx's Medication Instructions Recorded cefUROXime axetiL [Cefuroxime] 500 mg PO BID 7 Days #14 tab 10/29/23 Allergies Allergy/AdvReac Type Severity Reaction Status Date / Time amoxicillin Allergy Rash/Hives Verified 11/01/23 17:03 clavulanic acid Allergy Rash/Hives Verified 11/01/23 17:03 [From Augmentin] Review of Systems ROS Statement: Those systems with pertinent positive or pertinent negative responses have been documented in the HPI. ROS Other: All systems not noted in ROS Statement are negative. Past Medical History Past Medical History: Cancer, Deep Vein Thrombosis (DVT) Additional Past Medical History / Comment(s): 12/12/21 L leg superficial DVT/thrombophlemitis/PCP treated for cellulitis, bilateral feet cramping/numbness/L foot worse. History of Any Multi-Drug Resistant Organisms: None Reported Past Surgical History: Tonsillectomy Past Anesthesia/Blood Transfusion Reactions: No Reported Reaction Past Psychological History: Anxiety, Depression Smoking Status: Former smoker Past Alcohol Use History: Occasional Past Drug Use History: Marijuana - Past Family History Mother Family Medical History: No Reported History Additional Family Medical History / Comment(s): Mother was healthy Father Family Medical History: No Reported History Additional Family Medical History / Comment(s): Father was healthy. Daughter(s) Family Medical History: Deep Vein Thrombosis (DVT) General Exam - General Exam Comments Initial Comments: This is a well-developed frail-appearing female who is awake alert oriented x 4 Limitations: no limitations General appearance: alert, anxious Head exam: Present: atraumatic, normocephalic, normal inspection Eye exam: Present: normal appearance, PERRL, EOMI. Absent: scleral icterus, conjunctival injection, periorbital swelling ENT exam: Present: mucous membranes dry Neck exam: Present: normal inspection, full ROM, other (No stridor JVD or bruits). Absent: tenderness, meningismus, lymphadenopathy Respiratory exam: Present: normal lung sounds bilaterally. Absent: respiratory distress, wheezes, rales, rhonchi, stridor Cardiovascular Exam: Present: normal rhythm, tachycardia, normal heart sounds. Absent: systolic murmur, diastolic murmur, rubs, gallop, clicks GI/Abdominal exam: Present: soft, normal bowel sounds. Absent: distended, tenderness, guarding, rebound, rigid, bruit, pulsatile mass Extremities exam: Present: normal inspection, full ROM, normal capillary refill. Absent: tenderness, pedal edema, joint swelling, calf tenderness Back exam: Present: normal inspection Neurological exam: Present: alert, oriented X3, CN II-XII intact Psychiatric exam: Present: normal affect, normal mood Skin exam: Present: warm, dry, intact, normal color. Absent: rash Course Vital Signs 11/01/23 16:58 Temperature 100.5 F H Pulse Rate 117 H Respiratory 20 Rate Blood Pressure 143/75 O2 Sat by Pulse 100 Oximetry Procedures - Sepsis Sepsis Focused Exam #1 Time Sepsis Criteria Met: 19:00 Sepsis Focused Exam Date: 11/01/23 Sepsis Focused Exam Time: 19:05 Sepsis Focused Exam Complete: Yes Vital Signs & RN Notes Reviewed: Yes Capillary Refill: > 2 Seconds: Fingers, Toes Peripheral Pulses: Normal: Radial (R), Radial (L) Skin Color: Normal for Patient Respiratory Exam: normal lung sounds Cardiovascular Exam: tachycardia Medical Decision Making - Medical Decision Making I did reevaluate the patient as she was found to meet sepsis criteria at 1900 p.m. A focused exam was done by me. I did discuss the case with the patient and family also with Dr. Corley patient will be admitted IV antibiotics IV fluids she does have an elevated lactic acid ileus partially likely secondary to dehydration. Dr. Russell and Dr. Chris will be consulted. Was pt. sent in by a medical professional or institution (, PA, [employer], urgent care, hospital, or usp...) When possible be specific @ -No Did you speak to anyone other than the patient for history (EMS, parent, family, police, friend...)? What history was obtained from this source @ -No Did you review nursing and triage notes (agree or disagree)? Why? @ -I reviewed and agree with nursing and triage notes Were old charts reviewed (outside hosp., previous admission, EMS record, old EKG, old radiological studies, urgent care reports/EKG's, usp records)? Report findings @ -Recent old charts were reviewed Differential Diagnosis (chest pain, altered mental status, abdominal pain women, abdominal pain men, vaginal bleeding, weakness, fever, dyspnea, syncope, headache, dizziness, GI bleed, back pain, seizure, CVA, palpatations, mental health, musculoskeletal)? @ -Fever EKG interpreted by me (3pts min.). @ -Not done X-rays interpreted by me (1pt min.). @ -Interpreted by me no acute process seen CT interpreted by me (1pt min.). @ -None done U/S interpreted by me (1pt. min.). @ -None done What testing was considered but not performed or refused? (CT, X-rays, U/S, labs)? Why? @ -None What meds were considered but not given or refused? Why? @ -None Did you discuss the management of the patient with other professionals (professionals i.e. , HOLDEN, [employer]AL [employer]ER, lab, RT, psych nurse, social science analyst, orthopedic physical therapist, teacher, police officer, insurance case manager)? Give summary @ -Dr. Corley Was smoking cessation discussed for >3mins.? @ -No Was critical care preformed (if so, how long)? @ -31 minutes Were there social determinants of health that impacted care today? How? (Homelessness, low income, unemployed, alcoholism, drug addiction, transportation, low edu. Level, literacy, decrease access to med. care, senior care, rehab)? @ -No Was there de-escalation of care discussed even if they declined (Discuss DNR or withdrawal of care, Hospice)? DNR status @ -No What co-morbidities impacted this encounter? (DM, HTN, Smoking, COPD, CAD, Cancer, CVA, ARF, Chemo, Hep., AIDS, mental health diagnosis, sleep apnea, morbi d obesity)? @ -Critic cancer with chemotherapy, history of PE and DVT, bipolar disorder, recent fever of unknown origin] Was patient admitted / discharged? Hospital course, mention meds given and rou te, prescriptions, significant lab abnormalities, going to OR and other pertinent info. @ -Hospital course patient was admitted to this facility for inpatient treatment and consultation with medical oncology and infectious disease Undiagnosed new problem with uncertain prognosis? @ -No Drug Therapy requiring intensive monitoring for toxicity (Heparin, Nitro, Insulin, Cardizem)? @ -No Were any procedures done? @ -No Diagnosis/symptom? @ -Your of unknown origin, pancreatic cancer, dehydration, elevated lactic acid, tachycardia Acute, or Chronic, or Acute on Chronic? @ -Acute Uncomplicated (without systemic symptoms) or Complicated (systemic symptoms)? @ -Complicated Side effects of treatment? @ -No Exacerbation, Progression, or Severe Exacerbation? @ -No Poses a threat to life or bodily function? How? (Chest pain, USA, AR, pneumonia, PE, COPD, DKA, ARF, appy, cholecystitis, CVA, Diverticulitis, Homicidal, Suicidal, threat to staff... and all critical care pts) @ -Potential - Lab Data Result diagrams: 11/01/23 17:32 11/01/23 17:32 Lab Results 11/01/23 11/01/23 11/01/23 Range/Units 17:32 17:32 17:32 WBC 13.7 H (3.8-10.6) k/uL RBC 3.45 L (3.80-5.40) m/uL Hgb 11.7 (11.4-16.0) gm/dL Hct 35.2 (34.0-46.0) % MCV 102.2 H (80.0-100.0) fL MCH 34.0 (25.0-35.0) pg MCHC 33.2 (31.0-37.0) g/dL RDW 17.4 H (11.5-15.5) % Plt Count 633 H D (150-450) k/uL MPV 8.7 Neutrophils % 81 % Lymphocytes % 10 % Monocytes % 6 % Eosinophils % 1 % Basophils % 1 % Neutrophils # 11.1 H (1.3-7.7) k/uL Lymphocytes # 1.3 (1.0-4.8) k/uL Monocytes # 0.9 (0-1.0) k/uL Eosinophils # 0.1 (0-0.7) k/uL Basophils # 0.1 (0-0.2) k/uL Hypochromasia Slight Poikilocytosis Moderate Anisocytosis Slight Macrocytosis Moderate Sodium 137 (137-145) mmol/L Potassium 3.9 (3.5-5.1) mmol/L Chloride 105 (98-107) mmol/L Carbon Dioxide 21 L (22-30) mmol/L Anion Gap 11 mmol/L BUN 13 (7-17) mg/dL Creatinine 0.43 L (0.52-1.04) mg/dL Est GFR (CKD-EPI)AfAm >90 (>60 ml/min/1.73 sqM) Est GFR (CKD-EPI)NonAf >90 (>60 ml/min/1.73 sqM) Glucose 159 H (74-99) mg/dL Plasma Lactic Acid Austin 3.9 H* (0.7-2.0) mmol/L Calcium 9.0 (8.4-10.2) mg/dL Magnesium 1.8 (1.6-2.3) mg/dL Total Bilirubin 2.7 H (0.2-1.3) mg/dL AST 38 H (14-36) U/L ALT 54 H (4-34) U/L Alkaline Phosphatase 206 H (38-126) U/L Creatine Kinase 21 L (30-135) U/L Total Protein 6.4 (6.3-8.2) g/dL Albumin 3.4 L (3.5-5.0) g/dL Lipase 40 (23-300) U/L Influenza Type A (PCR) (Not Detectd) Influenza Type B (PCR) (Not Detectd) RSV (PCR) (Not Detectd) SARS-CoV-2 (PCR) (Not Detectd) 11/01/23 Range/Units 17:32 WBC (3.8-10.6) k/uL RBC (3.80-5.40) m/uL Hgb (11.4-16.0) gm/dL Hct (34.0-46.0) % MCV (80.0-100.0) fL MCH (25.0-35.0) pg MCHC (31.0-37.0) g/dL RDW (11.5-15.5) % Plt Count (150-450) k/uL MPV Neutrophils % % Lymphocytes % % Monocytes % % Eosinophils % % Basophils % % Neutrophils # (1.3-7.7) k/uL Lymphocytes # (1.0-4.8) k/uL Monocytes # (0-1.0) k/uL Eosinophils # (0-0.7) k/uL Basophils # (0-0.2) k/uL Hypochromasia Poikilocytosis Anisocytosis Macrocytosis Sodium (137-145) mmol/L Potassium (3.5-5.1) mmol/L Chloride (98-107) mmol/L Carbon Dioxide (22-30) mmol/L Anion Gap mmol/L BUN (7-17) mg/dL Creatinine (0.52-1.04) mg/dL Est GFR (CKD-EPI)AfAm (>60 ml/min/1.73 sqM) Est GFR (CKD-EPI)NonAf (>60 ml/min/1.73 sqM) Glucose (74-99) mg/dL Plasma Lactic Acid Austin (0.7-2.0) mmol/L Calcium (8.4-10.2) mg/dL Magnesium (1.6-2.3) mg/dL Total Bilirubin (0.2-1.3) mg/dL AST (14-36) U/L ALT (4-34) U/L Alkaline Phosphatase (38-126) U/L Creatine Kinase (30-135) U/L Total Protein (6.3-8.2) g/dL Albumin (3.5-5.0) g/dL Lipase (23-300) U/L Influenza Type A (PCR) Not Detected (Not Detectd) Influenza Type B (PCR) Not Detected (Not Detectd) RSV (PCR) Not Detected (Not Detectd) SARS-CoV-2 (PCR) Not Detected (Not Detectd) Critical Care Time Critical Care Time: Yes Total Critical Care Time: 31 Disposition Clinical Impression: Fever of unknown origin (FUO), Pancreatic cancer, Dehydration, Sepsis, Ta chycardia, Oliguria Disposition: ADMITTED IP TO THIS [facility] Condition: Fair Referrals: Inderjit Brice NPC [Family Provider] - 1-2 days Time of Disposition: 19:18 Decision Date: 11/01/23 Decision Time: 19:19
[2023-11-01] MEDS: ONDANSETRON 4 MG/2 ML VIAL IVP STA (18:07)
[2023-11-01] MEDS: SODIUM CHLORIDE 0.9% 1,000 ML IV STA ×2 (18:09→19:43)
--- NOTE | 2023-11-01 18:09 | XR ---
EXAMINATION TYPE: XR chest 2V DATE OF EXAM: 11/01/2023 5:57 PM CLINICAL INDICATION:Female, 73 years old with history of Fever; COMPARISON: Chest radiographs from 10/26/2023. TECHNIQUE: XR chest 2V Frontal and lateral views of the chest. FINDINGS: Lungs/Pleura: There is no evidence of pleural effusion, focal consolidation, or pneumothorax. Pulmonary vascularity: Unremarkable. Heart/mediastinum: Cardiomediastinal silhouette is unremarkable. Musculoskeletal: No acute osseous pathology. IMPRESSION: No acute cardiopulmonary disease/process.
[2023-11-01 18:11] LABS: ALT 54 U/L (4-34); AST 38 U/L (14-36); African American GFR (CKD) >90 (>60 ml/min/1.73 sqM); Albumin 3.4 g/dL (3.5-5.0); Alkaline Phosphatase 206 U/L (38-126); Anion Gap 11 mmol/L; Blood Urea Nitrogen 13 mg/dL (7-17); Carbon Dioxide 21 mmol/L (22-30); Chloride 105 mmol/L (98-107); Creatine Kinase 21 U/L (30-135); Glucose 159 mg/dL (74-99); Lipase 40 U/L (23-300); Magnesium 1.8 mg/dL (1.6-2.3); Non-African American GFR(CKD) >90 (>60 ml/min/1.73 sqM); Potassium 3.9 mmol/L (3.5-5.1); Sodium 137 mmol/L (137-145); Total Bilirubin 2.7 mg/dL (0.2-1.3); Total Protein 6.4 g/dL (6.3-8.2)
[2023-11-01 18:30] LABS: Anisocytosis Slight; Basophils # (A) 0.1 k/uL (0-0.2); Basophils % (A) 1 %; Eosinophils # (A) 0.1 k/uL (0-0.7); Eosinophils % (A) 1 %; HCT 35.2 % (34.0-46.0); HGB 11.7 gm/dL (11.4-16.0); Hypochromasia Slight; Lymphocytes # (A) 1.3 k/uL (1.0-4.8); Lymphocytes % (A) 10 %; MCHC 33.2 g/dL (31.0-37.0); MCV 102.2 fL (80.0-100.0); Macrocytosis Moderate; Mean Platelet Volume 8.7; Monocytes # (A) 0.9 k/uL (0-1.0); Monocytes % (A) 6 %; Neutrophils # (A) 11.1 k/uL (1.3-7.7); Neutrophils % (A) 81 %; Poikilocytosis Moderate; RBC 3.45 m/uL (3.80-5.40); RDW 17.4 % (11.5-15.5); WBC 13.7 k/uL (3.8-10.6)
[2023-11-01 18:31] LABS: Platelet Count 633 k/uL (150-450)
[2023-11-01] MEDS ORDERED: NALOXONE 0.4 MG/ML 1 ML VIAL IV PRN (19:20)
[2023-11-01] MEDS ORDERED: ONDANSETRON 4 MG/2 ML VIAL IVP PRN (19:20)
[2023-11-01] MEDS: CEFEPIME 2 GM in SODIUM CHLORIDE 0.9% 100 ML IVPB STA (19:43)
[2023-11-01 19:57] LABS: Appearance,Urine Clear (Clear); Bilirubin,Urine Negative (Negative); Blood,Urine Negative (Negative); Color,Urine Yellow; Glucose,Urine (UA) 1+ (Negative); Ketones,Urine Negative (Negative); Leukocyte Esterase,Urine Negative (Negative); Nitrite,Urine Negative (Negative); PH, Urine 6.5 (5.0-8.0); Protein,Urine Negative (Negative); Specific Gravity,Urine 1.014 (1.001-1.035); Urobilinogen,Urine <2.0 mg/dL (<2.0)
[2023-11-01] MEDS: GEMCITABINE IV SCH (19:57)
[2023-11-01] MEDS: ursodioL 300 MG CAP PO SCH (21:22)
[2023-11-01] MEDS: APIXABAN 5 MG TAB PO SCH (21:22)
[2023-11-01] MEDS: OLANZapine 2.5 MG TAB PO SCH (21:22)
[2023-11-01] MEDS: ACETAMINOPHEN TAB 325 MG TAB PO PRN (22:35)
[2023-11-01] MEDS: CEFEPIME 1 GM in SODIUM CHLORIDE 0.9% 50 ML IVPB SCH (23:30)
[2023-11-02] MEDS: MAGNESIUM OXIDE 400 MG TAB PO SCH (08:59)
--- NOTE | 2023-11-02 14:01 | P.HPIM ---
History of Present Illness H&P Date: 11/02/23 This is a pleasant 73-year-old female with medical history significant for stage IIb pancreatic cancer currently undergoing chemotherapy,, DVT, thrombophlebitis maintained on Eliquis, former smoker, anxiety depression. Patient currently follows up with Dr. Tellez in the office locally and also Dr. Quinones out of [facility]. She had chemotherapy at Dr. Callahan office on Friday. She reports that over the weekend she is felt febrile on and off and came to the ER for further evaluation. She denies shortness of breath she denies chest pain. Denies cough she has not had any sick contacts. She does report feeling nausea but feels that this may be from the chemotherapy. She has not been having any vomiting or diarrhea. Patient was discharged from the hospital on October 30, 2023 she was admitted for fever and bodyaches and underwent extensive infectious workup which was negative. Chest x-ray on admission shows no acute cardiopulmonary disease. Elevated white blood cell count of 14.7 on admission with a platelet count of 633. Hemoglobin 11.7. She had a lactic acid level of 3.9. Bilirubin AST ALT alk phos are elevated. Her urinalysis is negative for infection. Her viral panel is negative for influenza negative for RSV and negative for COVID. She was admitted to the hospital for a fever of unknown origin this could also be a neutropenic fever. She was placed on empiric antibiotic coverage with a consult placed to ID and oncology. REVIEW OF SYSTEMS: CONSTITUTIONAL: Reports fever, no malaise, no fatigue. HEENT: No recent visual problems or hearing problems. Denied any sore throat. CARDIOVASCULAR: No chest pain, orthopnea, PND, no palpitations, no syncope. PULMONARY: No shortness of breath, no cough, no hemoptysis. GASTROINTESTINAL: No diarrhea, no nausea, no vomiting, no abdominal pain. NEUROLOGICAL: No headaches, no weakness, no numbness. HEMATOLOGICAL: Denies any bleeding or petechiae. GENITOURINARY: Denies any burning micturition, frequency, or urgency. MUSCULOSKELETAL/RHEUMATOLOGICAL: Denies any joint pain, swelling, or any muscle pain. ENDOCRINE: Denies any polyuria or polydipsia. The rest of the 14-point review of systems is negative. PHYSICAL EXAMINATION: GENERAL: The patient is alert and oriented x3, not in any acute distress. Well developed, well nourished. HEENT: Pupils are round and equally reacting to light. EOMI. No scleral icterus. No conjunctival pallor. Normocephalic, atraumatic. No pharyngeal erythema. No thyromegaly. CARDIOVASCULAR: S1 and S2 present. No murmurs, rubs, or gallops. PULMONARY: Chest is clear to auscultation, no wheezing or crackles. ABDOMEN: Soft, nontender, nondistended, normoactive bowel sounds. No palpable organomegaly. MUSCULOSKELETAL: No joint swelling or deformity. EXTREMITIES: No cyanosis, clubbing, or pedal edema. NEUROLOGICAL: Gross neurological examination did not reveal any focal deficits. SKIN: No rashes. Assessment and Plan -Fever concern for sepsis patient has lactic acidosis on admission unknown source of fever however this could also be neutropenic as patient did have chemotherapy on Friday. Lactic acid is normalized with IV fluids. Patient was started on empiric antibiotic coverage with ID consultation. -Pancreatic adenocarcinoma stage IIb currently undergoing chemotherapy completed cycle 1 day 15 on October 30 -History of DVT/PE anticoagulated with Eliquis which will be continued inpatient -Mild protein calorie malnutrition continue with ensures protein supplementation with meals GI prophylaxis DVT prophylaxis Full code Patient will be continued on empiric antibiotics. ID and oncology consultation in place. Cultures pending. Repeat labs in the AM. The impression and plan of care has been dictated by Kanika Smith, Nurse Practitioner as directed. Dr. Diana MD I have performed a history and physical examination and medical decision making of this patient, discussed the same with the dictator, and agree with the dictators assessment and plan as written, documented as a scribe. Based on total visit time, I have performed more than 50% of this visit. Past Medical History Past Medical History: Cancer, Deep Vein Thrombosis (DVT) Additional Past Medical History / Comment(s): 12/12/21 L leg superficial DVT/thrombophlemitis/PCP treated for cellulitis, bilateral feet cramping/numbness/L foot worse. pancreatic cancer dx 08/2023 with chemo treatment History of Any Multi-Drug Resistant Organisms: None Reported Past Surgical History: Tonsillectomy Additional Past Surgical History / Comment(s): skin calcification removed from under left arm Past Anesthesia/Blood Transfusion Reactions: No Reported Reaction Past Psychological History: Anxiety, Depression Additional Psychological History / Comment(s): Pt resides alone. She goes to [facility]. She has not been driving, she makes ride arrangement thru [facility]. She manages her own medications. No use of assistive device. Smoking Status: Former smoker Past Alcohol Use History: None Reported Past Drug Use History: None Reported Additional Drug Use History / Comment(s): Pt was using marijuana regularly but quit 2 years ago. - Past Family History Mother Family Medical History: No Reported History Additional Family Medical History / Comment(s): Mother was healthy Father Family Medical History: No Reported History Additional Family Medical History / Comment(s): Father was healthy. Daughter(s) Family Medical History: Deep Vein Thrombosis (DVT) Medications and Allergies Home Medications Medication Instructions Recorded Confirmed Type Apixaban [Eliquis] 5 mg PO BID 10/20/23 11/01/23 History Gemzar 200mg 200 mg IV DIRECTED 10/20/23 11/01/23 History Magnesium Oxide [Magox 400] 400 mg PO DAILY 10/20/23 11/01/23 History OLANZapine [ZyPREXA] 2.5 - 5 mg PO HS 10/20/23 11/01/23 History Ondansetron [Zofran] 4 - 8 mg PO Q4-6H PRN 10/20/23 11/01/23 History PACLitaxeL protein-bound [Abraxane] 1 mg IV DIRECTED 10/20/23 11/01/23 History ursodioL [Ursodiol] 300 mg PO BID 10/20/23 11/01/23 History cefUROXime axetiL [Cefuroxime] 500 mg PO BID 7 Days #14 tab 10/29/23 11/01/23 Rx Allergies Allergy/AdvReac Type Severity Reaction Status Date / Time amoxicillin Allergy Rash/Hives Verified 11/01/23 20:04 clavulanic acid Allergy Rash/Hives Verified 11/01/23 20:04 [From Augmentin] Physical Exam Vitals: Vital Signs Temp Pulse Pulse Pulse Resp BP BP 11/02/23 07:15 99.4 F 83 18 119/67 11/02/23 02:00 99.6 F 91 16 99/69 11/01/23 23:04 100.1 F H 99 16 114/69 11/01/23 22:30 100.9 F H 95 16 125/67 11/01/23 21:28 100.0 F H 101 H 16 128/71 11/01/23 19:44 102 H 18 138/71 11/01/23 16:58 100.5 F H 117 H 20 143/75 Pulse Ox 11/02/23 07:15 96 11/02/23 02:00 95 11/01/23 23:04 95 11/01/23 22:30 95 11/01/23 21:28 95 11/01/23 19:44 95 11/01/23 16:58 100 Intake and Output 11/01/23 11/02/23 11/02/23 22:59 06:59 14:59 Other: # Voids 2 Weight 63.503 kg 70 kg Results CBC & Chem 7: 11/01/23 17:32 11/01/23 17:32 Labs: Abnormal Lab Results - Last 24 Hours (Table) 11/01/23 11/01/23 11/01/23 Range/Units 17:32 17:32 17:32 WBC 13.7 H (3.8-10.6) k/uL RBC 3.45 L (3.80-5.40) m/uL MCV 102.2 H (80.0-100.0) fL RDW 17.4 H (11.5-15.5) % Plt Count 633 H D (150-450) k/uL Neutrophils # 11.1 H (1.3-7.7) k/uL Carbon Dioxide 21 L (22-30) mmol/L Creatinine 0.43 L (0.52-1.04) mg/dL Glucose 159 H (74-99) mg/dL Plasma Lactic Acid Austin 3.9 H* (0.7-2.0) mmol/L Total Bilirubin 2.7 H (0.2-1.3) mg/dL AST 38 H (14-36) U/L ALT 54 H (4-34) U/L Alkaline Phosphatase 206 H (38-126) U/L Creatine Kinase 21 L (30-135) U/L Albumin 3.4 L (3.5-5.0) g/dL Urine Glucose (UA) (Negative) 11/01/23 11/01/23 11/01/23 Range/Units 19:15 19:40 21:10 WBC (3.8-10.6) k/uL RBC (3.80-5.40) m/uL MCV (80.0-100.0) fL RDW (11.5-15.5) % Plt Count (150-450) k/uL Neutrophils # (1.3-7.7) k/uL Carbon Dioxide (22-30) mmol/L Creatinine (0.52-1.04) mg/dL Glucose (74-99) mg/dL Plasma Lactic Acid Austin 4.8 H* 2.5 H* (0.7-2.0) mmol/L Total Bilirubin (0.2-1.3) mg/dL AST (14-36) U/L ALT (4-34) U/L Alkaline Phosphatase (38-126) U/L Creatine Kinase (30-135) U/L Albumin (3.5-5.0) g/dL Urine Glucose (UA) 1+ H (Negative) Thrombosis Risk Factor Assmnt - Choose All That Apply Any of the Below Risk Factors Present?: No Other Risk Factors: Yes Each Risk Factor Represents 2 Points: Age 61-74 years Each Risk Factor Represents 3 Points: History of DVT/PE Thrombosis Risk Factor Assessment Total Risk Factor Score: 5 Thrombosis Risk Factor Assessment Level: High Risk Assessment and Plan Time with Patient: Less than 30
--- NOTE | 2023-11-02 14:13 | P.CONS ---
History of Present Illness - Reason for Consult Consult date: 11/02/23 Fever, pancreatic cancer, on chemo - History of Present Illness Ms. Bryant is a 73-year-old female, well known to our service. with PMH of 2 episodes of DVT/PE (most recently in 2021, unprovoked) on therapeutic Eliquis who was recently diagnosed with stage IIB pancreatic adenocarcinoma, started on neoadjuvant chemo for which she has had cycle 1, day 1 of Gemzar and Abraxane. Day 8 was held for low white cell count of 1.9. She was hospitalized for fevers, 2, initially in first week of 11/08, and then again between 10/25- 10/29/23. She was neutropenic at her second visit but not the time of her first visit. Cultures resulted from both visits were negative. She was treated with cefepime and IV vancomycin, because of the neutropenia, at the time of her 10/26/23 admission. She had imaging with CT of the abdomen and pelvis, that showed no abscess, her known pancreatic stent in position, with no evidence of obstruction based on imaging, or labs. She did not have any specific localizing signs of infection at the time of either of the above visits. Her oncology history is as follows: She initially presented to [facility] with progressive weakness, jaundice and pale-colored stools. Labs showed hyperbilirubinemia with cholestatic hepatitis consistent with obstructive jaundice. US of the abdomen noted pancreatic head mass 4.3 x 3 x 3.8 cm, along with upstream main pancreatic duct dilation up to 4 mm, CBD dilation 1.1 cm. She was transferred to [facility] for additional management. MRCP 09/16/2023 showed pancreatic head mass measuring 4 cm in largest dimension, significant intrahepatic and extrahepatic biliary ductal dilation. Mass was noted to be abutting the SMV just proximal to the confluence and exerting mass effect on the IVC and right renal vein. ERCP with EUS 09/17/2023 with biliary enterotomy and placement of a metal biliary stent, biopsy of pancreatic head mass, pathology consistent with adenocarcinoma. CT CAP 09/18/2023 noted the 4.6 cm pancreatic head mass, no evidence of distant metastatic disease, CA 19-9 was normal, CEA was elevated at 684. She was discharged, multidisciplinary GI tumor board at [facility] 09/24/2023 determined that the tumor is radiographically resectable, Dr. Esparza of surgical oncology referred patient for neoadjuvant chemotherapy. The patient did receive dose of G-CSF On 10/31/2023. She states that she did not feel well subsequently, and developed nausea with vomiting that according to her appeared to be bilious. She developed low-level fever subsequently, without any associated symptoms and therefore came into the emergency room. Oral intake has been low, but nausea and vomiting have actually not recurred over the past 24 hours.. Hemoglobin to the ER, she had developed fever again, as well as some nausea and vomiting with decreased appetite. Her WBC was 13.7. Liver enzymes did not show any worsening, with actually some mild improvement compared to her last visit. Review of Systems Constitutional: Reports fatigue, Reports poor appetite, Reports weakness Eyes: denies blurred vision, denies pain Ears: deny: decreased hearing, ear discharge, earache, tinnitus Ears, nose, mouth and throat: Denies headache, Denies sore throat Cardiovascular: Reports decreased exercise tolerance Respiratory: Denies cough Gastrointestinal: Reports nausea, Reports vomiting Genitourinary: Denies dysuria, Denies hematuria Menstruation: Reports postmenopausal Musculoskeletal: Reports muscle weakness Integumentary: Denies pruritus, Denies rash Neurological: Reports weakness Psychiatric: Denies anxiety, Denies depression Endocrine: Reports fatigue, Reports weight change Hematologic/Lymphatic: Reports as per HPI Past Medical History Past Medical History: Cancer, Deep Vein Thrombosis (DVT) Additional Past Medical History / Comment(s): 12/12/21 L leg superficial DVT/thrombophlemitis/PCP treated for cellulitis, bilateral feet cramping/numbness/L foot worse. pancreatic cancer dx 08/2023 with chemo treatment History of Any Multi-Drug Resistant Organisms: None Reported Past Surgical History: Tonsillectomy Additional Past Surgical History / Comment(s): skin calcification removed from under left arm Past Anesthesia/Blood Transfusion Reactions: No Reported Reaction Past Psychological History: Anxiety, Depression Additional Psychological History / Comment(s): Pt resides alone. She goes to [facility]. She has not been driving, she makes ride arrangement thru [facility]. She manages her own medications. No use of assistive device. Smoking Status: Former smoker Past Alcohol Use History: None Reported Past Drug Use History: None Reported Additional Drug Use History / Comment(s): Pt was using marijuana regularly but quit 2 years ago. - Past Family History Mother Family Medical History: No Reported History Additional Family Medical History / Comment(s): Mother was healthy Father Family Medical History: No Reported History Additional Family Medical History / Comment(s): Father was healthy. Daughter(s) Family Medical History: Deep Vein Thrombosis (DVT) Medications and Allergies Home Medications Medication Instructions Recorded Confirmed Type Apixaban [Eliquis] 5 mg PO BID 10/20/23 11/01/23 History Gemzar 200mg 200 mg IV DIRECTED 10/20/23 11/01/23 History Magnesium Oxide [Magox 400] 400 mg PO DAILY 10/20/23 11/01/23 History OLANZapine [ZyPREXA] 2.5 - 5 mg PO HS 10/20/23 11/01/23 History Ondansetron [Zofran] 4 - 8 mg PO Q4-6H PRN 10/20/23 11/01/23 History PACLitaxeL protein-bound [Abraxane] 1 mg IV DIRECTED 10/20/23 11/01/23 History ursodioL [Ursodiol] 300 mg PO BID 10/20/23 11/01/23 History cefUROXime axetiL [Cefuroxime] 500 mg PO BID 7 Days #14 tab 10/29/23 11/01/23 Rx Allergies Allergy/AdvReac Type Severity Reaction Status Date / Time amoxicillin Allergy Rash/Hives Verified 11/01/23 20:04 clavulanic acid Allergy Rash/Hives Verified 11/01/23 20:04 [From Augmentin] Physical Exam Vitals: Vital Signs Temp Pulse Pulse Pulse Resp BP BP 11/02/23 07:15 99.4 F 83 18 119/67 11/02/23 02:00 99.6 F 91 16 99/69 11/01/23 23:04 100.1 F H 99 16 114/69 11/01/23 22:30 100.9 F H 95 16 125/67 11/01/23 21:28 100.0 F H 101 H 16 128/71 11/01/23 19:44 102 H 18 138/71 11/01/23 16:58 100.5 F H 117 H 20 143/75 Pulse Ox 11/02/23 07:15 96 11/02/23 02:00 95 11/01/23 23:04 95 11/01/23 22:30 95 11/01/23 21:28 95 11/01/23 19:44 95 11/01/23 16:58 100 Intake and Output 11/01/23 11/02/23 11/02/23 22:59 06:59 14:59 Other: # Voids 2 Weight 63.503 kg 70 kg - Constitutional General appearance: no acute distress - EENT Eyes: EOMI, PERRLA ENT: hearing grossly normal, normal oropharynx - Neck Neck: lymphadenopathy Thyroid: bilateral: normal size - Respiratory Respiratory: bilateral: CTA - Cardiovascular Rhythm: regular Heart sounds: normal: S1, S2 - Gastrointestinal General gastrointestinal: normal bowel sounds, soft - Integumentary Integumentary: normal - Neurologic Neurologic: CNII-XII intact - Musculoskeletal Musculoskeletal: generalized weakness, strength equal bilaterally - Psychiatric Psychiatric: A&O x's 3, appropriate affect Results CBC & Chem 7: 11/01/23 17:32 11/01/23 17:32 Labs: Abnormal Lab Results - Last 24 Hours (Table) 11/01/23 11/01/23 11/01/23 Range/Units 17:32 17:32 17:32 WBC 13.7 H (3.8-10.6) k/uL RBC 3.45 L (3.80-5.40) m/uL MCV 102.2 H (80.0-100.0) fL RDW 17.4 H (11.5-15.5) % Plt Count 633 H D (150-450) k/uL Neutrophils # 11.1 H (1.3-7.7) k/uL Carbon Dioxide 21 L (22-30) mmol/L Creatinine 0.43 L (0.52-1.04) mg/dL Glucose 159 H (74-99) mg/dL Plasma Lactic Acid Austin 3.9 H* (0.7-2.0) mmol/L Total Bilirubin 2.7 H (0.2-1.3) mg/dL AST 38 H (14-36) U/L ALT 54 H (4-34) U/L Alkaline Phosphatase 206 H (38-126) U/L Creatine Kinase 21 L (30-135) U/L Albumin 3.4 L (3.5-5.0) g/dL Urine Glucose (UA) (Negative) 11/01/23 11/01/2324 Range/Units 19:15 19:40 21:10 WBC (3.8-10.6) k/uL RBC (3.80-5.40) m/uL MCV (80.0-100.0) fL RDW (11.5-15.5) % Plt Count (150-450) k/uL Neutrophils # (1.3-7.7) k/uL Carbon Dioxide (22-30) mmol/L Creatinine (0.52-1.04) mg/dL Glucose (74-99) mg/dL Plasma Lactic Acid Austin 4.8 H* 2.5 H* (0.7-2.0) mmol/L Total Bilirubin (0.2-1.3) mg/dL AST (14-36) U/L ALT (4-34) U/L Alkaline Phosphatase (38-126) U/L Creatine Kinase (30-135) U/L Albumin (3.5-5.0) g/dL Urine Glucose (UA) 1+ H (Negative) Chest x-ray: report reviewed Assessment and Plan (1) Fever of unknown origin Narrative/Plan: The patient has had multiple admissions for fever, without a definite origin. During her last admission, she received IV antibiotics, she was neutropenic. C ultures have remained negative. Her CT abdomen pelvis during her last admission showed no evidence of obstruction, with the pancreatic stent in appropriate position. Her liver enzymes also do not show any obstruction, and have actually shown slow but steady improvement. Therefore in her situation despite that the fever may be noninfectious, possibly tumor or chemotherapy induced. During this admission, given her history of recent G-CSF, and elevation in WBC to 13.7, fever due to G-CSF effect is a major differential. The patient did have nausea and vomiting, which is not a common side effect with G-CSF, but that has since resolved. Case discussed in detail with the admitting service. ID has been consulted to see the patient. Physical exam, urine and chest x-ray are not indicative of any definite infection. If per ID, there does not appear to be a major concern for infection, the patient can be discharged home. Current Visit: Yes Status: Acute Priority: High Code(s): R50.9 - FEVER, UNSPECIFIED SNOMED Code(s): 7445400 (2) Dehydration Narrative/Plan: Due to nausea vomiting and decreased appetite. Nausea and vomiting have resolved appetite is still diminished. This is possibly due to G-CSF effect, al though this is not a common side effect. Supportive treatment ongoing with IV fluids. Current Visit: Yes Status: Acute Code(s): E86.0 - DEHYDRATION SNOMED Code(s): 99412086 (3) Pancreatic cancer Narrative/Plan: The patient has only been able to receive dose 1 of cycle one of her chemotherapy. The next dose is planned for 11/06/2023. She will proceed with the same assuming no new issues, and adequate WBC. Current Visit: Yes Status: Acute Code(s): C25.9 - MALIGNANT NEOPLASM OF PANCREAS, UNSPECIFIED SNOMED Code(s): 689583123
--- NOTE | 2023-11-02 20:59 | P.CONS ---
History of Present Illness - Reason for Consult Consult date: 11/02/23 Fever of unknown origin recent chemo Requesting physician: Prateek Vazquez - Chief Complaint Fever X 1 day - History of Present Illness Patient is a 73-year-old female with a past medical history significant for stage IIb pancreatic adenocarcinoma for the patient has been started on neoadjuvant chemotherapy did receive her first cycle patient subsequently was admitted to the hospital last week for fever patient did have extensive workup including a CT of abdominal pelvis CT shows pancreatic head mass no evidence of any abscess patient blood culture negative patient did have resolution of the fever with cefepime with negative culture the patient was sent home on oral Ceftin patient mention she did okay on Friday however last night the patient started having fever again and started having nausea and vomiting she did have a episodes of vomiting denies significant abdominal pain no diarrhea patient did have mild headache no URI symptoms no chest pain shortness of breath or cough and no diarrhea with the symptoms the patient was evaluated on presentation to the hospital patient did have a fever of 100.5 F patient was not tachycardic or hypotensive not hypoxic did have elevated lactic acid white count was 13.7 creatinine was normal liver isms are elevated urine has been negative influenza RSV COVID testing was negative chest x-ray was negative for acute infiltrate patient has been admitted to hospital started on cefepime infectious disease was consulted for further management of antibiotic therapy Review of Systems Positive point and negatives has been mentioned in the HPI, complete review of systems was performed and all other systems are negative Past Medical History Past Medical History: Cancer, Deep Vein Thrombosis (DVT) Additional Past Medical History / Comment(s): 12/12/21 L leg superficial DVT/thrombophlemitis/PCP treated for cellulitis, bilateral feet cramping/numbness/L foot worse. pancreatic cancer dx 08/2023 with chemo treatment History of Any Multi-Drug Resistant Organisms: None Reported Past Surgical History: Tonsillectomy Additional Past Surgical History / Comment(s): skin calcification removed from under left arm Past Anesthesia/Blood Transfusion Reactions: No Reported Reaction Past Psychological History: Anxiety, Depression Additional Psychological History / Comment(s): Pt resides alone. She goes to [facility]. She has not been driving, she makes ride arrangement thru [facility]. She manages her own medications. No use of assistive device. Smoking Status: Former smoker Past Alcohol Use History: None Reported Past Drug Use History: None Reported Additional Drug Use History / Comment(s): Pt was using marijuana regularly but quit 2 years ago. - Past Family History Mother Family Medical History: No Reported History Additional Family Medical History / Comment(s): Mother was healthy Father Family Medical History: No Reported History Additional Family Medical History / Comment(s): Father was healthy. Daughter(s) Family Medical History: Deep Vein Thrombosis (DVT) Medications and Allergies Home Medications Medication Instructions Recorded Confirmed Type Apixaban [Eliquis] 5 mg PO BID 10/20/23 11/01/23 History Gemzar 200mg 200 mg IV DIRECTED 10/20/23 11/01/23 History Magnesium Oxide [Magox 400] 400 mg PO DAILY 10/20/23 11/01/23 History OLANZapine [ZyPREXA] 2.5 - 5 mg PO HS 10/20/23 11/01/23 History Ondansetron [Zofran] 4 - 8 mg PO Q4-6H PRN 10/20/23 11/01/23 History PACLitaxeL protein-bound [Abraxane] 1 mg IV DIRECTED 10/20/23 11/01/23 History ursodioL [Ursodiol] 300 mg PO BID 10/20/23 11/01/23 History Nivestym 480 mcg INJ DAILY 11/03/23 11/03/23 History Acetaminophen Tab [Tylenol] 650 mg PO Q6HR PRN tab 11/07/23 Rx cefUROXime axetiL [Ceftin] 500 mg PO BID 7 Days #14 tab 11/07/23 Rx Allergies Allergy/AdvReac Type Severity Reaction Status Date / Time amoxicillin Allergy Rash/Hives Verified 11/01/23 20:04 clavulanic acid Allergy Rash/Hives Verified 11/01/23 20:04 [From Augmentin] Physical Exam Vitals: Vital Signs Temp Pulse Pulse Pulse Resp BP BP 11/02/23 12:14 99.4 F 83 18 104/61 11/02/23 07:15 99.4 F 83 18 119/67 11/02/23 02:00 99.6 F 91 16 99/69 11/01/23 23:04 100.1 F H 99 16 114/69 11/01/23 22:30 100.9 F H 95 16 125/67 11/01/23 21:28 100.0 F H 101 H 16 128/71 03/16/24 19:44 102 H 18 138/71 11/01/23 16:58 100.5 F H 117 H 20 143/75 Pulse Ox 11/02/23 12:14 94 L 11/02/23 07:15 96 11/02/23 02:00 95 11/01/23 23:04 95 11/01/23 22:30 95 11/01/23 21:28 95 11/01/23 19:44 95 11/01/23 16:58 100 Intake and Output 11/01/23 11/02/23 11/02/23 22:59 06:59 14:59 Other: # Voids 2 Weight 63.503 kg 70 kg GENERAL DESCRIPTION: Elderly female lying in bed, no distress. No tachypnea or accessory muscle of respiration use. HEENT: Shows Pallor , no scleral icterus. Oral mucous membrane is dry. No pharyngeal erythema or thrush NECK: Trachea central, no thyromegaly. LUNGS: Unlabored breathing. Clear to auscultation anteriorly. No wheeze or crackle. HEART: S1, S2, regular rate and rhythm. No loud murmur ABDOMEN: Soft, mild right-sided tenderness EXTREMITIES: No edema of feet. SKIN: No rash, no masses palpable. NEUROLOGICAL: The patient is awake, alert, oriented x3, mood and affect normal. Results CBC & Chem 7: 11/07/23 12:42 11/07/23 05:33 Labs: Abnormal Lab Results - Last 24 Hours (Table) 11/01/23 11/01/23 11/01/23 Range/Units 17:32 17:32 17:32 WBC 13.7 H (3.8-10.6) k/uL RBC 3.45 L (3.80-5.40) m/uL MCV 102.2 H (80.0-100.0) fL RDW 17.4 H (11.5-15.5) % Plt Count 633 H D (150-450) k/uL Neutrophils # 11.1 H (1.3-7.7) k/uL Carbon Dioxide 21 L (22-30) mmol/L Creatinine 0.43 L (0.52-1.04) mg/dL Glucose 159 H (74-99) mg/dL Plasma Lactic Acid Austin 3.9 H* (0.7-2.0) mmol/L Total Bilirubin 2.7 H (0.2-1.3) mg/dL AST 38 H (14-36) U/L ALT 54 H (4-34) U/L Alkaline Phosphatase 206 H (38-126) U/L Creatine Kinase 21 L (30-135) U/L Albumin 3.4 L (3.5-5.0) g/dL Urine Glucose (UA) (Negative) 11/01/23 11/01/23 11/01/23 Range/Units 19:15 19:40 21:10 WBC (3.8-10.6) k/uL RBC (3.80-5.40) m/uL MCV (80.0-100.0) fL RDW (11.5-15.5) % Plt Count (150-450) k/uL Neutrophils # (1.3-7.7) k/uL Carbon Dioxide (22-30) mmol/L Creatinine (0.52-1.04) mg/dL Glucose (74-99) mg/dL Plasma Lactic Acid Austin 4.8 H* 2.5 H* (0.7-2.0) mmol/L Total Bilirubin (0.2-1.3) mg/dL AST (14-36) U/L ALT (4-34) U/L Alkaline Phosphatase (38-126) U/L Creatine Kinase (30-135) U/L Albumin (3.5-5.0) g/dL Urine Glucose (UA) 1+ H (Negative) Assessment and Plan (1) Fever Current Visit: Yes Status: Acute Priority: High Code(s): R50.9 - FEVER, UNSPECIFIED SNOMED Code(s): 429759439 (2) Sepsis Current Visit: Yes Status: Acute Code(s): A41.9 - SEPSIS, UNSPECIFIED ORGANISM SNOMED Code(s): 24356427 (3) Penicillin allergy Current Visit: No Status: Acute Code(s): Z88.0 - ALLERGY STATUS TO PENICILLIN SNOMED Code(s): 83471245 Plan: 1patient presented hospital with fever and this patient with a history of stage IIb pancreatic adenocarcinoma with recent mission to hospital severe symptoms patient fever did respond to cefepime cultures were negative CT was suggestive of pancreatic head tumor patient currently do have evidence of jaundice elevated liver enzymes elevated white count concerning for possible cholangitis failing outpatient oral Ceftin therapy 2-we will wait for the blood culture finalized check a CRP and a procalcitonin level 3-increase the dose cefepime 2 g every 8 hours We will follow on clinical condition and cultures to further adjust medication if needed Thank you for this consultation we will follow the patient along with you Dictation was produced using [employer] dictation software. please excuse any grammatical, word or spelling errors. Time with Patient: Greater than 30
[2023-11-03] MEDS: CEFEPIME 2 GM in SODIUM CHLORIDE 0.9% 100 ML IVPB SCH (00:07)
[2023-11-03 08:45] LABS: ALT 33 U/L (8-44); AST 22 U/L (13-35); Albumin 2.8 g/dL (3.8-4.9); Albumin/Globulin Ratio 1.47 Ratio (1.60-3.17); Alkaline Phosphatase 156 U/L (41-126); Blood Urea Nitrogen 11.2 mg/dL (9.0-27.0); Calcium 8.2 mg/dL (8.7-10.3); Carbon Dioxide 22.7 mmol/L (21.6-31.8); Chloride 106 mmol/L (96-109); Globulin 1.9 g/dL (1.6-3.3); Glucose 83 mg/dL (70-110); Potassium 3.6 mmol/L (3.5-5.5); Sodium 135 mmol/L (135-145); Total Protein 4.7 g/dL (6.2-8.2)
[2023-11-03 09:31] LABS: Basophils # (A) 0.11 X 10*3/uL (0.00-0.10); Basophils % (A) 1.1 %; Eosinophils # (A) 0.22 X 10*3/uL (0.04-0.35); Eosinophils % (A) 2.1 %; HCT 27.1 % (37.2-46.3); Lymphocytes # (A) 1.44 X 10*3/uL (0.90-5.00); Lymphocytes % (A) 13.9 %; MCH 33.7 pg (27.0-32.0); MCHC 33.2 g/dL (32.0-37.0); MCV 101.5 FL (80.0-97.0); Mean Platelet Volume 11.3 FL (9.5-12.2); Monocytes % (A) 14.5 %; NRBC Per 100 WBC 0 X 10*3/uL (0.00-0.01); Neutrophils # (A) 6.88 X 10*3/uL (1.80-7.70); Neutrophils % (A) 66.7 %; Platelet Count 213 X 10*3/uL (140-440); RBC 2.67 X 10*6/uL (4.10-5.20); RDW 17.2 % (11.5-14.5); WBC 10.33 X 10*3/uL (4.50-10.00)
[2023-11-03] MEDS: LORATADINE 10 MG TAB PO SCH (13:21)
--- NOTE | 2023-11-03 13:28 | P.PN ---
Subjective Progress Note Date: 11/03/23 Principal diagnosis: fever, pancreatic adenocarcinoma In follow-up today patient reports improvement in nausea and vomiting, her stomach is still a little upset, still feeling weak in general. She did have a fever overnight of 101.4. No complaints of abdominal pain. Objective - Vital Signs Vital signs: Vital Signs Temp 99.8 F H 11/03/23 07:08 Pulse 77 11/03/23 07:08 Resp 16 11/03/23 07:08 BP 98/61 11/03/23 07:08 Pulse Ox 97 11/03/23 07:08 FiO2 Intake & Output 11/02/23 11/03/23 11/03/23 18:59 06:59 18:59 Intake Total 1560 0 Balance 1560 0 Intake: Intake, IV Titration 1560 Amount Sodium Chloride 0.9% 1, 1560 000 ml @ 130 mls/hr IV . Q7H42M STA Rx#:[id number] Oral 0 Other: Voiding Method Toilet Toilet # Voids 3 - Constitutional General appearance: Present: average body habitus, cooperative, no acute distress - EENT Eyes: Present: EOMI, scleral icterus (Very mild, much improved) ENT: Present: hearing grossly normal, normal oropharynx - Respiratory Respiratory: bilateral: CTA - Cardiovascular Rhythm: regular Heart sounds: normal: S1, S2 Abnormal Heart Sounds: Absent: systolic murmur, diastolic murmur, rub, S3 Gallop, S4 Gallop, click, other - Peripheral edema foot Peripheral Edema: bilateral: None - Gastrointestinal General gastrointestinal: Present: normal bowel sounds, soft. Absent: absent bowel sounds, decreased bowel sounds, distended, hepatomegaly, hyperactive bowel sounds, organomegaly, rigid, scaphoid, splenomegaly, tenderness, umbilical herni a, ventral hernia - Integumentary Integumentary: Present: normal - Neurologic Neurologic: Present: CNII-XII intact - Musculoskeletal Musculoskeletal: Present: generalized weakness - Psychiatric Psychiatric: Present: A&O x's 3, appropriate affect, intact judgment & insight - Labs CBC & Chem 7: 11/03/23 05:56 11/03/23 05:56 Labs: Abnormal Lab Results - Last 24 Hours (Table) 11/01/23 11/02/23 11/03/23 Range/Units 21:10 10:26 05:56 WBC (4.50-10.00) X 10*3/uL RBC (4.10-5.20) X 10*6/uL Hgb (12.0-15.0) g/dL Hct (37.2-46.3) % MCV (80.0-97.0) FL MCH (27.0-32.0) pg RDW (11.5-14.5) % Immature Gran # (0.00-0.04) X 10*3/uL Monocytes # (0.20-1.00) X 10*3/uL Basophils # (0.00-0.10) X 10*3/uL Creatinine 0.4 L (0.6-1.5) mg/dL BUN/Creatinine Ratio 28.00 H (12.00-20.00) Ratio Calcium 8.2 L (8.7-10.3) mg/dL Total Bilirubin 2.0 H (0.3-1.2) mg/dL Alkaline Phosphatase 156 H (41-126) U/L C-Reactive Protein 3.8 H 11.20 H (<1.0) mg/dL Total Protein 4.7 L (6.2-8.2) g/dL Albumin 2.8 L (3.8-4.9) g/dL Albumin/Globulin Ratio 1.47 L (1.60-3.17) Ratio Procalcitonin 0.15 H (0.02-0.09) ng/mL 11/03/23 Range/Units 05:56 WBC 10.33 H (4.50-10.00) X 10*3/uL RBC 2.67 L (4.10-5.20) X 10*6/uL Hgb 9.0 L (12.0-15.0) g/dL Hct 27.1 L (37.2-46.3) % MCV 101.5 H (80.0-97.0) FL MCH 33.7 H (27.0-32.0) pg RDW 17.2 H (11.5-14.5) % Immature Gran # 0.18 H (0.00-0.04) X 10*3/uL Monocytes # 1.50 H (0.20-1.00) X 10*3/uL Basophils # 0.11 H (0.00-0.10) X 10*3/uL Creatinine (0.6-1.5) mg/dL BUN/Creatinine Ratio (12.00-20.00) Ratio Calcium (8.7-10.3) mg/dL Total Bilirubin (0.3-1.2) mg/dL Alkaline Phosphatase (41-126) U/L C-Reactive Protein (<1.0) mg/dL Total Protein (6.2-8.2) g/dL Albumin (3.8-4.9) g/dL Albumin/Globulin Ratio (1.60-3.17) Ratio Procalcitonin (0.02-0.09) ng/mL Microbiology - Last 24 Hours (Table) 11/01/23 19:40 Blood Culture - Preliminary Blood 11/01/23 19:25 Blood Culture - Preliminary Blood Assessment and Plan (1) Fever Current Visit: Yes Status: Acute Priority: High Code(s): R50.9 - FEVER, UNSPECIFIED SNOMED Code(s): 729654930 (2) Pancreatic adenocarcinoma Current Visit: No Status: Acute Priority: Medium Code(s): C25.9 - MALIGNANT NEOPLASM OF PANCREAS, UNSPECIFIED SNOMED Code(s): 006353944 Plan: Fever -101.4F overnight -Pancultures pending, empiric antibiotics ordered, Infectious Disease following and treating. -This is patient's third admit in the last several weeks. She has only received cycle 1, day 1 of neoadjuvant treatment. All cultures that have been done at her visits have come back negative. Initially suspected drug fever but, patient has not received treatment since 10/16. MRCP has been ordered to evaluate stent as a possible source for fevers. Pancreatic adenocarcinoma -Neoadjuvant treatment. -Dr. Russell reviewed that patient had a dose adjustment at the onset of treatment. Overall, physically, she has tolerated treatment well but, hematologically she has not. Patient received G-CSF on Friday for persistent low WBC. She reports that she was "sick by 6" p.m. after getting the shot, and that is how she ended up in the hospital again. -WBC is 10.3 today-likely from GCSF given on 10/30. No additional GCSF at this time. -Other options for proceeding forward with Oncology care were discussed. is considering changing frequency of treatment to every other week instead of 3 weeks in a row. Possibly addition of G-CSF. Dr. Russell plans on discussing the case with Surgeon to review the plan. Pt verbalized understanding. -It was discussed with patient if no source of infection is found, plan is to proceed with treatment this . She verbalized understanding and agrees with the plan Doctor attests: I performed a history and physical examination of this patient, developed impression and plan of care. Discussed with dictator. I agree with dictators note, documented as a scribe.
--- NOTE | 2023-11-03 17:54 | P.PN ---
Subjective Progress Note Date: 11/03/23 Principal diagnosis: Reason for follow-up is fever Patient is a 73-year-old female with a past medical history significant for stage IIb pancreatic adenocarcinoma for the patient has been started on neoadjuvant chemotherapy did receive her first cycle patient subsequently was admitted to the hospital last week for fever patient did have extensive workup including a CT of abdominal pelvis CT shows pancreatic head mass no evidence of any abscess patient blood culture negative, patient discharged on oral Ceftin presenting back to hospital with a fever noticed to have elevated white count elevated lactic acid. On today's evaluation that is 11/03/2023, Patient is febrile with a temperature of 102.4 this afternoon, patient is currently on room air and denies having any shortness of breath, the patient denies any chest pain or cough, the patient denies any nausea vomiting did not have any abdominal pain and no diarrhea. Patient white count is down to 10.33, creatinine 0.4 bilirubin elevated liver enzymes normal Pro-Live 0.15 blood cultures are pending Objective - Vital Signs Vital signs: Vital Signs Temp 99.8 F H 11/03/23 07:08 Pulse 77 11/03/23 07:08 Resp 16 11/03/23 07:08 BP 98/61 11/03/23 07:08 Pulse Ox 97 11/03/23 07:08 FiO2 Intake & Output 11/02/23 11/03/23 11/03/23 18:59 06:59 18:59 Intake Total 1560 0 Balance 1560 0 Intake: Intake, IV Titration 1560 Amount Sodium Chloride 0.9% 1, 1560 000 ml @ 130 mls/hr IV . Q7H42M STA Rx#:[id number] Oral 0 Other: Voiding Method Toilet Toilet # Voids 3 - Exam GENERAL DESCRIPTION: An elderly female lying in bed in no distress RESPIRATORY SYSTEM: Unlabored breathing , decreased breath sounds at bases HEART: S1 S2 regular rate and rhythm , ABDOMEN: Soft , no tenderness EXTREMITIES: No edema feet - Labs CBC & Chem 7: 11/03/23 05:56 11/03/23 05:56 Labs: Abnormal Lab Results - Last 24 Hours (Table) 11/01/23 11/02/23 11/03/23 Range/Units 21:10 10:26 05:56 WBC (4.50-10.00) X 10*3/uL RBC (4.10-5.20) X 10*6/uL Hgb (12.0-15.0) g/dL Hct (37.2-46.3) % MCV (80.0-97.0) FL MCH (27.0-32.0) pg RDW (11.5-14.5) % Immature Gran # (0.00-0.04) X 10*3/uL Monocytes # (0.20-1.00) X 10*3/uL Basophils # (0.00-0.10) X 10*3/uL Creatinine 0.4 L (0.6-1.5) mg/dL BUN/Creatinine Ratio 28.00 H (12.00-20.00) Ratio Calcium 8.2 L (8.7-10.3) mg/dL Total Bilirubin 2.0 H (0.3-1.2) mg/dL Alkaline Phosphatase 156 H (41-126) U/L C-Reactive Protein 3.8 H 11.20 H (<1.0) mg/dL Total Protein 4.7 L (6.2-8.2) g/dL Albumin 2.8 L (3.8-4.9) g/dL Albumin/Globulin Ratio 1.47 L (1.60-3.17) Ratio Procalcitonin 0.15 H (0.02-0.09) ng/mL 11/03/23 Range/Units 05:56 WBC 10.33 H (4.50-10.00) X 10*3/uL RBC 2.67 L (4.10-5.20) X 10*6/uL Hgb 9.0 L (12.0-15.0) g/dL Hct 27.1 L (37.2-46.3) % MCV 101.5 H (80.0-97.0) FL MCH 33.7 H (27.0-32.0) pg RDW 17.2 H (11.5-14.5) % Immature Gran # 0.18 H (0.00-0.04) X 10*3/uL Monocytes # 1.50 H (0.20-1.00) X 10*3/uL Basophils # 0.11 H (0.00-0.10) X 10*3/uL Creatinine (0.6-1.5) mg/dL BUN/Creatinine Ratio (12.00-20.00) Ratio Calcium (8.7-10.3) mg/dL Total Bilirubin (0.3-1.2) mg/dL Alkaline Phosphatase (41-126) U/L C-Reactive Protein (<1.0) mg/dL Total Protein (6.2-8.2) g/dL Albumin (3.8-4.9) g/dL Albumin/Globulin Ratio (1.60-3.17) Ratio Procalcitonin (0.02-0.09) ng/mL Microbiology - Last 24 Hours (Table) 11/01/23 19:40 Blood Culture - Preliminary Blood 11/01/23 19:25 Blood Culture - Preliminary Blood Assessment and Plan (1) Fever Current Visit: Yes Status: Acute Priority: High Code(s): R50.9 - FEVER, UNSPECIFIED SNOMED Code(s): 163254465 Plan: 1patient presented hospital with fever and this patient with a history of stage IIb pancreatic adenocarcinoma with recent mission to hospital severe symptoms patient fever did respond to cefepime cultures were negative CT was suggestive of pancreatic head tumor patient currently do have evidence of jaundice elevated liver enzymes elevated white count concerning for possible cholangitis failing outpatient oral Ceftin therapy 2-we will wait for the blood culture finalized, patient did have elevated CRP and a procalcitonin level 3-patient to continue with cefepime 2 g every 8 hours, apparently the patient has been evaluated by oncology and they are doing an MRI we will wait for the results discussed with the patient and admitting team Dictation was produced using [employer] dictation software. please excuse any grammatical, word or spelling errors. Time with Patient: Less than 30
--- NOTE | 2023-11-03 22:34 | P.PN ---
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 Patient currently follows up with Dr. Tellez in the office locally and also Dr. Quinones out of [facility]. She had chemotherapy at Dr. Callahan office on Friday. She reports that over the weekend she is felt febrile on and off and came to the ER for further evaluation. She denies shortness of breath she denies chest pain. Denies cough she has not had any sick contacts. She does report feeling nausea but feels that this may be from the chemotherapy. She has not been having any vomiting or diarrhea. Patient was discharged from the hospital on October 30, 2023 she was admitted for fever and bodyaches and underwent extensive infectious workup which was negative. Chest x-ray on admission shows no acute cardiopulmonary disease. Elevated white blood cell count of 14.7 on admission with a platelet count of 633. Hemoglobin 11.7. She had a lactic acid level of 3.9. Bilirubin AST ALT alk phos are elevated. Her urinalysis is negative for infection. Her viral panel is negative for influenza negative for RSV and negative for COVID. She was admitted to the hospital for a fever of unknown origin this could also be a neutropenic fever. She was placed on empiric antib iotic coverage with a consult placed to ID and oncology. 11/03/2023 Patient is evaluated in follow up today. Patient up ambulating in the room. No acute complaints besides continued fever. Tmax overnight 101.4. Patient does have history of biliary stent discussion with ID there is concerns for cho langitis. Patient remains on IV antibiotics and cultures are currently pending. Due to the continued fever; patient has been recommended to undergo MRCP for further evaluation. ID and oncology following. Next treatment is planned for . Procalcitonin level 0.15. White blood cell count 10.33. Hemoglobin 9.0. Total bilirubin 2.0. AST ALT normal, alk phos 156. CRP 11.20 up from 3.8 Review of Systems Constitutional: Denied any fatigue Reports fever. Cardio vascular: denied any chest pain, palpitations Gastrointestinal: denied any nausea, vomiting, diarrhea Pulmonary: Denied any shortness of breath cough Neurologic denied any new focal deficits All inpatient medications were reviewed and appropriate changes in these medications as dictated in the interval history and assessment and plan. PHYSICAL EXAMINATION: GENERAL: The patient is alert and oriented x3, not in any acute distress. Well developed, well nourished. HEENT: Pupils are round and equally reacting to light. EOMI. No scleral icterus. No conjunctival pallor. Normocephalic, atraumatic. No pharyngeal erythema. No thyromegaly. CARDIOVASCULAR: S1 and S2 present. No murmurs, rubs, or gallops. PULMONARY: Chest is clear to auscultation, no wheezing or crackles. ABDOMEN: Soft, nontender, nondistended, normoactive bowel sounds. No palpable organomegaly. MUSCULOSKELETAL: No joint swelling or deformity. EXTREMITIES: No cyanosis, clubbing, or pedal edema. NEUROLOGICAL: Gross neurological examination did not reveal any focal deficits. SKIN: No rashes. Assessment and Plan -Fever concern for sepsis patient has lactic acidosis on admission unknown source of fever however this could also be neutropenic as patient did have chemotherapy on Friday. Lactic acid is normalized with IV fluids. Patient was started on empiric antibiotic coverage with ID consultation. -Hx of biliary stent with concern for cholangitis patient is scheduled to undergo MRCP. Pending findings GI will be consulted. -Pancreatic adenocarcinoma stage IIb currently undergoing chemotherapy completed cycle 1 day 15 on October 30 -History of DVT/PE anticoagulated with Eliquis which will be continued inpatient -Mild protein calorie malnutrition continue with ensures protein supplementation with meals GI prophylaxis DVT prophylaxis Full code Patient will be continued on empiric antibiotics. ID and oncology consultation in place. Cultures pending. Repeat labs in the AM. The impression and plan of care has been dictated by Kanika Smith, Nurse Practitioner as directed. Dr. Diana MD I have performed a history and physical examination and medical decision making of this patient, discussed the same with the dictator, and agree with the dictators assessment and plan as written, documented as a scribe. Based on total visit time, I have performed more than 50% of this visit. Objective - Vital Signs Vital signs: Vital Signs Temp 99 F 11/03/23 15:35 Pulse 93 11/03/23 12:57 Resp 16 11/03/23 12:57 BP 122/75 11/03/23 12:57 Pulse Ox 98 11/03/23 12:57 FiO2 Intake & Output 11/02/23 11/03/23 11/03/23 18:59 06:59 18:59 Intake Total 1560 0 Balance 1560 0 Intake: Intake, IV Titration 1560 Amount Sodium Chloride 0.9% 1, 1560 000 ml @ 130 mls/hr IV . Q7H42M STA Rx#:[id number] Oral 0 Other: Voiding Method Toilet Toilet # Voids 3 - Labs CBC & Chem 7: 11/03/23 05:56 11/03/23 05:56 Labs: Abnormal Lab Results - Last 24 Hours (Table) 11/02/23 11/03/23 11/03/23 Range/Units 10:26 05:56 05:56 WBC 10.33 H (4.50-10.00) X 10*3/uL RBC 2.67 L (4.10-5.20) X 10*6/uL Hgb 9.0 L (12.0-15.0) g/dL Hct 27.1 L (37.2-46.3) % MCV 101.5 H (80.0-97.0) FL MCH 33.7 H (27.0-32.0) pg RDW 17.2 H (11.5-14.5) % Immature Gran # 0.18 H (0.00-0.04) X 10*3/uL Monocytes # 1.50 H (0.20-1.00) X 10*3/uL Basophils # 0.11 H (0.00-0.10) X 10*3/uL Creatinine 0.4 L (0.6-1.5) mg/dL BUN/Creatinine Ratio 28.00 H (12.00-20.00) Ratio Calcium 8.2 L (8.7-10.3) mg/dL Total Bilirubin 2.0 H (0.3-1.2) mg/dL Alkaline Phosphatase 156 H (41-126) U/L C-Reactive Protein 11.20 H (0.00-0.80) mg/dL Total Protein 4.7 L (6.2-8.2) g/dL Albumin 2.8 L (3.8-4.9) g/dL Albumin/Globulin Ratio 1.47 L (1.60-3.17) Ratio Procalcitonin 0.15 H (0.02-0.09) ng/mL Microbiology - Last 24 Hours (Table) 11/01/23 19:40 Blood Culture - Preliminary Blood 11/01/23 19:25 Blood Culture - Preliminary Blood Assessment and Plan Time with Patient: Less than 30
[2023-11-04] MEDS: CEFEPIME 2 GM in SODIUM CHLORIDE 0.9% 100 ML IVPB SCH (00:26)
[2023-11-04] MEDS: PANTOPRAZOLE 40 MG TABLET PO SCH (08:10)
[2023-11-04 11:41] LABS: ALT 30 U/L (8-44); AST 19 U/L (13-35); Albumin 2.7 g/dL (3.8-4.9); Albumin/Globulin Ratio 1.42 Ratio (1.60-3.17); Alkaline Phosphatase 152 U/L (41-126); BUN/Creat Ratio 29.75 Ratio (12.00-20.00); Blood Urea Nitrogen 11.9 mg/dL (9.0-27.0); Calcium 7.9 mg/dL (8.7-10.3); Carbon Dioxide 20.9 mmol/L (21.6-31.8); Chloride 104 mmol/L (96-109); Globulin 1.9 g/dL (1.6-3.3); Glucose 80 mg/dL (70-110); Potassium 3.8 mmol/L (3.5-5.5); Sodium 134 mmol/L (135-145); Total Bilirubin 1.9 mg/dL (0.3-1.2); Total Protein 4.6 g/dL (6.2-8.2)
[2023-11-04 11:52] LABS: Basophils # (A) 0.09 X 10*3/uL (0.00-0.10); Basophils % (A) 1.2 %; Crenated RBC 2+; Eosinophils # (A) 0.11 X 10*3/uL (0.04-0.35); Eosinophils % (A) 1.5 %; HCT 28.2 % (37.2-46.3); HGB 9.3 g/dL (12.0-15.0); Lymphocytes # (A) 1.13 X 10*3/uL (0.90-5.00); MCH 33.6 pg (27.0-32.0); MCV 101.8 FL (80.0-97.0); Mean Platelet Volume 11.7 FL (9.5-12.2); Monocytes # (A) 1.57 X 10*3/uL (0.20-1.00); Monocytes % (A) 20.9 %; NRBC Per 100 WBC 0 X 10*3/uL (0.00-0.01); Neutrophils % (A) 58.6 %; Platelet Count 238 X 10*3/uL (140-440); RBC 2.77 X 10*6/uL (4.10-5.20); RDW 16.9 % (11.5-14.5); WBC 7.51 X 10*3/uL (4.50-10.00)
--- NOTE | 2023-11-04 14:19 | P.PN ---
Subjective Progress Note Date: 11/04/23 Principal diagnosis: Reason for follow-up is fever Patient is a 73-year-old female with a past medical history significant for stage IIb pancreatic adenocarcinoma for the patient has been started on neoadjuvant chemotherapy did receive her first cycle patient subsequently was admitted to the hospital last week for fever patient did have extensive workup including a CT of abdominal pelvis CT shows pancreatic head mass no evidence of any abscess patient blood culture negative, patient discharged on oral Ceftin presenting back to hospital with a fever noticed to have elevated white count elevated lactic acid. On today's evaluation that is 11/04/2023, patient did have improvement in her fever pattern has been afebrile since last evening with a last temperature of 100.1 at 1930 yesterday, patient is breathing comfortably and is currently on room air, patient denies having any significant cough no chest pain shortness of breath, patient denies nausea vomiting or diarrhea and no abdominal pain. Patient white count normalized to 7.51, creatinine 0.4 cultures currently pending Objective - Vital Signs Vital signs: Vital Signs Temp 99.1 F 11/04/23 12:46 Pulse 95 11/04/23 12:46 Resp 16 11/04/23 12:46 BP 101/65 11/04/23 12:46 Pulse Ox 98 11/04/23 12:46 FiO2 Intake & Output 11/03/23 11/04/23 11/04/23 18:59 06:59 18:59 Intake Total 100 Balance 100 Intake: Intake, IV Titration 100 Amount Cefepime 2 gm In Sodium 100 Chloride 0.9% 100 ml @ 25 mls/hr IVPB Q8HR [facility] Rx# :[id number] Other: Voiding Method Toilet Toilet # Voids 3 # Bowel Movements 1 - Exam GENERAL DESCRIPTION: An elderly female lying in bed in no distress RESPIRATORY SYSTEM: Unlabored breathing , decreased breath sounds at bases HEART: S1 S2 regular rate and rhythm , ABDOMEN: Soft , no tenderness EXTREMITIES: No edema feet - Labs CBC & Chem 7: 11/04/23 06:52 11/04/23 06:52 Labs: Abnormal Lab Results - Last 24 Hours (Table) 11/04/23 11/04/23 Range/Units 06:52 06:52 RBC 2.77 L (4.10-5.20) X 10*6/uL Hgb 9.3 L (12.0-15.0) g/dL Hct 28.2 L (37.2-46.3) % MCV 101.8 H (80.0-97.0) FL MCH 33.6 H (27.0-32.0) pg RDW 16.9 H (11.5-14.5) % Immature Gran # 0.21 H (0.00-0.04) X 10*3/uL Monocytes # 1.57 H (0.20-1.00) X 10*3/uL Crenated Cell 2+ A Sodium 134 L (135-145) mmol/L Carbon Dioxide 20.9 L (21.6-31.8) mmol/L Creatinine 0.4 L (0.6-1.5) mg/dL BUN/Creatinine Ratio 29.75 H (12.00-20.00) Ratio Calcium 7.9 L (8.7-10.3) mg/dL Total Bilirubin 1.9 H (0.3-1.2) mg/dL Alkaline Phosphatase 152 H (41-126) U/L Total Protein 4.6 L (6.2-8.2) g/dL Albumin 2.7 L (3.8-4.9) g/dL Albumin/Globulin Ratio 1.42 L (1.60-3.17) Ratio Microbiology - Last 24 Hours (Table) 11/01/23 19:40 Blood Culture - Preliminary Blood 11/01/23 19:25 Blood Culture - Preliminary Blood Assessment and Plan (1) Fever Current Visit: Yes Status: Acute Priority: High Code(s): R50.9 - FEVER, UNSPECIFIED SNOMED Code(s): 825199282 Plan: 1patient presented hospital with fever and this patient with a history of stage IIb pancreatic adenocarcinoma with recent mission to hospital severe symptoms patient fever did respond to cefepime cultures were negative CT was suggestive of pancreatic head tumor patient currently do have evidence of jaundice elevated liver enzymes elevated white count concerning for possible cholangitis failing outpatient oral Ceftin therapy 2- patient did have elevated CRP and a procalcitonin level, blood culture for negative 3-patient to continue with cefepime 2 g every 8 hours, waiting for MRI that has been scheduled for this afternoon and monitor clinical course closely Dictation was produced using [employer]ation software. please excuse any grammatical, word or spelling errors. Time with Patient: Less than 30
--- NOTE | 2023-11-04 14:51 | P.PN ---
Subjective Progress Note Date: 11/04/23 Principal diagnosis: fever, pancreatic adenocarcinoma In follow-up today patient reports improvement in nausea and vomiting, no stomach c/o today, feels more alter and stronger today. Tmax 100.1F overnight. Objective - Vital Signs Vital signs: Vital Signs Temp 99.1 F 11/04/23 12:46 Pulse 95 11/04/23 12:46 Resp 16 11/04/23 12:46 BP 101/65 11/04/23 12:46 Pulse Ox 98 11/04/23 12:46 FiO2 Intake & Output 11/03/23 11/04/23 11/04/23 18:59 06:59 18:59 Intake Total 100 Balance 100 Intake: Intake, IV Titration 100 Amount Cefepime 2 gm In Sodium 100 Chloride 0.9% 100 ml @ 25 mls/hr IVPB Q8HR [facility] Rx# :[id number] Other: Voiding Method Toilet Toilet # Voids 3 # Bowel Movements 1 - Constitutional General appearance: Present: average body habitus, cooperative, no acute distress - EENT Eyes: Present: anicteric sclerae, EOMI ENT: Present: hearing grossly normal - Respiratory Respiratory: bilateral: CTA - Cardiovascular Rhythm: regular Heart sounds: normal: S1, S2 - Peripheral edema leg Peripheral Edema: bilateral: None - Gastrointestinal General gastrointestinal: Present: soft - Integumentary Integumentary: Present: normal - Neurologic Neurologic: Present: CNII-XII intact - Musculoskeletal Musculoskeletal: Present: strength equal bilaterally - Psychiatric Psychiatric: Present: A&O x's 3, appropriate affect, intact judgment & insight - Labs CBC & Chem 7: 11/04/23 06:52 11/04/23 06:52 Labs: Abnormal Lab Results - Last 24 Hours (Table) 11/04/23 11/04/23 Range/Units 06:52 06:52 RBC 2.77 L (4.10-5.20) X 10*6/uL Hgb 9.3 L (12.0-15.0) g/dL Hct 28.2 L (37.2-46.3) % MCV 101.8 H (80.0-97.0) FL MCH 33.6 H (27.0-32.0) pg RDW 16.9 H (11.5-14.5) % Immature Gran # 0.21 H (0.00-0.04) X 10*3/uL Monocytes # 1.57 H (0.20-1.00) X 10*3/uL Crenated Cell 2+ A Sodium 134 L (135-145) mmol/L Carbon Dioxide 20.9 L (21.6-31.8) mmol/L Creatinine 0.4 L (0.6-1.5) mg/dL BUN/Creatinine Ratio 29.75 H (12.00-20.00) Ratio Calcium 7.9 L (8.7-10.3) mg/dL Total Bilirubin 1.9 H (0.3-1.2) mg/dL Alkaline Phosphatase 152 H (41-126) U/L Total Protein 4.6 L (6.2-8.2) g/dL Albumin 2.7 L (3.8-4.9) g/dL Albumin/Globulin Ratio 1.42 L (1.60-3.17) Ratio Microbiology - Last 24 Hours (Table) 11/01/23 19:40 Blood Culture - Preliminary Blood 11/01/23 19:25 Blood Culture - Preliminary Blood Assessment and Plan (1) Fever Current Visit: Yes Status: Acute Priority: High Code(s): R50.9 - FEVER, UNSPECIFIED SNOMED Code(s): 377160963 (2) Pancreatic adenocarcinoma Current Visit: No Status: Acute Priority: Medium Code(s): C25.9 - MALIGNANT NEOPLASM OF PANCREAS, UNSPECIFIED SNOMED Code(s): 490784239 Plan: Fever -100.1F overnight -Reviewed Infectious Disease notes. Awaiting final blood cultures and MRCP before making final recommendations as to outpatient treatment for persistent fevers. -Pancultures pending, empiric antibiotics ordered, Infectious Disease following and treating. - All cultures that have been done at her visits this past 3 weeks have come back negative. Initially suspected drug fever but, patient has not received treatment since 10/16. MRCP has been ordered to evaluate stent as a possible source for fevers. NOW pending stent info from [facility] to see if pt can have MRCP. We will try to get stent info from them too. Pancreatic adenocarcinoma -Neoadjuvant treatment. This is patient's third admit in the last 3 weeks. She has only received cycle 1, day 1 of neoadjuvant treatment. -Received G-CSF on Friday for persistent low WBC post chemo. -WBC is 7.5 today-coming down into normal range s/p 1 dose of short acting GCSF given on 10/30. No additional GCSF at this time. -Plan is to change frequency of treatment to every other week instead of 3 weeks in a row. Possibly addition of G-CSF. As soon as there are recommendations for antibiotics will determine when treatment will resume. -If no source of infection is found, plan is to proceed with treatment this or maybe start next Fri or Fri. She understands the plan
--- NOTE | 2023-11-04 15:06 | P.PN ---
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 Patient currently follows up with Dr. Tellez in the office locally and also Dr. Quinones out of [facility]. She had chemotherapy at Dr. Callahan office on Friday. She reports that over the weekend she is felt febrile on and off and came to the ER for further evaluation. She denies shortness of breath she denies chest pain. Denies cough she has not had any sick contacts. She does report feeling nausea but feels that this may be from the chemotherapy. She has not been having any vomiting or diarrhea. Patient was discharged from the hospital on October 30, 2023 she was admitted for fever and bodyaches and underwent extensive infectious workup which was negative. Chest x-ray on admission shows no acute cardiopulmonary disease. Elevated white blood cell count of 14.7 on admission with a platelet count of 633. Hemoglobin 11.7. She had a lactic acid level of 3.9. Bilirubin AST ALT alk phos are elevated. Her urinalysis is negative for infection. Her viral panel is negative for influenza negative for RSV and negative for COVID. She was admitted to the hospital for a fever of unknown origin this could also be a neutropenic fever. She was placed on empiric antib iotic coverage with a consult placed to ID and oncology. 11/03/2023 Patient is evaluated in follow up today. Patient up ambulating in the room. No acute complaints besides continued fever. Tmax overnight 101.4. Patient does have history of biliary stent discussion with ID there is concerns for cho langitis. Patient remains on IV antibiotics and cultures are currently pending. Due to the continued fever; patient has been recommended to undergo MRCP for further evaluation. ID and oncology following. Next treatment is planned for . Procalcitonin level 0.15. White blood cell count 10.33. Hemoglobin 9.0. Total bilirubin 2.0. AST ALT normal, alk phos 156. CRP 11.20 up from 3.8 11/04/2023 Patient evaluated today resting in bed on the medical floor. She is anxious for discharge as she has treatment scheduled for this upcoming . Patient remains febrile 1001. over night. Continues on IV cefepime with concern for acute cholangitis. ID following and also GI will be consulted. Patient is scheduled to undergo MRCP today. She is not having any nausea, vomiting or diarrhea. Denying abdominal pain. White blood cell count is 7.51, hgb 9.3. Sodium 134, BUN 11.9, creatinine 0.4. Total bilirubin 1.9. alk phos 152. Review of Systems Constitutional: Denied any fatigue Reports fever. Cardio vascular: denied any chest pain, palpitations Gastrointestinal: denied any nausea, vomiting, diarrhea Pulmonary: Denied any shortness of breath cough Neurologic denied any new focal deficits All inpatient medications were reviewed and appropriate changes in these medications as dictated in the interval history and assessment and plan. PHYSICAL EXAMINATION: GENERAL: The patient is alert and oriented x3, not in any acute distress. Well developed, well nourished. HEENT: Pupils are round and equally reacting to light. EOMI. No scleral icterus. No conjunctival pallor. Normocephalic, atraumatic. No pharyngeal erythema. No thyromegaly. CARDIOVASCULAR: S1 and S2 present. No murmurs, rubs, or gallops. PULMONARY: Chest is clear to auscultation, no wheezing or crackles. ABDOMEN: Soft, nontender, nondistended, normoactive bowel sounds. No palpable organomegaly. MUSCULOSKELETAL: No joint swelling or deformity. EXTREMITIES: No cyanosis, clubbing, or pedal edema. NEUROLOGICAL: Gross neurological examination did not reveal any focal deficits. SKIN: No rashes. Assessment and Plan -Fever concern for sepsis patient has lactic acidosis on admission unknown source of fever however this could also be neutropenic as patient did have chemotherapy on Friday. Lactic acid is normalized with IV fluids. Patient was started on empiric antibiotic coverage with ID consultation. Blood culture is negative so far. -Hx of biliary stent with concern for cholangitis patient is scheduled to undergo MRCP. GI will be consulted. -Pancreatic adenocarcinoma stage IIb currently undergoing chemotherapy completed cycle 1 day 15 on October 30 -History of DVT/PE anticoagulated with Eliquis which will be continued inpatient -Mild protein calorie malnutrition continue with ensures protein supplementation with meals GI prophylaxis DVT prophylaxis Full code Patient will be continued on empiric antibiotics. ID and oncology consultation in place. Cultures pending. Repeat labs in the AM. The impression and plan of care has been dictated by Kanika Smith, Nurse Practitioner as directed. Dr. Diana MD I have performed a history and physical examination and medical decision making of this patient, discussed the same with the dictator, and agree with the dictators assessment and plan as written, documented as a scribe. Based on total visit time, I have performed more than 50% of this visit. Objective - Vital Signs Vital signs: Vital Signs Temp 99.1 F 11/04/23 12:46 Pulse 95 11/04/23 12:46 Resp 16 11/04/23 12:46 BP 101/65 11/04/23 12:46 Pulse Ox 98 11/04/23 12:46 FiO2 Intake & Output 11/03/23 11/04/23 11/04/23 18:59 06:59 18:59 Intake Total 100 Balance 100 Intake: Intake, IV Titration 100 Amount Cefepime 2 gm In Sodium 100 Chloride 0.9% 100 ml @ 25 mls/hr IVPB Q8HR [facility] Rx# :[id number] Other: Voiding Method Toilet Toilet # Voids 3 # Bowel Movements 1 - Labs CBC & Chem 7: 11/04/23 06:52 11/04/23 06:52 Labs: Abnormal Lab Results - Last 24 Hours (Table) 11/04/23 11/04/23 Range/Units 06:52 06:52 RBC 2.77 L (4.10-5.20) X 10*6/uL Hgb 9.3 L (12.0-15.0) g/dL Hct 28.2 L (37.2-46.3) % MCV 101.8 H (80.0-97.0) FL MCH 33.6 H (27.0-32.0) pg RDW 16.9 H (11.5-14.5) % Immature Gran # 0.21 H (0.00-0.04) X 10*3/uL Monocytes # 1.57 H (0.20-1.00) X 10*3/uL Crenated Cell 2+ A Sodium 134 L (135-145) mmol/L Carbon Dioxide 20.9 L (21.6-31.8) mmol/L Creatinine 0.4 L (0.6-1.5) mg/dL BUN/Creatinine Ratio 29.75 H (12.00-20.00) Ratio Calcium 7.9 L (8.7-10.3) mg/dL Total Bilirubin 1.9 H (0.3-1.2) mg/dL Alkaline Phosphatase 152 H (41-126) U/L Total Protein 4.6 L (6.2-8.2) g/dL Albumin 2.7 L (3.8-4.9) g/dL Albumin/Globulin Ratio 1.42 L (1.60-3.17) Ratio Microbiology - Last 24 Hours (Table) 11/01/23 19:40 Blood Culture - Preliminary Blood 11/01/23 19:25 Blood Culture - Preliminary Blood Assessment and Plan Time with Patient: Less than 30
--- NOTE | 2023-11-04 18:18 | MR ---
EXAMINATION TYPE: MR liver wo/w con and mrcp DATE OF EXAM: 11/04/2023 4:18 PM CLINICAL INDICATION:Female, 73 years old with history of persistent fevers, Hx biliary stent; PHH, Pa ncreatic cancer, fever. COMPARISON: 09/15/2023 MRI TECHNIQUE MRI ABDOMEN WITH CONTRAST: Multiplanar multi-sequence imaging was performed without and wit h IV contrast/gadolinium. The patient was given 7 cc Gadavist gadolinium intravenously and dynamic p ost-VIBE (volumetric interpolated breath-hold gradient recall echo) imaging was performed. IV Contrast: 7 cc Gadavist TECHNIQUE MRCP ABDOMEN WITHOUT CONTRAST: Multi planar, T2-weighted imaging with and without fat satur ation and chemical shift imaging was performed of the abdomen. Then, heavily T2 weighted imaging (garrett f-Fourier acquisition single-shot turbo spin-echo) was utilized in order to study the biliary system. Maximum intensity projection images were reconstructed from the original data of the biliary tree. 3D reconstructions and MIP imaging performed on a separate workstation. FINDINGS: MRCP: * Biliary stent in the extrahepatic biliary system which limits evaluation. There is dilation of the main pancreatic duct which tortuosity present extending away from the mass into the tail. * The gallbladder the gallbladder is dilated with wall thickening measuring up to 5 mm with multiple stones in the fundus. MultiHance throughout the gallbladder with adjacent fat attending changes. Gal lbladder wall fluid collection suggested measuring up to 16 mm. LOWER CHEST: No gross irregularity. ABDOMEN Liver: No evidence for hepatic steatosis or cirrhosis. Transient hepatic signal differences are prese nt likely due to infection seen within the gallbladder. Gallbladder and Bile ducts: No evidence for ductal dilation, or biliary stricture or evidence of chol edocholithiasis. The gallbladder is within normal limits. Pancreas: No ductal dilation. Pancreatic head mass is again seen measuring 3.5 x 3.7 cm. Spleen: Normal for size. Splenule is present. Adrenal glands: Unremarkable. Kidneys: No evidence for obstructive uropathy. No suspicious renal masses. Subcentimeter probable non enhancing renal cysts. Stomach and Bowel: No evidence for bowel wall thickening or evidence for obstruction.. Peritoneum: No evidence of pneumoperitoneum or free fluid. Vasculature: No aortic aneurysm. Musculoskeletal: The osseous structures appear intact. Lymph Nodes: No gross evidence for lymphadenopathy. Abdominal wall: Fat-containing umbilical hernia. IMPRESSION: 1. Constellation of findings concerning for acute cholecystitis with cholelithiasis, gallbladder wall thickening and adjacent inflammation. There is a mural wall fluid collection possibly representing a bscess formation. Finding not seen on prior. 2. Pancreatic head mass with upstream dilation of the pancreatic duct. Biliary stent in place within the common bile duct which limits its evaluation. Findings communicated to Dr. MENDOZA on 11/04/2023 6:[address] Prateek Gupta. Findings communicated to Dr. Kanika boateng on 11/04/2023 6:[address] Prateek Gupta.
[2023-11-04] MEDS: LORATADINE 10 MG TAB PO SCH (20:09)
[2023-11-04] MEDS: metroNIDAZOLE-NS PMX 500 MG in SALINE 1 100ML.BAG IVPB SCH (20:10)
[2023-11-05] MEDS: metroNIDAZOLE-NS PMX 500 MG in SALINE 1 100ML.BAG IVPB SCH (03:54)
--- NOTE | 2023-11-05 07:10 | P.CONS ---
History of Present Illness - Reason for Consult Consult date: 11/04/23 Pancreatic cancer, possible cholangitis Requesting physician: Kanika Smith - Chief Complaint fever - History of Present Illness Pleasant 73-year-old female with past medical history of DVT/pulmonary embolism unprovoked on Eliquis recently diagnosed with stage IIb pancreatic adenocarcinoma in August 2023. She was started on neoadjuvant chemo which she underwent 1 cycle starting October 16. Patient was following with oncology and was noted to be neutropenic on her second visit. She had cultures that were negative. She was admitted to the hospital on 10/26/2023 for fever and neutropenia and was treated with cefepime and IV vancomycin because of neutropenia. During that time she did have a CT of the abdomen pelvis on 10/28/2023 which reported a large pancreatic head mass with pancreatic ductal dilation and atrophy compatible with patient's history of known pancreatic cancer. Metallic and common bile duct and pigtail common bile duct stent appear positioned appropriately. Some pneumobilia within the liver. No acute process otherwise seen. She was discharged on 10/29/2023. Last Friday the she went had G-CSF for consistently low WBC. Following the injection she was sick later that evening with nausea vomiting and fever. She was sent back to the emergency department for further evaluation and admission. Patient's max temp has been 101.5 during this admission. Infectious disease was consulted for further antibiotic recommendations. Currently awaiting blood cultures. Gastroenterology was consulted for pancreatic cancer, possible cholangitis. Patient denies any abdominal pain, no nausea or vomiting currently. She is scheduled to undergo MRCP today. Today's labs WBC 7.5 hemoglobin 9.3 hematocrit 28 platelet count 238,000 sodium 134 potassium 3.8 BUN 11.9 creatinine 0.4 total bilirubin 1.9 AST 19 ALT 30 alkaline phosphatase 152. Preliminary blood culture no growth after 48 hours Review of Systems REVIEW OF SYSTEMS: CARDIOPULMONARY: No chest pain or shortness of breath. Gastrointestinal: No abdominal pain, no right upper quadrant or epigastric pain. Currently no nausea or vomiting. No nausea or vomiting. No hematemesis, coffee-ground emesis. No rectal bleeding, or melena. GENITOURINARY: No dysuria or hematuria. MUSCULOSKELETAL: Reports normal range of motion. SKIN: No rashes. No jaundice. ENDOCRINE: No chills, fevers. No excessive weight gain or loss. No polydipsia or polyuria. PSYCHIATRIC: Unremarkable. NEUROLOGY: No change in mental status. Denies dizziness, headache. ENT: Vision unremarkable. CONSTITUTIONAL: Decreased appetite, nausea and vomiting prior to admission, fev er. Past Medical History Past Medical History: Cancer, Deep Vein Thrombosis (DVT) Additional Past Medical History / Comment(s): 12/12/21 L leg superficial DVT/thrombophlemitis/PCP treated for cellulitis, bilateral feet cramping/numbness/L foot worse. pancreatic cancer dx 08/2023 with chemo treatment History of Any Multi-Drug Resistant Organisms: None Reported Past Surgical History: Tonsillectomy Additional Past Surgical History / Comment(s): skin calcification removed from under left arm Past Anesthesia/Blood Transfusion Reactions: No Reported Reaction Past Psychological History: Anxiety, Depression Additional Psychological History / Comment(s): Pt resides alone. She goes to [facility]. She has not been driving, she makes ride arrangement thru [facility]. She manages her own medications. No use of assistive device. Smoking Status: Former smoker Past Alcohol Use History: None Reported Past Drug Use History: None Reported Additional Drug Use History / Comment(s): Pt was using marijuana regularly but quit 2 years ago. - Past Family History Mother Family Medical History: No Reported History Additional Family Medical History / Comment(s): Mother was healthy Father Family Medical History: No Reported History Additional Family Medical History / Comment(s): Father was healthy. Daughter(s) Family Medical History: Deep Vein Thrombosis (DVT) Medications and Allergies Home Medications Medication Instructions Recorded Confirmed Type Apixaban [Eliquis] 5 mg PO BID 10/20/23 11/01/23 History Gemzar 200mg 200 mg IV DIRECTED 10/20/23 11/01/23 History Magnesium Oxide [Magox 400] 400 mg PO DAILY 10/20/23 11/01/23 History OLANZapine [ZyPREXA] 2.5 - 5 mg PO HS 10/20/23 11/01/23 History Ondansetron [Zofran] 4 - 8 mg PO Q4-6H PRN 10/20/23 11/01/23 History PACLitaxeL protein-bound [Abraxane] 1 mg IV DIRECTED 10/20/23 11/01/23 History ursodioL [Ursodiol] 300 mg PO BID 10/20/23 11/01/23 History cefUROXime axetiL [Cefuroxime] 500 mg PO BID 7 Days #14 tab 10/29/23 11/01/23 Rx Nivestym 480 mcg INJ DAILY 11/03/23 11/03/23 History Allergies Allergy/AdvReac Type Severity Reaction Status Date / Time amoxicillin Allergy Rash/Hives Verified 11/01/23 20:04 clavulanic acid Allergy Rash/Hives Verified 11/01/23 20:04 [From Augmentin] Physical Exam Vitals: Vital Signs Temp Pulse Resp BP Pulse Ox 11/04/23 07:08 98.8 F 86 16 108/63 96 11/04/23 01:00 99.5 F 89 16 137/81 91 L 11/03/23 20:00 16 11/03/23 19:30 100.1 F H 94 16 130/75 95 11/03/23 15:35 99 F 11/03/23 12:57 102.4 F H 93 16 122/75 98 Intake and Output 11/03/23 11/04/23 11/04/23 22:59 06:59 14:59 Intake Total 100 Balance 100 Intake: Intake, IV Titration 100 Amount Cefepime 2 gm In Sodium 100 Chloride 0.9% 100 ml @ 25 mls/hr IVPB Q8HR [facility] Rx# :[id number] Other: Voiding Method Toilet # Voids 3 # Bowel Movements 1 General appearance: The patient is alert, oriented, appears in no acute distress. HET: Head is normocephalic and atraumatic. Conjunctiva pink. Sclera anicteric. Neck: Supple without lymphadenopathy. Trachea midline. Heart: Regular. Lungs: Equal expansion, normal respiratory effort. Abdomen: Soft, nontender, nondistended. No guarding or rigidity. Skin: No rashes. No jaundice. Extremities: Normal skin color and turgor. No pedal edema. Neurological: No focal deficits. Alert and oriented x3. Results CBC & Chem 7: 11/04/23 06:52 11/04/23 06:52 Labs: Abnormal Lab Results - Last 24 Hours (Table) 11/03/23 11/03/23 Range/Units 05:56 05:56 WBC 10.33 H (4.50-10.00) X 10*3/uL RBC 2.67 L (4.10-5.20) X 10*6/uL Hgb 9.0 L (12.0-15.0) g/dL Hct 27.1 L (37.2-46.3) % MCV 101.5 H (80.0-97.0) FL MCH 33.7 H (27.0-32.0) pg RDW 17.2 H (11.5-14.5) % Immature Gran # 0.18 H (0.00-0.04) X 10*3/uL Monocytes # 1.50 H (0.20-1.00) X 10*3/uL Basophils # 0.11 H (0.00-0.10) X 10*3/uL Creatinine 0.4 L (0.6-1.5) mg/dL BUN/Creatinine Ratio 28.00 H (12.00-20.00) Ratio Calcium 8.2 L (8.7-10.3) mg/dL Total Bilirubin 2.0 H (0.3-1.2) mg/dL Alkaline Phosphatase 156 H (41-126) U/L C-Reactive Protein 11.20 H (0.00-0.80) mg/dL Total Protein 4.7 L (6.2-8.2) g/dL Albumin 2.8 L (3.8-4.9) g/dL Albumin/Globulin Ratio 1.47 L (1.60-3.17) Ratio Microbiology - Last 24 Hours (Table) 11/01/23 19:40 Blood Culture - Preliminary Blood 11/01/23 19:25 Blood Culture - Preliminary Blood Assessment and Plan (1) Pancreatic cancer Narrative/Plan: 73-year-old female recently diagnosed with pancreatic cancer in August of this year who follows with Dr. Russell and who underwent pancreatic stenting and plan is for Whipple procedure after completing chemotherapy. Patient recently started chemotherapy October 16 for 1 cycle, has had consistently low white blood cell count and fever which was initially thought to be drug fever. Blood cultures currently pending, however are negative. Previous blood cultures were negative as well. Infectious diseases following and question possible cholangitis. MRCP is ordered. Patient has no abdominal pain, LFTs are not elevated, minimal elevation in total bilirubin. Unlikely we are looking at a clinical picture of ascending cholangitis. Await MRCP findings. Continue IV antibiotics per recommendations from infectious disease Current Visit: Yes Status: Acute Code(s): C25.9 - MALIGNANT NEOPLASM OF PANCREAS, UNSPECIFIED SNOMED Code(s): 052601879 (2) Fever Current Visit: Yes Status: Acute Priority: High Code(s): R50.9 - FEVER, UNSPECIFIED SNOMED Code(s): 868903535 Plan: 1. Continue symptomatic and supportive care 2. Continue IV antibiotics per recommendations from infectious disease 3. Await blood cultures 4. Await MRCP results 5. Continue with recommendations from oncology 6. Further recommendations forthcoming based on clinical course. Thank you for this consultation, we will continue to follow. Dr. Kalpesh Ho I agree with the dictator's note, documented as a scribe by Elizabeth Garza.
--- NOTE | 2023-11-05 12:01 | P.PN ---
Subjective Progress Note Date: 11/05/23 Principal diagnosis: Pleasant 73-year-old female with past medical history of DVT/pulmonary embolism unprovoked on Eliquis recently diagnosed with stage IIb pancreatic adenocarcino ma in August 2023. She was started on neoadjuvant chemo which she underwent 1 cycle starting October 16. Patient was following with oncology and was noted to be neutropenic on her second visit. She had cultures that were negative. She was admitted to the hospital on 10/26/2023 for fever and neutropenia and was treated with cefepime and IV vancomycin because of neutropenia. During that time she d id have a CT of the abdomen pelvis on 10/28/2023 which reported a large pancreatic head mass with pancreatic ductal dilation and atrophy compatible with patient's history of known pancreatic cancer. Metallic and common bile duct and pigtail common bile duct stent appear positioned appropriately. Some pneumobilia within the liver. No acute process otherwise seen. She was discharged on 10/29/2023. Last Friday the she went had G-CSF for consistently low WBC. Following the injection she was sick later that evening with nausea vomiting and fever. She was sent back to the emergency department for further evaluation and admission. Patient's max temp has been 101.5 during this admission. Infectious disease was consulted for further antibiotic recommendations. Currently awaiting blood cultures. Gastroenterology was consulted for pancreatic cancer, possible cholangitis. Patient denies any abdominal pain, no nausea or vomiting currently. She is scheduled to undergo MRCP today. Today's labs WBC 7.5 hemoglobin 9.3 hematocrit 28 platelet count 238,000 sodium 134 potassium 3.8 BUN 11.9 creatinine 0.4 total bilirubin 1.9 AST 19 ALT 30 alkaline phosphatase 152. Preliminary blood culture no growth after 48 hours October 19, 2023 Patient seen and examined today as a follow-up. She is standing up and walking in her room. She is without any complaints of any abdominal pain, nausea or vomiting. No further fever. She did undergo MRI of the liver yesterday, which reports constellation of findings concerning for acute cholecystitis with cholelithiasis, gallbladder wall thickening and adjacent inflammation.-year-old wall fluid collection possibly presenting abscess formation. Finding not seen on prior. Pancreatic head mass with upstream dilation of the pancreatic duct. Biliary stent in place with in the common bile duct which limits its evaluation. Today's labs are currently pending. Objective - Vital Signs Vital signs: Vital Signs Temp 99.0 F 11/05/23 01:29 Pulse 84 11/05/23 01:29 Resp 16 11/05/23 01:29 BP 97/58 11/05/23 01:29 Pulse Ox 96 11/05/23 01:29 FiO2 Intake & Output 11/04/23 11/05/23 11/05/23 18:59 06:59 18:59 Intake Total 200 540 Balance 200 540 Intake: Intake, IV Titration 200 300 Amount Cefepime 2 gm In Sodium 200 100 Chloride 0.9% 100 ml @ 25 mls/hr IVPB Q8HR [facility] Rx# :[id number] metroNIDAZOLE-NS PMX 500 100 mg In Saline 1 100ml.bag @ 100 mls/hr IVPB Q8H [facility] Rx#:[id number] metroNIDAZOLE-NS PMX 500 100 mg In Saline 1 100ml.bag @ 100 mls/hr IVPB Q8HR [facility] Rx#:[id number] Oral 240 Other: Voiding Method Toilet # Voids 3 # Bowel Movements 2 - Exam General appearance: The patient is alert, oriented, appears in no acute distress. HET: Head is normocephalic and atraumatic. Conjunctiva pink. Sclera anicteric. Neck: Supple without lymphadenopathy. Abdomen: Soft, nontender, nondistended with bowel sounds. No guarding or rigidity. Extremities: Normal skin color and turgor. No pedal edema Skin: No rashes, no jaundice Neurological: No focal deficits. Alert and oriented. - Labs CBC & Chem 7: 11/04/23 06:52 11/04/23 06:52 Labs: Abnormal Lab Results - Last 24 Hours (Table) 11/04/23 11/04/23 Range/Units 06:52 06:52 RBC 2.77 L (4.10-5.20) X 10*6/uL Hgb 9.3 L (12.0-15.0) g/dL Hct 28.2 L (37.2-46.3) % MCV 101.8 H (80.0-97.0) FL MCH 33.6 H (27.0-32.0) pg RDW 16.9 H (11.5-14.5) % Immature Gran # 0.21 H (0.00-0.04) X 10*3/uL Monocytes # 1.57 H (0.20-1.00) X 10*3/uL Crenated Cell 2+ A Sodium 134 L (135-145) mmol/L Carbon Dioxide 20.9 L (21.6-31.8) mmol/L Creatinine 0.4 L (0.6-1.5) mg/dL BUN/Creatinine Ratio 29.75 H (12.00-20.00) Ratio Calcium 7.9 L (8.7-10.3) mg/dL Total Bilirubin 1.9 H (0.3-1.2) mg/dL Alkaline Phosphatase 152 H (41-126) U/L Total Protein 4.6 L (6.2-8.2) g/dL Albumin 2.7 L (3.8-4.9) g/dL Albumin/Globulin Ratio 1.42 L (1.60-3.17) Ratio Microbiology - Last 24 Hours (Table) 11/01/23 19:40 Blood Culture - Preliminary Blood 11/01/23 19:25 Blood Culture - Preliminary Blood Assessment and Plan (1) Pancreatic cancer Current Visit: Yes Status: Acute Code(s): C25.9 - MALIGNANT NEOPLASM OF PANCREAS, UNSPECIFIED SNOMED Code(s): 182001855 (2) Fever Current Visit: Yes Status: Acute Priority: High Code(s): R50.9 - FEVER, UNSPECIFIED SNOMED Code(s): 705844757 (3) Cholecystitis Narrative/Plan: MRI concerning for cholecystitis. Biliary stent is patent. Cholecystitis can be seen secondary to biliary stent placements. Defer to general surgery. Current Visit: Yes Status: Acute Code(s): K81.9 - CHOLECYSTITIS, UNSPECIFIED SNOMED Code(s): 18371978 Plan: 1. Continue symptomatic and supportive care 2. Liver MRI reviewed, no concerns for biliary stent patency 3. Continue with recommendations from general surgery for cholecystitis 4. Continue with recommendations from oncology 5. No further workup indicated by gastroenterology Thank you for this consultation, we will continue to follow. Dr. Kalpesh Ho I agree with the dictator's note, documented as a scribe by Elizabeth Garaz.
[2023-11-05 12:31] LABS: BUN/Creat Ratio 31.25 Ratio (12.00-20.00); Blood Urea Nitrogen 12.5 mg/dL (9.0-27.0); Chloride 107 mmol/L (96-109); Glucose 75 mg/dL (70-110); Potassium 3.6 mmol/L (3.5-5.5); Sodium 138 mmol/L (135-145)
[2023-11-05 12:32] LABS: ALT 26 U/L (8-44); AST 17 U/L (13-35); Albumin 2.7 g/dL (3.8-4.9); Albumin/Globulin Ratio 1.35 Ratio (1.60-3.17); Alkaline Phosphatase 142 U/L (41-126); Calcium 8.2 mg/dL (8.7-10.3); Carbon Dioxide 21.6 mmol/L (21.6-31.8); Total Bilirubin 1.8 mg/dL (0.3-1.2); Total Protein 4.7 g/dL (6.2-8.2)
[2023-11-05 12:58] LABS: Basophils # (A) 0.07 X 10*3/uL (0.00-0.10); Basophils % (A) 1.1 %; Eosinophils # (A) 0.12 X 10*3/uL (0.04-0.35); Eosinophils % (A) 1.9 %; HCT 27.3 % (37.2-46.3); HGB 8.8 g/dL (12.0-15.0); Lymphocytes # (A) 1.01 X 10*3/uL (0.90-5.00); Lymphocytes % (A) 15.6 %; MCH 32.7 pg (27.0-32.0); MCHC 32.2 g/dL (32.0-37.0); MCV 101.5 FL (80.0-97.0); Mean Platelet Volume 11.5 FL (9.5-12.2); Monocytes # (A) 1.14 X 10*3/uL (0.20-1.00); Monocytes % (A) 17.6 %; NRBC Per 100 WBC 0 X 10*3/uL (0.00-0.01); Neutrophils # (A) 3.93 X 10*3/uL (1.80-7.70); Neutrophils % (A) 60.7 %; Platelet Count 145 X 10*3/uL (140-440); RBC 2.69 X 10*6/uL (4.10-5.20); RBC Morphology Normal (Normal); RDW 17.1 % (11.5-14.5); WBC 6.47 X 10*3/uL (4.50-10.00)
--- NOTE | 2023-11-05 15:04 | P.PN ---
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 Patient currently follows up with Dr. Tellez in the office locally and also Dr. Quinones out of [facility]. She had chemotherapy at Dr. Callahan office on Friday. She reports that over the weekend she is felt febrile on and off and came to the ER for further evaluation. She denies shortness of breath she denies chest pain. Denies cough she has not had any sick contacts. She does report feeling nausea but feels that this may be from the chemotherapy. She has not been having any vomiting or diarrhea. Patient was discharged from the hospital on October 30, 2023 she was admitted for fever and bodyaches and underwent extensive infectious workup which was negative. Chest x-ray on admission shows no acute cardiopulmonary disease. Elevated white blood cell count of 14.7 on admission with a platelet count of 633. Hemoglobin 11.7. She had a lactic acid level of 3.9. Bilirubin AST ALT alk phos are elevated. Her urinalysis is negative for infection. Her viral panel is negative for influenza negative for RSV and negative for COVID. She was admitted to the hospital for a fever of unknown origin this could also be a neutropenic fever. She was placed on empiric antib iotic coverage with a consult placed to ID and oncology. 11/03/2023 Patient is evaluated in follow up today. Patient up ambulating in the room. No acute complaints besides continued fever. Tmax overnight 101.4. Patient does have history of biliary stent discussion with ID there is concerns for cho langitis. Patient remains on IV antibiotics and cultures are currently pending. Due to the continued fever; patient has been recommended to undergo MRCP for further evaluation. ID and oncology following. Next treatment is planned for . Procalcitonin level 0.15. White blood cell count 10.33. Hemoglobin 9.0. Total bilirubin 2.0. AST ALT normal, alk phos 156. CRP 11.20 up from 3.8 11/04/2023 Patient evaluated today resting in bed on the medical floor. She is anxious for discharge as she has treatment scheduled for this upcoming . Patient remains febrile 1001. over night. Continues on IV cefepime with concern for acute cholangitis. ID following and also GI will be consulted. Patient is scheduled to undergo MRCP today. She is not having any nausea, vomiting or diarrhea. Denying abdominal pain. White blood cell count is 7.51, hgb 9.3. Sodium 134, BUN 11.9, creatinine 0.4. Total bilirubin 1.9. alk phos 152. 11/05/2023 Patient is evaluated today resting in bed. She continues to report mild left- sided abdominal discomfort. She is not having any nausea vomiting or diarrhea. Patient underwent MRCP which does show findings of acute cholecystitis with an abdominal wall abscess. General surgery was consulted for further evaluation and recommending to take patient for a cholecystectomy tomorrow 0 08/2023. Patient remains on IV antibiotics in the form of IV cefepime as well as IV Flagyl. Blood work reveals white blood cell count of 6.47, hemoglobin 8.8, sodium 138, BUN of 12.5, creatinine 0.4, total bilirubin of 1.8 AST and ALT are normal. Review of Systems Constitutional: Denied any fatigue Reports fever. Cardio vascular: denied any chest pain, palpitations Gastrointestinal: denied any nausea, vomiting, diarrhea Pulmonary: Denied any shortness of breath cough Neurologic denied any new focal deficits All inpatient medications were reviewed and appropriate changes in these medications as dictated in the interval history and assessment and plan. PHYSICAL EXAMINATION: GENERAL: The patient is alert and oriented x3, not in any acute distress. Well developed, well nourished. HEENT: Pupils are round and equally reacting to light. EOMI. No scleral icterus. No conjunctival pallor. Normocephalic, atraumatic. No pharyngeal erythema. No thyromegaly. CARDIOVASCULAR: S1 and S2 present. No murmurs, rubs, or gallops. PULMONARY: Chest is clear to auscultation, no wheezing or crackles. ABDOMEN: Soft, nontender, nondistended, normoactive bowel sounds. No palpable organomegaly. MUSCULOSKELETAL: No joint swelling or deformity. EXTREMITIES: No cyanosis, clubbing, or pedal edema. NEUROLOGICAL: Gross neurological examination did not reveal any focal deficits. SKIN: No rashes. Assessment and Plan -Fever concern for sepsis patient has lactic acidosis this is due to acute cholecystitis with mural wall fluid collection concerning for abscess formation. -Hx of biliary stent which is found to be patent on MRI and no concern for cholangitis. -Pancreatic adenocarcinoma stage IIb currently undergoing chemotherapy completed cycle 1 day 15 on October 30 -History of DVT/PE anticoagulated with Eliquis which will be continued inpatient -Mild protein calorie malnutrition continue with ensures protein supplementation with meals GI prophylaxis DVT prophylaxis Full code Patient will be continued on empiric antibiotics. ID and oncology consultation in place. Cultures pending. Patient scheduled to undergo laproscopic cholecystectomy in the AM. Eliquis is currently being held. The impression and plan of care has been dictated by Kanika Smith Nurse Practitioner as directed. Dr. Diana MD I have performed a history and physical examination and medical decision making of this patient, discussed the same with the dictator, and agree with the dictators assessment and plan as written, documented as a scribe. Based on total visit time, I have performed more than 50% of this visit. Objective - Vital Signs Vital signs: Vital Signs Temp 98.9 F 11/05/23 12:17 Pulse 86 11/05/23 12:17 Resp 17 11/05/23 12:17 BP 121/69 11/05/23 12:17 Pulse Ox 98 11/05/23 12:17 FiO2 Intake & Output 11/04/23 11/05/23 11/05/23 18:59 06:59 18:59 Intake Total 200 540 Balance 200 540 Intake: Intake, IV Titration 200 300 Amount Cefepime 2 gm In Sodium 200 100 Chloride 0.9% 100 ml @ 25 mls/hr IVPB Q8HR [facility] Rx# :[id number] metroNIDAZOLE-NS PMX 500 100 mg In Saline 1 100ml.bag @ 100 mls/hr IVPB Q8H [facility] Rx#:[id number] metroNIDAZOLE-NS PMX 500 100 mg In Saline 1 100ml.bag @ 100 mls/hr IVPB Q8HR [facility] Rx#:[id number] Oral 240 Other: Voiding Method Toilet # Voids 3 # Bowel Movements 2 - Labs CBC & Chem 7: 11/05/23 06:39 11/05/23 06:39 Labs: Abnormal Lab Results - Last 24 Hours (Table) 11/05/23 11/05/23 Range/Units 06:39 06:39 RBC 2.69 L (4.10-5.20) X 10*6/uL Hgb 8.8 L (12.0-15.0) g/dL Hct 27.3 L (37.2-46.3) % MCV 101.5 H (80.0-97.0) FL MCH 32.7 H (27.0-32.0) pg RDW 17.1 H (11.5-14.5) % Immature Gran # 0.20 H (0.00-0.04) X 10*3/uL Monocytes # 1.14 H (0.20-1.00) X 10*3/uL Creatinine 0.4 L (0.6-1.5) mg/dL BUN/Creatinine Ratio 31.25 H (12.00-20.00) Ratio Calcium 8.2 L (8.7-10.3) mg/dL Total Bilirubin 1.8 H (0.3-1.2) mg/dL Alkaline Phosphatase 142 H (41-126) U/L Total Protein 4.7 L (6.2-8.2) g/dL Albumin 2.7 L (3.8-4.9) g/dL Albumin/Globulin Ratio 1.35 L (1.60-3.17) Ratio Microbiology - Last 24 Hours (Table) 11/01/23 19:40 Blood Culture - Preliminary Blood 11/01/23 19:25 Blood Culture - Preliminary Blood Assessment and Plan Time with Patient: Less than 30
--- NOTE | 2023-11-05 15:04 | P.GSCN ---
History of Present Illness Consult date: 11/05/23 History of present illness: CHIEF COMPLAINT:Fever HISTORY OF PRESENT ILLNESS: This is a 73-year-old female with a known history of pancreatic cancer. Chemotherapy last week she received an injection to help boost her white count on Friday and since then she was having vomiting and fevers. She came into the ER for evaluation for her fevers. Patient does have elevated liver enzymes and bilirubin. White count have been elevated as well. Liver MRI had shown evidence of an acute cholecystitis with gallstones and gallbladder wall thickening with mural wall fluid collection possible abscess. Patient has a known pancreatic head mass with biliary stents. Patient is mildly tachycardic. With low-grade temps. She is on antibiotics. Surgical service consulted for acute cholecystitis and possible gallbladder wall abscess. Patient reports that she is scheduled with [facility] for eventual Whipple surgery for pancreatic cancer after she completes chemotherapy treatment. PAST MEDICAL HISTORY: Pancreatic cancer, DVT PAST SURGICAL HISTORY: Biliary stents. Tonsillectomy MEDICATIONS: See below ALLERGIES: See below SOCIAL HISTORY: No illicit drug use. REVIEW OF SYSTEMS: CONSTITUTIONAL: Denies fever or chills. HEENT: Denies blurred vision, vision changes, or eye pain. Denies hemoptysis CARDIOVASCULAR: Denies chest pain or pressure. RESPIRATORY: No shortness of breath. GASTROINTESTINAL: See HPI for pertinent findings HEMATOLOGIC: Denies bleeding disorders. GENITOURINARY: Denies any blood in urine or increased urinary frequency. SKIN: Denies pruitis. Denies rash. PHYSICAL EXAM: VITAL SIGNS: Reviewed GENERAL: Well-developed in no acute distress. HEENT: sclera icterus. Extraocular movements grossly intact. Moist buccal mu cosa. Head is atraumatic, normocephalic. No nasal drainage. ABDOMEN: Soft. Nondistended. Nontender NEUROLOGIC: Alert and oriented. Cranial nerves II through XII grossly intact. LABORATORY DATA: WBC down from 13-6.47 Hgb 8.8 platelets 145 Sodium is 1 3 potassium 3.6 creatinine 0.4 Total bilirubin 2 down to 1.8 AST 17 ALT 26 alk phos 142 IMAGING: Reviewed MRI reports constellation of findings concerning for acute cholecystitis with cholelithiasis, gallbladder wall thickening and adjacent inflammation. There is mural wall fluid collection possibly representing abscess formation. Pancreatic head mass with upstream dilation of the pancreatic duct. Biliary stent in place within the common bile duct ASSESSMENT: 1. Acute cholecystitis with cholelithiasis gallbladder wall thickening and mural wall fluid collection with concerns of possible abscess noted on liver MRI 2. Pancreatic cancer with biliary stents PLAN: -Patient scheduled for laparoscopic cholecystectomy tomorrow with Dr. Arita -N.p.o. after midnight -Repeat labs in a.m. -Hold Eliquis. Last dose this morning -Continue antibiotics -Continue supportive care Physician Tub Washer note has been reviewed by physician. Signing provider agrees with the documented findings, assessment, and plan of care. Past Medical History Past Medical History: Cancer, Deep Vein Thrombosis (DVT) Additional Past Medical History / Comment(s): 12/12/21 L leg superficial DVT/thrombophlemitis/PCP treated for cellulitis, bilateral feet cramping/numbness/L foot worse. pancreatic cancer dx 08/2023 with chemo treatment History of Any Multi-Drug Resistant Organisms: None Reported Past Surgical History: Tonsillectomy Additional Past Surgical History / Comment(s): skin calcification removed from u nder left arm Past Anesthesia/Blood Transfusion Reactions: No Reported Reaction Past Psychological History: Anxiety, Depression Additional Psychological History / Comment(s): Pt resides alone. She goes to [facility]. She has not been driving, she makes ride arrangement thru [facility]. She manages her own medications. No use of assistive device. Smoking Status: Former smoker Past Alcohol Use History: None Reported Past Drug Use History: None Reported Additional Drug Use History / Comment(s): Pt was using marijuana regularly but q uit 2 years ago. - Past Family History Mother Family Medical History: No Reported History Additional Family Medical History / Comment(s): Mother was healthy Father Family Medical History: No Reported History Additional Family Medical History / Comment(s): Father was healthy. Daughter(s) Family Medical History: Deep Vein Thrombosis (DVT) Medications and Allergies Home Medications Medication Instructions Recorded Confirmed Type Apixaban [Eliquis] 5 mg PO BID 10/20/23 11/01/23 History Gemzar 200mg 200 mg IV DIRECTED 10/20/23 11/01/23 History Magnesium Oxide [Magox 400] 400 mg PO DAILY 10/20/23 11/01/23 History OLANZapine [ZyPREXA] 2.5 - 5 mg PO HS 10/20/23 11/01/23 History Ondansetron [Zofran] 4 - 8 mg PO Q4-6H PRN 10/20/23 11/01/23 History PACLitaxeL protein-bound [Abraxane] 1 mg IV DIRECTED 10/20/23 11/01/23 History ursodioL [Ursodiol] 300 mg PO BID 10/20/23 11/01/23 History cefUROXime axetiL [Cefuroxime] 500 mg PO BID 7 Days #14 tab 10/29/23 11/01/23 Rx Nivestym 480 mcg INJ DAILY 11/03/23 11/03/23 History Allergies Allergy/AdvReac Type Severity Reaction Status Date / Time amoxicillin Allergy Rash/Hives Verified 11/01/23 20:04 clavulanic acid Allergy Rash/Hives Verified 11/01/23 20:04 [From Augmentin] Surgical - Exam Vital Signs Temp Pulse Resp BP Pulse Ox 100.5 F H 117 H 20 143/75 100 11/01/23 16:58 11/01/23 16:58 11/01/23 16:58 11/01/23 16:58 11/01/23 16:58 Results - Labs 11/05/23 06:39 11/05/23 06:39 Abnormal Lab Results - Last 24 Hours (Table) 11/04/23 11/04/23 Range/Units 06:52 06:52 RBC 2.77 L (4.10-5.20) X 10*6/uL Hgb 9.3 L (12.0-15.0) g/dL Hct 28.2 L (37.2-46.3) % MCV 101.8 H (80.0-97.0) FL MCH 33.6 H (27.0-32.0) pg RDW 16.9 H (11.5-14.5) % Immature Gran # 0.21 H (0.00-0.04) X 10*3/uL Monocytes # 1.57 H (0.20-1.00) X 10*3/uL Crenated Cell 2+ A Sodium 134 L (135-145) mmol/L Carbon Dioxide 20.9 L (21.6-31.8) mmol/L Creatinine 0.4 L (0.6-1.5) mg/dL BUN/Creatinine Ratio 29.75 H (12.00-20.00) Ratio Calcium 7.9 L (8.7-10.3) mg/dL Total Bilirubin 1.9 H (0.3-1.2) mg/dL Alkaline Phosphatase 152 H (41-126) U/L Total Protein 4.6 L (6.2-8.2) g/dL Albumin 2.7 L (3.8-4.9) g/dL Albumin/Globulin Ratio 1.42 L (1.60-3.17) Ratio Microbiology - Last 24 Hours (Table) 11/01/23 19:40 Blood Culture - Preliminary Blood 11/01/23 19:25 Blood Culture - Preliminary Blood Diabetes panel 11/04/23 Range/Units 06:52 Sodium 134 L (135-145) mmol/L Potassium 3.8 (3.5-5.5) mmol/L Chloride 104 (96-109) mmol/L Carbon Dioxide 20.9 L (21.6-31.8) mmol/L BUN 11.9 (9.0-27.0) mg/dL Creatinine 0.4 L (0.6-1.5) mg/dL Glucose 80 (70-110) mg/dL Calcium 7.9 L (8.7-10.3) mg/dL AST 19 (13-35) U/L ALT 30 (8-44) U/L Alkaline Phosphatase 152 H (41-126) U/L Total Protein 4.6 L (6.2-8.2) g/dL Albumin 2.7 L (3.8-4.9) g/dL Calcium panel 11/04/23 Range/Units 06:52 Calcium 7.9 L (8.7-10.3) mg/dL Albumin 2.7 L (3.8-4.9) g/dL Pituitary panel 11/04/23 Range/Units 06:52 Sodium 134 L (135-145) mmol/L Potassium 3.8 (3.5-5.5) mmol/L Chloride 104 (96-109) mmol/L Carbon Dioxide 20.9 L (21.6-31.8) mmol/L BUN 11.9 (9.0-27.0) mg/dL Creatinine 0.4 L (0.6-1.5) mg/dL Glucose 80 (70-110) mg/dL Calcium 7.9 L (8.7-10.3) mg/dL Adrenal panel 11/04/23 Range/Units 06:52 Sodium 134 L (135-145) mmol/L Potassium 3.8 (3.5-5.5) mmol/L Chloride 104 (96-109) mmol/L Carbon Dioxide 20.9 L (21.6-31.8) mmol/L BUN 11.9 (9.0-27.0) mg/dL Creatinine 0.4 L (0.6-1.5) mg/dL Glucose 80 (70-110) mg/dL Calcium 7.9 L (8.7-10.3) mg/dL Total Bilirubin 1.9 H (0.3-1.2) mg/dL AST 19 (13-35) U/L ALT 30 (8-44) U/L Alkaline Phosphatase 152 H (41-126) U/L Total Protein 4.6 L (6.2-8.2) g/dL Albumin 2.7 L (3.8-4.9) g/dL
--- NOTE | 2023-11-05 16:09 | P.PN ---
Subjective Progress Note Date: 11/05/23 Principal diagnosis: fever, pancreatic adenocarcinoma In follow-up today patient reports improvement in nausea and vomiting, no stomach c/o today, feels more alter and stronger today. Tmax 100.1F overnight. Objective - Vital Signs Vital signs: Vital Signs Temp 98.9 F 11/05/23 12:17 Pulse 86 11/05/23 12:17 Resp 17 11/05/23 12:17 BP 121/69 11/05/23 12:17 Pulse Ox 98 11/05/23 12:17 FiO2 Intake & Output 11/04/23 11/05/23 11/05/23 18:59 06:59 18:59 Intake Total 200 540 Balance 200 540 Intake: Intake, IV Titration 200 300 Amount Cefepime 2 gm In Sodium 200 100 Chloride 0.9% 100 ml @ 25 mls/hr IVPB Q8HR [facility] Rx# :[id number] metroNIDAZOLE-NS PMX 500 100 mg In Saline 1 100ml.bag @ 100 mls/hr IVPB Q8H [facility] Rx#:[id number] metroNIDAZOLE-NS PMX 500 100 mg In Saline 1 100ml.bag @ 100 mls/hr IVPB Q8HR [facility] Rx#:[id number] Oral 240 Other: Voiding Method Toilet # Voids 3 # Bowel Movements 2 - Constitutional General appearance: Present: average body habitus, cooperative, no acute distres s - EENT Eyes: Present: EOMI, scleral icterus (very mild) ENT: Present: hearing grossly normal - Respiratory Details: resp even and unlabored - Cardiovascular Details: skin warm and dry, radial pulse 2+ - Peripheral edema leg Peripheral Edema: bilateral: None - Neurologic Neurologic: Present: CNII-XII intact - Musculoskeletal Musculoskeletal: Present: strength equal bilaterally - Psychiatric Psychiatric: Present: A&O x's 3, appropriate affect, intact judgment & insight - Labs CBC & Chem 7: 11/05/23 06:39 11/05/23 06:39 Labs: Abnormal Lab Results - Last 24 Hours (Table) 11/05/23 11/05/23 Range/Units 06:39 06:39 RBC 2.69 L (4.10-5.20) X 10*6/uL Hgb 8.8 L (12.0-15.0) g/dL Hct 27.3 L (37.2-46.3) % MCV 101.5 H (80.0-97.0) FL MCH 32.7 H (27.0-32.0) pg RDW 17.1 H (11.5-14.5) % Immature Gran # 0.20 H (0.00-0.04) X 10*3/uL Monocytes # 1.14 H (0.20-1.00) X 10*3/uL Creatinine 0.4 L (0.6-1.5) mg/dL BUN/Creatinine Ratio 31.25 H (12.00-20.00) Ratio Calcium 8.2 L (8.7-10.3) mg/dL Total Bilirubin 1.8 H (0.3-1.2) mg/dL Alkaline Phosphatase 142 H (41-126) U/L Total Protein 4.7 L (6.2-8.2) g/dL Albumin 2.7 L (3.8-4.9) g/dL Albumin/Globulin Ratio 1.35 L (1.60-3.17) Ratio Microbiology - Last 24 Hours (Table) 11/01/23 19:40 Blood Culture - Preliminary Blood 11/01/23 19:25 Blood Culture - Preliminary Blood - Imaging and Cardiology MRCP image and results reviewed Assessment and Plan (1) Fever Current Visit: Yes Status: Acute Priority: High Code(s): R50.9 - FEVER, UNSPECIFIED SNOMED Code(s): 040430700 (2) Pancreatic adenocarcinoma Current Visit: No Status: Acute Priority: Medium Code(s): C25.9 - MALIGNANT NEOPLASM OF PANCREAS, UNSPECIFIED SNOMED Code(s): 971705285 Plan: Fever -100.3F overnight -MRCP impression was findings concerning for acute cholecystitis and cholelithiasis, gallbladder wall thickening with adjacent inflammation. Mural wall fluid collection possibly an abscess, pancreatic head mass with upstream dilation of the pancreatic duct biliary stent in place which limits evaluation -Case discussed with surgeon. Did review with the Surgeon that patient has estes creatic adenocarcinoma, treatment intent is neoadjuvant, with hopes for Whipple procedure in the near future for cure. Would like to be aggressive in management. -Reviewed Infectious Disease notes. Awaiting final blood cultures before making final recommendations as to outpatient treatment for persistent fevers. Pancultures pending, empiric antibiotics cont. Pancreatic adenocarcinoma -Neoadjuvant treatment. This is patient's third admit in the last 3 weeks. She has only received cycle 1, day 1 of neoadjuvant treatment. -Received G-CSF on Friday for persistent low WBC post chemo. -WBC is 6.4 today-in normal range s/p 1 dose of short acting GCSF given on 10/30. No additional GCSF at this time. -Plan is to change frequency of treatment to every other week instead of 3 weeks in a row. Possibly addition of G-CSF. -Pending surgery. Based on complexity of surgery, healing time and any antibiotic therapy, this will determine when treatment resumes. Doctor attests: I performed a history and physical examination of this patient, developed impression and plan of care. Discussed with dictator. I agree with dictators note, documented as a scribe.
--- NOTE | 2023-11-05 23:46 | P.PN ---
Subjective Progress Note Date: 11/05/23 Principal diagnosis: Reason for follow-up is fever Patient is a 73-year-old female with a past medical history significant for stage IIb pancreatic adenocarcinoma for the patient has been started on neoadjuvant chemotherapy did receive her first cycle patient subsequently was admitted to the hospital last week for fever patient did have extensive workup including a CT of abdominal pelvis CT shows pancreatic head mass no evidence of any abscess patient blood culture negative, patient discharged on oral Ceftin presenting back to hospital with a fever noticed to have elevated white count elevated lactic acid. On today's evaluation that is 11/05/2023,the patient did have improvement in her fever pattern last temperature has been 100.3 last evening and afebrile this morning, patient is breathing comfortably on room air, the patient denies chest pain shortness of breath and no significant cough, patient denies abdominal pain, no nausea vomiting or diarrhea. Patient white count normalized to 6.47 creatinine 0.4, MRI of the liver suspicious for acute cholecystitis and concerning for small abscess Objective - Vital Signs Vital signs: Vital Signs Temp 98.6 F 11/05/23 07:46 Pulse 81 11/05/23 07:46 Resp 18 11/05/23 07:46 BP 107/65 11/05/23 07:46 Pulse Ox 96 11/05/23 07:46 FiO2 Intake & Output 11/04/23 11/05/23 11/05/23 18:59 06:59 18:59 Intake Total 200 540 Balance 200 540 Intake: Intake, IV Titration 200 300 Amount Cefepime 2 gm In Sodium 200 100 Chloride 0.9% 100 ml @ 25 mls/hr IVPB Q8HR [facility] Rx# :[id number] metroNIDAZOLE-NS PMX 500 100 mg In Saline 1 100ml.bag @ 100 mls/hr IVPB Q8H [facility] Rx#:[id number] metroNIDAZOLE-NS PMX 500 100 mg In Saline 1 100ml.bag @ 100 mls/hr IVPB Q8HR [facility] Rx#:[id number] Oral 240 Other: Voiding Method Toilet # Voids 3 # Bowel Movements 2 - Exam GENERAL DESCRIPTION: An elderly female lying in bed in no distress RESPIRATORY SYSTEM: Unlabored breathing , decreased breath sounds at bases HEART: S1 S2 regular rate and rhythm , ABDOMEN: Soft , no tenderness EXTREMITIES: No edema feet - Labs CBC & Chem 7: 11/05/23 06:39 03/20/24 06:39 Labs: Abnormal Lab Results - Last 24 Hours (Table) 11/05/23 Range/Units 06:39 Creatinine 0.4 L (0.6-1.5) mg/dL BUN/Creatinine Ratio 31.25 H (12.00-20.00) Ratio Calcium 8.2 L (8.7-10.3) mg/dL Total Bilirubin 1.8 H (0.3-1.2) mg/dL Alkaline Phosphatase 142 H (41-126) U/L Total Protein 4.7 L (6.2-8.2) g/dL Albumin 2.7 L (3.8-4.9) g/dL Albumin/Globulin Ratio 1.35 L (1.60-3.17) Ratio Microbiology - Last 24 Hours (Table) 11/01/23 19:40 Blood Culture - Preliminary Blood 11/01/23 19:25 Blood Culture - Preliminary Blood Assessment and Plan (1) Fever Current Visit: Yes Status: Acute Priority: High Code(s): R50.9 - FEVER, UNSPECIFIED SNOMED Code(s): 047518593 (2) Cholecystitis Current Visit: Yes Status: Acute Code(s): K81.9 - CHOLECYSTITIS, UNSPECIFIED SNOMED Code(s): 25044095 Plan: 1patient presented hospital with fever and this patient with a history of stage IIb pancreatic adenocarcinoma with recent mission to hospital severe symptoms patient fever did respond to cefepime cultures were negative CT was suggestive of pancreatic head tumor patient currently do have evidence of jaundice elevated liver enzymes elevated white count concerning for possible cholangitis failing outpatient oral Ceftin therapy 2- patient did have elevated CRP and a procalcitonin level, blood culture for negative 3-patient MRI has been suggestive of cholecystitis and concern for possible abscess General surgery has been consulted, patient to continue with cefepime 2 g every 8 hours along with Flagyl and monitor clinical course closely Dictation was produced using [employer] dictation software. please excuse any grammatical, word or spelling errors. Time with Patient: Less than 30
[2023-11-06 08:32] LABS: Basophils # (A) 0.08 X 10*3/uL (0.00-0.10); Basophils % (A) 1.6 %; Eosinophils # (A) 0.19 X 10*3/uL (0.04-0.35); Eosinophils % (A) 3.8 %; HCT 28.2 % (37.2-46.3); HGB 9.4 g/dL (12.0-15.0); Lymphocytes # (A) 1.43 X 10*3/uL (0.90-5.00); Lymphocytes % (A) 28.8 %; MCH 32.9 pg (27.0-32.0); MCHC 33.3 g/dL (32.0-37.0); MCV 98.6 FL (80.0-97.0); Mean Platelet Volume 11.7 FL (9.5-12.2); Monocytes # (A) 0.69 X 10*3/uL (0.20-1.00); Monocytes % (A) 13.9 %; NRBC Per 100 WBC 0 X 10*3/uL (0.00-0.01); Neutrophils # (A) 2.36 X 10*3/uL (1.80-7.70); Neutrophils % (A) 47.7 %; Platelet Count 144 X 10*3/uL (140-440); RBC 2.86 X 10*6/uL (4.10-5.20); RDW 16.6 % (11.5-14.5); WBC 4.96 X 10*3/uL (4.50-10.00)
[2023-11-06 08:54] LABS: ALT 24 U/L (8-44); AST 21 U/L (13-35); Albumin 2.7 g/dL (3.8-4.9); Albumin/Globulin Ratio 1.29 Ratio (1.60-3.17); Alkaline Phosphatase 137 U/L (41-126); BUN/Creat Ratio 24.25 Ratio (12.00-20.00); Blood Urea Nitrogen 9.7 mg/dL (9.0-27.0); Carbon Dioxide 22.3 mmol/L (21.6-31.8); Chloride 105 mmol/L (96-109); Globulin 2.1 g/dL (1.6-3.3); Glucose 84 mg/dL (70-110); Potassium 3.4 mmol/L (3.5-5.5); Sodium 137 mmol/L (135-145); Total Bilirubin 1.6 mg/dL (0.3-1.2); Total Protein 4.8 g/dL (6.2-8.2)
[2023-11-06] MEDS: POTASSIUM CHLORIDE ER 20 MEQ TAB.ER PO ONE ×2 (09:57→16:03)
[2023-11-06] MEDS: SODIUM CHLORIDE 0.9% 1,000 ML IV SCH (10:13)
[2023-11-06] MEDS: IV FLUID CONTINUATION 1,000 ML IV ONE ×2 (10:45→14:30)
[2023-11-06 11:09] LABS: Glucose,Whole Blood 82 mg/dL (70-110)
[2023-11-06] MEDS: ONDANSETRON 4 MG/2 ML VIAL IVP ONE (11:14)
[2023-11-06] MEDS: DEXAMETHASONE SOD PHOSPHATE 4 MG/ML 1 ML VIAL IV ONE (11:14)
[2023-11-06] MEDS: BUPIVACAINE (PF) 0.25% 30 ML VIAL SQ ONE (12:15)
[2023-11-06] MEDS ORDERED: ONDANSETRON 4 MG/2 ML VIAL IVP PRN (13:06)
--- NOTE | 2023-11-06 13:06 | P.OP ---
Date of Procedure: 11/06/23 Preoperative Diagnosis: Laparoscopic cholecystectomy Postoperative Diagnosis: Laparoscopic cholecystectomy Procedure(s) Performed: Severe cholecystitis Cholelithiasis Hydropic gallbladder Anesthesia: ALISHA Surgeon: Avinash Arita Estimated Blood Loss (ml): 25 Pathology: other (Gallbladder) Condition: stable Disposition: PACU Description of Procedure: The patient was placed on the operating table. The patient received a general endotracheal tube anesthesia. The patients abdomen was prepped and draped in the usual sterile fashion. Through an infraumbilical stab incision, the fascia of the anterior abdominal wall was grasped with a pair of Kochers and then the Veress needle was placed in the peritoneal cavity. Position of the Veress needle was confirmed with positive drop test. The abdomen was then insufflated. After adequate insufflation, the 10 mm trocar was placed in the peritoneal cavity. Following this the laparoscope was placed in the peritoneal cavity. The patient was placed in the head-up, right side up position and then a 5 mm trocar was placed in the right lateral and right subcostal position under direct visualization. A 8 mm trocar was placed in the epigastric position. The gallbladder was grasped in the fundus and infundib ulum. Traction on the gallbladder was placed in the lateral and the cephalad positions. The triangle of Calot was visualized.. The cystic duct was bluntly dissected until the union of the cystic duct and common bile duct was seen. A critical view of safety was achieved. The cystic duct was then divided and sealed with the Harmonic scissors. A PDS Endoloop was then placed throughout the cystic duct stump. The cystic artery divided and sealed with the Harmonic scissors. The gallbladder was then removed from the liver bed using Harmonic scissors. The gallbladder was then extracted through the epigastric port site. Operative field was checked for any bleeding spots and Harmonic scissors was used to coagulate the liver bed. The abdomen was irrigated. The trocars were removed. The skin was closed using interrupted 3-0 Vicryl suture. Dermabond dressing were applied. The patient tolerated the procedure well.
[2023-11-06] MEDS: HYDROmorphone 0.5 MG/0.5 ML SYRINGE IVP PRN (13:32)
--- NOTE | 2023-11-06 15:25 | P.PN ---
Subjective Progress Note Date: 11/06/23 Principal diagnosis: Reason for follow-up is fever Patient is a 73-year-old female with a past medical history significant for stage IIb pancreatic adenocarcinoma for the patient has been started on neoadjuvant chemotherapy did receive her first cycle patient subsequently was admitted to the hospital last week for fever patient did have extensive workup including a CT of abdominal pelvis CT shows pancreatic head mass no evidence of any abscess patient blood culture negative, patient discharged on oral Ceftin presenting back to hospital with a fever noticed to have elevated white count elevated lactic acid.patient did have MRI of her primary suspicious for acute cholecystitis and possible abscess, patient is status post laparoscopic cholecystectomy completed 11/06/2023. On today's visit that is 11/06/2023,the patient did have low-grade fever of 99.8 at 2 AM the patient is afebrile since then, patient is on room air not requiring supplemental oxygen and denies any shortness of breath no chest pain or cough.Patient denies having any nausea or vomiting, has been complaints of abdominal pain postsurgery. Patient white count is 4.86, creatinine 0.4 blood cultures so far negative Objective - Vital Signs Vital signs: Vital Signs Temp 97.0 F L 11/06/23 13:15 Pulse 66 11/06/23 14:30 Resp 16 11/06/23 14:30 BP 119/68 11/06/23 14:30 Pulse Ox 96 11/06/23 14:30 FiO2 Intake & Output 11/05/23 11/06/23 11/06/23 18:59 06:59 18:59 Intake Total 1620 900 Output Total 25 Balance 1620 875 Intake: IV 900 Oral 1620 Output: Estimated Blood Loss 25 Other: Voiding Method Toilet Toilet # Voids 2 - Exam GENERAL DESCRIPTION: An elderly female lying in bed in no distress RESPIRATORY SYSTEM: Unlabored breathing , decreased breath sounds at bases HEART: S1 S2 regular rate and rhythm , ABDOMEN: Soft , no tenderness EXTREMITIES: No edema feet - Labs CBC & Chem 7: 11/06/23 05:23 11/06/23 05:23 Labs: Abnormal Lab Results - Last 24 Hours (Table) 11/06/23 11/06/23 Range/Units 05:23 05:23 RBC 2.86 L (4.10-5.20) X 10*6/uL Hgb 9.4 L (12.0-15.0) g/dL Hct 28.2 L (37.2-46.3) % MCV 98.6 H (80.0-97.0) FL MCH 32.9 H (27.0-32.0) pg RDW 16.6 H (11.5-14.5) % Immature Gran # 0.21 H (0.00-0.04) X 10*3/uL Potassium 3.4 L (3.5-5.5) mmol/L Creatinine 0.4 L (0.6-1.5) mg/dL BUN/Creatinine Ratio 24.25 H (12.00-20.00) Ratio Calcium 8.0 L (8.7-10.3) mg/dL Total Bilirubin 1.6 H (0.3-1.2) mg/dL Alkaline Phosphatase 137 H (41-126) U/L Total Protein 4.8 L (6.2-8.2) g/dL Albumin 2.7 L (3.8-4.9) g/dL Albumin/Globulin Ratio 1.29 L (1.60-3.17) Ratio Assessment and Plan (1) Fever Current Visit: Yes Status: Acute Priority: High Code(s): R50.9 - FEVER, UNSPECIFIED SNOMED Code(s): 243105962 (2) Cholecystitis Current Visit: Yes Status: Acute Code(s): K81.9 - CHOLECYSTITIS, UNSPECIFIED SNOMED Code(s): 00807297 Plan: 1patient presented hospital with fever and this patient with a history of stage IIb pancreatic adenocarcinoma with recent mission to hospital severe symptoms patient fever did respond to cefepime cultures were negative CT was suggestive of pancreatic head tumor patient currently do have evidence of jaundice elevated liver enzymes elevated white count concerning for possible cholangitis failing outpatient oral Ceftin therapy 2- patient did have elevated CRP and a procalcitonin level, blood culture for negative 3-patient MRI has been suggestive of cholecystitis and concern for possible abscess General surgery has been consulted, patient is status post laparoscopic cholecystectomy operative report did not mention any abscess, 4-patient to continue with cefepime 2 g every 8 hours along with Flagyl and monitor clinical course closely Dictation was produced using [employer] dictation software. please excuse any grammatical, word or spelling errors. Time with Patient: Less than 30
--- NOTE | 2023-11-06 15:38 | P.PN ---
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 She was started on neoadjuvant chemo which she underwent 1 cycle starting October 16. Patient was following with oncology and was noted to be neutropenic on her second visit. She had cultures that were negative. She was admitted to the hospital on 10/26/2023 for fever and neutropenia and was treated with cefepime and IV vancomycin because of neutropenia. During that time she d id have a CT of the abdomen pelvis on 10/28/2023 which reported a large pancreatic head mass with pancreatic ductal dilation and atrophy compatible with patient's history of known pancreatic cancer. Metallic and common bile duct and pigtail common bile duct stent appear positioned appropriately. Some pneumobilia within the liver. No acute process otherwise seen. She was discharged on 10/29/2023. Last Friday the she went had G-CSF for consistently low WBC. Following the injection she was sick later that evening with nausea vomiting and fever. She was sent back to the emergency department for further evaluation and admission. Patient's max temp has been 101.5 during this admission. Infectious disease was consulted for further antibiotic recommendations. Currently awaiting blood cultures. Gastroenterology was consulted for pancreatic cancer, possible cholangitis. Patient denies any abdominal pain, no nausea or vomiting currently. She is scheduled to undergo MRCP today. Today's labs WBC 7.5 hemoglobin 9.3 hematocrit 28 platelet count 238,000 sodium 134 potassium 3.8 BUN 11.9 creatinine 0.4 total bilirubin 1.9 AST 19 ALT 30 alkaline phosphatase 152. Preliminary blood culture no growth after 48 hours October 19, 2023 Patient seen and examined today as a follow-up. She is standing up and walking in her room. She is without any complaints of any abdominal pain, nausea or vomiting. No further fever. She did undergo MRI of the liver yesterday, which reports constellation of findings concerning for acute cholecystitis with cholelithiasis, gallbladder wall thickening and adjacent inflammation.-year-old wall fluid collection possibly presenting abscess formation. Finding not seen on prior. Pancreatic head mass with upstream dilation of the pancreatic duct. Biliary stent in place with in the common bile duct which limits its evaluation. Today's labs are currently pending. 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 She was started on neoadjuvant chemo which she underwent 1 cycle starting October 16. Patient was following with oncology and was noted to be neutropenic on her second visit. She had cultures that were negat charly. She was admitted to the hospital on 10/26/2023 for fever and neutropenia and was treated with cefepime and IV vancomycin because of neutropenia. During that time she did have a CT of the abdomen pelvis on 10/28/2023 which reported a large pancreatic head mass with pancreatic ductal dilation and atrophy compatible with patient's history of known pancreatic cancer. Metallic and common bile duct and pigtail common bile duct stent appear positioned appropriately. Some pneumobilia within the liver. No acute process otherwise seen. She was discharged on 10/29/2023. Last Friday the she went had G-CSF for consistently low WBC. Following the injection she was sick later that evening with nausea vomiting and fever. She was sent back to the emergency department for further evaluation and admission. Patient's max temp has been 101.5 during this admission. Infectious disease was consulted for further antibiotic recommendations. Currently awaiting blood cultures. Gastroenterology was consulted for pancreatic cancer, possible cholangitis. Patient denies any abdominal pain, no nausea or vomiting currently. She is scheduled to undergo MRCP today. Today's labs WBC 7.5 hemoglobin 9.3 hematocrit 28 platelet count 238,000 sodium 134 potassium 3.8 BUN 11.9 creatinine 0.4 total bilirubin 1.9 AST 19 ALT 30 alkaline phosphatase 152. Preliminary blood culture no growth after 48 hours 11/05/2023 Patient seen and examined today as a follow-up. She is standing up and walking in her room. She is without any complaints of any abdominal pain, nausea or vomiting. No further fever. She did undergo MRI of the liver yesterday, which reports constellation of findings concerning for acute cholecystitis with cholelithiasis, gallbladder wall thickening and adjacent inflammation.-year-old wall fluid collection possibly presenting abscess formation. Finding not seen on prior. Pancreatic head mass with upstream dilation of the pancreatic duct. Biliary stent in place with in the common bile duct which limits its evaluation. Today's labs are currently pending. 11/06/2023 Patient seen and examined today as a follow-up. She is scheduled for laparoscopic cholecystectomy today. She denies any abdominal pain, no nausea or vomiting. She had a low-grade fever in the middle of the night of 99.8. She remains on IV antibiotics. BBC 4.9 hemoglobin 9.4 platelet count 144,000 total bilirubin 1.6 AST 21 ALT 24 alkaline phosphatase 137 Objective - Vital Signs Vital signs: Vital Signs Temp 98.2 F 11/06/23 08:43 Pulse 73 11/06/23 08:43 Resp 17 11/06/23 08:43 BP 106/67 11/06/23 08:43 Pulse Ox 98 11/06/23 08:43 FiO2 Intake & Output 11/05/23 11/06/23 11/06/23 18:59 06:59 18:59 Intake Total 1620 Balance 1620 Intake: Oral 1620 Other: Voiding Method Toilet # Voids 2 - Exam General appearance: The patient is alert, oriented, appears in no acute distress. HET: Head is normocephalic and atraumatic. Conjunctiva pink. Sclera anicteric. Neck: Supple without lymphadenopathy. Abdomen: Soft, nontender, nondistended with bowel sounds. No guarding or rigidity. Extremities: Normal skin color and turgor. No pedal edema Skin: No rashes, no jaundice Neurological: No focal deficits. Alert and oriented. - Labs CBC & Chem 7: 11/06/23 05:23 11/06/23 05:23 Labs: Abnormal Lab Results - Last 24 Hours (Table) 11/05/23 11/05/23 11/06/23 Range/Units 06:39 06:39 05:23 RBC 2.69 L 2.86 L (4.10-5.20) X 10*6/uL Hgb 8.8 L 9.4 L (12.0-15.0) g/dL Hct 27.3 L 28.2 L (37.2-46.3) % MCV 101.5 H 98.6 H (80.0-97.0) FL MCH 32.7 H 32.9 H (27.0-32.0) pg RDW 17.1 H 16.6 H (11.5-14.5) % Immature Gran # 0.20 H 0.21 H (0.00-0.04) X 10*3/uL Monocytes # 1.14 H (0.20-1.00) X 10*3/uL Potassium (3.5-5.5) mmol/L Creatinine 0.4 L (0.6-1.5) mg/dL BUN/Creatinine Ratio 31.25 H (12.00-20.00) Ratio Calcium 8.2 L (8.7-10.3) mg/dL Total Bilirubin 1.8 H (0.3-1.2) mg/dL Alkaline Phosphatase 142 H (41-126) U/L Total Protein 4.7 L (6.2-8.2) g/dL Albumin 2.7 L (3.8-4.9) g/dL Albumin/Globulin Ratio 1.35 L (1.60-3.17) Ratio // Range/Units 05:23 RBC (4.10-5.20) X 10*6/uL Hgb (12.0-15.0) g/dL Hct (37.2-46.3) % MCV (80.0-97.0) FL MCH (27.0-32.0) pg RDW (11.5-14.5) % Immature Gran # (0.00-0.04) X 10*3/uL Monocytes # (0.20-1.00) X 10*3/uL Potassium 3.4 L (3.5-5.5) mmol/L Creatinine 0.4 L (0.6-1.5) mg/dL BUN/Creatinine Ratio 24.25 H (12.00-20.00) Ratio Calcium 8.0 L (8.7-10.3) mg/dL Total Bilirubin 1.6 H (0.3-1.2) mg/dL Alkaline Phosphatase 137 H (41-126) U/L Total Protein 4.8 L (6.2-8.2) g/dL Albumin 2.7 L (3.8-4.9) g/dL Albumin/Globulin Ratio 1.29 L (1.60-3.17) Ratio Assessment and Plan (1) Pancreatic cancer Narrative/Plan: 73-year-old female recently diagnosed with pancreatic cancer in August of this year who follows with Dr. Russell and [facility] who underwent pancreatic stenting and plan is for Whipple procedure after completing chemotherapy. Patient recently started chemotherapy October 16 for 1 cycle, has had consistently low white blood cell count and fever which was initially thought to be drug fever. Blood cultures currently pending, however are nega tive. Previous blood cultures were negative as well. Infectious diseases following and question possible cholangitis. MRCP is ordered. Patient has no abdominal pain, LFTs are not elevated, minimal elevation in total bilirubin. Unlikely we are looking at a clinical picture of ascending cholangitis. Await MRCP findings. Continue IV antibiotics per recommendations from infectious disease Current Visit: Yes Status: Acute Code(s): C25.9 - MALIGNANT NEOPLASM OF PANCREAS, UNSPECIFIED SNOMED Code(s): 835670389 (2) Fever Current Visit: Yes Status: Acute Priority: High Code(s): R50.9 - FEVER, UNSPECIFIED SNOMED Code(s): 944630698 (3) Cholecystitis Narrative/Plan: MRI concerning for cholecystitis. Biliary stent is patent. Cholecystitis can be seen secondary to biliary stent placements. Defer to general surgery and patient to undergo cholecystectomy today. Current Visit: Yes Status: Acute Code(s): K81.9 - CHOLECYSTITIS, UNSPECIFIED SNOMED Code(s): 69441968 Plan: 1. Continue symptomatic and supportive care 2. Liver MRI reviewed, no concerns for biliary stent patency 3. Continue with recommendations from general surgery 4. Continue with recommendations from oncology 5. No further workup indicated by gastroenterology Thank you for this consultation, we will sign off at this time. Dr. Kalpesh Ho I agree with the dictator's note, documented as a scribe by Elizabeth Garza.
--- NOTE | 2023-11-06 16:09 | P.PN ---
Subjective Progress Note Date: 11/06/23 This is a pleasant 73-year-old female with medical history significant for stage IIb pancreatic cancer currently undergoing chemotherapy,, DVT, thrombophlebitis maintained on Eliquis, former smoker, anxiety depression. Patient currently follows up with Dr. Tellez in the office locally and also Dr. Quinones out of [facility]. She had chemotherapy at Dr. Callahan office on Friday. She reports that over the weekend she is felt febrile on and off and came to the ER for further evaluation. She denies shortness of breath she denies chest pain. Denies cough she has not had any sick contacts. She does report feeling nausea but feels that this may be from the chemotherapy. She has not been having any vomiting or diarrhea. Patient was discharged from the hospital on October 30, 2023 she was admitted for fever and bodyaches and underwent extensive infectious workup which was negative. Chest x-ray on admission shows no acute cardiopulmonary disease. Elevated white blood cell count of 14.7 on admission with a platelet count of 633. Hemoglobin 11.7. She had a lactic acid level of 3.9. Bilirubin AST ALT alk phos are elevated. Her urinalysis is negative for infection. Her viral panel is negative for influenza negative for RSV and negative for COVID. She was admitted to the hospital for a fever of unknown origin this could also be a neutropenic fever. She was placed on empiric antib iotic coverage with a consult placed to ID and oncology. 11/03/2023 Patient is evaluated in follow up today. Patient up ambulating in the room. No acute complaints besides continued fever. Tmax overnight 101.4. Patient does have history of biliary stent discussion with ID there is concerns for cho langitis. Patient remains on IV antibiotics and cultures are currently pending. Due to the continued fever; patient has been recommended to undergo MRCP for further evaluation. ID and oncology following. Next treatment is planned for . Procalcitonin level 0.15. White blood cell count 10.33. Hemoglobin 9.0. Total bilirubin 2.0. AST ALT normal, alk phos 156. CRP 11.20 up from 3.8 11/04/2023 Patient evaluated today resting in bed on the medical floor. She is anxious for discharge as she has treatment scheduled for this upcoming . Patient remains febrile 1001. over night. Continues on IV cefepime with concern for acute cholangitis. ID following and also GI will be consulted. Patient is scheduled to undergo MRCP today. She is not having any nausea, vomiting or diarrhea. Denying abdominal pain. White blood cell count is 7.51, hgb 9.3. Sodium 134, BUN 11.9, creatinine 0.4. Total bilirubin 1.9. alk phos 152. 11/05/2023 Patient is evaluated today resting in bed. She continues to report mild left- sided abdominal discomfort. She is not having any nausea vomiting or diarrhea. Patient underwent MRCP which does show findings of acute cholecystitis with an abdominal wall abscess. General surgery was consulted for further evaluation and recommending to take patient for a cholecystectomy tomorrow 0 08/2023. Patient remains on IV antibiotics in the form of IV cefepime as well as IV Flagyl. Blood work reveals white blood cell count of 6.47, hemoglobin 8.8, sodium 138, BUN of 12.5, creatinine 0.4, total bilirubin of 1.8 AST and ALT are normal. 11/06/2023 Patient evaluated today sitting up in the bed. She has no complaints of abdominal pain nausea or vomiting. She does have mild tenderness in the left upper quadrant with palpation. Her fever has improved since admission. She does continue on a course of antibiotics with IV cefepime and IV Flagyl. Patient is scheduled to undergo laparoscopic cholecystectomy today with Dr. Arita. Potassium of 3.4 today which was supplemented prior to surgery. White blood cell count has normalized and is currently at 4.96, hemoglobin stable at 9.4. Review of Systems Constitutional: Denied any fatigue Reports fever. Cardio vascular: denied any chest pain, palpitations Gastrointestinal: denied any nausea, vomiting, diarrhea Pulmonary: Denied any shortness of breath cough Neurologic denied any new focal deficits All inpatient medications were reviewed and appropriate changes in these medications as dictated in the interval history and assessment and plan. PHYSICAL EXAMINATION: GENERAL: The patient is alert and oriented x3, not in any acute distress. Well developed, well nourished. HEENT: Pupils are round and equally reacting to light. EOMI. No scleral icterus. No conjunctival pallor. Normocephalic, atraumatic. No pharyngeal erythema. No thyromegaly. CARDIOVASCULAR: S1 and S2 present. No murmurs, rubs, or gallops. PULMONARY: Chest is clear to auscultation, no wheezing or crackles. ABDOMEN: Soft, nontender, nondistended, normoactive bowel sounds. No palpable organomegaly. MUSCULOSKELETAL: No joint swelling or deformity. EXTREMITIES: No cyanosis, clubbing, or pedal edema. NEUROLOGICAL: Gross neurological examination did not reveal any focal deficits. SKIN: No rashes. Assessment and Plan -Fever concern for sepsis patient has lactic acidosis this is due to acute cholecystitis with mural wall fluid collection concerning for abscess formation. Is scheduled to undergo laparoscopic cholecystectomy today. -Hx of biliary stent which is found to be patent on MRI and no concern for chol angitis. -Pancreatic adenocarcinoma stage IIb currently undergoing chemotherapy completed cycle 1 day 15 on October 30 -Hyperbilirubinemia with transaminitis improving, this is due to cholecystitis -History of DVT/PE anticoagulated with Eliquis course was held preoperatively and will be continued after gallbladder removal when cleared by the surgeon. -Mild protein calorie malnutrition continue with ensures protein supplementation with meals GI prophylaxis DVT prophylaxis Full code Patient will be continued on empiric antibiotics. ID and oncology consultation in place. Cultures pending. Patient scheduled to undergo laproscopic cholecystectomy today. Eliquis is currently being held. Recommend to resume the eliquis as soon as possible after surgery when cleared by surgeon. Oncology fo llowing closely. The impression and plan of care has been dictated by Kanika Smith Nurse Practitioner as directed. Dr. Diana MD I have performed a history and physical examination and medical decision making of this patient, discussed the same with the dictator, and agree with the dictators assessment and plan as written, documented as a scribe. Based on total visit time, I have performed more than 50% of this visit. Objective - Vital Signs Vital signs: Vital Signs Temp 97.9 F 11/06/23 10:49 Pulse 76 11/06/23 10:49 Resp 16 11/06/23 10:49 BP 114/76 11/06/23 10:49 Pulse Ox 99 11/06/23 10:49 FiO2 Intake & Output 11/05/23 11/06/23 11/06/23 18:59 06:59 18:59 Intake Total 1620 600 Output Total 25 Balance 1620 575 Intake: IV 600 Oral 1620 Output: Estimated Blood Loss 25 Other: Voiding Method Toilet Toilet # Voids 2 - Labs CBC & Chem 7: 11/06/23 05:23 11/06/23 05:23 Labs: Abnormal Lab Results - Last 24 Hours (Table) 11/06/23 11/06/23 Range/Units 05:23 05:23 RBC 2.86 L (4.10-5.20) X 10*6/uL Hgb 9.4 L (12.0-15.0) g/dL Hct 28.2 L (37.2-46.3) % MCV 98.6 H (80.0-97.0) FL MCH 32.9 H (27.0-32.0) pg RDW 16.6 H (11.5-14.5) % Immature Gran # 0.21 H (0.00-0.04) X 10*3/uL Potassium 3.4 L (3.5-5.5) mmol/L Creatinine 0.4 L (0.6-1.5) mg/dL BUN/Creatinine Ratio 24.25 H (12.00-20.00) Ratio Calcium 8.0 L (8.7-10.3) mg/dL Total Bilirubin 1.6 H (0.3-1.2) mg/dL Alkaline Phosphatase 137 H (41-126) U/L Total Protein 4.8 L (6.2-8.2) g/dL Albumin 2.7 L (3.8-4.9) g/dL Albumin/Globulin Ratio 1.29 L (1.60-3.17) Ratio Assessment and Plan Time with Patient: Less than 30
[2023-11-06] MEDS: HYDROmorphone 1 MG/ML 1 ML SYRINGE IVP PRN (16:37)
[2023-11-06] MEDS: LACTATED RINGERS 1,000 ML IV SCH (16:57)
--- NOTE | 2023-11-06 17:12 | P.PN ---
Subjective Progress Note Date: 11/06/23 Principal diagnosis: fever, pancreatic adenocarcinoma In follow-up today patient has no new complaints to report, Tmax overnight 99.8, she is anxious to have her gallbladder removed. Objective - Vital Signs Vital signs: Vital Signs Temp 98.2 F 11/06/23 08:43 Pulse 73 11/06/23 08:43 Resp 17 11/06/23 08:43 BP 106/67 11/06/23 08:43 Pulse Ox 98 11/06/23 08:43 FiO2 Intake & Output 11/05/23 11/06/23 11/06/23 18:59 06:59 18:59 Intake Total 1620 Balance 1620 Intake: Oral 1620 Other: Voiding Method Toilet # Voids 2 - Constitutional General appearance: Present: cooperative, no acute distress, thin - EENT Eyes: Present: anicteric sclerae, EOMI ENT: Present: hearing grossly normal - Respiratory Details: resp even and unlabored - Cardiovascular Details: skin warm and dry to touch - Peripheral edema leg Peripheral Edema: bilateral: None - Integumentary Integumentary: Present: normal - Neurologic Neurologic: Present: CNII-XII intact - Musculoskeletal Musculoskeletal: Present: strength equal bilaterally - Psychiatric Psychiatric: Present: A&O x's 3, appropriate affect, intact judgment & insight - Labs CBC & Chem 7: 11/06/23 05:23 11/06/23 05:23 Labs: Abnormal Lab Results - Last 24 Hours (Table) 11/05/23 11/05/23 11/06/23 Range/Units 06:39 06:39 05:23 RBC 2.69 L 2.86 L (4.10-5.20) X 10*6/uL Hgb 8.8 L 9.4 L (12.0-15.0) g/dL Hct 27.3 L 28.2 L (37.2-46.3) % MCV 101.5 H 98.6 H (80.0-97.0) FL MCH 32.7 H 32.9 H (27.0-32.0) pg RDW 17.1 H 16.6 H (11.5-14.5) % Immature Gran # 0.20 H 0.21 H (0.00-0.04) X 10*3/uL Monocytes # 1.14 H (0.20-1.00) X 10*3/uL Potassium (3.5-5.5) mmol/L Creatinine 0.4 L (0.6-1.5) mg/dL BUN/Creatinine Ratio 31.25 H (12.00-20.00) Ratio Calcium 8.2 L (8.7-10.3) mg/dL Total Bilirubin 1.8 H (0.3-1.2) mg/dL Alkaline Phosphatase 142 H (41-126) U/L Total Protein 4.7 L (6.2-8.2) g/dL Albumin 2.7 L (3.8-4.9) g/dL Albumin/Globulin Ratio 1.35 L (1.60-3.17) Ratio // Range/Units 05:23 RBC (4.10-5.20) X 10*6/uL Hgb (12.0-15.0) g/dL Hct (37.2-46.3) % MCV (80.0-97.0) FL MCH (27.0-32.0) pg RDW (11.5-14.5) % Immature Gran # (0.00-0.04) X 10*3/uL Monocytes # (0.20-1.00) X 10*3/uL Potassium 3.4 L (3.5-5.5) mmol/L Creatinine 0.4 L (0.6-1.5) mg/dL BUN/Creatinine Ratio 24.25 H (12.00-20.00) Ratio Calcium 8.0 L (8.7-10.3) mg/dL Total Bilirubin 1.6 H (0.3-1.2) mg/dL Alkaline Phosphatase 137 H (41-126) U/L Total Protein 4.8 L (6.2-8.2) g/dL Albumin 2.7 L (3.8-4.9) g/dL Albumin/Globulin Ratio 1.29 L (1.60-3.17) Ratio Assessment and Plan (1) Fever Current Visit: Yes Status: Acute Priority: High Code(s): R50.9 - FEVER, UNSPECIFIED SNOMED Code(s): 791910267 (2) Pancreatic adenocarcinoma Current Visit: No Status: Acute Priority: Medium Code(s): C25.9 - MALIGNANT NEOPLASM OF PANCREAS, UNSPECIFIED SNOMED Code(s): 303227008 Plan: Fever - 99.8 overnight -MRCP impression was findings concerning for acute cholecystitis and cholelithiasis, gallbladder wall thickening with adjacent inflammation. Mural wall fluid collection possibly an abscess, pancreatic head mass with upstream dilation of the pancreatic duct biliary stent in place which limits evaluation. Suspect this may be the cause of patient's persistent fevers -Surgery has seen patient with plans for cholecystectomy -Of note, pancreatic adenocarcinoma treatment intent is neoadjuvant, with hopes for Whipple surgery which would be curative for patient. Agree with aggressive management. -Pending pathology from cholecystectomy. Will await Infectious Disease review of the same and their recommendations for for antibiotics. Preliminary blood cultures, empiric antibiotics cont. Pancreatic adenocarcinoma -Neoadjuvant treatment. This is patient's third admit in the last 3 weeks. She has only received cycle 1, day 1 of neoadjuvant treatment. -Received G-CSF on Friday for persistent low WBC post chemo. -WBC is 4.9 today-in normal range s/p 1 dose of short acting GCSF given on 10/30. No additional GCSF at this time. -Plan is to change frequency of treatment to every other week instead of 3 weeks in a row. Possibly addition of G-CSF. -Pending surgery. Based on complexity of surgery, healing time and any antibiotic therapy, this will determine when treatment resumes. Doctor attests: I performed a history and physical examination of this patient, developed impression and plan of care. Discussed with dictator. I agree with dictators note, documented as a scribe.
[2023-11-07 08:56] VITALS: RESP 17; TEMP 98.4
--- NOTE | 2023-11-07 09:02 | P.PN ---
Progress Note - Text Progress Note Date: 11/07/23 Patient's a well. She status post laparoscopic cholestatic. Patient had a severely inflamed gallbladder. She is minimal quite pain. On exam her vital signs stable. Abdomen soft nontender Status post laparoscopic listed. Patient will be discharged home per the medical service.
[2023-11-07 11:56] VITALS: BMI 22.1
[2023-11-07 12:52] LABS: ALT 31 U/L (8-44); AST 37 U/L (13-35); Albumin 2.8 g/dL (3.8-4.9); Albumin/Globulin Ratio 1.27 Ratio (1.60-3.17); Alkaline Phosphatase 138 U/L (41-126); Blood Urea Nitrogen 7.8 mg/dL (9.0-27.0); Calcium 8.7 mg/dL (8.7-10.3); Carbon Dioxide 22.5 mmol/L (21.6-31.8); Chloride 106 mmol/L (96-109); Globulin 2.2 g/dL (1.6-3.3); Glucose 98 mg/dL (70-110); Potassium 4.1 mmol/L (3.5-5.5); Sodium 137 mmol/L (135-145); Total Bilirubin 1.8 mg/dL (0.3-1.2)
[2023-11-07 13:36] LABS: Anisocytosis Slight; Basophils # (A) 0.1 k/uL (0-0.2); Basophils % (A) 1 %; Eosinophils # (A) 0.1 k/uL (0-0.7); Eosinophils % (A) 1 %; HCT 31.2 % (34.0-46.0); HGB 10.2 gm/dL (11.4-16.0); Hypochromasia Slight; Lymphocytes # (A) 1.6 k/uL (1.0-4.8); Lymphocytes % (A) 17 %; MCH 33.2 pg (25.0-35.0); MCHC 32.8 g/dL (31.0-37.0); MCV 101.2 fL (80.0-100.0); Macrocytosis Slight; Mean Platelet Volume 9.5; Monocytes # (A) 0.6 k/uL (0-1.0); Monocytes % (A) 7 %; Neutrophils # (A) 6.9 k/uL (1.3-7.7); Neutrophils % (A) 73 %; Platelet Count 381 k/uL (150-450); Poikilocytosis Moderate; RBC 3.08 m/uL (3.80-5.40); RDW 16.8 % (11.5-15.5); WBC 9.5 k/uL (3.8-10.6)
--- NOTE | 2023-11-07 15:42 | P.PN ---
Subjective Progress Note Date: 11/07/23 Principal diagnosis: Reason for follow-up is fever Patient is a 73-year-old female with a past medical history significant for stage IIb pancreatic adenocarcinoma for the patient has been started on neoadjuvant chemotherapy did receive her first cycle patient subsequently was admitted to the hospital last week for fever patient did have extensive workup including a CT of abdominal pelvis CT shows pancreatic head mass no evidence of any abscess patient blood culture negative, patient discharged on oral Ceftin presenting back to hospital with a fever noticed to have elevated white count elevated lactic acid.patient did have MRI of her primary suspicious for acute cholecystitis and possible abscess, patient is status post laparoscopic cholecystectomy completed 11/06/2023. On today's visit that is 11/07/2023, the patient continues to be afebrile, the patient is on room air and breathing comfortably, the Pt denies having any chest pain or cough, the patient denies any further nausea vomiting or diarrhea pain to the right upper quadrant has decreased in intensity. Patient white count is 9.5, creatinine 0.4 blood culture negative Objective - Vital Signs Vital signs: Vital Signs Temp 98.4 F 11/07/23 08:03 Pulse 69 11/07/23 08:03 Resp 17 11/07/23 08:03 BP 123/83 11/07/23 08:03 Pulse Ox 99 11/07/23 08:03 FiO2 Intake & Output 11/06/23 11/07/23 11/07/23 18:59 06:59 18:59 Intake Total 2000 1200 Output Total 25 Balance 1975 1200 Weight 70 kg Intake: IV 900 Intake, IV Titration 100 1200 Amount Cefepime 2 gm In Sodium 100 100 Chloride 0.9% 100 ml @ 25 mls/hr IVPB Q8HR [facility] Rx# :[id number] Sodium Chloride 0.9% 1, 900 000 ml @ 75 mls/hr IV . [id number] [facility] Rx#:[id number] metroNIDAZOLE-NS PMX 500 200 mg In Saline 1 100ml.bag @ 100 mls/hr IVPB Q8H [facility] Rx#:[id number] Oral 1000 Output: Estimated Blood Loss 25 Other: Voiding Method Toilet Toilet Toilet # Voids 2 1 - Exam GENERAL DESCRIPTION: An elderly female lying in bed in no distress RESPIRATORY SYSTEM: Unlabored breathing , decreased breath sounds at bases HEART: S1 S2 regular rate and rhythm , ABDOMEN: Soft , no tenderness EXTREMITIES: No edema feet - Labs CBC & Chem 7: 11/07/23 12:42 11/07/23 05:33 Labs: Abnormal Lab Results - Last 24 Hours (Table) 11/07/23 Range/Units 05:33 BUN 7.8 L (9.0-27.0) mg/dL Creatinine 0.4 L (0.6-1.5) mg/dL Total Bilirubin 1.8 H (0.3-1.2) mg/dL AST 37 H (13-35) U/L Alkaline Phosphatase 138 H (41-126) U/L Total Protein 5.0 L (6.2-8.2) g/dL Albumin 2.8 L (3.8-4.9) g/dL Albumin/Globulin Ratio 1.27 L (1.60-3.17) Ratio Microbiology - Last 24 Hours (Table) 11/01/23 19:40 Blood Culture - Final Blood 11/01/23 19:25 Blood Culture - Final Blood Assessment and Plan (1) Fever Current Visit: Yes Status: Acute Priority: High Code(s): R50.9 - FEVER, UNSPECIFIED SNOMED Code(s): 692565980 (2) Cholecystitis Current Visit: Yes Status: Acute Code(s): K81.9 - CHOLECYSTITIS, UNSPECIFIED SNOMED Code(s): 15884751 Plan: 1patient presented hospital with fever and this patient with a history of stage IIb pancreatic adenocarcinoma with recent mission to hospital severe symptoms patient fever did respond to cefepime cultures were negative CT was suggestive of pancreatic head tumor patient currently do have evidence of jaundice elevated liver enzymes elevated white count concerning for possible cholangitis failing outpatient oral Ceftin therapy 2- patient did have elevated CRP and a procalcitonin level, blood culture for negative 3-patient MRI has been suggestive of cholecystitis and concern for possible abscess General surgery has been consulted, patient is status post laparoscopic cholecystectomy operative report did not mention any abscess, 4-patient has been cleared for discharge both by surgical and medicine services with a culture negative and no evidence of any abscess at surgery we will co nsider short course of oral Ceftin on discharge this was discussed with the GL[employer]ING MACHINE OPERATOR [employer] for admitting team working on discharge Dictation was produced using [employer] dictation software. please excuse any grammatical, word or spelling errors. Time with Patient: Less than 30
[2023-11-07 16:06] VITALS: BP 119/71; PULSE 93
--- NOTE | 2023-11-08 09:26 | P.PN ---
Subjective Progress Note Date: 11/07/23 Patient resting comfortably in bed. S/p cholecystectomy yesterday. Patient reports she feels a tightness in abdomen but denies abdominal pain. Denies nausea or vomiting. Hgb 10.2, plts 381,000 Objective - Vital Signs Vital signs: Vital Signs Temp 98.4 F 11/07/23 12:43 Pulse 93 11/07/23 12:43 Resp 17 11/07/23 12:43 BP 119/71 11/07/23 12:43 Pulse Ox 97 11/07/23 12:43 FiO2 Intake & Output 11/06/23 11/07/23 11/07/23 18:59 06:59 18:59 Intake Total 2000 1200 Output Total 25 Balance 1974 1199 Weight 70 kg Intake: IV 900 Intake, IV Titration 100 1200 Amount Cefepime 2 gm In Sodium 100 100 Chloride 0.9% 100 ml @ 25 mls/hr IVPB Q8HR [facility] Rx# :[id number] Sodium Chloride 0.9% 1, 900 000 ml @ 75 mls/hr IV . [id number] [facility] Rx#:[id number] metroNIDAZOLE-NS PMX 500 200 mg In Saline 1 100ml.bag @ 100 mls/hr IVPB Q8H [facility] Rx#:[id number] Oral 1000 Output: Estimated Blood Loss 25 Other: Voiding Method Toilet Toilet Toilet # Voids 2 1 - Constitutional General appearance: Present: no acute distress - EENT Eyes: Present: anicteric sclerae ENT: Present: hearing grossly normal - Respiratory Details: breathing is even and unlabored - Cardiovascular Details: skin warm and dry - Gastrointestinal General gastrointestinal: Present: soft. Absent: tenderness - Integumentary Integumentary: Absent: cyanotic - Neurologic Neurologic: Present: CNII-XII intact - Musculoskeletal Musculoskeletal: Present: strength equal bilaterally - Psychiatric Psychiatric: Present: A&O x's 3 - Labs CBC & Chem 7: 11/07/23 12:42 11/07/23 05:33 Labs: Abnormal Lab Results - Last 24 Hours (Table) 11/07/23 11/07/23 Range/Units 05:33 12:42 RBC 3.08 L (3.80-5.40) m/uL Hgb 10.2 L (11.4-16.0) gm/dL Hct 31.2 L (34.0-46.0) % MCV 101.2 H (80.0-100.0) fL RDW 16.8 H (11.5-15.5) % BUN 7.8 L (9.0-27.0) mg/dL Creatinine 0.4 L (0.6-1.5) mg/dL Total Bilirubin 1.8 H (0.3-1.2) mg/dL AST 37 H (13-35) U/L Alkaline Phosphatase 138 H (41-126) U/L Total Protein 5.0 L (6.2-8.2) g/dL Albumin 2.8 L (3.8-4.9) g/dL Albumin/Globulin Ratio 1.27 L (1.60-3.17) Ratio Microbiology - Last 24 Hours (Table) 11/01/23 19:40 Blood Culture - Final Blood 11/01/23 19:25 Blood Culture - Final Blood Assessment and Plan (1) Cholecystitis Status: Acute Priority: High Code(s): K81.9 - CHOLECYSTITIS, UNSPECIFIED SNOMED Code(s): 68247380 (2) Fever Status: Acute Priority: High Code(s): R50.9 - FEVER, UNSPECIFIED SNOMED Code(s): 360271199 (3) Pancreatic cancer Status: Acute Priority: High Code(s): C25.9 - MALIGNANT NEOPLASM OF PANCREAS, UNSPECIFIED SNOMED Code(s): 236914128 Plan: Fever - Pt now febrile -MRCP impression was findings concerning for acute cholecystitis and cholelithiasis, gallbladder wall thickening with adjacent inflammation. Mural wall fluid collection possibly an abscess, pancreatic head mass with upstream dilation of the pancreatic duct biliary stent in place which limits evaluation. Suspect this may be the cause of patient's persistent fevers -Surgery consulted. S/p cholecystectomy -Of note, pancreatic adenocarcinoma treatment intent is neoadjuvant, with hopes for Whipple surgery which would be curative for patient. Agree with aggressive management. -Pathology from cholecystectomy negative for malignancy. Will await Infectious Disease review of the same and their recommendations for for antibiotics. Blood cultures negative, antibiotics cont. Pancreatic adenocarcinoma -Neoadjuvant treatment. This is patient's third admit in the last 3 weeks. She has only received cycle 1, day 1 of neoadjuvant treatment. -Received G-CSF on Friday for persistent low WBC post chemo. -WBC is 9.5 today-in normal range s/p 1 dose of short acting GCSF given on 10/30. No additional GCSF at this time. -Plan is to change frequency of treatment to every other week instead of 3 weeks in a row. Possibly addition of G-CSF. -Based on complexity of surgery, healing time and any antibiotic therapy, this will determine when treatment resumes. Clinic f/u scheduled to reevaluate prior to resuming treatment Doctor attests: I performed a history and physical examination of this patient, developed impression and plan of care. Discussed with dictator. I agree with dictators note, documented as a scribe.
== END 2023-11-07 16:39 | disposition home or self-care (01) | DRG 854 ==
LOC: EC 16:50 → 5NMEDONC 19:24
PROVIDERS: ADMIT Internal Medicine; ATTEND Internal Medicine
PROC: 0FT44ZZ Resection of Gallbladder, Percutaneous Endoscopic Approach (ICD-10-PCS; principal; 2023-11-06 07:30)
DX: A41.9 Sepsis, unspecified organism (principal); C25.0 Malignant neoplasm of head of pancreas; E44.1 Mild protein-calorie malnutrition; K82.1 Hydrops of gallbladder; K80.01 Calculus of gallbladder with acute cholecystitis with obstruction; L02.211 Cutaneous abscess of abdominal wall; E86.0 Dehydration; D70.9 Neutropenia, unspecified; Z86.711 Personal history of pulmonary embolism; Z86.718 Personal history of other venous thrombosis and embolism; F41.9 Anxiety disorder, unspecified; K75.89 Other specified inflammatory liver diseases; R50.81 Fever presenting with conditions classified elsewhere; Z79.01 Long term (current) use of anticoagulants; Z85.07 Personal history of malignant neoplasm of pancreas; Z88.0 Allergy status to penicillin; Z90.49 Acquired absence of other specified parts of digestive tract; Z92.21 Personal history of antineoplastic chemotherapy; Z88.1 Allergy status to other antibiotic agents; Z88.8 Allergy status to other drugs, medicaments and biological substances; R11.2 Nausea with vomiting, unspecified; Z68.22 Body mass index [BMI] 22.0-22.9, adult
CPT/HCPCS: 36415; 71046; 74183; 80053; 81003; 82550; 83605; 83690; 83735; 84145; 85025; 86140; 87040; 87636; 88304; 96361; 96365; 96366; 96375; 99291

== ENCOUNTER 2025-01-28 10:53 | Emergency (ER) | payer MEDICARE, OTHER ==
[2025-01-28 11:06] VITALS: BP 149/88; PULSE 80; RESP 20; TEMP 98.5
--- NOTE | 2025-01-28 12:05 | ED ---
Skin/Abscess/FB HPI - General Chief complaint: Skin/Abscess/Foreign Body Stated complaint: Urogenital Time Seen by Provider: 01/28/25 11:10 Source: patient, RN notes reviewed Mode of arrival: ambulatory Limitations: no limitations - History of Present Illness Initial comments: 74-year-old female presents emergency room with complaints of a probable abscess to her rectal region. Patient states that she began to feel pain and felt a palpable bump about 3 days ago however this area is continued to increase in size. She states that earlier today she was at there was minimal drainage from the area. She denies fevers, chills, nausea, vomiting. States that she has mild tenderness with defecation as this irritates the surrounding area. Denies recent antibiotic use. Denies history of pilonidal abscess or rectal-anal fistulas. - Related Data Home Medications Medication Instructions Recorded Confirmed Apixaban [Eliquis] 5 mg PO BID 10/20/23 11/01/23 Gemzar 200mg 200 mg IV DIRECTED 10/20/23 11/01/23 Magnesium Oxide [Magox 400] 400 mg PO DAILY 10/20/23 11/01/23 OLANZapine [ZyPREXA] 2.5 - 5 mg PO HS 10/20/23 11/01/23 Ondansetron [Zofran] 4 - 8 mg PO Q4-6H PRN 10/20/23 11/01/23 PACLitaxeL protein-bound 1 mg IV DIRECTED 10/20/23 11/01/23 ursodioL [Ursodiol] 300 mg PO BID 10/20/23 11/01/23 Nivestym 480 mcg INJ DAILY 11/03/23 11/03/23 Previous Rx's Medication Instructions Recorded Acetaminophen Tab [Tylenol] 650 mg PO Q6HR PRN tab 11/07/23 cefuroxime axetiL [Ceftin] 500 mg PO BID 7 Days #14 tab 11/07/23 Cephalexin [Keflex] 500 mg PO Q6HR #40 cap 01/28/25 Sulfamethox-Tmp 800-160Mg [Bactrim 1 each PO Q12HR #20 tab 01/28/25 Ds] Allergies Allergy/AdvReac Type Severity Reaction Status Date / Time amoxicillin Allergy Rash/Hives Verified 01/28/25 11:06 clavulanic acid Allergy Rash/Hives Verified 01/28/25 11:06 [From Augmentin] Review of Systems ROS Statement: Those systems with pertinent positive or pertinent negative responses have been documented in the HPI. ROS Other: All systems not noted in ROS Statement are negative. Past Medical History Past Medical History: Cancer, Deep Vein Thrombosis (DVT) Additional Past Medical History / Comment(s): 12/12/21 L leg superficial DVT/thrombophlemitis/PCP treated for cellulitis, bilateral feet cramping/n umbness/L foot worse. pancreatic cancer dx 08/2023 with chemo treatment History of Any Multi-Drug Resistant Organisms: None Reported Past Surgical History: Tonsillectomy Additional Past Surgical History / Comment(s): skin calcification removed from under left arm Past Anesthesia/Blood Transfusion Reactions: No Reported Reaction Past Psychological History: Anxiety, Depression Smoking Status: Former smoker Past Alcohol Use History: None Reported Past Drug Use History: Marijuana - Past Family History Mother Family Medical History: No Reported History Additional Family Medical History / Comment(s): Mother was healthy Father Family Medical History: No Reported History Additional Family Medical History / Comment(s): Father was healthy. Daughter(s) Family Medical History: Deep Vein Thrombosis (DVT) General Exam Limitations: no limitations General appearance: alert, in no apparent distress ENT exam: Present: normal exam, mucous membranes moist Neck exam: Present: normal inspection. Absent: tenderness, meningismus, lymphadenopathy Respiratory exam: Present: normal lung sounds bilaterally. Absent: respiratory distress, wheezes, rales, rhonchi, stridor Cardiovascular Exam: Present: regular rate, normal rhythm, normal heart sounds. Absent: systolic murmur, diastolic murmur, rubs, gallop, clicks GI/Abdominal exam: Present: soft, normal bowel sounds. Absent: distended, tenderness, guarding, rebound, rigid Rectal exam: Present: normal inspection, other (abscess at the 9 oclock position lateral to the anus with no tracking) Extremities exam: Present: normal inspection, full ROM, normal capillary refill. Absent: tenderness, pedal edema, joint swelling, calf tenderness Course Vital Signs 01/28/25 11:03 Temperature 98.5 F Pulse Rate 80 Respiratory 20 Rate Blood Pressure 149/88 O2 Sat by Pulse 97 Oximetry Procedures - Incision & Drainage Consent Obtained: verbal consent Site: other (abscess) Anesthetic Used: lidocaine 1% I&D Cleaning Method: Chloroprep Scalpel Used: #11 I&D Drainage Obtained: Pus, Blood Culture Obtained?: No Patient Tolerated Procedure: well, no complications Medical Decision Making - Medical Decision Making Was pt. sent in by a medical professional or institution (HOLDEN Carrasco, BANK OFFICER, urgent care, hospital, or senior care...) When possible be specific @ -No Did you speak to anyone other than the patient for history (EMS, parent, family, police, friend...)? What history was obtained from this source @ -No Did you review nursing and triage notes (agree or disagree)? Why? @ -I reviewed and agree with nursing and triage notes Were old charts reviewed (outside hosp., previous admission, EMS record, old EKG, old radiological studies, urgent care reports/EKG's, senior care records)? Report findings @ -No old charts were reviewed Differential Diagnosis (chest pain, altered mental status, abdominal pain women, abdominal pain men, vaginal bleeding, weakness, fever, dyspnea, syncope, headache, dizziness, GI bleed, back pain, seizure, CVA, palpatations, mental health, musculoskeletal)? @ -Pilonidal abscess, abscess, anorectal fistula, this is not all-inclusive EKG interpreted by me (3pts min.). @ -None X-rays interpreted by me (1pt min.). @ -None done CT interpreted by me (1pt min.). @ -None done U/S interpreted by me (1pt. min.). @ -None done What testing was considered but not performed or refused? (CT, X-rays, U/S, labs)? Why? @ -Laboratory testing CT brain was considered but deferred. On examination there is a fluctuant 0.75 cm area consistent with an abscess with no concern for fistula formation. What meds were considered but not given or refused? Why? @ -None Did you discuss the management of the patient with other professionals (professionals i.e. HOLDEN Carrasco, BANK OFFICER, lab, RT, psych nurse, geriatric social work professor, metal mold dresser, teacher, collection officer, supportive employment case manager)? Give summary @ -No Was smoking cessation discussed for >3mins.? @ -No Was critical care preformed (if so, how long)? @ -No Were there social determinants of health that impacted care today? How? (Homelessness, low income, unemployed, alcoholism, drug addiction, transportation, low edu. Level, literacy, decrease access to med. care, assisted, rehab)? @ -No Was there de-escalation of care discussed even if they declined (Discuss DNR or withdrawal of care, Hospice)? DNR status @ -No What co-morbidities impacted this encounter? (DM, HTN, Smoking, COPD, CAD, Cancer, CVA, ARF, Chemo, Hep., AIDS, mental health diagnosis, sleep apnea, morbid obesity)? @ -None Was patient admitted / discharged? Hospital course, mention meds given and route, prescriptions, significant lab abnormalities, going to OR and other pertinent info. @ -Discharge. 74 presenting with area of pain around the rectum. There is a noted fluctuant indurated abscess that is actively draining. Area was also anesthetized with lidocaine and 11 blade scalpel was used to further relieve infection. Patient provided with Rocephin and prescription for Keflex and Bactrim. Recommend she continue warm compresses. Case discussed with Dr. Sorto Undiagnosed new problem with uncertain prognosis? @ -No Drug Therapy requiring intensive monitoring for toxicity (Heparin, Nitro, Insulin, Cardizem)? @ -No Were any procedures done? @ -No Diagnosis/symptom? @ -abscess Acute, or Chronic, or Acute on Chronic? @ -acute Uncomplicated (without systemic symptoms) or Complicated (systemic symptoms)? @ -uncomplicated Side effects of treatment? @ -No Exacerbation, Progression, or Severe Exacerbation? @ -No Poses a threat to life or bodily function? How? (Chest pain, [place], [place], pneumonia, PE, COPD, DKA, ARF, appy, cholecystitis, CVA, Diverticulitis, Homicidal, Suic idal, threat to staff... and all critical care pts) @ -No Disposition Clinical Impression: Abscess Disposition: HOME SELF-CARE Condition: Stable Instructions (If sedation given, give patient instructions): Abscess Incision and Drainage (ED) Additional Instructions: Please return to the Emergency Department if symptoms worsen or any other concerns. Prescriptions: Sulfamethox-Tmp 800-160Mg [Bactrim Ds] 1 each PO Q12HR #20 tab Cephalexin [Keflex] 500 mg PO Q6HR #40 cap Is patient prescribed a controlled substance at d/c from ED?: No Referrals: Louis Bryant MD [Primary Care Provider] - 1-2 days Time of Disposition: 12:15
[2025-01-28] MEDS: LIDOCAINE 1% INJ 10MG/ML (20 ML MDV) SQ ONE (12:33)
[2025-01-28] MEDS: cefTRIAXone 1,000 MG VIAL (IM USE) IM STA (12:35)
== END 2025-01-28 12:44 | disposition home or self-care (01) ==
LOC: EC 10:53
DX: K61.1 Rectal abscess (principal); Z87.891 Personal history of nicotine dependence; Z88.0 Allergy status to penicillin; Z88.1 Allergy status to other antibiotic agents
CPT/HCPCS: 99282; 96372; 10060; J2003; J0696